=== PATIENT | female | born 1945 | race American Indian/Alaskan Native ===

== ENCOUNTER 2016-07-27 13:41 | Inpatient (IN) | payer MEDICARE, MEDICAID ==
--- NOTE | 2016-07-27 15:08 | ED PDOC ---
Arrival/HPI - General Historian: Patient - History of Present Illness Time/Duration: 24 hours Symptom Onset: Gradual Symptom Course: Unchanged <Pasha Wakefield - Last Filed: 07/27/16 16:58> <Luigi Rajan - Last Filed: 07/27/16 17:41> - General Chief Complaint: High Blood Pressure Time Seen by Provider: 07/27/16 14:04 - History of Present Illness Narrative History of Present Illness (Text): 07/27/16 14:58 71 F with PMHx of HTN, hypothyroidism, borderline DM, and CKD presents to [facility] ED from PMD with complaints of high BP and le swelling. Pt states she went to her PMD for a checkup, however was found to have a BP of 180/105 and worsening swelling of b/l LE however with a pronounced swelling of the left LE. Pt is compliant with her medications, and took an extra dose of Coreg at 1pm after her PMD visit prior to arriving at [facility]. Pt has extensive surgeries to the rt LE and has been swollen at baseline after the procedures. Both LE are swollen and tender to the touch. Pt noted that she becomes sob upon exertion, which the pt states she has been experiencing for a long time, and is not a new symptom. Pt ambulates by walker and can walk approx 1 block before becoming sob. Pt currently denied fever, chills, sob, chest pains, palpitations, abdominal pains , n/v/d/c or urinary symptoms. PMD: Dr. Harris (Pasha Wakefield) Past Medical History - Infectious Disease Hx of Infectious Diseases: None - Tetanus Immunization Tetanus Immunization: Unknown - Reproductive Menopause: Yes - Cardiac Hx Hypertension: Yes - Pulmonary Hx Respiratory Disorders: No - Neurological Hx Neurological Disorder: No - Renal Other/Comment: kidney damage ? - Endocrine/Metabolic Hx Diabetes Mellitus Type 2: Yes (boarderline) Hx Hypothyroidism: (thyroidsurgery) - Hematological/Oncological Hx Anemia: Yes - Integumentary Hx Dermatological Disorder: No - Musculoskeletal/Rheumatological Hx Falls: No - Genitourinary/Gynecological Hx Genitourinary Disorders: No - Psychiatric Hx Psychophysiologic Disorder: No Hx Substance Use: No - Surgical History Hx Orthopedic Surgery: Yes (multiple knee surgeries) - Anesthesia Hx Anesthesia: Yes Hx Anesthesia Reactions: Yes - Suicidal Assessment Feels Threatened In Home Enviroment: No <Pasha Wakefield - Last Filed: 07/27/16 16:58> Family/Social History Family/Social History: Diabetes, Hypertension, CAD/OR Smoking Status: Never Smoked Hx Alcohol Use: No Hx Substance Use: No <Pasha Wakefield - Last Filed: 07/27/16 16:58> Allergies/Home Meds <Pasha Wakefield - Last Filed: 07/27/16 16:58> <Asa Rajano Ulysses - Last Filed: 07/27/16 17:41> Allergies/Adverse Reactions: Allergies acetaminophen [From Percocet] Allergy (Verified 07/27/16 13:51) RASH oxycodone HCl [From Percocet] Allergy (Verified 07/27/16 13:51) RASH Home Medications: Home Meds Medication Instructions Recorded Confirmed Carvedilol [Coreg] 25 mg PO BID 01/09/14 07/27/16 Esomeprazole Magnesium [Nexium] 40 mg PO DAILY 01/09/14 07/27/16 hydrALAZINE [Apresoline] 50 mg PO BID 04/18/15 07/27/16 Amlodipine Besylate/Benazepril 1 tab PO DAILY 07/27/16 07/27/16 [Lotrel 10-40 mg Capsule] Ascorbic Acid [Vitamin C 500 mg 1 tab PO DAILY 07/27/16 07/27/16 Tab] Aspirin [Aspirin Chewable] 81 mg PO DAILY 07/27/16 07/27/16 Clorazepate Dipotassium 1 tab PO BID 07/27/16 07/27/16 [Tranxene-T] Ergocalciferol (Vitamin D2) 50,000 units PO .WEEKLY 07/27/16 07/27/16 [Vitamin D] Ferrous Sulfate [Ferrous Sulfate] 325 mg PO DAILY 07/27/16 07/27/16 Levothyroxine [Synthroid] 125 mcg PO DAILY 07/27/16 07/27/16 cloNIDine 0.3 mg/24 hr 1 patch TD .WEEKLY 07/27/16 07/27/16 [catapres-TTS3 0.3 mg/24 hr] Review of Systems - Review of Systems Constitutional: absent: Fatigue, Fevers Eyes: absent: Vision Changes, Photophobia ENT: absent: Tinnitus, Sinus Congestion Respiratory: absent: SOB, Cough, Sputum, Wheezing Cardiovascular: Edema. absent: Chest Pain, Palpitations Gastrointestinal: absent: Abdominal Pain, Stool Changes, Nausea, Vomiting Genitourinary Female: absent: Dysuria, Frequency Musculoskeletal: Arthralgias, Joint Swelling (rt knee) Skin: absent: Rash, Skin Lesions Neurological: absent: Headache, Dizziness, Focal Weakness <Pasha Wakefield - Last Filed: 07/27/16 16:58> Physical Exam Temperature: Afebrile Blood Pressure: Hypertensive Pulse: Regular Respiratory Rate: Normal Appearance: Positive for: Well-Appearing, Non-Toxic, Comfortable Pain Distress: None Mental Status: Positive for: Alert and Oriented X 3 - Systems Exam Head: Present: Atraumatic Pupils: Present: PERRL Extroacular Muscles: Present: EOMI Conjunctiva: Present: Normal Mouth: Present: Moist Mucous Membranes Neck: Present: Normal Range of Motion. No: JVD Respiratory/Chest: Present: Clear to Auscultation, Good Air Exchange. No: Respiratory Distress, Accessory Muscle Use Cardiovascular: Present: Regular Rate and Rhythm, Normal S1, S2. No: Murmurs Abdomen: Present: Normal Bowel Sounds. No: Tenderness, Distention, Peritoneal Signs Lower Extremity: Present: Edema (b/l), Tenderness (b/l), Swelling (b/l) Neurological: Present: GCS=15, CN II-XII Intact, Speech Normal Skin: Present: Warm, Dry, Normal Color. No: Rashes Psychiatric: Present: Alert, Oriented x 3, Normal Insight, Normal Concentration <Pasha Wakefield - Last Filed: 07/27/16 16:58> Vital Signs Temp Pulse Resp BP Pulse Ox 07/27/16 17:03 86 148/68 07/27/16 17:00 79 18 146/76 100 07/27/16 15:25 97.7 F 82 18 182/83 H 98 07/27/16 13:46 97.7 F 82 16 182/83 H 98 Medical Decision Making <Pasha Wakefield - Last Filed: 07/27/16 16:58> - Lab Interpretations I have reviewed the lab results: Yes <Luigi Rajan - Last Filed: 07/27/16 17:41> ED Course and Treatment: 07/27/16 15:26 71 F with PMHx of HTN, borderline DM, and CKD presents with b/l LE swelling and tenderness and high BP. R/o dvt vs chf vs arf. - CBC - CMP - UA/ UCx - Venous Dopplers b/l - EKG - Reassess and Dispo 07/27/16 16:57 Pt was reassessed. Pt is clinically feeling ok with no focal deficits. However labwork reveals a cr of 4.6 from a baseline of 2 and a K of 5.3. Pt's BP remains elevated. The hospitalist was called and agreed to admitting pt to tele obs for acute on chronic renal failure, hyperkalemia and hypertensive emergency. Hospitalist agrees with plan. (Pasha Wakefield) Patient seen and examined with resident. Came up with treatment and disposition plan with resident. The patient is a 71 year old female who comes into the emergency department for evaluation of high blood pressure and lower extremity swelling. Additional HPI details as noted by the resident. On examination the patient has bilateral lower extremity edema with tenderness. Will obtain EKG, labs work and Urinalysis to rule out ACS vs. Renal disease. Will obtain lower extremity duplex ultrasound to rule out DVT. EKG shows a NSR at a rate of [address]/T changes. Ultrasound is negative for DVT. Patient lab work showed a potassium count of 5.3 and blood pressure remained elevated. Case discussed with Dr. Gupta, who is aware and agreed with plan to place patient in Telemetry observation for hypetensive emergency and acute on chronic renal failure with hyperkalemia. Results and plan was discussed with the patient, who expressed understanding. Patient given the opportunity to ask question, all questions were answered and there is agreement with the plan to be admitted to the hospital. (Luigi Rajan) - Lab Interpretations Lab Results: 07/27/16 15:30 07/27/16 15:30 Lab Results 07/27/16 15:30: WBC 7.5, RBC 3.27 L, Hgb 9.1 L, Hct 27.2 L, MCV 83.2, MCH 27.8, MCHC 33.5, RDW 13.9, Plt Count 264, MPV 9.8, Gran % 61.1, Lymph % (Auto) 31.8, [place] % (Auto) 5.1, Eos % (Auto) 1.7, Baso % (Auto) 0.3, Gran # 4.58, Lymph # 2.4 , [place] # 0.4, Eos # 0.1, Baso # 0.02, Sodium 140, Potassium 5.3 H, Chloride 112 H, Carbon Dioxide 18 L, Anion Gap 15, BUN 38 H, Creatinine 4.6 H, Est GFR ( Amer) 11, Est GFR (Non-Af Amer) 9, Random Glucose 142 H, Calcium 8.4, Total Bilirubin 0.4, AST 16, ALT 24, Alkaline Phosphatase 143 H, NT-Pro-B Natriuret Pep 528 H, Total Protein 6.5, Albumin 3.1, Globulin 3.4, Albumin/ Globulin Ratio 0.9 L - RAD Interpretation Radiology Orders: 07/27/16 15:15 DUPLEX LOWER EXTRM VEIN BILAT [US] Stat - Medication Orders Current Medication Orders: Discontinued Medications Clonidine HCl (Catapres) 0.1 mg PO ONCE ONE Stop: 07/27/16 16:56 Last Admin: 07/27/16 17:03 Dose: 0.1 MG MAR Pulse and Blood Pressure Document 07/27/16 17:03 RR (Rec: 07/27/16 17:08 RR [id number]) Pulse Pulse Rate (60-90) 86 Blood Pressure Blood Pressure (100/60-150/90) 148/68 Sodium Polystyrene Sulfonate (Kayexalate Oral Susp) 15 gm PO STAT STA Stop: 07/27/16 16:18 Last Admin: 07/27/16 16:30 Dose: 15 GM <Pasha Wakefield - Last Filed: 07/27/16 16:58> - PA / MACHINE RUG CLEANER / Resident Statement ROMULO has reviewed & agrees with the documentation as recorded. / has examined the patient and agrees with the treatment plan. - Scribe Statement The provider has reviewed the documentation as recorded by the Scribe <Luigi Rajan - Last Filed: 07/27/16 17:41> - Scribe Statement Marion Dang Provider Scribe Attestation: All medical record entries made by the Scribe were at my direction and personally dictated by me. I have reviewed the chart and agree that the record accurately reflects my personal performance of the history, physical exam, medical decision making, and the department course for this patient. I have also personally directed, reviewed, and agree with the discharge instructions and disposition. (Luigi Rajan) Disposition/Present on Arrival - Present on Arrival Any Indicators Present on Arrival: No History of DVT/PE: No History of Uncontrolled Diabetes: No Urinary Catheter: No History of Decub. Ulcer: No History Surgical Site Infection Following: None - Disposition Have Diagnosis and Disposition been Completed?: Yes Disposition Time: 17:00 Patient Plan: Observation, Telemetry <Pasha Wakefield - Last Filed: 07/27/16 16:58> <Luigi Rajan - Last Filed: 07/27/16 17:41> - Disposition Diagnosis: Acute on chronic renal failure, Hyperkalemia, Hypertensive emergency Patient Problems: Current Active Problems Problem Status Diagnosed Acute on chronic renal failure Acute Headache Acute Hyperkalemia Acute Hypertensive emergency Acute Nausea Acute Near syncope Acute Condition: GUARDED Referrals: Javier Harris MD [Primary Care Provider] - Follow up with primary
[2016-07-27 15:42] LABS: ADD MANUAL DIFF? NO
[2016-07-27 15:49] LABS: BASO # 0.02 K/mm3 (0.0-2.0); BASO % 0.3 % (0.0-3.0); EOS # 0.1 (0.0-0.7); EOS % 1.7 % (1.5-5.0); GRAN # 4.58 (1.4-6.5); GRAN % 61.1 % (50.0-68.0); HEMATOCRIT 27.2 % (36.0-48.0); LYMPH # 2.4 (1.2-3.4); LYMPH % 31.8 % (22.0-35.0); MEAN CELL VOLUME 83.2 fL (80.0-105.0); MEAN CORPUSCULAR HEMOGLOBIN 27.8 pg (25.0-35.0); MEAN CORPUSCULAR HGB CONC 33.5 g/dl (31.0-37.0); MEAN PLATELET VOLUME 9.8 fl (7.0-11.0); MONO # 0.4 (0.1-0.6); MONO % 5.1 % (1.0-6.0); PLATELET COUNT 264 10^3/uL (120.0-450.0); RED CELL DISTRIBUTION WIDTH 13.9 % (11.5-14.5); WHITE BLOOD COUNT 7.5 10^3/ul (4.5-11.0)
[2016-07-27 16:03] LABS: ALB/GLOB RATIO 0.9 (1.1-1.8); BILIRUBIN,TOTAL 0.4 mg/dL (0.2-1.3); CALCIUM 8.4 mg/dL (8.4-10.5); POTASSIUM 5.3 mmol/L (3.6-5.0); TOTAL PROTEIN 6.5 g/dL (5.8-8.3)
[2016-07-27] MEDS ORDERED: Sod Polystyrene Sulf 15 gm/60 ml Oral Susp PO STA (16:17)
--- NOTE | 2016-07-27 17:30 | US ---
HISTORY: Leg pain and swelling. Evaluate for DVT PHYSICIAN(S): Danilo Russo MD. TECHNIQUE: Duplex sonography and color-flow Doppler with graded compression were used to evaluate the deep venous systems of both lower extremities. The exam is limited by body habitus and edema. The tibial veins are not well seen. FINDINGS: The visualized deep venous systems of both lower extremities are sonographically normal and compressible. Normal wave forms and augmentation are seen. There is no sonographic evidence for deep venous thrombosis in the visualized segments of both lower extremities. IMPRESSION: No sonographic evidence for deep venous thrombosis in the visualized segments of both lower extremities.
--- NOTE | 2016-07-27 17:45 | CARD ---
APPROVED REPORT EKG Measurement Heart [id number] MD [id number] <Conclusion> Normal sinus rhythm Cannot rule out Anterior infarct, age undetermined Abnormal ECG
[2016-07-27] MEDS ORDERED: Levothyroxine 112 MCG TAB PO SCH (18:00)
[2016-07-27] MEDS ORDERED: Levothyroxine 125 MCG TAB PO ONE (18:15)
--- NOTE | 2016-07-27 19:45 | CP.PCM.HP ---
<Werner Euceda - Last Filed: 07/27/16 19:39> History of Present Illness - History of Present Illness History of Present Illness: CC: Leg swelling HPI: Patient is a 71 y/o F with past medical hx of HTN, NIDDM, hiatal hernia, hypothyroidism who presents after seeing her primary care for leg swelling that progressed for the last few weeks. She states her BP was found to be 180/105 and PCP recommended going to the ED. She says she has been taking her medications off and on because she feels she is taking too many BP medications. She states she regularly checks it and it runs in the 170's over 90 's and 100's at home. She reports developing some SOB and back pain when sleeping flat and therefor sleeps sitting upright in a chair. She reports extensive surgeries on her right knee and has some nerve pain in the posterior right calf. She says because of this, she cannot walk more than a block and develops SOB, chills, and sweats. She currently denies any fever, nausea, vomiting, back pain, chest pain, SOB, abdominal pain, diarrhea or dysuria. PMD: Dr. Harris Past med hx: HTN, NIDDM, hiatal hernia, hypothyroidism Surg hx: multiple surgeries on right knee, thyroidectomy. Family hx: parents had CAD and cancer Social hx: occasional alcohol use, denies tobacco or drug use Present on Admission - Present on Admission Any Indicators Present on Admission: No Review of Systems - Constitutional Constitutional: Chills, Excessive Sweating. absent: Fever - EENT Eyes: absent: Blurred Vision, Change in Vision Ears: absent: Decreased Hearing, Disequilibrium Nose/Mouth/Throat: absent: Hoarsness, Neck Pain, Neck Mass - Cardiovascular Cardiovascular: Dyspnea, Leg Edema. absent: Chest Pain - Respiratory Respiratory: Dyspnea, Dyspnea on Exertion. absent: Cough - Gastrointestinal Gastrointestinal: absent: Constipation, Diarrhea, Nausea, Vomiting - Genitourinary Genitourinary: absent: Dysuria - Musculoskeletal Musculoskeletal: Numbness (right calf), Stiffness (right leg) - Integumentary Integumentary: absent: Rash, Wounds - Neurological Neurological: Headaches. absent: Dizziness, Weakness - Psychiatric Psychiatric: absent: Anxiety, Depression - Endocrine Endocrine: absent: Change in Body Appearance - Hematologic/Lymphatic Hematologic: absent: Easy Bleeding Past Patient History - Infectious Disease Hx of Infectious Diseases: None - Tetanus Immunizations Tetanus Immunization: Unknown - Past Social History Smoking Status: Never Smoked - CARDIAC Hx Hypertension: Yes - PULMONARY Hx Respiratory Disorders: No - NEUROLOGICAL Hx Neurological Disorder: No - RENAL Other/Comment: kidney damage ? - ENDOCRINE/METABOLIC Hx Diabetes Mellitus Type 2: Yes (boarderline) Hx Hypothyroidism: (thyroidsurgery) - HEMATOLOGICAL/ONCOLOGICAL Hx Anemia: Yes - INTEGUMENTARY Hx Dermatological Problems: No - MUSCULOSKELETAL/RHEUMATOLOGICAL Hx Falls: No - GENITOURINARY/GYNECOLOGICAL Hx Genitourinary Disorders: No - PSYCHIATRIC Hx Psychophysiologic Disorder: No Hx Substance Use: No - SURGICAL HISTORY Hx Orthopedic Surgery: Yes (multiple knee surgeries) - ANESTHESIA Hx Anesthesia: Yes Hx Anesthesia Reactions: Yes Meds Allergies/Adverse Reactions: Allergies Allergy/AdvReac Type Severity Reaction Status Date / Time acetaminophen [From Percocet] Allergy RASH Verified 07/27/16 18:54 oxycodone HCl [From Percocet] Allergy RASH Verified 07/27/16 18:54 Physical Exam - Constitutional Appears: Non-toxic, No Acute Distress - Head Exam Head Exam: ATRAUMATIC, NORMOCEPHALIC - Eye Exam Eye Exam: Conjunctival injection, EOMI, Normal appearance, PERRL. absent: Scleral icterus Pupil Exam: NORMAL ACCOMODATION, PERRL - ENT Exam ENT Exam: Mucous Membranes Moist, Normal Oropharynx - Neck Exam Neck exam: Positive for: Normal Inspection. Negative for: Tenderness - Respiratory Exam Respiratory Exam: Clear to Auscultation Bilateral, NORMAL BREATHING PATTERN. absent: Rales, Rhonchi, Wheezes - Cardiovascular Exam Cardiovascular Exam: REGULAR RHYTHM, +S1, +S2. absent: Gallop, Rubs, Systolic Murmur - GI/Abdominal Exam GI & Abdominal Exam: Normal Bowel Sounds, Soft. absent: Distended, Guarding, Tenderness - Rectal Exam Rectal Exam: Deferred - Extremities Exam Extremities exam: Positive for: calf tenderness (right calf), pedal edema, tenderness, pedal pulses present - Back Exam Back exam: NORMAL INSPECTION. absent: CVA tenderness (L), CVA tenderness (R), tenderness - Neurological Exam Neurological exam: Alert, CN II-XII Intact, Oriented x3 - Psychiatric Exam Psychiatric exam: Normal Affect, Normal Mood - Skin Skin Exam: Dry, Intact, Warm Results - Vital Signs Recent Vital Signs: Last Vital Signs Temp 97.7 F 07/27/16 15:25 Pulse 68 07/27/16 19:22 Resp 18 07/27/16 17:00 BP 167/81 H 07/27/16 19:22 Pulse Ox 100 07/27/16 17:00 - Labs Result Diagrams: 07/27/16 15:30 07/27/16 15:30 Assessment & Plan - Assessment and Plan (Free Text) Assessment: Patient is a 71 y/o AA F with PMhx of HTN, NIDDM, hiatal hernia, hypothyroidism who presents with hypertensive urgency, hyperkalemia, and acute on chronic kidney disease. Plan: 1) HTN * Cardiology consulted, help appreciated * BP intially 182/83 * Initial EKG showed NSR @78 and old anterior infarct * Likely due to non-compliance as pharmacy states medications not all picked up recently * Resume home Coreg, Clonidine, Hydralazine, and Imdur * admit to telemetry floor. * F/U Lipid panel 2) Edema * BNP elevated at 528 * LE doppler showed no evidence of DVT * echocardiogram ordered 3) SARAH * Initial BUN 38, Creatinine 4.6 * Previous BUN 34, creatinine 2.3 * Nephrology consulted, help appreciated * F/U renal untrasounds * F/U urinalysis 4) NIDDM, * ISS and regular accuchecks * F/U A1C * Dietitian referal * renal diet 5) hypothyroidism * F/U TSH and T4 6) electrolyte abnormalitiy * Potassium elevated at 5.3 * Given kaylexalate and had 2 BM * F/U repeat CMP 7) PPx * Heparin SC * Protonix * SCD's contraindicated due to swelling Assessment and plan discussed with attending physician. <Montrell Gupta - Last Filed: 07/28/16 15:28> Results - Vital Signs Recent Vital Signs: Last Vital Signs Temp 98.2 F 07/28/16 12:00 Pulse 67 07/28/16 12:00 Resp 20 07/28/16 12:00 BP 144/75 07/28/16 12:33 Pulse Ox 98 07/28/16 06:00 - Labs Result Diagrams: 07/28/16 07:30 07/28/16 07:30 Labs: Laboratory Results - last 24 hr 07/27/16 07/27/16 07/28/16 18:24 21:58 06:40 WBC RBC Hgb Hct MCV MCH MCHC RDW Plt Count MPV Gran % Lymph % (Auto) [place] % (Auto) Eos % (Auto) Baso % (Auto) Gran # Lymph # [place] # Eos # Baso # PT INR APTT Sodium Potassium Chloride Carbon Dioxide Anion Gap BUN Creatinine Est GFR ( Amer) Est GFR (Non-Af Amer) POC Glucose (mg/dL) 147 H 129 H Random Glucose Hemoglobin A1c Calcium Phosphorus Iron TIBC % Saturation Total Bilirubin AST ALT Alkaline Phosphatase Troponin I Total Protein Albumin Globulin Albumin/Globulin Ratio Triglycerides Cholesterol LDL Cholesterol Direct HDL Cholesterol TSH 3rd Generation Urine Color Yellow Urine Appearance Sl cloudy Urine pH 6.0 Ur Specific [place] 1.025 Urine Protein >=300 H Urine Glucose (UA) 100 H Urine Ketones Negative Urine Blood Moderate H Urine Nitrate Negative Urine Bilirubin Negative Urine Urobilinogen 0.2 Ur Leukocyte Esterase Negative Urine RBC 2 - 5 Urine WBC 1 - 3 Ur Epithelial Cells 4 - 5 Urine Bacteria Trace 07/28/16 07/28/16 07/28/16 07:30 07:37 08:40 WBC 6.9 RBC 2.90 L Hgb 8.1 L Hct 24.1 L MCV 83.1 MCH 27.9 MCHC 33.6 RDW 14.2 Plt Count 227 MPV 9.9 Gran % 55.9 Lymph % (Auto) 37.2 H [place] % (Auto) 4.4 Eos % (Auto) 2.2 Baso % (Auto) 0.3 Gran # 3.83 Lymph # 2.6 [place] # 0.3 Eos # 0.2 Baso # 0.02 PT 11.3 INR 1.05 APTT 31.0 H Sodium 140 Potassium 4.9 Chloride 113 H Carbon Dioxide 20 L Anion Gap 12 BUN 36 H Creatinine 4.8 H Est GFR ( Amer) 11 Est GFR (Non-Af Amer) 9 POC Glucose (mg/dL) 97 Random Glucose 88 Hemoglobin A1c 6.6 H Calcium 8.2 L Phosphorus Iron TIBC % Saturation Total Bilirubin 0.4 AST 17 ALT 27 Alkaline Phosphatase 133 Troponin I Total Protein 6.4 Albumin 3.0 Globulin 3.4 Albumin/Globulin Ratio 0.9 L Triglycerides 145 Cholesterol 243 H LDL Cholesterol Direct 116 HDL Cholesterol 47 TSH 3rd Generation 49.60 H Urine Color Urine Appearance Urine pH Ur Specific [place] Urine Protein Urine Glucose (UA) Urine Ketones Urine Blood Urine Nitrate Urine Bilirubin Urine Urobilinogen Ur Leukocyte Esterase Urine RBC Urine WBC Ur Epithelial Cells Urine Bacteria 07/28/16 07/28/16 09:30 09:40 WBC RBC Hgb Hct MCV MCH MCHC RDW Plt Count MPV Gran % Lymph % (Auto) [place] % (Auto) Eos % (Auto) Baso % (Auto) Gran # Lymph # [place] # Eos # Baso # PT INR APTT Sodium Potassium Chloride Carbon Dioxide Anion Gap BUN Creatinine Est GFR ( Amer) Est GFR (Non-Af Amer) POC Glucose (mg/dL) Random Glucose Hemoglobin A1c Calcium Phosphorus 4.7 H Iron 54 TIBC 293 % Saturation 18 L Total Bilirubin AST ALT Alkaline Phosphatase Troponin I < 0.01 Total Protein Albumin Globulin Albumin/Globulin Ratio Triglycerides Cholesterol LDL Cholesterol Direct HDL Cholesterol TSH 3rd Generation Urine Color Urine Appearance Urine pH Ur Specific [place] Urine Protein Urine Glucose (UA) Urine Ketones Urine Blood Urine Nitrate Urine Bilirubin Urine Urobilinogen Ur Leukocyte Esterase Urine RBC Urine WBC Ur Epithelial Cells Urine Bacteria Assessment & Plan - Assessment and Plan (Free Text) Assessment: attending note; Patient seen and examined with resident in ER. Patient is a 71 y/o Female with past medical hx of HTN, NIDDM, hiatal hernia, hypothyroidism who presents after seeing her primary care for leg swelling that progressed for the last few weeks. She states her BP was found to be 180/105 and PCP recommended going to the ED. uncontrolled hypertension; patient stopped some of her blood pressure medication on her own. Believed that they are causing her kidney function to get worse. also started on a diet by herself to control BP meds. diabetes; patient also stopped taking medications. hypothyroidism; started on Synthroid. Patient was not taking medications regularly. acute on Chronic kidney disease; Creatinine was 2.3 in 2014 increased to 4.6 today. Did not follow up with through operator as recommended. edema; Doppler is negative for DVT. started on lasix. multiple R leg surgeries. PT evaluation requested. Cardiology and nephrology evaluation requested. Diet, medication compliance insisted. upon discharge the patient will follow-up with PMD . Attending/Attestation - Attestation I have personally seen and examined this patient.: Yes I have fully participated in the care of the patient.: Yes I have reviewed all pertinent clinical information: Yes
[2016-07-27 21:17] VITALS: BMI 33.7
[2016-07-27] MEDS ORDERED: Pneumococcal 23-Valent Vaccine IM ONE (21:18)
[2016-07-27] MEDS: Insulin Reg-LOW-Coverage SC SCH (22:35)
[2016-07-28] MEDS: Pantoprazole 40 mg EC Tab PO SCH ×2 (06:33→08:12)
[2016-07-28 07:17] LABS: URINE BILIRUBIN NEGATIVE (NEGATIVE); URINE BLOOD MODERATE (NEGATIVE); URINE GLUCOSE (UA) 100 mg/dL (NEGATIVE); URINE KETONE NEGATIVE (NEGATIVE); URINE LEUKOCYTE ESTERASE NEGATIVE Leu/uL (NEGATIVE); URINE PROTEIN >=300 mg/dL (<30 mg/dL); URINE UROBILINOGEN 0.2 E.U./dL (<1 E.U./dL)
[2016-07-28 07:21] LABS: URINE APPEARANCE SL CLOUDY (CLEAR); URINE COLOR YELLOW (YELLOW)
[2016-07-28] MEDS ORDERED: Levothyroxine 125 MCG TAB PO SCH (07:30)
[2016-07-28 07:32] LABS: URINE BACTERIA TRACE (NEG)
[2016-07-28 07:41] LABS: ADD MANUAL DIFF? NO
[2016-07-28 07:47] LABS: BASO # 0.02 K/mm3 (0.0-2.0); BASO % 0.3 % (0.0-3.0); EOS # 0.2 (0.0-0.7); EOS % 2.2 % (1.5-5.0); GRAN # 3.83 (1.4-6.5); GRAN % 55.9 % (50.0-68.0); HEMATOCRIT 24.1 % (36.0-48.0); LYMPH # 2.6 (1.2-3.4); LYMPH % 37.2 % (22.0-35.0); MEAN CELL VOLUME 83.1 fL (80.0-105.0); MEAN CORPUSCULAR HEMOGLOBIN 27.9 pg (25.0-35.0); MEAN CORPUSCULAR HGB CONC 33.6 g/dl (31.0-37.0); MEAN PLATELET VOLUME 9.9 fl (7.0-11.0); MONO # 0.3 (0.1-0.6); MONO % 4.4 % (1.0-6.0); PLATELET COUNT 227 10^3/uL (120.0-450.0); RED CELL DISTRIBUTION WIDTH 14.2 % (11.5-14.5); WHITE BLOOD COUNT 6.9 10^3/ul (4.5-11.0)
[2016-07-28 07:56] LABS: ALB/GLOB RATIO 0.9 (1.1-1.8); BILIRUBIN,TOTAL 0.4 mg/dL (0.2-1.3); CALCIUM 8.2 mg/dL (8.4-10.5); POTASSIUM 4.9 mmol/L (3.6-5.0); TOTAL PROTEIN 6.4 g/dL (5.8-8.3)
[2016-07-28] MEDS: Insulin Reg-LOW-Coverage SC SCH ×4 (07:57→22:06)
[2016-07-28 07:59] LABS: INR 1.05 (0.93-1.08)
--- NOTE | 2016-07-28 08:52 | US ---
PROCEDURE: Ultrasound of the Kidneys HISTORY: ckd COMPARISON: Renal duplex ultrasound performed 04/19/15 TECHNIQUE: Sonogram of the kidneys. FINDINGS: RIGHT KIDNEY: Measures: 11.5 x 4.8 x 6.0 cm. Echogenic renal parenchyma. No obstructing calculus or hydronephrosis identified. LEFT KIDNEY: Measures: 11.9 x 3.8 x 5.2 cm. No obstructing calculus or hydronephrosis identified. OTHER FINDINGS: None. IMPRESSION: Echogenic right renal parenchyma may be seen in the setting of medical renal disease.
--- NOTE | 2016-07-28 11:52 | US ---
PROCEDURE: Bilateral renal artery duplex ultrasound. CLINICAL HISTORY: Renal artery stenosis. Uncontrolled hypertension. Evaluate for renovascular hypertension. PHYSICIAN(S): Danilo Russo M.D. TECHNIQUE: Duplex sonography with color-flow Doppler was used to evaluate the visualized segments of the main renal arteries. The patient was evaluated in a fasting state. Imaging in a supine and decubitus position was performed. Limited evaluation of the arcuate waveforms and resistive indices were performed. FINDINGS: The study is limited by bowel gas. The right kidney is atrophic and echogenic. The left kidney is hypertrophied with normal echotexture. The right kidney measures 8.1cm in length and the left kidney measures 11.6cm in length. No solid renal masses, abnormal calcifications, or hydronephrosis is seen. The main right renal artery is only visualized in segments from the aorta to the hilum. The peak systolic velocity in the right main renal artery is 74 cm/sec. This is consistent with a 0 to 49% stenosis in the main right renal artery. The resistive index is elevated. The main left renal artery is also only visualized in segments from its origin to the renal hilum. The peak systolic velocity in the main left renal artery is 89 cm/sec. This corresponds to a 0 to 49% stenosis in the main left renal artery. The resistive index is elevated. IMPRESSION: 1. The main renal arteries only visualized in segments. 2. No sonographically significant stenosis is identified, but the study is limited. 3. The right kidney is atrophic and echogenic. There are no solid renal masses, abnormal calcifications or hydronephrosis noted.
[2016-07-28] MEDS ORDERED: Darbepoetin Alfa 60 mcg/ml Inj SC ONE (13:11)
[2016-07-28 13:52] LABS: PHOSPHOROUS 4.7 mg/dL (2.5-4.5)
[2016-07-28 13:59] LABS: IRON 54 ug/dL (45-180)
--- NOTE | 2016-07-28 14:06 | CARD ---
APPROVED REPORT EXAM: Two-dimensional and M-mode echocardiogram with Doppler and color Doppler. INDICATION LVFX 2D DIMENSIONS Left Atrium (2D)4.7 (1.6-4.0cm)IVSd1.4 (0.7-1.1cm) LVDd4.9 (3.9-5.9cm)PWd1.4 (0.7-1.1cm) LVDs3.1 (2.5-4.0cm)FS (%) 36.1 % LVEF (%)65.5 (>50%) M-Mode DIMENSIONS Aortic Root3.60 (2.2-3.7cm)Aortic Cusp Exc.1.90 (1.5-2.0cm) Aortic Valve AoV Peak Brssxcnu932.0cm/Summer Peak GR.14mmHg Mitral Valve MV E Apbvsdqa39.7cm/sMV A Shfqkfqg681.0cm/sE/A ratio0.9 TDI Lateral E' Peak V7.02cm/sMedial E' Peak V4.58cm/sE/Lateral E'14.1 E/Medial E'21.6 Pulmonary Valve PV Peak Gqxhftlo601.0cm/sPV Peak Grad.4mmHg Tricuspid Valve TR Peak Doztudua275hk/sRAP [id number] Peak Gr.20mmHg IQEO80utOp LEFT VENTRICLE The left ventricle is normal size. There is mild to moderate concentric left ventricular hypertrophy. The left ventricular function is normal. The left ventricular ejection fraction is within the normal range. Transmitral Doppler flow pattern is Grade I-abnormal relaxation pattern. RIGHT VENTRICLE The right ventricle is normal size. There is normal right ventricular wall thickness. The right ventricular systolic function is normal. ATRIA The left atrium is borderline dilated. The right atrium size is normal. AORTIC VALVE The aortic valve is normal in structure. No aortic regurgitation is present. MITRAL VALVE There is no mitral valve regurgitation noted. TRICUSPID VALVE There is trace tricuspid regurgitation. GREAT VESSELS The aortic root is normal in size. PERICARDIAL EFFUSION There is a small circumferential pericardial effusion. There is an evidence of diastolic compression of the right atrium pericardial effusion. <Conclusion> The left ventricle is normal size. There is mild to moderate concentric left ventricular hypertrophy. The left ventricular function is normal. The left ventricular ejection fraction is within the normal range. Transmitral Doppler flow pattern is Grade I-abnormal relaxation pattern. There is a small circumferential pericardial effusion. There is an evidence of diastolic compression of the right atrium pericardial effusion.
--- NOTE | 2016-07-28 14:20 | CON ---
DATE: 07/28/2016 REASON FOR CONSULTATION: Accelerated hypertension, acute kidney injury. HISTORY OF PRESENTING ILLNESS: A 71-year-old lady, previously unknown to me, was brought to the [facility] Room yesterday because of severe hypertension found in the PMD's office. The patient presented to the PMD's office because of feeling of nausea, vomiting, agitation, anxiety. Was found to have a blood pressure of 180/105. She also complained of worsening lower extremity edema. She was referre d to the Emergency Room. In the Emergency Room, she was found to have blood pressure of 182/83, hear t rate of 82, respiratory rate of 16. She also complained of swelling of her right lower extremity. In the Emergency Room, she was found to have a potassium of 5.3, BUN of 38 and creatinine of 4.6. The patient reports that she has had high blood pressure for many years, she has known about kidney d ysfunction. She reports that her right kidney was told that it was weak. She also admits to noncomp liance with her medications because of side effects. She reports that she stopped taking her hydrala zine because it was not making her feel good. PAST MEDICAL AND SURGICAL HISTORY: Longstanding hypertension, borderline diabetes, patient reports t hat she was on 3 medications for diabetes, but she stopped taking them because they were making her f eel bad. Chronic kidney disease, atrophic right kidney. FAMILY HISTORY: Noncontributory. SOCIAL HISTORY: No smoking, no alcohol use, no IV drug abuse. ALLERGIES: TYLENOL AND PERCOCET. MEDICATIONS AT HOME: Include Coreg 25 b.i.d., Nexium 40, Lotrel 10/40, aspirin, vitamin D 50,000 uni ts once a week, iron 325 daily, Catapres patch #3, Synthroid 125, which patient reports that she is n ot taking. REVIEW OF SYSTEMS: The patient reports frequent episodes of tremulousness, anxiety, nausea, headache , abdominal pain. She denies any shortness of breath. She reports pain in her right lower extremity. She reports she has had multiple surgeries on her right knee. PHYSICAL EXAMINATION: GENERAL: Obese, elderly lady, sitting in bed. VITAL SIGNS: Blood pressure 144/75, heart rate 74, respiratory rate 20, temperature 97. HEENT: Normocephalic, atraumatic, positive pallor. NECK: Supple, no JVD. LUNGS: Bilateral equal air entry, no rales. CARDIAC: S1, S2, regular rate and rhythm, no murmur, no rub. ABDOMEN: Obese, distended, soft, nontender, bowel sounds present. EXTREMITIES: Swelling of the right lower extremity, tenderness of the right knee, no clubbing or cya nosis. INTAKE AND OUTPUT: Not charted. LABORATORY DATA: WBC 6.9, hemoglobin 8, hematocrit 24, platelets 227. Sodium 140, potassium 4.9, ch loride 113, CO2 20, BUN 36, creatinine 4.8, glucose 88, calcium 8.2, AST 17, ALT 27, albumin 3.0. TS H 49. A1c 6.6. Urine: Yellow, slightly cloudy, pH 6.0, specific gravity 1.025, protein greater gerardo n 300, glucose 100, blood moderate, nitrite negative, ketones negative, leukocyte esterase negative. Renal ultrasound: Right kidney 11.5 cm, echogenic, left kidney 11.9 cm. Renal artery Doppler: Righ t kidney is atrophic and echogenic, left kidney is hypertrophied with normal echotexture, right kidne y is 8.1 cm, left kidney is 11.6 cm, right main renal artery is visualized in segments. ASSESSMENT: 1. Acute kidney injury, superimposed on chronic kidney disease stage IV. 2. Severe accelerated hypertension. 3. Hyperkalemia, secondary to acute kidney injury. 4. Noncompliance with medications. 5. Diabetes, diet controlled. 6. Hyperlipidemia. 7. Hypothyroidism. 8. Atrophic right kidney. PLAN: 1. Agree with discontinuation of KERRY inhibitor. 2. Continue Catapres patch #3. 3. Limit use of Kayexalate. 4. A 24-hour urine for protein and creatinine clearance. 5. Continue Coreg 25 b.i.d. 6. Hydralazine 50 b.i.d., patient was advised to comply with medications. 7. Stool occults x 3. 8. Iron studies. 9. Check phosphorus and PTH. 10. Aranesp 60 mcg. 11. No indication for renal replacement therapy right at this minute. Will require renal replacemen t therapy in the future. Era Hameed MD cc: [id number] TT: 07/28/2016 14:19:32 Confirmation # [id number] Dictation # [id number] en
--- NOTE | 2016-07-28 16:10 | CP.PCM.PN ---
<Werner Euceda - Last Filed: 07/28/16 16:06> Subjective - Date & Time of Evaluation Date of Evaluation: 07/28/16 Time of Evaluation: 07:45 - Subjective Subjective: Dr. Euceda PGY 1 Hospitalist Note Patient seen and evaluated at bedside. She said she was "cleaning up" before she went for an echo. When inquiring of her medication use at home, she said she only took the medications she felt like taking and would not take the imdur or catapress every day. She also said she did not like the thyroid medications becuase it made her feel "funny in the chest" and took some other thyroid medication but was unclear about what this medication was. She notes her leg has decreased in swelling and is awaiting to see the case mgr. She denies any chest pain, SOB, nausea, vomiting, or dysuria. She does have some loose stool from taking the kayexelate yesterday. Objective - Vital Signs/Intake and Output Vital Signs (last 24 hours): Temp Pulse Resp BP Pulse Ox 98.2 F 67 20 144/75 98 07/28/16 12:00 07/28/16 12:00 07/28/16 12:00 07/28/16 12:33 07/28/16 06:00 Intake and Output: 07/28/16 07/28/16 06:59 18:59 Intake Total 900 Output Total 200 900 Balance -200 0 - Medications Medications: Current Medications Ascorbic Acid (Vitamin C 500 Mg Tab) 500 mg PO DAILY [facility] Last Admin: 07/28/16 10:16 Dose: 500 mg Aspirin (Aspirin Chewable) 81 mg PO DAILY [facility] Last Admin: 07/28/16 10:15 Dose: 81 mg Carvedilol (Coreg) 25 mg PO BID [facility] Last Admin: 07/28/16 10:15 Dose: 25 mg Clonidine HCl (Catapres-Tts3 0.3 Mg/24 Hr) 1 patch TD Sa@1000 [facility] Ergocalciferol (Drisdol 50,000 Intl Units Cap) 1 cap PO We@1000 [facility] Ferrous Sulfate (Feosol) 324 mg PO DAILY [facility] Last Admin: 07/28/16 10:15 Dose: 324 mg Furosemide (Lasix) 40 mg IVP DAILY [facility] Heparin Sodium (Porcine) (Heparin) 5,000 units SC Q12 [facility] PRN Reason: Protocol Last Admin: 07/28/16 10:15 Dose: 5,000 units Hydralazine HCl (Apresoline) 50 mg PO BID [facility] Last Admin: 07/28/16 10:14 Dose: Not Given Insulin Human Regular (Humulin R Low) 0 units SC ACHS [facility] Last Admin: 07/28/16 12:23 Dose: Not Given Isosorbide Mononitrate (Imdur) 60 mg PO DAILY [facility] Last Admin: 07/28/16 10:16 Dose: 60 mg Levothyroxine Sodium (Synthroid) 125 mcg PO ACB [facility] Last Admin: 07/28/16 08:08 Dose: 125 mcg Pantoprazole Sodium (Protonix Ec Tab) 40 mg PO 0630 [facility] Last Admin: 07/28/16 08:12 Dose: 40 mg - Labs Labs: 07/28/16 07:30 07/28/16 07:30 PT 11.3 Seconds (9.9-11.8) 07/28/16 07:30 INR 1.05 (0.93-1.08) 07/28/16 07:30 APTT 31.0 Seconds (23.7-30.8) H 07/28/16 07:30 - Constitutional Appears: Non-toxic, No Acute Distress - Head Exam Head Exam: ATRAUMATIC, NORMOCEPHALIC - Eye Exam Eye Exam: EOMI, Normal appearance, PERRL Pupil Exam: NORMAL ACCOMODATION, PERRL - ENT Exam ENT Exam: Mucous Membranes Moist, Normal Oropharynx - Neck Exam Neck Exam: Normal Inspection. absent: Tenderness - Respiratory Exam Respiratory Exam: Clear to Ausculation Bilateral, NORMAL BREATHING PATTERN. absent: Rales, Rhonchi, Wheezes - Cardiovascular Exam Cardiovascular Exam: REGULAR RHYTHM, +S1, +S2. absent: Gallop, Rubs, Murmur - GI/Abdominal Exam GI & Abdominal Exam: Soft, Normal Bowel Sounds. absent: Tenderness - Extremities Exam Extremities Exam: Calf Tenderness, Pedal Edema, Tenderness (right calf) - Back Exam Back Exam: NORMAL INSPECTION. absent: rash noted, tenderness - Neurological Exam Neurological Exam: Alert, Awake, CN II-XII Intact, Oriented x3 - Psychiatric Exam Psychiatric exam: Normal Affect, Normal Mood - Skin Skin Exam: Dry, Intact, Warm Assessment and Plan - Assessment and Plan (Free Text) Assessment: Patient is a 71 y/o AA F with PMhx of HTN, NIDDM, hiatal hernia, hypothyroidism who presents with hypertensive urgency, hyperkalemia, and chronic kidney disease. Patient needs further evaluation of BP control and kidney function. Plan: 1) HTN * Cardiology consulted, help appreciated * BP intially 182/83, currently wnl * Initial EKG showed NSR @78 and old anterior infarct * Likely due to non-compliance as pharmacy states medications not all picked up recently * continue Coreg, Clonidine, Hydralazine, and Imdur * admitted to telemetry floor. * Lipid panel showed tri, Chol 243, LDL 116, HDL 47. * start atorvastatin 2) Edema * BNP elevated at 528 * LE doppler showed no evidence of DVT * echocardiogram ordered f/u official results 3) SARAH * Initial BUN 38, Creatinine 4.6 * Previous BUN 34, creatinine 2.3 * Today BUN 36, creatinine 4.8 * Nephrology consulted, help appreciated * Renal ultrasound shows main renal arteries only visualized in segments, no sonographically significant stenosis, right kidney atrophic and echogenic [see full report] * Urinalysis showed moderate blood and glucose 4) NIDDM, * ISS and regular accuchecks * A1C of 6.6 * Dietitian referral * renal diet 5) hypothyroidism * TSH elevated at 49.60 6) electrolyte abnormalitiy * Intial Potassium elevated at 5.3 * Given kaylexalate and had 2 BM * Repeat potassium 4.9 7) PPx * Heparin SC * Protonix * SCD's contraindicated due to swelling Assessment and plan discussed with attending physician. <Montrell Gputa - Last Filed: 07/29/16 13:07> Objective - Vital Signs/Intake and Output Vital Signs (last 24 hours): Temp Pulse Resp BP Pulse Ox 97.3 F L 69 20 136/78 98 07/29/16 12:00 07/29/16 12:00 07/29/16 12:00 07/29/16 12:00 07/29/16 05:29 Intake and Output: 07/29/16 07/29/16 06:59 18:59 Intake Total 120 Output Total 300 Balance -180 - Medications Medications: Current Medications Ascorbic Acid (Vitamin C 500 Mg Tab) 500 mg PO DAILY [facility] Last Admin: 07/29/16 10:35 Dose: 500 mg Aspirin (Aspirin Chewable) 81 mg PO DAILY [facility] Last Admin: 07/29/16 10:33 Dose: 81 mg Atorvastatin Calcium (Lipitor) 20 mg PO DIN [facility] Last Admin: 07/28/16 17:45 Dose: Not Given Carvedilol (Coreg) 25 mg PO BID [facility] Last Admin: 07/29/16 10:35 Dose: 25 mg Clonidine HCl (Catapres-Tts3 0.3 Mg/24 Hr) 1 patch TD Sa@1000 [facility] Last Admin: 07/29/16 10:33 Dose: 1 patch Ergocalciferol (Drisdol 50,000 Intl Units Cap) 1 cap PO We@1000 [facility] Ferrous Sulfate (Feosol) 324 mg PO BID [facility] Last Admin: 07/29/16 10:35 Dose: 324 mg Heparin Sodium (Porcine) (Heparin) 5,000 units SC Q12 [facility] PRN Reason: Protocol Last Admin: 07/29/16 10:35 Dose: 5,000 units Hydralazine HCl (Apresoline) 50 mg PO BID [facility] Last Admin: 07/29/16 10:33 Dose: Not Given Insulin Human Regular (Humulin R Low) 0 units SC ACHS [facility] Last Admin: 07/29/16 12:01 Dose: Not Given Isosorbide Mononitrate (Imdur) 60 mg PO DAILY [facility] Last Admin: 07/29/16 10:35 Dose: 60 mg Levothyroxine Sodium (Synthroid) 200 mcg PO ACB [facility] Last Admin: 07/29/16 08:35 Dose: 200 mcg Pantoprazole Sodium (Protonix Ec Tab) 40 mg PO 0800 [facility] Last Admin: 07/29/16 08:34 Dose: 40 mg - Labs Labs: 07/29/16 07:41 07/29/16 07:41 PT 11.3 Seconds (9.9-11.8) 07/28/16 07:30 INR 1.05 (0.93-1.08) 07/28/16 07:30 APTT 31.0 Seconds (23.7-30.8) H 07/28/16 07:30 Assessment and Plan - Assessment and Plan (Free Text) Assessment: attending note; Patient seen and examined with resident in ER. Patient is a 71 y/o Female with past medical hx of HTN, NIDDM, hiatal hernia, hypothyroidism who presents after seeing her primary care for leg swelling that progressed for the last few weeks. She states her BP was found to be 180/105 and PCP recommended going to the ED. uncontrolled hypertension; Better controlled now. diabetes; On diet control. HB a1c is 6.6. dietary education given. hypothyroidism; started on Synthroid. Patient was not taking medications regularly. acute on Chronic kidney disease; Creatinine was 2.3 in 2014 increased to 4.[address] Hameed today. anemia: hemoglobin is 8.1. Secondary to chronic kidney disease. Iron studies ordered. Started on darbepoetin/by mouth iron. patient had EGD and colonoscopy over 5 years ago. Currently no active bleeding. Stool for occult blood ordered. edema; Doppler is negative for DVT. continue lasix. multiple R leg surgeries. PT evaluation requested. Diet, medication compliance insisted. upon discharge the patient will follow-up with PMD . Attending/Attestation - Attestation I have personally seen and examined this patient.: Yes I have fully participated in the care of the patient.: Yes I have reviewed all pertinent clinical information, including history, physical exam and plan: Yes
[2016-07-29 05:29] VITALS: O2SAT 98
--- NOTE | 2016-07-29 07:21 | CON ---
DATE: 07/28/2016 REASON FOR CONSULTATION: Cardiac evaluation, uncontrolled hypertension and swelling of the leg. BRIEF CLINICAL HISTORY: This is a 71-year-old female with past medical history sign ificant for hypertension, diabetes, hiatal hernia, hypothyroidism and obesity who came [facility] feeling dizzy. The patient checked her blood pressure at 140, took the medication. Later on was 180/105, so called Dr. Harris, who advised her to come to the ER. The patient says that sometimes she feels short of breath, sometimes dizzy and swelling of the legs. Denies any chest pain and adriano es any palpitation. PAST MEDICAL HISTORY: Significant for hypertension, diabetes, hiatal hernia, obesity and hypothyroid ism. PAST SURGICAL HISTORY: Multiple surgeries in right knee and history of thyroid surgery. FAMILY HISTORY: Significant for coronary artery disease and cancer. SOCIAL HISTORY: Denies any history of alcohol abuse. Denies any active tobacco abuse. Denies any s ubstance abuse. CURRENT MEDICATIONS: The patient at home was taking clonidine patch 0.3 mg daily, levothyroxine, darshana chava sulfate, carvedilol 25 mg p.o. b.i.d., aspirin, ascorbic, amlodipine 10 mg daily and a combinati on of Lotrel 10 and 40. REVIEW OF SYSTEMS: As follows: The patient has noncompliance, is supposed to take 3 medications, but sometimes she stops one because that makes her feel sick, history of chronic kidney disease, baselin e creatinine runs around 1.9 to 2.3. Her last one was 04/11/2015 and was 2.8, now is pushing for 4.8. History of atrophic right kidney. The rest is as per HPI. PHYSICAL EXAMINATION FOLLOWS: VITAL SIGNS: Temperature febrile, heart rate 70 and blood pressure 144/75. HEENT: PERRLA. Extraocular muscles intact. NECK: Supple. No carotid bruits. No thyromegaly. CHEST: Clear to auscultation. HEART: S1, S2 regular. ABDOMEN: Soft. EXTREMITIES: Clubbing and cyanosis negative. BLOOD WORKUP FOLLOWS: WBC of 6.9, hemoglobin 8.0, hematocrit 24.1 and platelet count 227. Chemi stry shows sodium 140, potassium 4.9, chloride 101, carbon dioxide 20, anion gap of 12, BUN 36, creat inine 4.8. GFR stage V CKD disease. IMPRESSION: Acute kidney injury on chronic renal insufficiency, baseline creatinine 2.8 in 2014. Now the patient has stage V chronic kidney disease, hypertension and uncontrolled leg edema probably secondary to re nal insufficiency, admitting blood pressure according to patient was 189/104, diabetes, hypertension, hyperlipidemia, chronic kidney disease and atrophic right kidney. RECOMMENDATION: Avoid nephrotoxic medication. Continue clonidine patch. Will put on hydralazine, av oid nephrotoxic medication and avoid Benicar. Gentle diuretics with very caution because the patient has been told she has complete renal failure. Continue amlodipine and hydralazine. Will add Coreg 25 b.i.d. Will follow with you. Echo to assess LV function. Further recommendation and evaluation on findings of initial workup. We will get the lipid profile, TSH and hemoglobin A1c. Thank you, Dr. Gupta, for providing us the opportunity in taking care of the patient. I will foll ow with you. The patient had a TSH of 49.60. The patient was taking 112, which looks like apparently either the p atient is not taking or insufficient. We will increase to 200 and see. We will increase levothyroxi ne to 200 mcg and follow up TSH in a couple of days. We will follow with you. Thank you, Dr. Tex vuong, for providing us the opportunity in taking care of the patient. Tory Carter MD cc: [id number] TT: 07/28/2016 23:05:46 Confirmation # [id number] Dictation # [id number] 07/29/2016 06:20:32
[2016-07-29] MEDS ORDERED: Levothyroxine 200 MCG TAB PO SCH (07:30)
[2016-07-29 07:42] LABS: ADD MANUAL DIFF? NO
[2016-07-29 07:51] LABS: BASO # 0.01 K/mm3 (0.0-2.0); BASO % 0.2 % (0.0-3.0); EOS # 0.1 (0.0-0.7); EOS % 1.9 % (1.5-5.0); GRAN # 3.51 (1.4-6.5); GRAN % 56.4 % (50.0-68.0); HEMATOCRIT 24.2 % (36.0-48.0); LYMPH # 2.3 (1.2-3.4); MEAN CELL VOLUME 83.4 fL (80.0-105.0); MEAN CORPUSCULAR HEMOGLOBIN 27.9 pg (25.0-35.0); MEAN CORPUSCULAR HGB CONC 33.5 g/dl (31.0-37.0); MEAN PLATELET VOLUME 9.9 fl (7.0-11.0); MONO # 0.3 (0.1-0.6); MONO % 4.5 % (1.0-6.0); PLATELET COUNT 224 10^3/uL (120.0-450.0); RED CELL DISTRIBUTION WIDTH 14.1 % (11.5-14.5); WHITE BLOOD COUNT 6.2 10^3/ul (4.5-11.0)
[2016-07-29 07:58] LABS: ALB/GLOB RATIO 0.9 (1.1-1.8); BILIRUBIN,TOTAL 0.6 mg/dL (0.2-1.3); TOTAL PROTEIN 6.8 g/dL (5.8-8.3)
[2016-07-29] MEDS ORDERED: Pantoprazole 40 mg EC Tab PO SCH (08:00)
[2016-07-29] MEDS: Insulin Reg-LOW-Coverage SC SCH ×3 (08:13→17:21)
[2016-07-29] MEDS: Pantoprazole 40 mg EC Tab PO SCH (10:36)
[2016-07-29 12:20] VITALS: RESP 20
--- NOTE | 2016-07-29 16:42 | PN ---
DATE: 07/29/2016 SUBJECTIVE: The patient is seen sitting in bed. Daughter is at bedside. She is awake, she is alert, she is comfortable. She denies any chest pain. She denies any shortness of breath. She denies any nausea. She denies any bad taste. PMSFSHx reviewed and unchanged PHYSICAL EXAMINATION: GENERAL: Obese elderly lady sitting in bed. VITAL SIGNS: Blood pressure 136/78, heart rate 69, respiratory rate 20, temperature 97.3. HEENT: Normocephalic, atraumatic. NECK: Supple, no JVD. LUNGS: Bilateral equal air entry, no rales. CARDIAC: S1, S2, regular rate and rhythm, no murmur, no rub. ABDOMEN: Obese, distended, soft, nontender, bowel sounds present. EXTREMITIES: Has 2+ pitting edema of the right lower extremity, trace edema of the left lower extremity, swelling of the right knee. INTAKE AND OUTPUT: 1020/1200. LABORATORY DATA: WBC 6.3, hemoglobin 8.1, hematocrit 24, platelets 224, MCV 83. Sodium 137, potassium 5.0, chloride 110, CO2 of 19, BUN 40, creatinine 5.0 , glucose 98, calcium 8.0. Iron 54, saturation 18, ferritin 29. Albumin 3.2. Echocardiogram: Concentric left ventricular hypertrophy, normal ejection fraction, small pericardial effusion. CURRENT MEDICATIONS: Hydralazine 50 b.i.d., which the patient is not taking; aspirin, Catapres patch #3, Coreg 25 b.i.d., vitamin D 50,000 units once a week , Feosol 324 b.i.d., Imdur 60, Lipitor 20, Protonix, Synthroid, ascorbic acid. ASSESSMENT AND PLAN: 1. Acute kidney injury superimposed on chronic kidney disease stage IV. 2. Status post hypertensive emergency. 3. Severe anemia with low iron stores. 4. Longstanding hypertension, questionable compliance. 5. ? secondary hyperparathyroidism. 6. Metabolic acidosis. PLAN: 1. The patient has limited understanding of her condition. She has no uremic signs or symptoms at this time, but she may require renal replacement therapy in the near future. 2. In light of her severe anemia and low iron stores, advise Venofer 200 mg IV piggyback at least 1 dose prior to discharge or daily times 5 if the patient remains in the hospital. 3. The patient requires close outpatient followup. Impressed upon daughter and patient the importance of compliance with blood pressure medications, medical followup and nephrology followup. Era Hameed MD cc: [id number] TT: 07/29/2016 16:42:27 Confirmation # [id number] Dictation # [id number] nicolas SHI
--- NOTE | 2016-07-29 17:52 | PN ---
DATE: 07/29/2016 REASON FOR CONSULTATION: Followup cardiac evaluation, uncontrolled hypertension and swelling of the leg. BRIEF CLINICAL HISTORY: This is a 71-year-old -[place] female with past medical history sign ificant for hypertension, diabetes, hyperlipidemia, hypothyroidism and obesity who came to Emergency Room with complaint of dizziness and uncontrolled hypertension, being followed by Dr. Harris, blood pre ssure 180/105. The patient denies any chest pain, shortness of breath or any palpitation. PHYSICAL EXAMINATION: VITAL SIGNS: Temperature afebrile, heart rate 60 and blood pressure 136/78. HEENT: PERRLA. Extraocular muscles intact. NECK: Supple. No carotid bruits. No thyromegaly. CHEST: Clear to auscultation. HEART: S1, S2 regular. ABDOMEN: Soft. EXTREMITIES: Clubbing and cyanosis negative. LABORATORY DATA: WBC 6.8, hemoglobin 8.1, hematocrit 24.2 and platelet count 224. Chemistry shows s odium 137, potassium 5, chloride , 13, BUN 40 and creatinine 5.0. IMPRESSION: End-stage renal disease, not on dialysis; hypertension, diabetes, hyperlipidemia and obe sity. The patient had echocardiography done yesterday that shows ejection fraction normal. A small circumferential pericardial effusion, evidence of diastolic compression on the right due to pericardi al effusion and no evidence of tamponade . She has no sonographic evidence of renal artery katie nosis. RECOMMENDATION: Aggressive control of blood pressure. Continue amlodipine. Continue hydralazine. Continue Coreg. Continue hydralazine. Followup with you. Consider stress test as outpatient. Will follow with you. Thank you, for providing for the opportunity in taking care of this patient. I will follow with you. Tory Carter MD cc: [id number] TT: 07/29/2016 17:52:24 Confirmation # [id number] Dictation # [id number]
[2016-07-29 18:22] VITALS: BP 123/61; PULSE 65; TEMP 98.3
--- NOTE | 2016-07-29 21:09 | CP.PCM.DIS ---
<SiegelJoe gardner - Last Filed: 07/29/16 20:49> Provider - Provider Date of Admission: 07/28/16 12:48 Attending physician: Montrell Gupta MD Primary care physician: Javier Harris MD Time Spent in preparation of Discharge (in minutes): 35 Diagnosis - Discharge Diagnosis (1) Acute on chronic renal failure Status: Acute (2) Hyperkalemia Status: Acute (3) Hypertensive emergency Status: Acute Hospital Course - Lab Results Lab Results: Most Recent Lab Values WBC 6.2 10^3/ul (4.5-11.0) 07/29/16 07:41 RBC 2.90 10^6/uL (3.5-6.1) L 07/29/16 07:41 Hgb 8.1 gm/dL (12.0-16.0) L 07/29/16 07:41 Hct 24.2 % (36.0-48.0) L 07/29/16 07:41 MCV 83.4 fL (80.0-105.0) 07/29/16 07:41 MCH 27.9 pg (25.0-35.0) 07/29/16 07:41 MCHC 33.5 g/dl (31.0-37.0) 07/29/16 07:41 RDW 14.1 % (11.5-14.5) 07/29/16 07:41 Plt Count 224 10^3/uL (120.0-450.0) 07/29/16 07:41 MPV 9.9 fl (7.0-11.0) 07/29/16 07:41 Gran % 56.4 % (50.0-68.0) 07/29/16 07:41 Lymph % (Auto) 37.0 % (22.0-35.0) H 07/29/16 07:41 [place] % (Auto) 4.5 % (1.0-6.0) 07/29/16 07:41 Eos % (Auto) 1.9 % (1.5-5.0) 07/29/16 07:41 Baso % (Auto) 0.2 % (0.0-3.0) 07/29/16 07:41 Gran # 3.51 (1.4-6.5) 07/29/16 07:41 Lymph # 2.3 (1.2-3.4) 07/29/16 07:41 [place] # 0.3 (0.1-0.6) 07/29/16 07:41 Eos # 0.1 (0.0-0.7) 07/29/16 07:41 Baso # 0.01 K/mm3 (0.0-2.0) 07/29/16 07:41 PT 11.3 Seconds (9.9-11.8) 07/28/16 07:30 INR 1.05 (0.93-1.08) 07/28/16 07:30 APTT 31.0 Seconds (23.7-30.8) H 07/28/16 07:30 Sodium 137 mmol/L (132-148) 07/29/16 07:41 Potassium 5.0 mmol/L (3.6-5.0) 07/29/16 07:41 Chloride 110 mmol/L (98-107) H 07/29/16 07:41 Carbon Dioxide 19 mmol/L (21-33) L 07/29/16 07:41 Anion Gap 13 (10-20) 07/29/16 07:41 BUN 40 mg/dL (7-21) H 07/29/16 07:41 Creatinine 5.0 mg/dL (0.5-1.4) H 07/29/16 07:41 Est GFR ( Amer) 10 07/29/16 07:41 Est GFR (Non-Af Amer) 9 07/29/16 07:41 POC Glucose (mg/dL) 128 mg/dL (65-110) H 07/28/16 21:36 Random Glucose 98 mg/dL (70-110) 07/29/16 07:41 Hemoglobin A1c 6.6 % (4.2-6.5) H 07/28/16 07:30 Calcium 8.0 mg/dL (8.4-10.5) L 07/29/16 07:41 Phosphorus 4.7 mg/dL (2.5-4.5) H 07/28/16 09:40 Iron 54 ug/dL (45-180) 07/28/16 09:40 TIBC 293 ug/dL (265-497) 07/28/16 09:40 % Saturation 18 % (20-55) L 07/28/16 09:40 Ferritin 29.2 ng/mL 07/28/16 09:40 Total Bilirubin 0.6 mg/dL (0.2-1.3) 07/29/16 07:41 AST 20 U/L (15-39) 07/29/16 07:41 ALT 26 U/L (7-56) 07/29/16 07:41 Alkaline Phosphatase 125 U/L (38-133) 07/29/16 07:41 Troponin I < 0.01 ng/mL 07/28/16 09:30 NT-Pro-B Natriuret Pep 528 pg/mL (0-450) H 07/27/16 15:30 Total Protein 6.8 g/dL (5.8-8.3) 07/29/16 07:41 Albumin 3.2 g/dL (3.0-4.8) 07/29/16 07:41 Globulin 3.5 gm/dL 07/29/16 07:41 Albumin/Globulin Ratio 0.9 (1.1-1.8) L 07/29/16 07:41 Triglycerides 145 mg/dL (35-160) 07/28/16 07:30 Cholesterol 243 mg/dL (130-200) H 07/28/16 07:30 LDL Cholesterol Direct 116 mg/dL (0-129) 07/28/16 07:30 HDL Cholesterol 47 mg/dL (29-60) 07/28/16 07:30 TSH 3rd Generation 49.60 mIU/mL (0.46-4.68) H 07/28/16 08:40 Urine Color Yellow (YELLOW) 07/28/16 06:40 Urine Appearance Sl cloudy (CLEAR) 07/28/16 06:40 Urine pH 6.0 (4.7-8.0) 07/28/16 06:40 Ur Specific [place] 1.025 (1.005-1.035) 07/28/16 06:40 Urine Protein >=300 mg/dL (<30 mg/dL) H 07/28/16 06:40 Urine Glucose (UA) 100 mg/dL (NEGATIVE) H 07/28/16 06:40 Urine Ketones Negative mg/dL (NEGATIVE) 07/28/16 06:40 Urine Blood Moderate (NEGATIVE) H 07/28/16 06:40 Urine Nitrate Negative (NEGATIVE) 07/28/16 06:40 Urine Bilirubin Negative (NEGATIVE) 07/28/16 06:40 Urine Urobilinogen 0.2 E.U./dL (<1 E.U./dL) 07/28/16 06:40 Ur Leukocyte Esterase Negative [place]/uL (NEGATIVE) 07/28/16 06:40 Urine RBC 2 - 5 /hpf (0-2) 07/28/16 06:40 Urine WBC 1 - 3 /hpf (0-6) 07/28/16 06:40 Ur Epithelial Cells 4 - 5 /hpf (0-5) 07/28/16 06:40 Urine Bacteria Trace (NEG) 07/28/16 06:40 Stool Occult Blood Negative (NEGATIVE) 07/29/16 19:05 - Hospital Course Hospital Course: HPI: Patient is a 71 y/o F with past medical hx of HTN, NIDDM, hiatal hernia, hypothyroidism who presents after seeing her primary care for leg swelling that progressed for the last few weeks and high blood pressure. She was admitted to telemetry put on Coreg, Clonidine, Hydralazine, and Imdur. Her BP intially was 182/83 and dropped to WNL after one day. Cardiology was consulted. Echocardiogram showed LV normal size and function with mild to moderate concentric ventricular hypertrophy. EF 65%. Renal ultrasound shows main renal arteries only visualized in segments, no sonographically significant stenosis, right kidney atrophic and echogenic. LE doppler showed no evidence of DVT in both LE. Her hypertension, is likely due to non-compliance as pharmacy states medications not all picked up recently. Pt. was medically stable to be d/ c home. This is a brief account of her hospital stay. For more details please review her chart. - Date & Time of H&P Date of H&P: 07/29/16 Time of H&P: 07:20 Discharge Exam - Head Exam Head Exam: ATRAUMATIC, NORMOCEPHALIC - Eye Exam Eye Exam: EOMI, Normal appearance - ENT Exam ENT Exam: Mucous Membranes Moist - Neck Exam Neck exam: Full Rom - Respiratory Exam Respiratory Exam: Clear to PA & Lateral, NORMAL BREATHING PATTERN, UNREMARKABLE. absent: Rales, Rhonchi - Cardiovascular Exam Cardiovascular Exam: REGULAR RHYTHM, RRR, +S1, +S2. absent: JVD - GI/Abdominal Exam GI & Abdominal Exam: Normal Bowel Sounds, Soft, Unremarkable. absent: Tenderness - Extremities Exam Extremities exam: calf tenderness, joint swelling, pedal edema - Back Exam Back exam: tenderness - Neurological Exam Neurological exam: Alert, Oriented x3 - Psychiatric Exam Psychiatric exam: Normal Affect, Normal Mood - Skin Skin Exam: Dry, Intact, Normal Color, Warm Discharge Plan - Discharge Medications Prescriptions: hydrALAZINE [Apresoline] 50 mg PO BID #60 tab Ferrous Sulfate [Feosol] 324 mg PO BID #60 ect Isosorbide Mononitrate [Imdur] 60 mg PO DAILY #30 tab Furosemide [Lasix] 40 mg PO DAILY #30 tablet Atorvastatin [Lipitor] 20 mg PO DIN #30 tab - Follow Up Plan Condition: GUARDED Disposition: HOME/ ROUTINE Instructions: Chronic Kidney Disease (DC), Low Fat Diet (DC), Renal Failure Diet (DC), Chronic Hypertension (GEN), Hypertensive Crisis (DC) Additional Instructions: 1. Follow up with our Primary Medical Doctor, DR. Harris in 3 days. 2. Follow up with Dr. Hameed, nephrology, in 1 week. Needs repeat BMP (blood work ). 3. Renal diet. 4. Follow up Blood Pressure and blood sugar closely. Might need diabetic meds. 5. Low cholesterol diet. 6. Follow up with orthopedics next Sunday. 7. Follow up with Gastointestinal doctor, DR. Galdamez as needed. Referrals: Javier Harris MD [Primary Care Provider] - 7 Days ( ) Era Hameed MD [Staff Provider] - Nereyda Galdamez MD [Medical Doctor] - <Montrell Gupta - Last Filed: 07/30/16 10:36> Provider - Provider Date of Admission: 07/28/16 12:48 Attending physician: Montrell Gupta MD Primary care physician: Javier Harrsi MD Time Spent in preparation of Discharge (in minutes): 35 Hospital Course - Lab Results Lab Results: Most Recent Lab Values WBC 6.2 10^3/ul (4.5-11.0) 07/29/16 07:41 RBC 2.90 10^6/uL (3.5-6.1) L 07/29/16 07:41 Hgb 8.1 gm/dL (12.0-16.0) L 07/29/16 07:41 Hct 24.2 % (36.0-48.0) L 07/29/16 07:41 MCV 83.4 fL (80.0-105.0) 07/29/16 07:41 MCH 27.9 pg (25.0-35.0) 07/29/16 07:41 MCHC 33.5 g/dl (31.0-37.0) 07/29/16 07:41 RDW 14.1 % (11.5-14.5) 07/29/16 07:41 Plt Count 224 10^3/uL (120.0-450.0) 07/29/16 07:41 MPV 9.9 fl (7.0-11.0) 07/29/16 07:41 Gran % 56.4 % (50.0-68.0) 07/29/16 07:41 Lymph % (Auto) 37.0 % (22.0-35.0) H 07/29/16 07:41 [place] % (Auto) 4.5 % (1.0-6.0) 07/29/16 07:41 Eos % (Auto) 1.9 % (1.5-5.0) 07/29/16 07:41 Baso % (Auto) 0.2 % (0.0-3.0) 07/29/16 07:41 Gran # 3.51 (1.4-6.5) 07/29/16 07:41 Lymph # 2.3 (1.2-3.4) 07/29/16 07:41 [place] # 0.3 (0.1-0.6) 07/29/16 07:41 Eos # 0.1 (0.0-0.7) 07/29/16 07:41 Baso # 0.01 K/mm3 (0.0-2.0) 07/29/16 07:41 PT 11.3 Seconds (9.9-11.8) 07/28/16 07:30 INR 1.05 (0.93-1.08) 07/28/16 07:30 APTT 31.0 Seconds (23.7-30.8) H 07/28/16 07:30 Sodium 137 mmol/L (132-148) 07/29/16 07:41 Potassium 5.0 mmol/L (3.6-5.0) 07/29/16 07:41 Chloride 110 mmol/L (98-107) H 07/29/16 07:41 Carbon Dioxide 19 mmol/L (21-33) L 07/29/16 07:41 Anion Gap 13 (10-20) 07/29/16 07:41 BUN 40 mg/dL (7-21) H 07/29/16 07:41 Creatinine 5.0 mg/dL (0.5-1.4) H 07/29/16 07:41 Est GFR ( Amer) 10 07/29/16 07:41 Est GFR (Non-Af Amer) 9 07/29/16 07:41 POC Glucose (mg/dL) 104 mg/dL (65-110) 07/29/16 15:51 Random Glucose 98 mg/dL (70-110) 07/29/16 07:41 Hemoglobin A1c 6.6 % (4.2-6.5) H 07/28/16 07:30 Calcium 8.0 mg/dL (8.4-10.5) L 07/29/16 07:41 Phosphorus 4.7 mg/dL (2.5-4.5) H 07/28/16 09:40 Iron 54 ug/dL (45-180) 07/28/16 09:40 TIBC 293 ug/dL (265-497) 07/28/16 09:40 % Saturation 18 % (20-55) L 07/28/16 09:40 Ferritin 29.2 ng/mL 07/28/16 09:40 Total Bilirubin 0.6 mg/dL (0.2-1.3) 07/29/16 07:41 AST 20 U/L (15-39) 07/29/16 07:41 ALT 26 U/L (7-56) 07/29/16 07:41 Alkaline Phosphatase 125 U/L (38-133) 07/29/16 07:41 Troponin I < 0.01 ng/mL 07/28/16 09:30 NT-Pro-B Natriuret Pep 528 pg/mL (0-450) H 07/27/16 15:30 Total Protein 6.8 g/dL (5.8-8.3) 07/29/16 07:41 Albumin 3.2 g/dL (3.0-4.8) 07/29/16 07:41 Globulin 3.5 gm/dL 07/29/16 07:41 Albumin/Globulin Ratio 0.9 (1.1-1.8) L 07/29/16 07:41 Triglycerides 145 mg/dL (35-160) 07/28/16 07:30 Cholesterol 243 mg/dL (130-200) H 07/28/16 07:30 LDL Cholesterol Direct 116 mg/dL (0-129) 07/28/16 07:30 HDL Cholesterol 47 mg/dL (29-60) 07/28/16 07:30 TSH 3rd Generation 49.60 mIU/mL (0.46-4.68) H 07/28/16 08:40 Urine Color Yellow (YELLOW) 07/28/16 06:40 Urine Appearance Sl cloudy (CLEAR) 07/28/16 06:40 Urine pH 6.0 (4.7-8.0) 07/28/16 06:40 Ur Specific [place] 1.025 (1.005-1.035) 07/28/16 06:40 Urine Protein >=300 mg/dL (<30 mg/dL) H 07/28/16 06:40 Urine Glucose (UA) 100 mg/dL (NEGATIVE) H 07/28/16 06:40 Urine Ketones Negative mg/dL (NEGATIVE) 07/28/16 06:40 Urine Blood Moderate (NEGATIVE) H 07/28/16 06:40 Urine Nitrate Negative (NEGATIVE) 07/28/16 06:40 Urine Bilirubin Negative (NEGATIVE) 07/28/16 06:40 Urine Urobilinogen 0.2 E.U./dL (<1 E.U./dL) 07/28/16 06:40 Ur Leukocyte Esterase Negative [place]/uL (NEGATIVE) 07/28/16 06:40 Urine RBC 2 - 5 /hpf (0-2) 07/28/16 06:40 Urine WBC 1 - 3 /hpf (0-6) 07/28/16 06:40 Ur Epithelial Cells 4 - 5 /hpf (0-5) 07/28/16 06:40 Urine Bacteria Trace (NEG) 07/28/16 06:40 Stool Occult Blood Negative (NEGATIVE) 07/29/16 19:05 - Hospital Course Hospital Course: attending note; Patient seen and examined with resident. Patient is a 71 y/o Female with past medical hx of HTN, NIDDM, hiatal hernia, hypothyroidism who presents after seeing her primary care for leg swelling that progressed for the last few weeks. She states her BP was found to be 180/105 and PCP recommended going to the ED. uncontrolled hypertension; Better controlled now. Patient has reservations about taking blood pressure medication. Education given multiple times about the importance of taking blood pressure medication and keeping blood pressure under control to prevent further kidney damage. diabetes; On diet control. HB a1c is 6.6. dietary education given. hypothyroidism; started on Synthroid. Patient was not taking medications regularly. acute on Chronic kidney disease; Creatinine was 2.3 in 2014 increased to 5.[address] Hameed today. The possibility of dialysis in the near future discussed with patient and family in detail. anemia: hemoglobin is 8.1. Secondary to chronic kidney disease. Iron studies showed iron deficiency anemia. 9 Patient is taking by mouth iron at home. IV Venofer 1 dose given. 1 dose of darbepoetin given. edema; Doppler is negative for DVT. continue lasix. multiple R leg surgeries. PT evaluation requested. Patient will follow-up with orthopedics next Sunday. Diet, medication compliance insisted. Patient will follow-up with Dr. Hameed nephrology next for blood work. Patient will get complete CKD workup at [facility] office. upon discharge the patient will follow-up with PMD . Diagnosis; Uncontrolled hypertension Noncompliance with medication Diabetes Hypothyroidism Anemia COPD stage IV Multiple leg surgeries
[2016-08-02] MEDS ORDERED: Ergocalciferol 50,000 Intl Units Cap PO SCH (10:00)
== END 2016-07-29 19:08 | disposition home or self-care (01) | DRG 304 ==
LOC: ED 13:41 → ERH 16:53 → 2RNO 18:09 → OBSVTOIN 07-28 12:48
PROVIDERS: ADMIT Internal Medicine; ATTEND Internal Medicine
DX: I16.1 Hypertensive emergency (principal); N18.6 End stage renal disease; N17.9 Acute kidney failure, unspecified; E87.2 Acidosis; I31.3 Pericardial effusion (noninflammatory); E11.22 Type 2 diabetes mellitus with diabetic chronic kidney disease; N25.81 Secondary hyperparathyroidism of renal origin; I16.0 Hypertensive urgency; E87.5 Hyperkalemia; I12.9 Hypertensive chronic kidney disease with stage 1 through stage 4 chronic kidney disease, or unspecified chronic kidney disease; F41.9 Anxiety disorder, unspecified; I51.7 Cardiomegaly; E78.5 Hyperlipidemia, unspecified; E03.9 Hypothyroidism, unspecified; J44.9 Chronic obstructive pulmonary disease, unspecified; D50.9 Iron deficiency anemia, unspecified; Z82.49 Family history of ischemic heart disease and other diseases of the circulatory system; Z91.14 Patient's other noncompliance with medication regimen; Z80.9 Family history of malignant neoplasm, unspecified; Z88.6 Allergy status to analgesic agent; Z88.5 Allergy status to narcotic agent; R40.2412 Glasgow coma scale score 13-15, at arrival to emergency department; N26.1 Atrophy of kidney (terminal); E66.9 Obesity, unspecified; Z68.32 Body mass index [BMI] 32.0-32.9, adult

== ENCOUNTER 2016-08-25 12:24 | Observation (INO) | payer MEDICARE, MEDICAID ==
[2016-08-25 12:25] VITALS: BMI 33.7
--- NOTE | 2016-08-25 12:57 | ED PDOC ---
Arrival/HPI - General Chief Complaint: Abnormal Labs Time Seen by Provider: 08/25/16 12:46 Historian: Patient - History of Present Illness Narrative History of Present Illness (Text): 08/25/16 12:56 71 year old female whose past medical history includes hypertension, diabetes, and renal disease sent to the emergency department with elevated potassium and high blood pressure. Patient states she had bloodwork done and was told to come to the ER for elevated potassium. She also states she had some vomiting, lightheadedness, and diarrhea earlier which has since resolved with medication. Denies chest pain, diarrhea, or vomiting. PMD: Dr. Steven Herrera MD Modifying Factors (Text): None Associated Symptoms (Text): None Past Medical History - Provider Review Nursing Documentation Reviewed: Yes - Infectious Disease Hx of Infectious Diseases: None - Tetanus Immunization Tetanus Immunization: Unknown - Cardiac Hx Cardiac Disorders: Yes (HYPERKALEMIA 07-27-16) Hx Hypertension: Yes - Pulmonary Hx Respiratory Disorders: No - Neurological Hx Neurological Disorder: Yes (NEAR SYNCOPE) - Renal Hx Renal Disorder: Yes Hx Renal Failure: Yes - Endocrine/Metabolic Hx Diabetes Mellitus Type 2: Yes (borderline) Hx Hypothyroidism: (thyroidsurgery) - Hematological/Oncological Hx Blood Disorders: Yes Hx Anemia: Yes - Integumentary Hx Dermatological Disorder: Yes (BILATERAL LEG EDEMA +3 PITTING .LARGE SCAR TO RIGHT KNEE-POST KNEE SX/METAL) - Musculoskeletal/Rheumatological Hx Falls: Yes - Gastrointestinal Hx Gastrointestinal Disorders: Yes Hx Gastroesophageal Reflux: Yes - Genitourinary/Gynecological Hx Genitourinary Disorders: No - Psychiatric Hx Psychophysiologic Disorder: No Hx Substance Use: No - Surgical History Hx Orthopedic Surgery: Yes (multiple knee surgeries,SPECIALLY RIGHT KNEE) - Anesthesia Hx Anesthesia: Yes Hx Anesthesia Reactions: Yes - Suicidal Assessment Feels Threatened In Home Enviroment: No Family/Social History - Physician Review Nursing Documentation Reviewed: Yes Family/Social History: Unknown Family HX Smoking Status: Never Smoked Hx Alcohol Use: No Hx Substance Use: No Allergies/Home Meds Allergies/Adverse Reactions: Allergies acetaminophen [From Percocet] Allergy (Verified 08/25/16 12:27) RASH oxycodone HCl [From Percocet] Allergy (Verified 08/25/16 12:27) RASH Home Medications: Home Meds Medication Instructions Recorded Confirmed Carvedilol [Coreg] 25 mg PO BID 01/09/14 08/25/16 Esomeprazole Magnesium [Nexium] 40 mg PO DAILY 01/09/14 08/25/16 Aspirin [Aspirin Chewable] 81 mg PO DAILY 07/27/16 08/25/16 Clorazepate Dipotassium 1 tab PO BID 07/27/16 08/25/16 [Tranxene-T] Ergocalciferol (Vitamin D2) 50,000 units PO .WEEKLY 07/27/16 08/25/16 [Vitamin D] Ferrous Sulfate [Ferrous Sulfate] 325 mg PO DAILY 07/27/16 08/25/16 Levothyroxine [Synthroid] 125 mcg PO DAILY 07/27/16 08/25/16 cloNIDine 0.3 mg/24 hr 1 patch TD .WEEKLY 07/27/16 08/25/16 [catapres-TTS3 0.3 mg/24 hr] Nitroglycerin [Nitrostat] 1 tab SL PRN PRN 08/25/16 08/25/16 amLODIPine [Norvasc] 5 mg PO DAILY 08/25/16 08/25/16 Review of Systems - Physician Review All systems were reviewed & negative as marked: Yes - Review of Systems Respiratory: absent: SOB Cardiovascular: absent: Chest Pain Gastrointestinal: absent: Diarrhea, Nausea, Vomiting Neurological: absent: Dizziness Physical Exam Vital Signs Reviewed: Yes Vital Signs Temp Pulse Resp BP Pulse Ox 08/25/16 13:02 68 16 175/84 H 100 08/25/16 12:39 98.2 F 72 16 202/89 H 98 Temperature: Afebrile Blood Pressure: Hypertensive Pulse: Regular Respiratory Rate: Normal Appearance: Positive for: Well-Appearing, Non-Toxic, Comfortable Pain Distress: None Mental Status: Positive for: Alert and Oriented X 3 - Systems Exam Head: Present: Atraumatic, Normocephalic Pupils: Present: PERRL Extroacular Muscles: Present: EOMI Conjunctiva: Present: Normal Mouth: Present: Moist Mucous Membranes Neck: Present: Normal Range of Motion Respiratory/Chest: Present: Clear to Auscultation, Good Air Exchange. No: Respiratory Distress, Accessory Muscle Use Cardiovascular: Present: Regular Rate and Rhythm, Normal S1, S2. No: Murmurs Abdomen: Present: Normal Bowel Sounds. No: Tenderness, Distention, Peritoneal Signs Back: Present: Normal Inspection Upper Extremity: Present: Normal Inspection. No: Cyanosis, Edema Lower Extremity: Present: Normal Inspection. No: Edema Neurological: Present: GCS=15, CN II-XII Intact, Speech Normal Skin: Present: Warm, Dry, Normal Color. No: Rashes Psychiatric: Present: Alert, Oriented x 3, Normal Insight, Normal Concentration Medical Decision Making ED Course and Treatment: Impression: 71 year old female whose past medical history includes hypertension , diabetes, and renal disease sent to the emergency department with elevated potassium and high blood pressure. Differential Diagnosis included but are not limited to: Hyperkalemia, hypertensive urgency Plan: -- EKG, Chest X-ray -- Norvasc -- Labs -- Reassess and disposition Prior Visits: Notes and results from previous visits were reviewed. Patient last seen in the ED on 07/27/16 for high blood pressure and lower extremity swelling, and admitted for Acute on chronic renal failure, Hyperkalemia, Hypertensive emergency Progress Notes: 08/25/16 14:17 Patient's potassium treated with Albuterol, Dextrose, Insulin and Kayexlate. Patient currently with no complaints. I discussed case with Dr. Jarvis who agrees patient will be placed on observation. - Lab Interpretations Lab Results: 08/25/16 13:20 08/25/16 13:20 Lab Results 08/25/16 13:20: Sodium 139, Potassium 6.2 H* D, Chloride 112 H, Carbon Dioxide 19 L, Anion Gap 14, BUN 47 H, Creatinine 4.9 H, Est GFR ( Amer) 11, Est GFR (Non-Af Amer) 9, Random Glucose 92, Calcium 8.5, Magnesium 2.0, Total Bilirubin 0.4, AST 21, ALT 18, Alkaline Phosphatase 149 H, Lactate Dehydrogenase 543, Total Creatine Kinase 202, Troponin I < 0.01, NT-Pro-B Natriuret Pep 995 H, Total Protein 7.1, Albumin 3.3, Globulin 3.8, Albumin/ Globulin Ratio 0.9 L 08/25/16 13:20: WBC 5.9, RBC 3.44 L, Hgb 9.5 L, Hct 28.9 L, MCV 84.0, MCH 27.6, MCHC 32.9, RDW 13.8, Plt Count 223, MPV 10.3, Gran % 60.9, Lymph % (Auto) 33.3, [place] % (Auto) 3.9, Eos % (Auto) 1.7, Baso % (Auto) 0.2, Gran # 3.62, Lymph # 2.0 , [place] # 0.2, Eos # 0.1, Baso # 0.01 - RAD Interpretation Radiology Orders: 08/25/16 13:05 CHEST PORTABLE [RAD] Stat - EKG Interpretation EKG Interpretation (Text): EKG shows NSR at 86 BPM with t-wave inversions in and VII, no change from EKG on 07/27/16. Interpreted by me. Interpreted by ED Physician: Yes Type: 12 lead EKG - Medication Orders Current Medication Orders: Discontinued Medications Albuterol Sulfate (Albuterol 0.083% Inhal Leeanna (2.5 Mg/3 Ml) Ud) 2.5 mg IH STAT STA Stop: 08/25/16 14:10 Amlodipine Besylate (Norvasc) 5 mg PO STAT STA Stop: 08/25/16 13:10 Last Admin: 08/25/16 13:49 Dose: 5 mg Dextrose (Dextrose 50% Inj) 50 ml IVP STAT STA Stop: 08/25/16 14:09 Insulin Human Regular (Humulin R) 10 units IV STAT STA Stop: 08/25/16 14:09 Sodium Polystyrene Sulfonate (Kayexalate Oral Susp) 30 gm PO STAT STA Stop: 08/25/16 14:09 - Scribe Statement The provider has reviewed the documentation as recorded by the Kayla Garza Provider Scribe Attestation: All medical record entries made by the Kayla were at my direction and personally dictated by me. I have reviewed the chart and agree that the record accurately reflects my personal performance of the history, physical exam, medical decision making, and the department course for this patient. I have also personally directed, reviewed, and agree with the discharge instructions and disposition. Disposition/Present on Arrival - Present on Arrival Any Indicators Present on Arrival: No History of DVT/PE: No History of Uncontrolled Diabetes: No Urinary Catheter: No History of Decub. Ulcer: No History Surgical Site Infection Following: None - Disposition Have Diagnosis and Disposition been Completed?: Yes Diagnosis: Hyperkalemia Disposition: HOSPITALIZED Disposition Time: 14:18 Patient Plan: Observation Condition: FAIR
[2016-08-25 13:34] LABS: ADD MANUAL DIFF? NO
[2016-08-25 13:40] LABS: BASO # 0.01 K/mm3 (0.0-2.0); BASO % 0.2 % (0.0-3.0); EOS # 0.1 (0.0-0.7); EOS % 1.7 % (1.5-5.0); GRAN # 3.62 (1.4-6.5); GRAN % 60.9 % (50.0-68.0); HEMATOCRIT 28.9 % (36.0-48.0); LYMPH % 33.3 % (22.0-35.0); MEAN CORPUSCULAR HEMOGLOBIN 27.6 pg (25.0-35.0); MEAN CORPUSCULAR HGB CONC 32.9 g/dl (31.0-37.0); MEAN PLATELET VOLUME 10.3 fl (7.0-11.0); MONO # 0.2 (0.1-0.6); MONO % 3.9 % (1.0-6.0); PLATELET COUNT 223 10^3/uL (120.0-450.0); RED CELL DISTRIBUTION WIDTH 13.8 % (11.5-14.5); WHITE BLOOD COUNT 5.9 10^3/ul (4.5-11.0)
--- NOTE | 2016-08-25 13:46 | RAD ---
HISTORY: hypertension COMPARISON: No prior. FINDINGS: LUNGS: No active pulmonary disease. PLEURA: No significant pleural effusion identified, no pneumothorax apparent. CARDIOVASCULAR: Mild cardiomegaly OSSEOUS STRUCTURES: No significant abnormalities. VISUALIZED UPPER ABDOMEN: Normal. OTHER FINDINGS: None. IMPRESSION: No active disease.
[2016-08-25 13:49] LABS: ALB/GLOB RATIO 0.9 (1.1-1.8); ALKALINE PHOSPHATASE 149 U/L (38-133); ALT/SGPT 18 U/L (7-56); AST/SGOT 21 U/L (15-39); BILIRUBIN,TOTAL 0.4 mg/dL (0.2-1.3); BLOOD UREA NITROGEN 47 mg/dL (7-21); CALCIUM 8.5 mg/dL (8.4-10.5); CARBON DIOXIDE 19 mmol/L (21-33); CHLORIDE 112 mmol/L (98-107); GFR AFRICAN-AMERICAN 11; GLUCOSE,RANDOM 92 mg/dL (70-110); SODIUM 139 mmol/L (132-148); TOTAL PROTEIN 7.1 g/dL (5.8-8.3)
[2016-08-25 14:00] LABS: POTASSIUM 6.2 mmol/L (3.6-5.0)
[2016-08-25 14:01] LABS: TROPONIN I < 0.01 ng/mL
[2016-08-25] MEDS ORDERED: Sod Polystyrene Sulf 15 gm/60 ml Oral Susp PO STA (14:08)
[2016-08-25] MEDS ORDERED: Insulin Regular 1 UNITS/0.01 ML ML IV STA (14:08)
[2016-08-25] MEDS ORDERED: Dextrose 50% SYRINGE Inj (50 ml) IVP STA (14:08)
[2016-08-25] MEDS ORDERED: Albuterol 0.083% Inhal Sol (2.5 mg/3 mL) UD IH STA (14:09)
--- NOTE | 2016-08-25 15:43 | CP.PCM.HP ---
<Werner Euceda - Last Filed: 08/25/16 15:35> History of Present Illness - History of Present Illness History of Present Illness: CC: High potassium HPI: Patient is a 71 y/o F with past medical hx of HTN, NIDDM, hiatal hernia, hypothyroidism who presents after being called by her doctor due to high potassium on recent blood test. She denies any falls or changes in her medication. She notes she continues to have high blood pressure at home when she walks or does house work. She checks it and sometimes the systolic is between 200 and 180. She reports extensive surgeries on her right knee and has swelling down both legs. Due to her pain she has difficulty ambulating; however , she does not take medications due to having "bad reactions". She is not specific about this. She notes she had an episode of nausea, vomiting, and diarrhea on sunday night accopanied by fever and chills but this has since resolved. She says when her BP is elevated she gets SOB, chills, and sweats. She currently denies any fever, nausea, vomiting, back pain, chest pain, SOB, abdominal pain, diarrhea or dysuria. PMD: Dr. Harris Past med hx: HTN, NIDDM, hiatal hernia, hypothyroidism Surg hx: multiple surgeries on right knee, thyroidectomy. Family hx: parents had CAD and cancer Social hx: occasional alcohol use, denies tobacco or drug use Present on Admission - Present on Admission Any Indicators Present on Admission: No Review of Systems - Constitutional Constitutional: absent: Chills, Fever, Weakness - EENT Eyes: absent: Change in Vision Ears: absent: Decreased Hearing Nose/Mouth/Throat: absent: Dysphagia, Sore Throat - Cardiovascular Cardiovascular: Edema, Leg Edema. absent: Chest Pain, Dyspnea - Respiratory Respiratory: absent: Cough, Dyspnea - Gastrointestinal Gastrointestinal: absent: Abdominal Pain, Cramping, Diarrhea, Nausea, Vomiting - Genitourinary Genitourinary: absent: Dysuria - Reproductive: Female Reproductive:Female: Post Menopausal - Menstruation Menstruation: Post Menopausal - Musculoskeletal Musculoskeletal: absent: Back Pain, Numbness, Tingling - Integumentary Integumentary: absent: Lesions, Rash, Skin Pain - Neurological Neurological: absent: Dizziness, Headaches, Weakness - Psychiatric Psychiatric: Anxiety. absent: Depression - Endocrine Endocrine: absent: Fatigue, Palpitations Past Patient History - Infectious Disease Hx of Infectious Diseases: None - Tetanus Immunizations Tetanus Immunization: Unknown - Past Medical History & Family History Past Medical History?: Yes - Past Social History Smoking Status: Never Smoked Alcohol: Occasional Drugs: Denies Home Situation {Lives}: With Family - CARDIAC Hx Cardiac Disorders: Yes (HYPERKALEMIA 07-27-16) Hx Hypertension: Yes - PULMONARY Hx Respiratory Disorders: No - NEUROLOGICAL Hx Neurological Disorder: Yes (NEAR SYNCOPE) - RENAL Hx Chronic Kidney Disease: Yes Hx Renal Failure: Yes - ENDOCRINE/METABOLIC Hx Diabetes Mellitus Type 2: Yes (borderline) Hx Hypothyroidism: (thyroidsurgery) - HEMATOLOGICAL/ONCOLOGICAL Hx Blood Disorders: Yes Hx Anemia: Yes - INTEGUMENTARY Hx Dermatological Problems: Yes (BILATERAL LEG EDEMA +3 PITTING .LARGE SCAR TO RIGHT KNEE-POST KNEE SX/METAL) - MUSCULOSKELETAL/RHEUMATOLOGICAL Hx Falls: Yes - GASTROINTESTINAL Hx Gastrointestinal Disorders: Yes Hx Gastroesophageal Reflux: Yes - GENITOURINARY/GYNECOLOGICAL Hx Genitourinary Disorders: No - PSYCHIATRIC Hx Psychophysiologic Disorder: No Hx Substance Use: No - SURGICAL HISTORY Hx Orthopedic Surgery: Yes (multiple knee surgeries,SPECIALLY RIGHT KNEE) - ANESTHESIA Hx Anesthesia: Yes Hx Anesthesia Reactions: Yes Meds Allergies/Adverse Reactions: Allergies Allergy/AdvReac Type Severity Reaction Status Date / Time acetaminophen [From Percocet] Allergy RASH Verified 08/25/16 12:27 oxycodone HCl [From Percocet] Allergy RASH Verified 08/25/16 12:27 Physical Exam - Constitutional Appears: Non-toxic, No Acute Distress, Other (overweight) - Head Exam Head Exam: ATRAUMATIC, NORMOCEPHALIC - Eye Exam Eye Exam: EOMI, Normal appearance, PERRL Pupil Exam: NORMAL ACCOMODATION, PERRL - ENT Exam ENT Exam: Mucous Membranes Moist, Normal Exam, Normal Oropharynx - Neck Exam Neck exam: Negative for: Normal Inspection (scar from goiter removal), Tenderness - Respiratory Exam Respiratory Exam: Clear to Auscultation Bilateral, NORMAL BREATHING PATTERN. absent: Rales, Rhonchi, Wheezes - Cardiovascular Exam Cardiovascular Exam: REGULAR RHYTHM, +S1, +S2. absent: Gallop, Rubs, Systolic Murmur - GI/Abdominal Exam GI & Abdominal Exam: Normal Bowel Sounds, Soft. absent: Tenderness - Extremities Exam Extremities exam: Positive for: pedal edema, tenderness (right calf and knee), pedal pulses present. Negative for: normal inspection (right knee in brace) - Back Exam Back exam: NORMAL INSPECTION. absent: rash noted, tenderness - Neurological Exam Neurological exam: Alert, CN II-XII Intact, Oriented x3 - Psychiatric Exam Psychiatric exam: Normal Affect, Normal Mood - Skin Skin Exam: Dry, Intact, Normal Color, Warm Results - Vital Signs Recent Vital Signs: Last Vital Signs Temp 98.2 F 08/25/16 12:39 Pulse 65 08/25/16 15:30 Resp 16 08/25/16 15:30 BP 155/76 H 08/25/16 15:30 Pulse Ox 100 08/25/16 15:30 - Labs Result Diagrams: 08/25/16 13:20 08/25/16 13:20 Assessment & Plan - Assessment and Plan (Free Text) Assessment: Patient is a 71 y/o AA F with PMhx of HTN, NIDDM, hiatal hernia, hypothyroidism who presents with hypertensive urgency, hyperkalemia, and acute on chronic kidney disease. Plan: Hyperkalemia * Initial potassium 6.2 on admission * Given duoneb, dextrose, insulin and kayexelate in ED * Repeat BMP Q4H * Nephrology consulted, help appreciated * EKG performed shows normal sinus w/o T wave changes * F/U urine electrolytes * monitor on tele HTN * BP intially 202/89 * Resume home Coreg, Clonidine, Hydralazine, and Imdur * admit to telemetry floor. * Hydralazine PRN Edema * BNP elevated at 995 * recent echocardiogram showed normal LV with LVEF of 65% * continue home lasix CKD * Initial BU47, Creatinine 4.9 * Previous BUN 40, creatinine 5.0 * Nephrology consulted, help appreciated * F/U urinalysis NIDDM * ISS and regular accuchecks * F/U A1C * renal diet Hypothyroidism * F/U TSH and T4 PPx * Heparin SC * Protonix * SCD's contraindicated due to swelling Assessment and plan discussed with attending physician. <Simona RIVERA,Tory - Last Filed: 08/25/16 17:22> Results - Vital Signs Recent Vital Signs: Last Vital Signs Temp 98.2 F 08/25/16 12:39 Pulse 65 08/25/16 15:30 Resp 16 08/25/16 15:30 BP 155/76 H 08/25/16 15:30 Pulse Ox 100 08/25/16 15:30 - Labs Result Diagrams: 08/25/16 13:20 08/25/16 13:20 Attending/Attestation - Attestation I have personally seen and examined this patient.: Yes I have fully participated in the care of the patient.: Yes I have reviewed all pertinent clinical information: Yes Notes (Text): Patient was seen and examined with medical interpreter .Agreed with resident assessment and plan. 71 yrs old AAF with past medical hx of HTN, NIDDM, hiatal hernia, hypothyroidism ,stage IV CKD and obesity , non compliance with medication is admitted with hyperkalemia, no EKG chnages, patient renal function are stable at his base line.The etiology of hyperkalemia is unclear, could be non compliance with diet, patient has been treated for hyperkalemia in ER, will follow up repeat Potassium level.Patient will be monitored in tele.We will check CK level and urine electrolyte.We will also get Nephrology consult Management plan was discussed in detail with patient Education was provided.
--- NOTE | 2016-08-25 16:51 | CARD ---
APPROVED REPORT EKG Measurement Heart [id number] <Conclusion> Normal sinus rhythm Low voltage QRS Cannot rule out Anterior infarct, age undetermined Abnormal ECG
[2016-08-25] MEDS: CLORAZEPATE DIPOTASSIUM PO SCH (17:37)
[2016-08-25] MEDS: Insulin Reg-LOW-Coverage SC SCH ×2 (17:39→22:20)
[2016-08-25] MEDS ORDERED: Pneumococcal 23-Valent Vaccine IM ONE (18:19)
[2016-08-25 20:27] LABS: CALCIUM 8.2 mg/dL (8.4-10.5); POTASSIUM 5.4 mmol/L (3.6-5.0)
[2016-08-26 02:16] LABS: POTASSIUM 5.5 mmol/L (3.6-5.0)
[2016-08-26 06:48] LABS: ADD MANUAL DIFF? NO
[2016-08-26 07:25] LABS: ALB/GLOB RATIO 0.9 (1.1-1.8); BILIRUBIN,TOTAL 0.6 mg/dL (0.2-1.3); CALCIUM 8.2 mg/dL (8.4-10.5); POTASSIUM 5.5 mmol/L (3.6-5.0); TOTAL PROTEIN 6.5 g/dL (5.8-8.3)
[2016-08-26] MEDS ORDERED: Sod Polystyrene Sulf 15 gm/60 ml Oral Susp PO ONE ×3 (07:26→17:29)
[2016-08-26 07:37] LABS: T4 5.8 ug/dL (5.5-11.0)
[2016-08-26 07:51] LABS: THYROID STIMULATING HORMONE 7.34 mIU/mL (0.46-4.68)
[2016-08-26 07:56] LABS: BASO # 0.02 K/mm3 (0.0-2.0); BASO % 0.3 % (0.0-3.0); EOS # 0.2 (0.0-0.7); GRAN # 4.18 (1.4-6.5); GRAN % 56.5 % (50.0-68.0); HEMATOCRIT 27.6 % (36.0-48.0); LYMPH # 2.7 (1.2-3.4); LYMPH % 36.1 % (22.0-35.0); MEAN CELL VOLUME 84.1 fL (80.0-105.0); MEAN CORPUSCULAR HEMOGLOBIN 27.1 pg (25.0-35.0); MEAN CORPUSCULAR HGB CONC 32.2 g/dl (31.0-37.0); MEAN PLATELET VOLUME 10.9 fl (7.0-11.0); MONO # 0.4 (0.1-0.6); MONO % 5.1 % (1.0-6.0); PLATELET COUNT 253 10^3/uL (120.0-450.0); WHITE BLOOD COUNT 7.4 10^3/ul (4.5-11.0)
[2016-08-26] MEDS: Insulin Reg-LOW-Coverage SC SCH ×4 (08:00→21:36)
[2016-08-26] MEDS: CLORAZEPATE DIPOTASSIUM PO SCH ×2 (09:44→18:06)
[2016-08-26] MEDS ORDERED: Enoxaparin 40 mg Syringe SC SCH (10:00)
[2016-08-26] MEDS ORDERED: Pantoprazole 40 mg EC Tab PO SCH (10:00)
[2016-08-26] MEDS ORDERED: Levothyroxine 125 MCG TAB PO SCH (10:00)
[2016-08-26 13:18] LABS: POTASSIUM 5.6 mmol/L (3.6-5.0)
--- NOTE | 2016-08-26 14:19 | PN ---
DATE: 08/26/2016 SUBJECTIVE: The patient is seen sitting in bed. She is awake. She is alert. She is comfortable. She denies any pain. She denies any shortness of breath. She denies any nausea, vomiting. PHYSICAL EXAMINATION: GENERAL: Obese elderly lady sitting in bed. VITAL SIGNS: Blood pressure 148/80, heart rate 66, respiratory rate 18, temperature 98. HEENT: Normocephalic, atraumatic. NECK: Supple, no JVD. LUNGS: Bilateral equal air entry, no rales. CARDIAC: S1, S2, regular rate and rhythm, no murmur, no rub. ABDOMEN: Obese, distended, soft, nontender, bowel sounds present. EXTREMITIES: Trace lower extremity edema. INTAKE AND OUTPUT: Not charted. LABORATORY DATA: WBC 7.4, hemoglobin 8.9, hematocrit 27.6, platelets 253. Sodium 140, potassium 5.5 , chloride 115, CO2 18, BUN 46, creatinine 4.9, glucose 80, calcium 8.2, albumin 3.0, corrected calci um is 8.9. TSH 7.3. CURRENT MEDICATIONS: List reviewed. ASSESSMENT AND PLAN: 1. Hyperkalemia, likely secondary to advanced chronic kidney disease. 2. Advanced chronic kidney disease. 3. Anemia secondary to chronic kidney disease. 4. Severe hypertension. 5. Diet controlled diabetes. 6. Hypothyroidism. PLAN: 1. The patient education regarding low potassium diet. 2. Increase amlodipine to [address] Catapres patch. 4. Continue Coreg 25 b.i.d. 5. Needs close outpatient followup. 6. No objection to discharge. Era Hameed MD cc: [id number] TT: 08/26/2016 14:19:09 Confirmation # [id number] Dictation # [id number]
--- NOTE | 2016-08-26 15:01 | CP.PCM.PN ---
<America Siu - Last Filed: 08/26/16 15:08> Subjective - Date & Time of Evaluation Date of Evaluation: 08/26/16 Time of Evaluation: 08:35 - Subjective Subjective: Pt seen and evaluated at bedside. Reports eating and denies pain. Afebrile overnight. Objective - Vital Signs/Intake and Output Vital Signs (last 24 hours): Temp Pulse Resp BP Pulse Ox 97.5 F L 66 19 148/80 99 08/26/16 12:00 08/26/16 12:00 08/26/16 12:00 08/26/16 12:00 08/26/16 06:00 Intake and Output: 08/26/16 08/26/16 06:59 18:59 Intake Total 480 Output Total 0 Balance 480 - Medications Medications: Current Medications Amlodipine Besylate (Norvasc) 10 mg PO DAILY [facility] Ascorbic Acid (Vitamin C 500 Mg Tab) 500 mg PO DAILY [facility] Last Admin: 08/26/16 09:42 Dose: 500 mg Aspirin (Aspirin Chewable) 81 mg PO DAILY [facility] Last Admin: 08/26/16 09:40 Dose: 81 mg Carvedilol (Coreg) 25 mg PO BID [facility] Last Admin: 08/26/16 09:40 Dose: 25 mg Ferrous Gluconate (Fergon) 324 mg PO DAILY [facility] Last Admin: 08/26/16 09:42 Dose: 324 mg Furosemide (Lasix) 40 mg PO DAILY [facility] Last Admin: 08/26/16 09:41 Dose: 40 mg Heparin Sodium (Porcine) (Heparin) 5,000 units SC Q8 SISSY PRN Reason: Protocol Last Admin: 08/26/16 05:42 Dose: 5,000 units Hydralazine HCl (Apresoline) 10 mg IVP Q6 PRN PRN Reason: Systolic Blood Pressure Insulin Human Regular (Humulin R Low) 0 units SC ACHS [facility] PRN Reason: Protocol Last Admin: 08/26/16 11:47 Dose: Not Given Levothyroxine Sodium (Synthroid) 125 mcg PO DAILY [facility] Last Admin: 08/26/16 09:40 Dose: 125 mcg Non-Formulary Medication (Clorazepate Dipotassium [Tranxene-T]) 1 tab PO BID [facility] Last Admin: 08/26/16 09:44 Dose: Not Given Pantoprazole Sodium (Protonix Ec Tab) 40 mg PO DAILY [facility] Last Admin: 08/26/16 09:40 Dose: 40 mg - Labs Labs: 08/26/16 06:00 08/26/16 12:45 - Constitutional Appears: Non-toxic, No Acute Distress - Head Exam Head Exam: ATRAUMATIC, NORMOCEPHALIC - Eye Exam Eye Exam: EOMI, Normal appearance - Respiratory Exam Respiratory Exam: Clear to Ausculation Bilateral, NORMAL BREATHING PATTERN - Cardiovascular Exam Cardiovascular Exam: +S1, +S2. absent: Tachycardia - GI/Abdominal Exam GI & Abdominal Exam: Soft. absent: Tenderness - Exam External exam: absent: Ecchymosis, Erythema - Extremities Exam Extremities Exam: Normal Capillary Refill. absent: Tenderness - Neurological Exam Neurological Exam: Alert, Awake - Skin Skin Exam: Intact, Normal Color Assessment and Plan - Assessment and Plan (Free Text) Plan: Patient is a 71 y/o AA F with PMhx of HTN, NIDDM, hiatal hernia, hypothyroidism who presents with hypertensive urgency, hyperkalemia, and acute on chronic kidney disease. Hyperkalemia * Initial potassium 6.2 on admission * Given duoneb, dextrose, insulin and kayexelate in ED * Repeat BMP Q4H * Nephrology consulted, help appreciated * EKG performed shows normal sinus w/o T wave changes * monitor on tele * today hyperkalemia at 5.5, then 5.6, kayexalate 30 mg PO given twice today. Repeat K value ordered. HTN * BP intially 202/89 * Resume home coreg, Clonidine, Hydralazine, and Imdur * admit to telemetry floor. * Hydralazine PRN * Amilodipine increased to 10 mg PO QD Edema * BNP elevated at 995 * recent echocardiogram showed normal LV with LVEF of 65% * continue home lasix CKD * Initial BUN 47, Creatinine 4.9 * Previous BUN 40, creatinine 5.0 * Nephrology consulted, help appreciated * F/U urinalysis NIDDM * ISS and regular accuchecks * F/U A1C * renal diet Hypothyroidism * F/U TSH and T4 PPx * Heparin SC * Protonix * SCD's contraindicated due to swelling <Tory Jarvis MD - Last Filed: 08/26/16 15:23> Objective - Vital Signs/Intake and Output Vital Signs (last 24 hours): Temp Pulse Resp BP Pulse Ox 97.5 F L 66 19 148/80 99 08/26/16 12:00 08/26/16 12:00 08/26/16 12:00 08/26/16 12:00 08/26/16 06:00 Intake and Output: 08/26/16 08/26/16 06:59 18:59 Intake Total 480 Output Total 0 Balance 480 - Medications Medications: Current Medications Amlodipine Besylate (Norvasc) 10 mg PO DAILY [facility] Ascorbic Acid (Vitamin C 500 Mg Tab) 500 mg PO DAILY [facility] Last Admin: 08/26/16 09:42 Dose: 500 mg Aspirin (Aspirin Chewable) 81 mg PO DAILY [facility] Last Admin: 08/26/16 09:40 Dose: 81 mg Carvedilol (Coreg) 25 mg PO BID [facility] Last Admin: 08/26/16 09:40 Dose: 25 mg Ferrous Gluconate (Fergon) 324 mg PO DAILY [facility] Last Admin: 08/26/16 09:42 Dose: 324 mg Furosemide (Lasix) 40 mg PO DAILY [facility] Last Admin: 08/26/16 09:41 Dose: 40 mg Heparin Sodium (Porcine) (Heparin) 5,000 units SC Q8 SISSY PRN Reason: Protocol Last Admin: 08/26/16 15:13 Dose: 5,000 units Hydralazine HCl (Apresoline) 10 mg IVP Q6 PRN PRN Reason: Systolic Blood Pressure Insulin Human Regular (Humulin R Low) 0 units SC ACHS [facility] PRN Reason: Protocol Last Admin: 08/26/16 11:47 Dose: Not Given Levothyroxine Sodium (Synthroid) 125 mcg PO DAILY [facility] Last Admin: 08/26/16 09:40 Dose: 125 mcg Non-Formulary Medication (Clorazepate Dipotassium [Tranxene-T]) 1 tab PO BID [facility] Last Admin: 08/26/16 09:44 Dose: Not Given Pantoprazole Sodium (Protonix Ec Tab) 40 mg PO DAILY [facility] Last Admin: 08/26/16 09:40 Dose: 40 mg - Labs Labs: 08/26/16 06:00 08/26/16 12:45 Attending/Attestation - Attestation I have personally seen and examined this patient.: Yes I have fully participated in the care of the patient.: Yes I have reviewed all pertinent clinical information, including history, physical exam and plan: Yes Notes (Text): 08/26/16 15:19 Patient was seen and examined with medical lab tech instructor .Agreed with resident assessment and plan. Patient potassium is coming down, repeat potassium is 5.6, will give kayexalate and will repeat potassium level, once normal will DC her home.Patient was given list of food with high potassium content.Renal functions are stable. Management plan was discussed in detail with patient Education was provided.
--- NOTE | 2016-08-26 15:41 | CON ---
DATE: 08/25/2016 REASON FOR CONSULTATION: Advanced chronic kidney disease, hyperkalemia. HISTORY OF PRESENTING ILLNESS: A 71-year-old lady known to me from outpatient followup, was sent to the Emergency Room at the direction of the oncologist because of a finding of elevated potassium on o utpatient blood work. The patient denies any excessive potassium intake. She denies any medications that raise potassium. She complains of nausea and vomiting. She also complains of intermittent elisa rrhea. She does have advanced chronic kidney disease stage IV/V. She also has severe uncontrolled h ypertension, diet controlled diabetes. At this time, patient is comfortable. She denies any chest pain. She denies any palpitations. She denies any shortness of breath. She denies any headaches, dizziness. She denies any abdominal pain. She denies any urinary complaints. PAST MEDICAL AND SURGICAL HISTORY: 1. Longstanding hypertension, NIDDM, chronic kidney disease stage IV/V, osteoarthritis, atrophic rig ht kidney. 2. Hypertensive heart disease, moderate concentric left ventricular hypertrophy, hypertensive chroni c kidney disease. 3. Severe anemia, low iron stores, secondary hyperparathyroidism, hyperlipidemia. FAMILY HISTORY: Noncontributory. SOCIAL HISTORY: No smoking, no alcohol use, no IV drug abuse. ALLERGIES: TYLENOL, OXYCODONE. CURRENT MEDICATIONS: Hydralazine, the patient is refusing, aspirin 81, clonidine, Catapres patch #3, Coreg 25 b.i.d., heparin, Lasix 40 p.o. daily, amlodipine 5 mg daily, Protonix, Synthroid, ascorbic acid. REVIEW OF SYSTEMS: All systems are reviewed, pertinent positives as mentioned in the history of pres enting illness, rest unremarkable. PHYSICAL EXAMINATION: GENERAL: Obese elderly lady lying in bed, in no acute distress. VITAL SIGNS: Blood pressure 202/89, heart rate 72, respiratory rate 18-20, temperature 98. HEENT: Normocephalic, atraumatic, positive pallor. NECK: Supple, no JVD. LUNGS: Bilateral equal air entry, no rales. CARDIAC: S1, S2, regular rate and rhythm, no murmur, no rub. ABDOMEN: Obese, distended, soft, nontender, bowel sounds present. EXTREMITIES: Trace lower extremity edema. INTAKE AND OUTPUT: Not charted. LABORATORY DATA: WBC 5.9, hemoglobin 9.5, hematocrit 29, platelets 223. Sodium 139, potassium 6.2, chloride 112, CO2 19, BUN 47, creatinine 4.9, glucose 92, calcium 8.5, phosphorus not checked, magnes ium 2.0. BNP 995. Albumin 3.3. ASSESSMENT: 1. Hyperkalemia. 2. Advanced renal insufficiency. 3. Accelerated hypertension. 4. Anemia of chronic kidney disease. 5. Secondary hyperparathyroidism. PLAN: 1. Educate patient on a low potassium diet. 2. Treat with insulin, dextrose, Kayexalate, sodium bicarbonate. 3. Increase amlodipine to 10 mg daily. 4. Counseled the patient regarding importance of compliance with medications. 5. Close followup. Era Hameed MD cc: [id number] TT: 08/26/2016 15:41:33 Confirmation # [id number] Dictation # [id number]
[2016-08-26 16:35] LABS: URINE BILIRUBIN NEGATIVE (NEGATIVE); URINE BLOOD SMALL (NEGATIVE); URINE GLUCOSE (UA) NEGATIVE (NEGATIVE); URINE KETONE NEGATIVE (NEGATIVE); URINE LEUKOCYTE ESTERASE NEGATIVE Leu/uL (NEGATIVE); URINE PROTEIN >=300 mg/dL (<30 mg/dL); URINE UROBILINOGEN 0.2 E.U./dL (<1 E.U./dL)
[2016-08-26 16:38] LABS: URINE APPEARANCE SL CLOUDY (CLEAR); URINE COLOR YELLOW (YELLOW)
[2016-08-26 16:41] LABS: URINE BACTERIA TRACE (NEG); URINE WBC 0 - 2 /hpf (0-6)
[2016-08-26 18:24] VITALS: RESP 20
[2016-08-27 06:11] VITALS: O2SAT 97
[2016-08-27 06:45] LABS: ADD MANUAL DIFF? NO
[2016-08-27 06:56] LABS: ALB/GLOB RATIO 0.9 (1.1-1.8); BILIRUBIN,TOTAL 0.6 mg/dL (0.2-1.3); CALCIUM 8.7 mg/dL (8.4-10.5); POTASSIUM 4.4 mmol/L (3.6-5.0); TOTAL PROTEIN 7.3 g/dL (5.8-8.3)
[2016-08-27] MEDS ORDERED: Levothyroxine 125 MCG TAB PO SCH (07:30)
[2016-08-27] MEDS ORDERED: Pantoprazole 40 mg EC Tab PO SCH (07:30)
[2016-08-27 08:01] LABS: BASO # 0.03 K/mm3 (0.0-2.0); BASO % 0.3 % (0.0-3.0); EOS # 0.2 (0.0-0.7); EOS % 2.1 % (1.5-5.0); GRAN # 4.77 (1.4-6.5); GRAN % 52.8 % (50.0-68.0); LYMPH # 3.7 (1.2-3.4); LYMPH % 40.4 % (22.0-35.0); MEAN CELL VOLUME 83.8 fL (80.0-105.0); MEAN CORPUSCULAR HEMOGLOBIN 27.7 pg (25.0-35.0); MEAN PLATELET VOLUME 10.6 fl (7.0-11.0); MONO # 0.4 (0.1-0.6); MONO % 4.4 % (1.0-6.0); PLATELET COUNT 288 10^3/uL (120.0-450.0); RED CELL DISTRIBUTION WIDTH 13.8 % (11.5-14.5); WHITE BLOOD COUNT 9.1 10^3/ul (4.5-11.0)
[2016-08-27 08:05] LABS: TOTAL PROTEIN, SERUM 6.4 g/dL (6.1-8.1)
[2016-08-27 08:22] LABS: CREATININE, RANDOM URINE 37 mg/dL (20-320)
[2016-08-27] MEDS: Insulin Reg-LOW-Coverage SC SCH ×2 (08:34→12:46)
[2016-08-27] MEDS: CLORAZEPATE DIPOTASSIUM PO SCH ×2 (10:22→18:21)
[2016-08-27 11:45] VITALS: TEMP 97.8
--- NOTE | 2016-08-27 12:05 | CP.PCM.DIS ---
<America Siu - Last Filed: 08/29/16 16:21> Provider - Provider Date of Admission: 08/25/16 14:16 Attending physician: Tory Jarvis MD Primary care physician: Javier Harris MD Consults: Dr. Hameed, Nephrology Time Spent in preparation of Discharge (in minutes): 45 Hospital Course - Lab Results Lab Results: Most Recent Lab Values WBC 9.1 10^3/ul (4.5-11.0) D 08/27/16 06:40 RBC 3.58 10^6/uL (3.5-6.1) 08/27/16 06:40 Hgb 9.9 gm/dL (12.0-16.0) L 08/27/16 06:40 Hct 30.0 % (36.0-48.0) L 08/27/16 06:40 MCV 83.8 fL (80.0-105.0) 08/27/16 06:40 MCH 27.7 pg (25.0-35.0) 08/27/16 06:40 MCHC 33.0 g/dl (31.0-37.0) 08/27/16 06:40 RDW 13.8 % (11.5-14.5) 08/27/16 06:40 Plt Count 288 10^3/uL (120.0-450.0) 08/27/16 06:40 MPV 10.6 fl (7.0-11.0) 08/27/16 06:40 Gran % 52.8 % (50.0-68.0) 08/27/16 06:40 Lymph % (Auto) 40.4 % (22.0-35.0) H 08/27/16 06:40 [place] % (Auto) 4.4 % (1.0-6.0) 08/27/16 06:40 Eos % (Auto) 2.1 % (1.5-5.0) 08/27/16 06:40 Baso % (Auto) 0.3 % (0.0-3.0) 08/27/16 06:40 Gran # 4.77 (1.4-6.5) 08/27/16 06:40 Lymph # 3.7 (1.2-3.4) H 08/27/16 06:40 Coleman # 0.4 (0.1-0.6) 08/27/16 06:40 Eos # 0.2 (0.0-0.7) 08/27/16 06:40 Baso # 0.03 K/mm3 (0.0-2.0) 08/27/16 06:40 Sodium 141 mmol/L (132-148) 08/27/16 06:40 Potassium 4.4 mmol/L (3.6-5.0) 08/27/16 06:40 Chloride 112 mmol/L (98-107) H 08/27/16 06:40 Carbon Dioxide 20 mmol/L (21-33) L 08/27/16 06:40 Anion Gap 13 (10-20) 08/27/16 06:40 BUN 38 mg/dL (7-21) H 08/27/16 06:40 Creatinine 4.8 mg/dL (0.5-1.4) H 08/27/16 06:40 Est GFR ( Amer) 11 08/27/16 06:40 Est GFR (Non-Af Amer) 9 08/27/16 06:40 POC Glucose (mg/dL) 128 mg/dL (65-110) H 08/27/16 10:57 Random Glucose 102 mg/dL (70-110) 08/27/16 06:40 Calcium 8.7 mg/dL (8.4-10.5) 08/27/16 06:40 Magnesium 2.0 mg/dL (1.7-2.2) 08/25/16 13:20 Total Bilirubin 0.6 mg/dL (0.2-1.3) 08/27/16 06:40 AST 23 U/L (15-39) 08/27/16 06:40 ALT 30 U/L (7-56) 08/27/16 06:40 Alkaline Phosphatase 164 U/L (38-133) H 08/27/16 06:40 Lactate Dehydrogenase 543 U/L (333-699) 08/25/16 13:20 Total Creatine Kinase 165 U/L (35-230) 08/26/16 12:45 Troponin I < 0.01 ng/mL 08/25/16 13:20 NT-Pro-B Natriuret Pep 995 pg/mL (0-450) H 08/25/16 13:20 Total Protein 7.3 g/dL (5.8-8.3) 08/27/16 06:40 Total Protein (PEP) 6.4 g/dL (6.1-8.1) 08/26/16 15:50 Albumin 3.4 g/dL (3.0-4.8) 08/27/16 06:40 Globulin 3.9 gm/dL 08/27/16 06:40 Albumin/Globulin Ratio 0.9 (1.1-1.8) L 08/27/16 06:40 Thyroxine (T4) 5.8 ug/dL (5.5-11.0) 08/26/16 06:00 TSH 3rd Generation 7.34 mIU/mL (0.46-4.68) H 08/26/16 06:00 Urine Color Yellow (YELLOW) 08/26/16 16:00 Urine Appearance Sl cloudy (CLEAR) 08/26/16 16:00 Urine pH 6.0 (4.7-8.0) 08/26/16 16:00 Ur Specific [place] 1.020 (1.005-1.035) 08/26/16 16:00 Urine Protein >=300 mg/dL (<30 mg/dL) H 08/26/16 16:00 Urine Glucose (UA) Negative mg/dL (NEGATIVE) 08/26/16 16:00 Urine Ketones Negative mg/dL (NEGATIVE) 08/26/16 16:00 Urine Blood Small (NEGATIVE) H 08/26/16 16:00 Urine Nitrate Negative (NEGATIVE) 08/26/16 16:00 Urine Bilirubin Negative (NEGATIVE) 08/26/16 16:00 Urine Urobilinogen 0.2 E.U./dL (<1 E.U./dL) 08/26/16 16:00 Ur Leukocyte Esterase Negative [place]el/uL (NEGATIVE) 08/26/16 16:00 Urine RBC 2 - 5 /hpf (0-2) 08/26/16 16:00 Urine WBC 0 - 2 /hpf (0-6) 08/26/16 16:00 Ur Epithelial Cells 3 - 4 /hpf (0-5) 08/26/16 16:00 Urine Bacteria Trace (NEG) 08/26/16 16:00 Urine Other Uyeast 08/26/16 16:00 Ur Random Creatinine 30 mg/dL 08/26/16 16:00 U Random Total Protein 8778 mg/g creat (21-161) H 08/26/16 16:00 Ur Random Sodium 112 meq/L 08/26/16 16:00 Ur Random Potassium 11.4 meq/L 08/26/16 16:00 - Hospital Course Hospital Course: Patient is a 71 y/o AA F with PMhx of HTN, NIDDM, hiatal hernia, hypothyroidism who presents with hypertensive urgency, hyperkalemia, and acute on chronic kidney disease. Initial postassium level was 5.5, and initial BUN/Cr was 47/ 4.9. Potassium treated with Albuterol, Dextrose, Insulin and Kayexlate in ED. On EKG NSR at 86 BPM with t-wave inversions in and VII as per ED physician. Was transferred to telemetry for Hyperkalemia. While on floor, was under monitoring for potassium levels, for which kayexelate x 3 was admnistered. Pt also recieved education for which foods to avoid that have higher levels of potassium. Nephrology was consulted for pt's CKD, who recommended increasing amlodipine dose. HTN was treated with home Coreg, Clonidine, Hydralazine, and Imdur and hydralazine prn. Recent echocardiogram showed normal LV with LVEF of 65%, and home lasix was continued for leg edema. Sliding scale insulin was administered for DM of pt. Pt d/c in fair condition and with potassium level of 4.4 with following instructions: You are discharged home. Please follow-up with your primary medical doctor within the week. Please resume your home medications with the exception of Amlodipine, for which you are receiving a new prescription for a higher dose, Amlodipine 10 mg by mouth daily. The other new prescription is coreg 37.5 mg by mouth twice daily. You were given a list of foods to avoid for your high potassium levels, please avoid said foods. Please return to the emergency department for worsening of symptoms. Discharge Exam - Head Exam Head Exam: ATRAUMATIC, NORMOCEPHALIC - Eye Exam Eye Exam: EOMI, Normal appearance Pupil Exam: NORMAL ACCOMODATION, PERRL - ENT Exam ENT Exam: Mucous Membranes Moist, Normal Exam - Respiratory Exam Respiratory Exam: Clear to PA & Lateral, UNREMARKABLE - Cardiovascular Exam Cardiovascular Exam: +S1, +S2. absent: Tachycardia - GI/Abdominal Exam GI & Abdominal Exam: Soft. absent: Tenderness - Exam External exam: absent: Ecchymosis, Erythema - Extremities Exam Extremities exam: normal capillary refill, pedal pulses present - Neurological Exam Neurological exam: Alert, Oriented x3 - Skin Skin Exam: Intact, Normal Color Discharge Plan - Discharge Medications Prescriptions: amLODIPine [Norvasc] 10 mg PO DAILY #14 tab Carvedilol [Coreg] 37.5 mg PO BID #84 tab - Follow Up Plan Condition: FAIR Disposition: HOME/ ROUTINE Instructions: Chronic Kidney Disease (DC), Renal Failure Diet (DC), Hyperkalemia (DC), Hyperkalemia (GEN), Chronic Hypertension (DC), Anemia (DC) Additional Instructions: You are discharged home. Please follow-up with your primary medical doctor within the week. Please resume your home medications with the exceptions of hydralazine and Amlodipine, for which you are receiving a new prescription for a higher dose, Amlodipine 10 mg by mouth daily. And please stop taking your home medication of hydralazine. Please start taking your new medication of Carvedilol 37.5 mg by mouth twice daily. You were given a list of foods to avoid for your high potassium levels, please avoid said foods. Please return to the emergency department for worsening of symptoms. Nursing: If you experience any shortness of breath, chest pain or any changes visit nearest Emergency department or call 911. See care notes for further instructions. Referrals: Javier Harris MD [Primary Care Provider] - <Simona RIVERA,Tory - Last Filed: 09/04/16 07:51> Provider - Provider Date of Admission: 08/25/16 14:16 Attending physician: Tory Jarvis MD Primary care physician: Javier Harris MD Hospital Course - Lab Results Lab Results: Most Recent Lab Values WBC 9.1 10^3/ul (4.5-11.0) D 08/27/16 06:40 RBC 3.58 10^6/uL (3.5-6.1) 08/27/16 06:40 Hgb 9.9 gm/dL (12.0-16.0) L 08/27/16 06:40 Hct 30.0 % (36.0-48.0) L 08/27/16 06:40 MCV 83.8 fL (80.0-105.0) 08/27/16 06:40 MCH 27.7 pg (25.0-35.0) 08/27/16 06:40 MCHC 33.0 g/dl (31.0-37.0) 08/27/16 06:40 RDW 13.8 % (11.5-14.5) 08/27/16 06:40 Plt Count 288 10^3/uL (120.0-450.0) 08/27/16 06:40 MPV 10.6 fl (7.0-11.0) 08/27/16 06:40 Gran % 52.8 % (50.0-68.0) 08/27/16 06:40 Lymph % (Auto) 40.4 % (22.0-35.0) H 08/27/16 06:40 Coleman % (Auto) 4.4 % (1.0-6.0) 08/27/16 06:40 Eos % (Auto) 2.1 % (1.5-5.0) 08/27/16 06:40 Baso % (Auto) 0.3 % (0.0-3.0) 08/27/16 06:40 Gran # 4.77 (1.4-6.5) 08/27/16 06:40 Lymph # 3.7 (1.2-3.4) H 08/27/16 06:40 Coleman # 0.4 (0.1-0.6) 08/27/16 06:40 Eos # 0.2 (0.0-0.7) 08/27/16 06:40 Baso # 0.03 K/mm3 (0.0-2.0) 08/27/16 06:40 Sodium 141 mmol/L (132-148) 08/27/16 06:40 Potassium 4.4 mmol/L (3.6-5.0) 08/27/16 06:40 Chloride 112 mmol/L (98-107) H 08/27/16 06:40 Carbon Dioxide 20 mmol/L (21-33) L 08/27/16 06:40 Anion Gap 13 (10-20) 08/27/16 06:40 BUN 38 mg/dL (7-21) H 08/27/16 06:40 Creatinine 4.8 mg/dL (0.5-1.4) H 08/27/16 06:40 Est GFR ( Amer) 11 08/27/16 06:40 Est GFR (Non-Af Amer) 9 08/27/16 06:40 POC Glucose (mg/dL) 128 mg/dL (65-110) H 08/27/16 16:18 Random Glucose 102 mg/dL (70-110) 08/27/16 06:40 Hemoglobin A1c 6.3 % (4.2-6.5) 08/26/16 06:00 Calcium 8.7 mg/dL (8.4-10.5) 08/27/16 06:40 Magnesium 2.0 mg/dL (1.7-2.2) 08/25/16 13:20 Total Bilirubin 0.6 mg/dL (0.2-1.3) 08/27/16 06:40 AST 23 U/L (15-39) 08/27/16 06:40 ALT 30 U/L (7-56) 08/27/16 06:40 Alkaline Phosphatase 164 U/L (38-133) H 08/27/16 06:40 Lactate Dehydrogenase 543 U/L (333-699) 08/25/16 13:20 Total Creatine Kinase 165 U/L (35-230) 08/26/16 12:45 Troponin I < 0.01 ng/mL 08/25/16 13:20 NT-Pro-B Natriuret Pep 995 pg/mL (0-450) H 08/25/16 13:20 Total Protein 7.3 g/dL (5.8-8.3) 08/27/16 06:40 Total Protein (PEP) 6.4 g/dL (6.1-8.1) 08/26/16 15:50 Albumin 3.4 g/dL (3.0-4.8) 08/27/16 06:40 Albumin (PEP) 3.2 g/dL (3.8-4.8) L 08/26/16 15:50 Globulin 3.9 gm/dL 08/27/16 06:40 Albumin/Globulin Ratio 0.9 (1.1-1.8) L 08/27/16 06:40 Ifoke-0-Prsaoaaor 0.4 g/dL (0.2-0.3) H 08/26/16 15:50 Fupze-9-Qtmteuetk 0.7 g/dL (0.5-0.9) 08/26/16 15:50 Pgbh-5-Awszeehn 0.4 g/dL (0.4-0.6) 08/26/16 15:50 Hiib-6-Rpxnmjxu 0.5 g/dL (0.2-0.5) 08/26/16 15:50 Gamma Globulins 1.2 g/dL (0.8-1.7) 08/26/16 15:50 Abnorm Protein Band 1 TEST NOT PERFORMED 08/26/16 15:50 Abnorm Protein Band 2 TEST NOT PERFORMED 08/26/16 15:50 Abnorm Protein Band 3 TEST NOT PERFORMED 08/26/16 15:50 Thyroxine (T4) 5.8 ug/dL (5.5-11.0) 08/26/16 06:00 TSH 3rd Generation 7.34 mIU/mL (0.46-4.68) H 08/26/16 06:00 Urine Color Yellow (YELLOW) 08/26/16 16:00 Urine Appearance Sl cloudy (CLEAR) 08/26/16 16:00 Urine pH 6.0 (4.7-8.0) 08/26/16 16:00 Ur Specific [place] 1.020 (1.005-1.035) 08/26/16 16:00 Urine Protein >=300 mg/dL (<30 mg/dL) H 08/26/16 16:00 Urine Glucose (UA) Negative mg/dL (NEGATIVE) 08/26/16 16:00 Urine Ketones Negative mg/dL (NEGATIVE) 08/26/16 16:00 Urine Blood Small (NEGATIVE) H 08/26/16 16:00 Urine Nitrate Negative (NEGATIVE) 08/26/16 16:00 Urine Bilirubin Negative (NEGATIVE) 08/26/16 16:00 Urine Urobilinogen 0.2 E.U./dL (<1 E.U./dL) 08/26/16 16:00 Ur Leukocyte Esterase Negative [place]/uL (NEGATIVE) 08/26/16 16:00 Urine RBC 2 - 5 /hpf (0-2) 08/26/16 16:00 Urine WBC 0 - 2 /hpf (0-6) 08/26/16 16:00 Ur Epithelial Cells 3 - 4 /hpf (0-5) 08/26/16 16:00 Urine Bacteria Trace (NEG) 08/26/16 16:00 Urine Other Uyeast 08/26/16 16:00 Ur Random Creatinine 30 mg/dL 08/26/16 16:00 U Random Total Protein 8778 mg/g creat (21-161) H 08/26/16 16:00 Ur Random Sodium 112 meq/L 08/26/16 16:00 Ur Random Potassium 11.4 meq/L 08/26/16 16:00 BRENDA & SPEP Interp See note 08/26/16 15:50 Attending/Attestation - Attestation I have personally seen and examined this patient.: Yes I have fully participated in the care of the patient.: Yes I have reviewed all pertinent clinical information, including history, physical exam and plan: Yes Notes (Text): 09/04/16 07:46 Patient was seen and examined with medical billing service .Agreed with resident assessment and plan. 71 y/o AA F with PMhx of HTN, NIDDM, hiatal hernia, hypothyroidism and stage IV CKD who presents with , hyperkalemia. Initial potassium level was 6.2 .BUN/ Cr was 47/4.9 was at base line.Patient was non compliance with low K diet at home.She was treated for hyperkalemia, was provided the list of foof with high Potassium content.Hyperkalemia has resolved.She was seen on consultation with Nephrology.Her blood pressure is better controlled.She will be discharged home and will follow up with PCP and Nephrology. Management plan was discussed in detail with patient Education was provided. 09/04/16 07:50
[2016-08-27 15:47] VITALS: BP 160/80
[2016-08-27 18:21] VITALS: PULSE 84
[2016-08-29 10:06] LABS: BETA 1 GLOBULIN 0.4 g/dL (0.4-0.6); BETA 2 GLOBULIN 0.5 g/dL (0.2-0.5); GAMMA GLOBULIN 1.2 g/dL (0.8-1.7)
== END 2016-08-27 18:45 | disposition home or self-care (01) ==
LOC: ED 12:24 → ERH 14:16 → 2RNO 17:02
PROVIDERS: ADMIT Internal Medicine; ATTEND Internal Medicine
DX: I16.0 Hypertensive urgency (principal); E87.5 Hyperkalemia; I13.11 Hypertensive heart and chronic kidney disease without heart failure, with stage 5 chronic kidney disease, or end stage renal disease; N18.5 Chronic kidney disease, stage 5; E11.22 Type 2 diabetes mellitus with diabetic chronic kidney disease; E03.9 Hypothyroidism, unspecified; K44.9 Diaphragmatic hernia without obstruction or gangrene; M19.90 Unspecified osteoarthritis, unspecified site; N25.81 Secondary hyperparathyroidism of renal origin; E78.5 Hyperlipidemia, unspecified; D63.1 Anemia in chronic kidney disease; Z79.84 Long term (current) use of oral hypoglycemic drugs; Z79.82 Long term (current) use of aspirin; E66.9 Obesity, unspecified; Z68.32 Body mass index [BMI] 32.0-32.9, adult; Z91.11 Patient's noncompliance with dietary regimen
CPT/HCPCS: 36415; 71010; 80053; 81001; 82436; 82550; 82570; 82948; 83036; 83615; 83735; 83880; 84132; 84155; 84156; 84165; 84300; 84436; 84443; 84484; 85025; 93005; 94640; 96372; 96374; 96375; 96376; 99285; G0378; J0360; J1644

== ENCOUNTER 2016-12-29 18:15 | Inpatient (IN) | payer MEDICARE, MEDICAID ==
[2016-12-29 18:23] VITALS: BMI 34.9
--- NOTE | 2016-12-29 18:39 | ED PDOC ---
Arrival/HPI - General Chief Complaint: Lower Extremity Problem/Injury Time Seen by Provider: 12/29/16 18:35 Historian: Patient - History of Present Illness Narrative History of Present Illness (Text): 12/29/16 18:36 71 year old female, pmh including hypertension/diabetes/hiatal hernia/ hypothyroidism, allergic to tylenol and oxycodon, complaining of rt. lower extremity swelling x 3 years. Pt. stated that she had rt. lower extremity reconstructive surgery back in 2014, been having swelling and pain, started to have clear drainage fluid today on the rt. medical calf, no change in swelling, currently follow up with the pmd and orthopedic, no chest pain or shortness of breath, no other medical or psychological complaints. Past Medical History - Provider Review Nursing Documentation Reviewed: Yes - Infectious Disease Hx of Infectious Diseases: None - Tetanus Immunization Tetanus Immunization: Unknown - Reproductive Menopause: Yes - Cardiac Hx Cardiac Disorders: Yes (HYPERKALEMIA 4-6-17) Hx Hypertension: Yes Hx Peripheral Edema: Yes (ble +2) - Pulmonary Hx Respiratory Disorders: No - Neurological Hx Neurological Disorder: Yes (NEAR SYNCOPE) - Renal Hx Renal Disorder: Yes Hx Renal Failure: Yes - Endocrine/Metabolic Hx Diabetes Mellitus Type 2: Yes (borderline) Hx Hypothyroidism: (thyroid surgery partial thyroidectomy) - Hematological/Oncological Hx Blood Disorders: Yes Hx Anemia: Yes (iron deficiency) Other/Comment: blood transfusions, iron infusions, hyperkalemia - Integumentary Hx Dermatological Disorder: Yes Other/Comment: large scar r knee - Musculoskeletal/Rheumatological Hx Falls: No - Gastrointestinal Hx Gastrointestinal Disorders: Yes (hiatal hernia) Hx Gastroesophageal Reflux: Yes - Genitourinary/Gynecological Hx Genitourinary Disorders: No - Psychiatric Hx Psychophysiologic Disorder: No Hx Substance Use: No - Surgical History Hx Orthopedic Surgery: Yes (multiple knee surgeries,SPECIALLY RIGHT KNEE) Other/Comment: pt fell "yrs ago" can't remember how long ago had 5 knee replacements and 5 arthoscopic sx's to r knee, r knee reconstruction with metal plate/cadavor part in may 2014 and september 2014, herniorraphy - Anesthesia Hx Anesthesia: Yes Hx Anesthesia Reactions: Yes - Suicidal Assessment Feels Threatened In Home Enviroment: No Family/Social History - Physician Review Nursing Documentation Reviewed: Yes Family/Social History: Unknown Family HX Smoking Status: Never Smoked Hx Alcohol Use: No Hx Substance Use: No Allergies/Home Meds Allergies/Adverse Reactions: Allergies acetaminophen [From Percocet] Allergy (Verified 08/25/16 12:27) RASH oxycodone HCl [From Percocet] Allergy (Verified 08/25/16 12:27) RASH Home Medications: Home Meds Medication Instructions Recorded Confirmed Esomeprazole Magnesium [Nexium] 40 mg PO DAILY 01/09/14 12/29/16 Aspirin [Aspirin Chewable] 81 mg PO DAILY 07/27/16 12/29/16 Ergocalciferol (Vitamin D2) 50,000 units PO .WEEKLY 07/27/16 12/29/16 [Vitamin D] Nitroglycerin [Nitrostat] 1 tab SL PRN PRN 08/25/16 12/29/16 Carvedilol [Coreg] 50 mg PO BID 12/29/16 12/29/16 Review of Systems - Review of Systems Constitutional: absent: Fatigue Eyes: absent: Vision Changes ENT: absent: Hearing Changes Respiratory: absent: SOB, Cough Cardiovascular: Edema. absent: Chest Pain Gastrointestinal: absent: Abdominal Pain, Nausea, Vomiting Skin: absent: Rash, Pruritis, Skin Lesions Neurological: absent: Headache, Dizziness Psychiatric: absent: Anxiety, Depression Physical Exam Vital Signs Reviewed: Yes Vital Signs Temp Pulse Resp BP Pulse Ox 12/29/16 23:36 71 18 150/76 100 12/29/16 23:21 75 18 150/76 100 12/29/16 20:16 72 17 165/80 H 98 12/29/16 18:16 98.1 F 77 18 193/80 H 99 Temperature: Afebrile Blood Pressure: Hypertensive Pulse: Regular Respiratory Rate: Normal Appearance: Positive for: Well-Appearing, Non-Toxic, Comfortable Pain Distress: None Mental Status: Positive for: Alert and Oriented X 3 - Systems Exam Head: Present: Atraumatic, Normocephalic Pupils: Present: PERRL Extroacular Muscles: Present: EOMI Conjunctiva: Present: Normal Mouth: Present: Moist Mucous Membranes Neck: Present: Normal Range of Motion Respiratory/Chest: Present: Clear to Auscultation, Good Air Exchange. No: Respiratory Distress, Accessory Muscle Use Cardiovascular: Present: Regular Rate and Rhythm, Normal S1, S2, Other (Rt. lower extremity pedal edema 2+ with medial distal 1/3 calf region noted to have mild clear fluid drainage vs. lt. lower extremity 1+ noted). No: Murmurs Abdomen: Present: Normal Bowel Sounds. No: Tenderness, Distention, Peritoneal Signs Back: Present: Normal Inspection Upper Extremity: Present: Normal Inspection. No: Cyanosis, Edema Lower Extremity: Present: Normal Inspection. No: Edema Neurological: Present: GCS=15, CN II-XII Intact, Speech Normal Skin: Present: Warm, Dry, Normal Color. No: Rashes Psychiatric: Present: Alert, Oriented x 3, Normal Insight, Normal Concentration Medical Decision Making ED Course and Treatment: 12/29/16 18:49 -RLE venuous doppler -labs 12/29/16 20:50 -EKG: NSR @ 70 BPM, no St elevation or depression, no T wave inversion. -Chest x-ray: -LLE venuous doppler: as per preliminary report, limited study, no acute DVT on visualized veins. -Labs are nonsignificant except: Creatine 5.4, K+ 5.3, kayaxalate ordered. -Pt. needs to be admitted for observation for acute on chronic kidney failure, hyperkalemia and possibley repeat the RLE venuous doppler. 12/29/16 20:53 -I discussed with Dr. Vazquez and the regional medical director Dr. Redman, discussed about the labs/radiology results, will keep the patient. -I discussed with Dr. Stone, discussed about the labs/case, he will put in the admission order. - Lab Interpretations Lab Results: 12/29/16 19:13 12/29/16 19:13 Lab Results 12/29/16 19:13: Sodium 140, Potassium 5.3 H, Chloride 113 H, Carbon Dioxide 17 L , Anion Gap 15, BUN 40 H, Creatinine 5.4 H, Est GFR ( Amer) 9, Est GFR ( Non-Af Amer) 8, Random Glucose 163 H, Calcium 7.9 L, Total Bilirubin 0.5, AST 24 , ALT 27, Alkaline Phosphatase 176 H, NT-Pro-B Natriuret Pep 935 H, Total Protein 6.9, Albumin 3.6, Globulin 3.4, Albumin/Globulin Ratio 1.1 12/29/16 19:13: WBC 7.4, RBC 4.05, Hgb 10.6 L, Hct 33.1 L, MCV 81.7, MCH 26.2, MCHC 32.0, RDW 16.8 H, Plt Count 225, MPV 9.4, Gran % 70.8 H, Lymph % (Auto) 22.8, [place] % (Auto) 4.7, Eos % (Auto) 1.6, Baso % (Auto) 0.1, Gran # 5.23, Lymph # 1.7, [place] # 0.4, Eos # 0.1, Baso # 0.01 I have reviewed the lab results: Yes Interpretation: Abnormal lab values (Creatine 5.4, K+ 5.3) - RAD Interpretation Radiology Orders: 12/29/16 18:46 DUPLEX LOWER EXTRM VEIN RIGHT [US] Stat 12/29/16 20:34 CHEST PORTABLE [RAD] Stat Chest x-ray: no active disease RLE Venuous Doppler: limited study, no visible DVT as per preliminary report. Awning Assembler: Radiologist - EKG Interpretation EKG Interpretation (Text): 12/29/16 20:53 -EKG: NSR @ 70 BPM, no St elevation or depression, no T wave inversion. Interpreted by ED Physician: Yes Type: 12 lead EKG - Medication Orders Current Medication Orders: Amlodipine Besylate (Norvasc) 10 mg PO DAILY [facility] Last Admin: 12/30/16 10:14 Dose: 10 mg Ascorbic Acid (Vitamin C 500 Mg Tab) 500 mg PO DAILY [facility] Last Admin: 12/30/16 10:15 Dose: 500 mg Aspirin (Aspirin Chewable) 81 mg PO DAILY [facility] Last Admin: 12/30/16 10:14 Dose: 81 mg Calcium Carbonate (Oscal) 500 mg PO DAILY [facility] Last Admin: 12/30/16 10:14 Dose: 500 mg Carvedilol (Coreg) 50 mg PO BID [facility] Last Admin: 12/30/16 10:14 Dose: 50 mg Ergocalciferol (Drisdol 50,000 Intl Units Cap) 1 cap PO SAT [facility] Last Admin: 12/30/16 10:15 Dose: 1 cap Ferrous Sulfate (Feosol) 324 mg PO BID [facility] Last Admin: 12/30/16 10:14 Dose: 324 mg Furosemide (Lasix) 40 mg IVP DAILY [facility] Last Admin: 12/30/16 10:15 Dose: 40 mg Insulin Human Lispro (Humalog Low) 0 units SC [facility] PRN Reason: Protocol Last Admin: 12/30/16 11:20 Dose: Not Given Non-Admin Reason: Blood Sugar Parameter Levothyroxine Sodium (Synthroid) 125 mcg PO 0600 [facility] Last Admin: 12/30/16 07:00 Dose: 125 mcg Nitroglycerin (Nitrostat Sl Tab) 0.4 mg SL Q5M PRN PRN Reason: chest pain Pantoprazole Sodium (Protonix Ec Tab) 40 mg PO 0600,1600 [facility] Last Admin: 12/30/16 07:00 Dose: 40 mg Discontinued Medications Sodium Chloride (Sodium Chloride 0.9%) 1,000 mls @ 75 mls/hr IV .[id number] [facility] Last Admin: 12/30/16 05:45 Dose: 75 mls/hr Sodium Polystyrene Sulfonate (Kayexalate Oral Susp) 15 gm [place] STAT STA Stop: 12/29/16 20:10 Last Admin: 12/29/16 20:53 Dose: 15 gm - PA / CUSTOMER SERVICE AGENT / Resident Statement /DO has reviewed & agrees with the documentation as recorded. Disposition/Present on Arrival - Present on Arrival Any Indicators Present on Arrival: No History of DVT/PE: No History of Uncontrolled Diabetes: No Urinary Catheter: No History of Decub. Ulcer: No History Surgical Site Infection Following: None - Disposition Have Diagnosis and Disposition been Completed?: Yes Diagnosis: Lymphedema, Acute on chronic renal failure, Hyperkalemia Disposition: HOSPITALIZED Disposition Time: 20:54 Patient Plan: Observation Patient Problems: Current Active Problems Problem Status Onset Lymphedema Acute Acute on chronic renal failure Acute Hyperkalemia Acute Condition: STABLE
[2016-12-29 19:28] LABS: BASO # 0.01 K/mm3 (0.0-2.0); BASO % 0.1 % (0.0-3.0); EOS # 0.1 (0.0-0.7); EOS % 1.6 % (1.5-5.0); GRAN # 5.23 (1.4-6.5); GRAN % 70.8 % (50.0-68.0); HEMATOCRIT 33.1 % (36.0-48.0); LYMPH # 1.7 (1.2-3.4); LYMPH % 22.8 % (22.0-35.0); MEAN CELL VOLUME 81.7 fl (80.0-105.0); MEAN CORPUSCULAR HEMOGLOBIN 26.2 pg (25.0-35.0); MEAN PLATELET VOLUME 9.4 fl (7.0-11.0); MONO # 0.4 (0.1-0.6); MONO % 4.7 % (1.0-6.0); RED CELL DISTRIBUTION WIDTH 16.8 % (11.5-14.5); WHITE BLOOD COUNT 7.4 10^3/ul (4.5-11.0)
[2016-12-29 19:33] LABS: ALB/GLOB RATIO 1.1 (1.1-1.8); BILIRUBIN,TOTAL 0.5 mg/dL (0.2-1.3); CALCIUM 7.9 mg/dL (8.4-10.5); POTASSIUM 5.3 mmol/L (3.6-5.0); TOTAL PROTEIN 6.9 g/dL (5.8-8.3)
[2016-12-29] MEDS ORDERED: Sod Polystyrene Sulf 15 gm/60 ml Oral Susp PR STA (20:09)
--- NOTE | 2016-12-30 03:52 | CP.PCM.HP ---
Addendum entered and electronically signed by DAÁN HARVEY DO 12/30/16 05:08 : Pt states that she has had conversations with her Nephro MD about dialysis but has not made the decision to start it as of this point Original Note: <ADÁN HARVEY - Last Filed: 12/30/16 04:40> History of Present Illness - History of Present Illness History of Present Illness: cc: LE swelling and RLE drainage Ms. Cornelio Bess is a 71yo AAF with PMH CKD, HTN, DM2, GERD 2/2 hiatal hernia , hypothyroid, HLD who presents with RLE drainage that began earlier today. Pt states that she noted her jeans to be wet on the RLE and she realized that fluid from her legs were seeping through. she contacted her Ortho MD (Dr Bocanegra) @ 2pm when she noted drainage from her anterior R shins and was told since it's clear and not bloody to go to ER to get it checked out. pt denies any trauma to area, recent fevers/illness, cp (although she has some GERD 2/2 hernia), palpitations, abdominal pain (although some discomfort with lasix, coreg and nitro), waekness, changes in vision/auditory. Pt does complain of some sob upon exertion. 10-point ROS reviewed and otherwise unremarkable. PMH: as above PSH; multiple surgeries on R knee, thyroidectomy, abdominal hernia repair Meds: as per MAR Allergies: tylenol and oxycodone SHx: lives alone, denied tob/etoh/drug use FHx: mom (heart dz), dad/brother (lymphoma), sister (CKD on dialysis, DM2) PMD: dr Harris Nephro: dr. Hameed Ortho: dr Bocanegra Present on Admission - Present on Admission Any Indicators Present on Admission: No History of DVT/PE: No History of Uncontrolled Diabetes: No Review of Systems - Review of Systems All systems: reviewed and no additional remarkable complaints except (as per HPI ) Past Patient History - Infectious Disease Hx of Infectious Diseases: None - Tetanus Immunizations Tetanus Immunization: Unknown - Past Medical History & Family History Past Medical History?: Yes - Past Social History Smoking Status: Never Smoked Alcohol: None Drugs: Denies Home Situation {Lives}: Alone - CARDIAC Hx Cardiac Disorders: Yes Hx Hypercholesterolemia: Yes Hx Hypertension: Yes Hx Peripheral Edema: Yes - PULMONARY Hx Respiratory Disorders: No - NEUROLOGICAL Hx Neurological Disorder: Yes (NEAR SYNCOPE) - RENAL Hx Chronic Kidney Disease: Yes Hx Renal Failure: Yes - ENDOCRINE/METABOLIC Hx Diabetes Mellitus Type 2: Yes (borderline) Hx Hypothyroidism: (thyroid surgery partial thyroidectomy) - HEMATOLOGICAL/ONCOLOGICAL Hx Blood Disorders: Yes Hx Anemia: Yes (iron deficiency) Other/Comment: blood transfusions, iron infusions, hyperkalemia - INTEGUMENTARY Hx Dermatological Problems: Yes Other/Comment: large scar r knee - MUSCULOSKELETAL/RHEUMATOLOGICAL Hx Falls: No - GASTROINTESTINAL Hx Gastrointestinal Disorders: Yes (hiatal hernia) Hx Gastroesophageal Reflux: Yes - GENITOURINARY/GYNECOLOGICAL Hx Genitourinary Disorders: No - PSYCHIATRIC Hx Psychophysiologic Disorder: No Hx Substance Use: No - SURGICAL HISTORY Hx Surgeries: Yes Hx Herniorrhaphy: Yes Hx Orthopedic Surgery: Yes (multiple knee surgeries,SPECIALLY RIGHT KNEE) Hx Thyroidectomy: Yes Other/Comment: pt fell "yrs ago" can't remember how long ago had 5 knee replacements and 5 arthoscopic sx's to r knee, r knee reconstruction with metal plate/cadavor part in may 2014 and september 2014, herniorraphy - ANESTHESIA Hx Anesthesia: Yes Hx Anesthesia Reactions: Yes Meds Allergies/Adverse Reactions: Allergies Allergy/AdvReac Type Severity Reaction Status Date / Time acetaminophen [From Percocet] Allergy RASH Verified 08/25/16 12:27 oxycodone HCl [From Percocet] Allergy RASH Verified 08/25/16 12:27 Physical Exam - Constitutional Appears: Well, No Acute Distress - Head Exam Head Exam: ATRAUMATIC, NORMAL INSPECTION, NORMOCEPHALIC - Eye Exam Eye Exam: EOMI, Normal appearance, PERRL Pupil Exam: NORMAL ACCOMODATION - ENT Exam ENT Exam: Mucous Membranes Moist, Normal Exam, Normal Oropharynx - Neck Exam Neck exam: Positive for: Normal Inspection. Negative for: Thyromegaly - Respiratory Exam Respiratory Exam: Rales (mild at bases b/k), NORMAL BREATHING PATTERN. absent: Accessory Muscle Use, Rhonchi, Wheezes, Respiratory Distress - Cardiovascular Exam Cardiovascular Exam: RRR, +S1, +S2. absent: Gallop, JVD, Rubs - GI/Abdominal Exam GI & Abdominal Exam: Normal Bowel Sounds, Soft. absent: Distended, Guarding, Tenderness - Extremities Exam Extremities exam: Positive for: pedal edema (3+ (extending proximal to knee b/l ) LE, UE is normal) - Back Exam Back exam: NORMAL INSPECTION. absent: CVA tenderness (L), CVA tenderness (R) - Neurological Exam Neurological exam: Alert, Oriented x3 - Psychiatric Exam Psychiatric exam: Anxious - Skin Skin Exam: Normal Color, Warm Additional comments: RLE ant teran clear liquid seeping no abrasion, wound or trauma at site Results - Vital Signs Recent Vital Signs: Last Vital Signs Temp 98 F 12/30/16 00:50 Pulse 68 12/30/16 00:50 Resp 20 12/30/16 00:50 BP 167/67 H 12/30/16 00:50 Pulse Ox 100 12/29/16 23:36 - Labs Result Diagrams: 12/29/16 19:13 12/29/16 19:13 Labs: Laboratory Results - last 24 hr 12/29/16 21:06 POC Glucose (mg/dL) 129 H Assessment & Plan - Assessment and Plan (Free Text) Assessment: 71yo AAF with PMH CKD, HTN, DM2, GERD 2/2 hiatal hernia, hypothyroid, HLD who presents with RLE atruamatic drainage likely 2/2 lymphedema vs CHF exacerbation. Acute on CKD vs worsening CKD. Anemia, improved from baseline. Hyperkalemia noted. Hypocalcemia noted. Plan: 1. LE swelling likely 2/2 lymphedema vs CHF vs DVT - f/u CXR read - r/o DVT, f/u duplex read - last Echo (07/2016) showed EF 65% - Lasix 40mg IV - Strict I/O - fluid restriction - measure daily weights - SCDs to promote lymph/vascular return 2. SOB - likely 2/2 fluid overload likely 2/2 CKD vs CHF - lasix IV - f/u CXR and check for crackles 3. Hyperkalemia - K 5.3 - Kayexelate given x1 - pt asymptomatic - EKG showed no T wave changes, and was NSR. Unchanged from prior exams - f/u CMP AM 4. Hypocalcemia - Oscal given and vit D 5. Anemia - chronic but improved from prior studies - f/u CBC - cont iron 6. Acute on Chronic Kidney Injury - Nephrology consulted - gentle hydration 7. Hx HTN - cont home meds - lipid panel drawn 8. Hx DM2 - ISS low - FS qACHS 9. Hx GERD w/ hiatal hernia - PTX 10. Hx Hypothyroidism - cont thyroid HHD NS 75 PTX/SCDs Patient was seen, evaluated and d/w attending, Dr. Taylor Harvey - Date & Time Date: 12/30/16 Time: 05:04 <Oscar Vazquez - Last Filed: 12/30/16 06:40> Results - Vital Signs Recent Vital Signs: Last Vital Signs Temp 98 F 12/30/16 00:50 Pulse 68 12/30/16 00:50 Resp 20 12/30/16 00:50 BP 167/67 H 12/30/16 00:50 Pulse Ox 100 12/29/16 23:36 - Labs Result Diagrams: 12/29/16 19:13 12/29/16 19:13 Labs: Laboratory Results - last 24 hr 12/29/16 21:06 POC Glucose (mg/dL) 129 H Attending/Attestation - Attestation I have personally seen and examined this patient.: Yes I have fully participated in the care of the patient.: Yes I have reviewed all pertinent clinical information: Yes Notes (Text): 12/30/16 06:39 Patient was seen when she was in [id number]. Agree with history , physical examination, assessment and plan.
[2016-12-30] MEDS ORDERED: Sodium Chloride 0.9% 1,000 ML IV SCH (05:00)
[2016-12-30] MEDS: Levothyroxine 125 MCG TAB PO SCH (07:00)
[2016-12-30] MEDS: Pantoprazole 40 mg EC Tab PO SCH ×2 (07:00→19:05)
[2016-12-30 07:21] LABS: HEMATOCRIT 30.7 % (36.0-48.0); MEAN CELL VOLUME 82.3 fl (80.0-105.0); MEAN CORPUSCULAR HGB CONC 31.6 g/dl (31.0-37.0); MEAN PLATELET VOLUME 9.3 fl (7.0-11.0); RED CELL DISTRIBUTION WIDTH 16.9 % (11.5-14.5); WHITE BLOOD COUNT 6.9 10^3/ul (4.5-11.0)
[2016-12-30 07:38] LABS: BILIRUBIN,TOTAL 0.4 mg/dL (0.2-1.3); CALCIUM 7.8 mg/dL (8.4-10.5); POTASSIUM 4.9 mmol/L (3.6-5.0)
[2016-12-30] MEDS: Insulin Lispro (humaLOG) LOW Coverage SC SCH ×4 (08:29→21:47)
[2016-12-30] MEDS ORDERED: Ergocalciferol 50,000 Intl Units Cap PO SCH (10:00)
[2016-12-30] MEDS ORDERED: Non Formulary Medication (Esomeprazole Magnesium [Nexium] 40 MG) PO SCH (10:00)
--- NOTE | 2016-12-30 10:55 | US ---
PROCEDURE: Right lower extremity venous US HISTORY: Leg pain and swelling. Evaluate for DVT. PHYSICIAN(S): Danilo Russo M.D. TECHNIQUE: Duplex sonography and color-flow Doppler with graded compression were used to evaluate the deep venous system of the right lower extremity. The exam is very limited by edema and body habitus. The lower femoral vein and tibial veins are not adequately seen. FINDINGS: The visualized deep venous system of the right lower extremity is sonographically normal and compressible. Normal waveforms and augmentation are seen. There is no sonographic evidence for deep venous thrombosis in the visualized segments of the right lower extremity. IMPRESSION: 1. No sonographic evidence for deep venous thrombosis in the visualized segments of the right lower extremity. 2. Very limited study.
--- NOTE | 2016-12-30 11:03 | RAD ---
HISTORY: medical clearance COMPARISON: 08/25/2016 FINDINGS: LUNGS: No active pulmonary disease. PLEURA: No significant pleural effusion identified, no pneumothorax apparent. CARDIOVASCULAR: Moderate cardiomegaly OSSEOUS STRUCTURES: No significant abnormalities. VISUALIZED UPPER ABDOMEN: Normal. OTHER FINDINGS: None. IMPRESSION: No active disease.
[2016-12-30 12:44] LABS: PHOSPHOROUS 4.8 mg/dL (2.5-4.5)
[2016-12-30 13:40] LABS: IRON 35 ug/dL (45-180)
--- NOTE | 2016-12-30 14:50 | CON ---
DATE: 12/30/2016 REASON FOR CONSULTATION: Advanced renal insufficiency. HISTORY OF PRESENT ILLNESS: This is a 71-year-old lady known to me from outpatient followup presented to the emergency room with complaints of weeping from her right lower extremity. She reports that she had edema of her right lower extremity, but she had a weeping blister which was causing a lot of pain and hence she came to the emergency room. She denies any fever or chills. She denies any nausea, vomiting, or diarrhea. She complains of frequent headaches. She also complains of severe edema. In the emergency room she was found to have a BUN and creatinine of 40/5.4. Potassium was elevated at 5.3. Hence consultation was requested. PAST MEDICAL AND SURGICAL HISTORY: Longstanding hypertension, chronic kidney disease stage V, hyperkalemia, severe anemia, secondary hyperparathyroidism, ischemic nephropathy, and noncompliance. FAMILY HISTORY: Noncontributory. SOCIAL HISTORY: No smoking, no alcohol use, and no IV drug abuse. ALLERGIES: TYLENOL AND OXYCODONE. MEDICATIONS AT HOME: Amlodipine 10 mg daily, Lasix 40 mg daily, Coreg 50 b.i.d., vitamin D once a week, Nexium, and aspirin. REVIEW OF SYSTEMS: All systems are reviewed, pertinent positives as mentioned in the history of presenting illness, rest unremarkable. PHYSICAL EXAMINATION GENERAL: An obese, elderly lady sitting in bed, in no acute distress at this time. VITAL SIGNS: Blood pressure is 161/86, heart rate is 76, respiratory rate is 20, and temperature is 98.2. HEENT: Normocephalic, atraumatic, and positive pallor. NECK: Supple and no JVD. LUNGS: Bilateral equal entry and no rales. CARDIAC: S1 and S2. Regular rate and rhythm. No murmur and no rub. ABDOMEN: Obese, distended, soft, nontender, and bowel sounds present. EXTREMITIES: 1+ pitting edema of the lower extremities, much improved from previous examinations. INTAKE AND OUTPUT: Not charted. LABORATORY DATA: WBC is 6.9, hemoglobin is 9.7, hematocrit is 30.7, and platelets are 198. Sodium is 142, potassium is 4.9, chloride is 116, CO2 is 17, BUN is 37, creatinine is 5.5, glucose is 64, and calcium is 7.8. AST is 20, ALT is 24, and albumin is 3.0, corrected calcium is 8.5. CURRENT MEDICATIONS: Coreg 50 b.i.d., Drisdol 50,000, Feosol, Humalog, Lasix 40 IV daily, amlodipine 10 mg daily, Os-Shahriar, Protonix, sodium chloride at 75, and Synthroid. ASSESSMENT AND PLAN 1. Advanced renal insufficiency, chronic kidney disease stage IV/five. 2. Anemia of chronic kidney disease. 3. Severe hypertension. 4. Secondary hyperparathyroidism. 5. Noncompliance. 6. Chronic lower extremity edema. PLAN 1. Discontinue IV fluids. 2. Continue IV Lasix. 3. Check phosphorus levels. 4. Check intact PTH levels. 5. Check iron TIBC and ferritin, so we could give her Venofer if needed. 6. Continue antihypertensives. Era Hameed MD
--- NOTE | 2016-12-30 18:52 | CARD ---
APPROVED REPORT EXAM: Two-dimensional and M-mode echocardiogram with Doppler and color Doppler. INDICATION 2D DIMENSIONS IVSd1.3 (0.7-1.1cm)LVDd5.1 (3.9-5.9cm) PWd1.3 (0.7-1.1cm)LVDs3.7 (2.5-4.0cm) FS (%) 26.1 %LVEF (%)51.0 (>50%) M-Mode DIMENSIONS Left Atrium (MM)4.00 (2.5-4.0cm)Aortic Root3.50 (2.2-3.7cm) Aortic Cusp Exc.2.00 (1.5-2.0cm) Aortic Valve AoV Peak Rgpukpje516.0cm/Summer Peak GR.14mmHg Mitral Valve MV E Xffsnxuf351.0cm/sMV A Gayuaxvd272.0cm/sE/A ratio1.1 TDI Lateral E' Peak V8.68cm/sMedial E' Peak V8.29cm/sE/Lateral E'15.6 E/Medial E'16.3 Tricuspid Valve TR Peak Rysdlcrj815pi/sRAP CLZGSSWL69dlMpVU Peak Gr.16mmHg [id number] LEFT VENTRICLE The left ventricle is normal size. There is mild to moderate concentric left ventricular hypertrophy. The left ventricular function is normal. The left ventricular ejection fraction is within the normal range. There is normal LV segmental wall motion. Transmitral Doppler flow pattern is Grade I-abnormal relaxation pattern. RIGHT VENTRICLE The right ventricle is normal size. There is normal right ventricular wall thickness. The right ventricular systolic function is normal. ATRIA The left atrium size is normal. The right atrium size is normal. AORTIC VALVE The aortic valve is mildly sclerotic. No aortic regurgitation is present. There is no aortic valvular stenosis. MITRAL VALVE The mitral valve is mildly thickened. Mitral regurgitation is trace to mild. TRICUSPID VALVE There is trace tricuspid regurgitation. There is no pulmonary hypertension. GREAT VESSELS The aortic root is normal in size. The IVC collapses <50% with inspiration. PERICARDIAL EFFUSION There is a small circumferential pericardial effusion, unchanges compared to an earlier study, No tamponade <Conclusion> The left ventricle is normal size. There is mild to moderate concentric left ventricular hypertrophy. The left ventricular function is normal. The left ventricular ejection fraction is within the normal range. There is normal LV segmental wall motion. Transmitral Doppler flow pattern is Grade I-abnormal relaxation pattern. There is a small circumferential pericardial effusion, unchanges compared to an earlier study, No tamponade
--- NOTE | 2016-12-30 19:26 | CARD ---
APPROVED REPORT EKG Measurement Heart [id number] <Conclusion> Normal sinus rhythm Low voltage QRS Cannot rule out Anterior infarct, age undetermined Abnormal ECG
--- NOTE | 2016-12-31 00:36 | CON ---
REASON FOR CONSULTATION: Hypertension. HISTORY OF PRESENT ILLNESS: The patient is a 71-year-old female, who has a history of hypertension and diabetes mellitus, history of multiple right knee replacements with arthroscopic surgeries in the past. The patient had seen knife blade polisher only to get cardiac clearance for her knee surgeries. Denies any prior cardiac history other than a history of hypertension. The patient presented because of right lower extremity pain and swelling as well as an exudate from the right leg. The patient denies any fever or chills and denies any dizziness or syncope. SOCIAL HISTORY: The patient is a nonsmoker. She is . MEDICATIONS: Aspirin 81 mg once a day, Coreg 50 mg once a day, Feosol one tablet twice a day, Lasix 40 mg intravenous once a day, amlodipine 10 mg once a day, Synthroid 125 mcg once a day, vitamin C 500 mg once a day. REVIEW OF SYSTEMS: No fever or chills. No vomiting or diarrhea. No retrosternal chest pain and no palpitation. PHYSICAL EXAMINATION GENERAL: The patient is an elderly female, who does not appear to be in any acute distress. VITAL SIGNS: Blood pressure 161/86, heart rate 76, temperature 98.2, respirations 20. HEENT: Pale conjunctivae. CHEST: Clear. HEART: S1, S2, regular. ABDOMEN: Soft. EXTREMITIES: Dressing applied to the right leg and right knee with 2+ edema. LABORATORY DATA: Hemoglobin and hematocrit 9.7 and 30.7, white count and platelet count are within normal limits. SMA-7; sodium 142, potassium 4.9, chloride 116, CO2 of 17, glucose 64, BUN 37, creatinine 5.5. Total cholesterol is elevated at 234. HDL and LDL cholesterol are within normal limits. Lower extremity venous Doppler, no evidence of DVT. Chest x-ray revealed cardiomegaly with mild CHF. EKG revealed sinus rhythm, poor R-wave progression, cannot rule out old anterior wall myocardial infarction. Echocardiography study performed in July of this year revealed -to-moderate concentric LVH, normal systolic function, small circumferential pericardial effusion with evidence of isolated compression of the right atrium. ASSESSMENT: 1. Uncontrolled hypertension. 2. Consider diastolic heart failure. 3. Chronic renal insufficiency. 4. Anemia. 5. Rule out right leg cellulitis. 6. Hyperlipidemia. 7. History of pericardial effusion. RECOMMENDATIONS: Continue aspirin 81 mg once a day, Coreg at 50 mg once a day, Lasix at 40 mg intravenous once a day, Norvasc at 10 mg once a day, Synthroid 125 mcg once a day. Obtain a followup echocardiographic study and consider 2 sets of blood cultures. Jamaal Adams MD
[2016-12-31] MEDS: Levothyroxine 125 MCG TAB PO SCH (05:05)
[2016-12-31] MEDS: Pantoprazole 40 mg EC Tab PO SCH ×2 (05:05→15:32)
[2016-12-31 06:37] LABS: HEMATOCRIT 30.8 % (36.0-48.0); MEAN CELL VOLUME 82.4 fl (80.0-105.0); MEAN CORPUSCULAR HEMOGLOBIN 25.7 pg (25.0-35.0); MEAN CORPUSCULAR HGB CONC 31.2 g/dl (31.0-37.0); MEAN PLATELET VOLUME 9.6 fl (7.0-11.0); WHITE BLOOD COUNT 6.3 10^3/ul (4.5-11.0)
[2016-12-31 06:52] LABS: BILIRUBIN,TOTAL 0.5 mg/dL (0.2-1.3); CALCIUM 7.5 mg/dL (8.4-10.5); POTASSIUM 4.6 mmol/L (3.6-5.0)
[2016-12-31] MEDS: Insulin Lispro (humaLOG) LOW Coverage SC SCH ×4 (07:42→21:42)
--- NOTE | 2016-12-31 16:30 | CP.PCM.PN ---
Subjective - Date & Time of Evaluation Date of Evaluation: 12/31/16 Time of Evaluation: 16:24 - Subjective Subjective: Charisse Sidhu DO, PGY-1, Hospitalist Service Patient seen and examined at bedside. Patient complains of no cough or congestion. Patient denies CP, SOB, N/V/D. Objective - Vital Signs/Intake and Output Vital Signs (last 24 hours): Temp Pulse Resp BP Pulse Ox 98.3 F 70 20 150/70 100 12/31/16 08:38 12/31/16 10:26 12/31/16 08:38 12/31/16 10:26 12/31/16 08:38 Intake and Output: 12/31/16 12/31/16 06:59 18:59 Intake Total 860 480 Output Total 700 Balance 860 -220 - Medications Medications: Current Medications Amlodipine Besylate (Norvasc) 10 mg PO DAILY [facility] Last Admin: 12/31/16 10:26 Dose: 10 mg Ascorbic Acid (Vitamin C 500 Mg Tab) 500 mg PO DAILY [facility] Last Admin: 12/31/16 10:26 Dose: 500 mg Aspirin (Aspirin Chewable) 81 mg PO DAILY [facility] Last Admin: 12/31/16 10:26 Dose: 81 mg Calcium Carbonate (Oscal) 500 mg PO DAILY [facility] Last Admin: 12/31/16 10:26 Dose: 500 mg Carvedilol (Coreg) 50 mg PO BID [facility] Last Admin: 12/31/16 10:26 Dose: 50 mg Ergocalciferol (Drisdol 50,000 Intl Units Cap) 1 cap PO SAT [facility] Last Admin: 12/30/16 10:15 Dose: 1 cap Ferrous Sulfate (Feosol) 324 mg PO BID [facility] Last Admin: 12/31/16 10:25 Dose: 324 mg Furosemide (Lasix) 40 mg IVP DAILY [facility] Last Admin: 12/31/16 10:25 Dose: 40 mg Insulin Human Lispro (Humalog Low) 0 units SC ACHS [facility] PRN Reason: Protocol Last Admin: 12/31/16 11:43 Dose: Not Given Levothyroxine Sodium (Synthroid) 125 mcg PO 0600 [facility] Last Admin: 12/31/16 05:05 Dose: 125 mcg Nitroglycerin (Nitrostat Sl Tab) 0.4 mg SL Q5M PRN PRN Reason: chest pain Pantoprazole Sodium (Protonix Ec Tab) 40 mg PO 0600,1600 [facility] Last Admin: 12/31/16 15:32 Dose: 40 mg - Labs Labs: 12/31/16 06:20 12/31/16 06:20 - Constitutional Appears: Well, Non-toxic, No Acute Distress - Head Exam Head Exam: ATRAUMATIC, NORMOCEPHALIC - Eye Exam Eye Exam: EOMI, Normal appearance, PERRL - ENT Exam ENT Exam: Mucous Membranes Moist, Normal Oropharynx - Neck Exam Neck Exam: Normal Inspection. absent: Tenderness, Thyromegaly - Respiratory Exam Respiratory Exam: Rales, NORMAL BREATHING PATTERN. absent: Accessory Muscle Use , Wheezes - Cardiovascular Exam Cardiovascular Exam: RRR, +S1, +S2 - GI/Abdominal Exam GI & Abdominal Exam: Soft, Normal Bowel Sounds - Extremities Exam Additional comments: moderate right LE swelling - Back Exam Back Exam: NORMAL INSPECTION. absent: CVA tenderness (L), CVA tenderness (R) - Neurological Exam Neurological Exam: Alert, Awake, CN II-XII Intact, Oriented x3 - Psychiatric Exam Psychiatric exam: Normal Affect, Normal Mood - Skin Skin Exam: Dry, Intact, Normal Color, Warm Assessment and Plan - Assessment and Plan (Free Text) Assessment: 71yo AAF with PMH CKD, HTN, DM2, GERD 2/2 hiatal hernia, hypothyroid, HLD who presents with RLE atruamatic drainage likely 2/2 lymphedema vs CHF exacerbation. Acute on CKD vs worsening CKD. Anemia, improved from baseline. Hyperkalemia noted. Hypocalcemia noted. Plan: 1. LE swelling likely 2/2 lymphedema vs CHF vs DVT - CXR (-) - Duplex Le negative for DVT - last Echo (07/2016) showed EF 65% - Lasix 40mg IV - Strict I/O - fluid restriction - measure daily weights - SCDs to promote lymph/vascular return 2. SOB - likely 2/2 fluid overload likely 2/2 CKD vs CHF - lasix IV - CXR negative for acute disease 3. Hyperkalemia, resolved 4. Hypocalcemia, resolved - Oscal given and vit D 5. Anemia - chronic but improved from prior studies - f/u CBC - consider venofer 6. Acute on Chronic Kidney Injury - Nephrology consulted - gentle hydration 7. Hx HTN - cont home meds - lipid panel drawn 8. Hx DM2 - ISS low - FS qACHS 9. Hx GERD w/ hiatal hernia - PTX 10. Hx Hypothyroidism - cont thyroid HHD NS 75 PTX/SCDs
--- NOTE | 2016-12-31 18:18 | PN ---
DATE: 12/31/2016 SUBJECTIVE: The patient denies chest pain. PHYSICAL EXAMINATION: VITAL SIGNS: Blood pressure 151/70, heart rate 70, temperature 98.3, and respiration 20. HEENT: Pale conjunctivae. CHEST: Clear. HEART: S1 and S2 regular. No gallop or rub. ABDOMEN: Soft. EXTREMITIES: 2+ right leg edema. LABORATORY DATA: Hemoglobin and hematocrit 9.6 and 3.8, white count and platelet count are within normal limits. Today's BUN and creatinine are 33.8 and 5.8 respectively. Calcium is within normal 7.5. Echocardiography study revealed small circumferential pericardial effusion and change from most recent study. There was no pericardial tamponade. Ejection fraction is within normal limits. ASSESSMENT: 1. Advanced renal insufficiency. 2. Hypertension. 3. Anemia of chronic kidney disease. 4. Small pericardial effusion, no evidence of tamponade. 5. Hyperlipidemia. 6. Rule out right leg cellulitis. RECOMMENDATIONS: Continue aspirin 81 mg once a day, Coreg at 50 mg once a day, ferrous sulfate one tablet twice a day, Lasix at 40 mg intravenous once a day, Norvasc at 10 mg once a day, Synthroid 125 mcg once a day. Case was discussed with Dr. Felix. Jamaal Adams MD
[2017-01-01] MEDS: Levothyroxine 125 MCG TAB PO SCH (05:21)
[2017-01-01] MEDS: Pantoprazole 40 mg EC Tab PO SCH (05:21)
[2017-01-01 06:57] LABS: HEMATOCRIT 31.1 % (36.0-48.0); MEAN CELL VOLUME 82.5 fl (80.0-105.0); MEAN CORPUSCULAR HEMOGLOBIN 25.7 pg (25.0-35.0); MEAN CORPUSCULAR HGB CONC 31.2 g/dl (31.0-37.0); MEAN PLATELET VOLUME 9.1 fl (7.0-11.0); RED CELL DISTRIBUTION WIDTH 17.2 % (11.5-14.5); WHITE BLOOD COUNT 6.1 10^3/ul (4.5-11.0)
[2017-01-01 07:01] LABS: BILIRUBIN,TOTAL 0.4 mg/dL (0.2-1.3); CALCIUM 7.6 mg/dL (8.4-10.5); POTASSIUM 4.7 mmol/L (3.6-5.0); TOTAL PROTEIN 6.1 g/dL (5.8-8.3)
[2017-01-01] MEDS: Insulin Lispro (humaLOG) LOW Coverage SC SCH ×5 (08:24→21:34)
[2017-01-01 09:14] LABS: MAGNESIUM 1.6 mg/dL (1.7-2.2); PHOSPHOROUS 5.9 mg/dL (2.5-4.5)
[2017-01-01] MEDS ORDERED: Aminophylline 25 mg/ml Inj ONE (11:34)
[2017-01-01] MEDS ORDERED: Magnesium Sulfate 2 GM in Sodium Chloride 0.9% 100 ML IV ONE (13:25)
--- NOTE | 2017-01-01 16:53 | PN ---
DATE: 01/01/2017 REASON FOR CONSULTATION: Cardiac evaluation, hypertension, hyperlipidemia, pericardial effusion in the past, history of chronic kidney disease. SUBJECTIVE: Sitting in the bed, not in apparent distress. Denies any short of breath or any palpitation. OBJECTIVE: GENERAL: Sitting in the bed, not in apparent distress. VITAL SIGNS: As follows, temperature afebrile, heart rate 70, blood pressure 140/78. HEENT: PERRLA. Extraocular muscles intact. NECK: Supple. No carotid bruits. No thyromegaly. CHEST: Clear to auscultation. HEART: S1 and S2 regular. ABDOMEN: Soft. EXTREMITIES: Clubbing and cyanosis negative. LABORATORY DATA: WBC 6.1, hemoglobin 9.0, hematocrit 31.1, platelet count 185. Chemistry shows sodium 141, potassium 4.2, chloride 114, carbon dioxide 4018, anion gap of 14, BUN 44 and creatinine of 6.1. IMPRESSION: A 71-year-old female with past medical history significant for multiple knee surgery, chronic kidney disease stage IV, V chronic kidney disease, anemia, history of previous pericardial effusion, admitted with acute kidney failure, cardiac evaluation is called because patient had pericardial effusion in the past. Echo in July shows [id number] concentric left ventricular hypertrophy, normal left ventricular function, small circumferential pericardial effusion. The patient had to repeat the echo done yesterday that showed concentric left ventricular hypertrophy, normal left ventricular function, small pericardial effusion unchanged from earlier study. No tamponade. History of hypertension, history of chronic renal insufficiency, obesity, diabetes, complain of weeping wounds from the right lower extremity, history of right knee multiple surgery, longstanding history of chronic renal insufficiency, hyperparathyroidism, hypertension, anemia, noncompliance with medication accompanying having multiple to suggest Lexiscan today. We will follow with you. Thank you Dr. Felix for providing the opportunity in taking care of the patient. Tory Carter MD
[2017-01-01 17:46] VITALS: RESP 20
--- NOTE | 2017-01-01 20:46 | CP.PCM.PN ---
Subjective - Date & Time of Evaluation Date of Evaluation: 01/01/17 Time of Evaluation: 08:00 - Subjective Subjective: Charisse Sidhu DO, PGY-1, Hospitalist Service Patient waiting to undergo stress test and wants to delay dialysis. Otherwise, she states she hasn't moved out of bed and thus cannot say if she has exertional dyspnea at this moment. Patient seems at uneasy. She asked an array of questions that we answered in regards to dialysis. Objective - Vital Signs/Intake and Output Vital Signs (last 24 hours): Temp Pulse Resp BP Pulse Ox 98.2 F 67 20 144/79 99 01/01/17 16:00 01/01/17 17:15 01/01/17 16:00 01/01/17 17:15 01/01/17 16:00 Intake and Output: 01/01/17 01/02/17 18:59 06:59 Intake Total 360 Balance 360 - Medications Medications: Current Medications Amlodipine Besylate (Norvasc) 10 mg PO DAILY [facility] Last Admin: 01/01/17 09:18 Dose: 10 mg Ascorbic Acid (Vitamin C 500 Mg Tab) 500 mg PO DAILY [facility] Last Admin: 01/01/17 09:18 Dose: 500 mg Aspirin (Aspirin Chewable) 81 mg PO DAILY [facility] Last Admin: 01/01/17 09:18 Dose: 81 mg Calcium Carbonate (Oscal) 500 mg PO DAILY [facility] Last Admin: 01/01/17 09:18 Dose: 500 mg Carvedilol (Coreg) 50 mg PO BID [facility] Last Admin: 01/01/17 17:15 Dose: 50 mg Ergocalciferol (Drisdol 50,000 Intl Units Cap) 1 cap PO SAT [facility] Last Admin: 12/30/16 10:15 Dose: 1 cap Ferrous Sulfate (Feosol) 324 mg PO BID [facility] Last Admin: 01/01/17 17:19 Dose: Not Given Furosemide (Lasix) 40 mg IVP DAILY [facility] Last Admin: 01/01/17 13:31 Dose: Not Given Insulin Human Lispro (Humalog Low) 0 units SC ACHS [facility] PRN Reason: Protocol Last Admin: 01/01/17 17:18 Dose: Not Given Levothyroxine Sodium (Synthroid) 125 mcg PO 0600 [facility] Last Admin: 01/01/17 05:21 Dose: 125 mcg Nitroglycerin (Nitrostat Sl Tab) 0.4 mg SL Q5M PRN PRN Reason: chest pain Pantoprazole Sodium (Protonix Ec Tab) 40 mg PO 0600,1600 [facility] Last Admin: 01/01/17 05:21 Dose: 40 mg - Labs Labs: 01/01/17 06:30 01/01/17 06:30 - Constitutional Appears: Well, Non-toxic, No Acute Distress - Head Exam Head Exam: NORMAL INSPECTION, NORMOCEPHALIC - Eye Exam Eye Exam: EOMI, Normal appearance, PERRL - ENT Exam ENT Exam: Mucous Membranes Moist, Normal Oropharynx - Neck Exam Neck Exam: Normal Inspection - Respiratory Exam Respiratory Exam: Clear to Ausculation Bilateral, NORMAL BREATHING PATTERN. absent: Rales - Cardiovascular Exam Cardiovascular Exam: RRR, +S1, +S2 - GI/Abdominal Exam GI & Abdominal Exam: Soft, Normal Bowel Sounds - Back Exam Back Exam: NORMAL INSPECTION. absent: CVA tenderness (L), CVA tenderness (R) - Neurological Exam Neurological Exam: Alert, Awake, Oriented x3 - Psychiatric Exam Psychiatric exam: Normal Affect, Normal Mood - Skin Skin Exam: Dry, Intact, Normal Color, Warm
[2017-01-01] MEDS ORDERED: Darbepoetin Alfa 60 mcg/ml Inj SC ONE (21:20)
--- NOTE | 2017-01-02 00:25 | CARD ---
APPROVED REPORT Protocol: LEXISCAN Test Type: Lexiscan Sestamibi Stress Test Attending Physician: Dr. Tory Leone Referring Physician: Dr. Naomi Felix Test Indications: Chest Pain Height:5 ft 5 in Weight:210lbs Medications: Norvasc,Vit C, Aspirin,Oscal, Coreg,Iron,Lasix, Synthroid, Protonix Medical History: 71 y/o female. Hx of diabetes,hypertension. Target HR: 149 bpm Resting ECG: RSR. Resting Heart Rate: 79 bpm Resting Blood Pressure: 166/80mmHg Submaximum (85%): 127 bpm PROCEDURE Pharmacologic stress testing was performed using 0.4mg per 5ml of regadenoson given intravenously over 7-10 seconds. Reversal agent aminophyline 100 mg, given intravenously for Dyspnea. POST EXERCISE Reason for Termination: Protocol completed Target HR: No Max HR: 88 bpm 65% of Maximum Predicted HR: 149 bpm Exercise duration: 00:36 min:sec, 0 Stage Exercise capacity: 1.0METs Max Blood Pressure: 170/80mmHg Blood Pressure response to exercise: resting hypertension - appropriate response Heart Rate response to exercise: appropriate Chest Pain: No, none Angina index: 0 Arrhythmia: No, none ST Change: No, none Deviation: 0 mm INTERPRETATION Stress EKG Conclusion: IV LEXISCAN NUCLEAR STRESS TEST NEGATIVE FOR CHEST PAIN AND NEGATIVE FOR ST-T CHANGES. NUCLEAR SCAN REPORT PENDING. Signed by Tory Leone Electronically Approved: 01/01/2017 12:55:17 EXAM: Myocardial Perfusion REST/STRESS Stress Test Type: Pharmacologic Imaging Protocol Rest Spect myocardial perfusion imaging was performed in supine position 45 minutes following the injection of 10.6 mCi of Tc-99 Myoview. At peak stress, the patient was injected intravenously with 30.4mCi of Tc-99 tetrofosmin after an infusion time of 0 minutes and 10 seconds. Gated Rest Spect was performed 65 minutes after intravenous Tc-99 Myoview injection. The images were gated to evaluate regional wall motion and calculate ventricular ejection fraction.Images were reconstructed using backfilter projection method in short horizontal and verticle long axis. Spect slices were generated. LV Perfusion The quality of the study is somewhat subopimal due to significant breast attenuation. The left ventricle is within normal limits in size. The right ventricle is unremarkable. The lung uptake is normal. The distribution of tracer reveals heterogeneous uptake with a moderate sized area of moderately to severely decreased perfusion involving mid to distal anteroseptal and apical black and moderately decreased perfusion involvoing mid to basal inferolateral wall on the stress study. The remainder of the LV myocardium is unremarkable. The rest myocardial perfusion study shows improvement of the defects. Wall Motion Wall motion study shows normal contractility of the left ventricle. LVEF = 56%. Conclusion 1. Abnormal SPECT myocardial perfusion study. 2. Partially reversible, anteroseptal, apical and inferolateral defects are suspicious of ischemia. 3. Normal gated wall motion of the left ventricle.
--- NOTE | 2017-01-02 04:28 | PN ---
DATE: 01/01/2017 SUBJECTIVE: The patient is seen sitting in bed. She is awake. She is alert. She is comfortable. She reports decreased oozing from the right lower extremity, decreased edema. She denies any nausea, vomiting. Appetite is good. She denies any shortness of breath. PHYSICAL EXAMINATION GENERAL: Obese elderly lady sitting in bed. VITAL SIGNS: Blood pressure 144/79, heart rate 67, respiratory rate 20 and temperature 98.2. HEENT: Normocephalic, atraumatic. NECK: Supple, no JVD. LUNGS: Bilateral equal air entry, no rales. CARDIAC: S1 and S2, regular rate and rhythm, no murmur, no rub. ABDOMEN: Obese, distended, soft, nontender, bowel sounds presents. EXTREMITIES: 1+ pitting edema of the lower extremity. INTAKE AND OUTPUT: 840/975. LABORATORY DATA: WBC 6.1, hemoglobin 9.7, hematocrit 31 and platelets 185. Sodium 141, potassium 4.7, chloride 114, CO2 of 18, BUN 44, creatinine 6.1, glucose 86, calcium 7.6, phosphorus 5.9, magnesium 1.6 and albumin 3.0. Corrected calcium is 8.4. Iron saturation 13% and ferritin 21. CURRENT MEDICATIONS: Aspirin, Coreg, Drisdol, Feosol, Humalog, Lasix, Nitrostat, amlodipine, Os-Shahriar, Protonix, Synthroid. ASSESSMENT: 1. Longstanding hypertension. 2. Hypertensive nephrosclerosis. 3. Advanced renal insufficiency, chronic kidney disease stage V, acute kidney injury. 4. Severe anemia, low iron stores. 5. Poor understanding. PLAN: 1. Continue current antihypertensives. 2. Venofer 200 mg IV piggyback daily x5. 3. . 4. Start Hectorol 0.5 mcg daily. 5. Start Renagel 800 mg three times a day with meals. Era Hameed MD
[2017-01-02] MEDS: Pantoprazole 40 mg EC Tab PO SCH (05:19)
[2017-01-02] MEDS: Levothyroxine 125 MCG TAB PO SCH (05:19)
[2017-01-02 06:30] LABS: HEMATOCRIT 29.8 % (36.0-48.0); MEAN CELL VOLUME 82.1 fl (80.0-105.0); MEAN CORPUSCULAR HEMOGLOBIN 25.6 pg (25.0-35.0); MEAN CORPUSCULAR HGB CONC 31.2 g/dl (31.0-37.0); MEAN PLATELET VOLUME 9.3 fl (7.0-11.0)
[2017-01-02 06:44] LABS: BILIRUBIN,TOTAL 0.3 mg/dL (0.2-1.3); CALCIUM 7.7 mg/dL (8.4-10.5); POTASSIUM 4.8 mmol/L (3.6-5.0); TOTAL PROTEIN 5.9 g/dL (5.8-8.3)
[2017-01-02 08:21] VITALS: BP 150/83; PULSE 59; TEMP 97.5; O2SAT 98
--- NOTE | 2017-01-02 08:27 | CP.PCM.PN ---
Objective - Vital Signs/Intake and Output Vital Signs (last 24 hours): Temp Pulse Resp BP Pulse Ox 97.5 F L 59 L 20 150/83 98 01/02/17 08:21 01/02/17 08:21 01/02/17 08:21 01/02/17 08:21 01/02/17 08:21 Intake and Output: 01/02/17 01/02/17 06:59 18:59 Intake Total 640 Balance 640 - Medications Medications: Current Medications Amlodipine Besylate (Norvasc) 10 mg PO DAILY [facility] Last Admin: 01/01/17 09:18 Dose: 10 mg Ascorbic Acid (Vitamin C 500 Mg Tab) 500 mg PO DAILY [facility] Last Admin: 01/01/17 09:18 Dose: 500 mg Aspirin (Aspirin Chewable) 81 mg PO DAILY [facility] Last Admin: 01/01/17 09:18 Dose: 81 mg Calcium Carbonate (Oscal) 500 mg PO DAILY [facility] Last Admin: 01/01/17 09:18 Dose: 500 mg Carvedilol (Coreg) 50 mg PO BID [facility] Last Admin: 01/01/17 17:15 Dose: 50 mg Doxercalciferol (Hectorol) 0.5 mcg PO DAILY [facility] Ergocalciferol (Drisdol 50,000 Intl Units Cap) 1 cap PO SAT [facility] Last Admin: 12/30/16 10:15 Dose: 1 cap Ferrous Sulfate (Feosol) 324 mg PO BID [facility] Last Admin: 01/01/17 17:19 Dose: Not Given Furosemide (Lasix) 40 mg IVP DAILY [facility] Last Admin: 01/01/17 13:31 Dose: Not Given Iron Sucrose 200 mg/ Sodium (Chloride) 110 mls @ 110 mls/hr IVPB DAILY [facility] Stop: 01/06/17 10:59 Insulin Human Lispro (Humalog Low) 0 units SC ACHS [facility] PRN Reason: Protocol Last Admin: 01/01/17 21:34 Dose: Not Given Levothyroxine Sodium (Synthroid) 125 mcg PO 0600 [facility] Last Admin: 01/02/17 05:19 Dose: 125 mcg Nitroglycerin (Nitrostat Sl Tab) 0.4 mg SL Q5M PRN PRN Reason: chest pain Pantoprazole Sodium (Protonix Ec Tab) 40 mg PO 0600,1600 [facility] Last Admin: 01/02/17 05:19 Dose: 40 mg Sevelamer HCl (Renagel) 800 mg PO TID [facility] - Labs Labs: 01/02/17 06:13 01/02/17 06:13
[2017-01-02] MEDS: Insulin Lispro (humaLOG) LOW Coverage SC SCH ×2 (08:30→15:22)
--- NOTE | 2017-01-02 09:28 | CP.PCM.DIS ---
Provider - Provider Date of Admission: 12/29/16 20:59 Attending physician: Naomi Felix MD Primary care physician: Javier Harris MD [facility] Course - Lab Results Lab Results: Most Recent Lab Values WBC 6.0 10^3/ul (4.5-11.0) 01/02/17 06:13 RBC 3.63 10^6/uL (3.5-6.1) 01/02/17 06:13 Hgb 9.3 g/dL (12.0-16.0) L 01/02/17 06:13 Hct 29.8 % (36.0-48.0) L 01/02/17 06:13 MCV 82.1 fl (80.0-105.0) 01/02/17 06:13 MCH 25.6 pg (25.0-35.0) 01/02/17 06:13 MCHC 31.2 g/dl (31.0-37.0) 01/02/17 06:13 RDW 17.0 % (11.5-14.5) H 01/02/17 06:13 Plt Count 181 10^3/uL (120.0-450.0) 01/02/17 06:13 MPV 9.3 fl (7.0-11.0) 01/02/17 06:13 Gran % 70.8 % (50.0-68.0) H 12/29/16 19:13 Lymph % (Auto) 22.8 % (22.0-35.0) 12/29/16 19:13 [place] % (Auto) 4.7 % (1.0-6.0) 12/29/16 19:13 Eos % (Auto) 1.6 % (1.5-5.0) 12/29/16 19:13 Baso % (Auto) 0.1 % (0.0-3.0) 12/29/16 19:13 Gran # 5.23 (1.4-6.5) 12/29/16 19:13 Lymph # 1.7 (1.2-3.4) 12/29/16 19:13 [place] # 0.4 (0.1-0.6) 12/29/16 19:13 Eos # 0.1 (0.0-0.7) 12/29/16 19:13 Baso # 0.01 K/mm3 (0.0-2.0) 12/29/16 19:13 Sodium 139 mmol/L (132-148) 01/02/17 06:13 Potassium 4.8 mmol/L (3.6-5.0) 01/02/17 06:13 Chloride 113 mmol/L (98-107) H 01/02/17 06:13 Carbon Dioxide 17 mmol/L (21-33) L 01/02/17 06:13 Anion Gap 14 (10-20) 01/02/17 06:13 BUN 44 mg/dL (7-21) H 01/02/17 06:13 Creatinine 5.8 mg/dL (0.5-1.4) H 01/02/17 06:13 Est GFR ( Amer) 9 01/02/17 06:13 Est GFR (Non-Af Amer) 7 01/02/17 06:13 POC Glucose (mg/dL) 95 mg/dL (65-110) 01/02/17 07:44 Random Glucose 87 mg/dL (70-110) 01/02/17 06:13 Calcium 7.7 mg/dL (8.4-10.5) L 01/02/17 06:13 Phosphorus 5.9 mg/dL (2.5-4.5) H 01/01/17 06:30 Magnesium 1.6 mg/dL (1.7-2.2) L 01/01/17 06:30 Iron 35 ug/dL (45-180) L 12/30/16 13:00 TIBC 270 ug/dL (265-497) 12/30/16 13:00 % Saturation 13 % (20-55) L 12/30/16 13:00 Ferritin 21.3 ng/mL 12/30/16 12:20 Total Bilirubin 0.3 mg/dL (0.2-1.3) 01/02/17 06:13 AST 18 U/L (14-36) 01/02/17 06:13 ALT 23 U/L (7-56) 01/02/17 06:13 Alkaline Phosphatase 139 U/L (38-126) H 01/02/17 06:13 NT-Pro-B Natriuret Pep 935 pg/mL (0-450) H 12/29/16 19:13 Total Protein 5.9 g/dL (5.8-8.3) 01/02/17 06:13 Albumin 2.9 g/dL (3.0-4.8) L 01/02/17 06:13 Globulin 3.0 gm/dL 01/02/17 06:13 Albumin/Globulin Ratio 1.0 (1.1-1.8) L 01/02/17 06:13 Triglycerides 114 mg/dL (35-160) 12/30/16 07:00 Cholesterol 234 mg/dL (130-200) H 12/30/16 07:00 LDL Cholesterol Direct 128 mg/dL (0-129) 12/30/16 07:00 HDL Cholesterol 52 mg/dL (29-60) 12/30/16 07:00 PTH Intact Whole Molec 386 pg/mL (14-64) H 12/30/16 13:00 Discharge Exam - Head Exam Head Exam: NORMAL INSPECTION, NORMOCEPHALIC Discharge Plan - Discharge Medications Prescriptions: Atorvastatin [Lipitor] 20 mg PO DIN #30 tab Calcium Carbonate [Oscal] 500 mg PO DAILY #30 tab Doxercalciferol [Hectorol] 0.5 mcg PO DAILY #30 cap Iron Sucrose [Venofer] 200 mg IVPB DAILY #30 vial Isosorbide Mononitrate [Imdur] 60 mg PO DAILY #30 tab Sevelamer [Renagel] 800 mg PO TID #90 tab - Follow Up Plan Condition: STABLE Disposition: HOME/ ROUTINE Additional Instructions: - Please take the medications as prescribed. - Follow up with nephrology Dr Hameed or your PMD for your kidney function 1-2 weeks. - We started you on Lipitor, please follow up with your PMD for liver function test. - Please follow up with Dr Carter for possible cardiac cath in the future. - Please come back if you have chest pain, shortness of breath, fever or chills. Referrals: Javier Harris MD [Primary Care Provider] - Tory Carter MD [Staff Provider] - Kortney Poole MD [Staff Provider] - Era Hameed MD [Staff Provider] -
--- NOTE | 2017-01-02 15:22 | PN ---
DATE: 01/02/2017 REASON FOR THE CONSULTATION: Followup cardiac evaluation, hypertension, hyperlipidemia, chronic kidney disease, and abnormal stress test. SUBJECTIVE: The patient denies any chest pain, shortness of breath or any palpitation. PHYSICAL EXAMINATION: GENERAL: Sitting in the bed, not in apparent distress. VITAL SIGNS: Temperature is afebrile, heart rate is 59, and blood pressure is 150/83. HEENT: PERRLA. Extraocular muscles are intact. NECK: Supple. No carotid bruits or thyromegaly. LUNGS: Chest clear to auscultation. HEART: S1 and S2, regular. ABDOMEN: Soft. EXTREMITIES: Clubbing and cyanosis negative. LABORATORY DATA: Blood workup as follows. WBC of 16, hemoglobin of 9.0, hematocrit of 29.8, and platelet count of 181. Chemistry shows sodium of 139, potassium of 4.0, chloride of 113, carbon dioxide of 17, anion gap of 14, BUN of 44, and creatinine of 5.8. DIAGNOSTIC DATA: A stress test was done yesterday. Myocardial Lexiscan and myocardial perfusion study showed abnormal stress myocardial perfusion study, partial reversible anterior septal and anterior defect suspicious of ischemia, and ejection fraction of 56%. The patient had echocardiography on 12/30/2016 that showed normal LV function and normal wall motion. There is a small circumferential pericardial effusion, unchanged from previous study. No evidence of tamponade, trace mitral regurgitation, trace tricuspid regurgitation, and RV systolic pressure of 26. IMPRESSION AND PLAN: A 71-year-old morbidly obese female, body mass index of 35 kg/m2, history of multiple knee surgery, 5 times, chronic kidney disease, is stage V, history of pericardial effusion, repeat echo did not show any significant pericardial effusion and no evidence of tamponade, preserved LV function. Yesterday, the patient underwent stress test because of multiple risk factors that shows suspicious ischemia, interventricular septal ischemia. The patient is asymptomatic, history of cardiac catheterization twice, last one 15 or [address] Dillard. Since the patient is asymptomatic and the patient has a creatinine of 9, since she has stage V chronic kidney disease, by doing the cardiac catheterization, to rule out any significant coronary artery disease, the patient will be end up in dialysis. Discussed in length with the patient risks, benefits, and alteratives. Since the patient is asymptomatic, we will try to treat medically for now and we will not proceed for cardiac catheterization. Should the patient become symptomatic or the patient started dialysis or the renal function improves is unlikely, then consider cardiac catheterization. Card given to the patient and follow up in office is requested. In the interim, continue aggressive medical treatment, baby aspirin, avoid nephrotoxic medication, continue carvedilol and we will add low dose of Imdur 60 mg, continue beta-tiffanie and the patient is on Coreg. We will follow with you. Emphasis on weight reduction also as the patient has diabetes, hypertension and obesity. Aggressive medical treatment is recommended. Continue atorvastatin as well. We will follow with you. Thank you Dr. Gupta for providing us the opportunity in taking care of Ms. Cornelio Bess. Tory Carter MD
--- NOTE | 2017-01-02 16:11 | PN ---
DATE: SUBJECTIVE: The patient is currently seen on 3R. She is sitting up in bed. She is asking me questions about her chronic kidney disease. We are attempting to speak to her daughter, but her daughter was not available at this time. MEDICATIONS: Medication list reviewed. The patient is on hydralazine, aspirin, Coreg, vitamin D, Feosol, Hectorol, insulin, Isordil, Lasix is on hold, Venofer, Nitrostat, Lipitor, Norvasc, Os-Shahriar, Protonix, Renagel, Synthroid, and vitamin C. OBJECTIVE: INTAKE/OUTPUT: Intake 1000 and output not charted. VITAL SIGNS: Blood pressure 150/83, temperature 97.5, respiratory rate 20 with the pulse of 59. HEENT: Shows her to be normocephalic and atraumatic. Conjunctivae are pale. Sclerae are nonicteric. NECK: Supple. No neck vein distention. CHEST: Clear to auscultation and percussion. No rales. No rhonchi. No wheezing. CARDIOVASCULAR: Shows a normal S1 and S2 without audible murmurs, rubs or gallops. ABDOMEN: Soft. Bowel sounds normal. No rebound. No guarding. No masses. EXTREMITIES: Show 1+ pitting edema with her lying in bed. No cyanosis or clubbing. LABORATORY DATA AND IMAGING: Labs today; CBC; white blood cell count 6.0, hemoglobin slightly low at 9.3, and platelet count is 181,000. Chemistry showed normal sodium 139, potassium down to 4.8, chloride 113 with a CO2 of 17, BUN 44, creatinine 5.8, calcium 7.7, albumin 2.9, and corrected calcium 8.5. Phosphorus level was 5.9 with a magnesium level of 1.6. Albumin level was 2.9. ASSESSMENT: 1. Chronic kidney disease stage V, progression of chronic kidney disease secondary to longstanding hypertension and hypertensive nephrosclerosis. 2. Anemia secondary to chronic kidney disease. The patient is receiving intravenous Venofer for an iron saturation of 13%. The patient received Aranesp 60 mcg yesterday x1 dose. 3. Secondary hyperparathyroidism. The patient remains on vitamin D supplements. Elevated phosphorus level of 5.9 and an elevated PTH level of 386. PLAN: 1. Lengthy discussion with the patient about the need to continue close renal followup in the outpatient setting. I did explain to her that she is very close to needing dialysis. At this point in time, the patient would like not to have a discussion about dialysis. She has no interest in doing this at this point in time. She would like us to confer with her children to discuss the issue. 2. Continue iron supplements, continue erythropoietin. 3. Continue renal diet along with phosphorus binders. Of note, her calcium level is in the borderline low range at 8.5. The patient might do better if she switches over to PhosLo, which might elevate her calcium level. 4. Continue to monitor the patient closely in the outpatient setting. This will be done by my partner, Dr. Era Hameed. Casper Tijerina MD
== END 2017-01-02 17:17 | disposition home or self-care (01) | DRG 683 ==
LOC: ED 18:15 → ERH 20:59 → 3RSO 23:46
PROVIDERS: ADMIT Internal Medicine; ATTEND Internal Medicine
DX: N17.9 Acute kidney failure, unspecified (principal); I12.0 Hypertensive chronic kidney disease with stage 5 chronic kidney disease or end stage renal disease; N18.5 Chronic kidney disease, stage 5; I31.3 Pericardial effusion (noninflammatory); E11.22 Type 2 diabetes mellitus with diabetic chronic kidney disease; E83.51 Hypocalcemia; E87.5 Hyperkalemia; N25.81 Secondary hyperparathyroidism of renal origin; D63.1 Anemia in chronic kidney disease; E78.5 Hyperlipidemia, unspecified; K21.9 Gastro-esophageal reflux disease without esophagitis; K44.9 Diaphragmatic hernia without obstruction or gangrene; E89.0 Postprocedural hypothyroidism; E66.01 Morbid (severe) obesity due to excess calories; Z68.35 Body mass index [BMI] 35.0-35.9, adult; Z91.19 Patient's noncompliance with other medical treatment and regimen; Z91.14 Patient's other noncompliance with medication regimen; Z80.7 Family history of other malignant neoplasms of lymphoid, hematopoietic and related tissues; Z83.3 Family history of diabetes mellitus

== ENCOUNTER 2017-03-18 21:47 | Inpatient (IN) | payer MEDICARE, MEDICAID ==
--- NOTE | 2017-03-18 22:27 | ED PDOC ---
Arrival/HPI <Jose Bedoya - Last Filed: 03/18/17 23:22> - General Historian: Patient - History of Present Illness Time/Duration: 24 hours Symptom Course: Unchanged Quality: Pressure Severity Level: Moderate Context: Sitting <Ramin Cramer - Last Filed: 03/19/17 04:14> - General Time Seen by Provider: 03/18/17 21:48 - History of Present Illness Narrative History of Present Illness (Text): 03/18/17 22:23 This is a 71 yo female with past medical hx of hypertension, hypothyroidism, presenting with chief complaint of chest pain x 1 day. Pt reports "heaviness" sensation. No radiation. pain is located substernal. Pain comes and goes. It also happened in december. Pt currently has the pain. Experienced some palpitations earlier in the week. Staying same, not getting better or worse. Took asa at home. Had a stress test in december, doesn't know results. No fevers, chills. Reports cough. PMH: hypertension, hypothyroidism PSH: knee symptoms Allergies: morphine, percocet, oxycodone FH: MS in family Home meds: hydralazine, norvasc Social hx: denies smoking, drinking, drug use. (Ramin Cramer) Past Medical History - Provider Review Nursing Documentation Reviewed: Yes - Travel History Have you recently traveled outside [place] w/in the past 3 mons?: No - Infectious Disease Hx of Infectious Diseases: None - Tetanus Immunization Tetanus Immunization: Unknown - Cardiac Hx Cardiac Disorders: Yes (HYPERKALEMIA 4-6-17) Hx Hypertension: Yes - Pulmonary Hx Respiratory Disorders: No - Neurological Hx Neurological Disorder: Yes (NEAR SYNCOPE) - Renal Hx Renal Failure: Yes - Endocrine/Metabolic Hx Diabetes Mellitus Type 2: Yes (borderline) Hx Hypothyroidism: (thyroid surgery partial thyroidectomy) - Hematological/Oncological Hx Blood Disorders: Yes Hx Anemia: Yes (iron deficiency) Other/Comment: blood transfusions, iron infusions, hyperkalemia - Integumentary Hx Dermatological Disorder: Yes Other/Comment: large scar r knee - Musculoskeletal/Rheumatological Hx Falls: No - Gastrointestinal Hx Gastrointestinal Disorders: Yes (hiatal hernia) Hx Gastroesophageal Reflux: Yes - Genitourinary/Gynecological Hx Genitourinary Disorders: No - Psychiatric Hx Psychophysiologic Disorder: No Hx Substance Use: No - Surgical History Hx Orthopedic Surgery: Yes (multiple knee surgeries,SPECIALLY RIGHT KNEE) Other/Comment: pt fell "yrs ago" can't remember how long ago had 5 knee replacements and 5 arthoscopic sx's to r knee, r knee reconstruction with metal plate/cadavor part in may 2014 and september 2014, herniorraphy - Anesthesia Hx Anesthesia: Yes Hx Anesthesia Reactions: Yes - Suicidal Assessment Feels Threatened In Home Enviroment: No <Ramin Cramer - Last Filed: 03/19/17 04:14> Family/Social History - Physician Review Nursing Documentation Reviewed: Yes Family/Social History: CAD/MS Smoking Status: Never Smoked Hx Alcohol Use: No Hx Substance Use: No Hx Substance Use Treatment: No <Ramin Cramer - Last Filed: 03/19/17 04:14> Allergies/Home Meds <Jose Bedoya - Last Filed: 03/18/17 23:22> <Ramin Cramer - Last Filed: 03/19/17 04:14> Allergies/Adverse Reactions: Allergies acetaminophen [From Percocet] Allergy (Verified 08/25/16 12:27) RASH morphine Allergy (Verified 03/18/17 21:52) VOMITING oxycodone HCl [From Percocet] Allergy (Verified 08/25/16 12:27) RASH Home Medications: Home Meds Medication Instructions Recorded Confirmed Esomeprazole Magnesium [Nexium] 40 mg PO DAILY 01/09/14 12/29/16 Aspirin [Aspirin Chewable] 81 mg PO DAILY 07/27/16 12/29/16 Ergocalciferol (Vitamin D2) 50,000 units PO .WEEKLY 07/27/16 12/29/16 [Vitamin D] Carvedilol [Coreg] 50 mg PO BID 12/29/16 12/29/16 Review of Systems - Review of Systems Constitutional: Fatigue. absent: Fevers Eyes: absent: Vision Changes, Photophobia ENT: absent: Hearing Changes, Tinnitus Respiratory: SOB, Cough Cardiovascular: Chest Pain, Palpitations Gastrointestinal: absent: Abdominal Pain, Stool Changes Genitourinary Female: absent: Dysuria, Frequency Musculoskeletal: absent: Arthralgias, Back Pain Skin: absent: Rash, Pruritis Neurological: absent: Headache, Dizziness Endocrine: absent: Diaphoresis, Polyuria Hemo/Lymphatic: absent: Adenopathy, Easy Bleeding Psychiatric: absent: Anxiety, Depression <Ramin Cramer - Last Filed: 03/19/17 04:14> Physical Exam Vital Signs Reviewed: Yes Mental Status: Positive for: Alert and Oriented X 3 - Systems Exam Head: Present: Atraumatic, Normocephalic Pupils: Present: PERRL Neck: Present: Normal Range of Motion Respiratory/Chest: No: Respiratory Distress Cardiovascular: Present: Normal S1, S2, Tachycardic Abdomen: Present: Normal Bowel Sounds. No: Tenderness, Peritoneal Signs Upper Extremity: Present: Normal Inspection. No: Cyanosis, Edema Lower Extremity: Present: Edema Neurological: Present: CN II-XII Intact, Speech Normal Skin: Present: Warm, Dry Psychiatric: Present: Alert, Oriented x 3, Normal Insight, Normal Concentration <Ramin Cramer - Last Filed: 03/19/17 04:14> Vital Signs Temp Pulse Resp BP Pulse Ox 03/19/17 00:33 98 F 80 16 150/100 H 98 03/19/17 00:01 153/100 H 03/18/17 23:00 86 16 157/83 H 100 03/18/17 22:11 98 F 106 H 25 H 187/103 H 100 Medical Decision Making <Jose Bedoya - Last Filed: 03/18/17 23:22> <Ramin Cramer - Last Filed: 03/19/17 04:14> ED Course and Treatment: Patient Seen With Resident: In agreement with resident note. Patient was seen and evaluated with resident, came up with plan and treatment together. (Jose Bedoya) - Lab Interpretations Lab Results: 03/18/17 21:58 03/18/17 21:58 Lab Results 03/18/17 21:58: Sodium 138, Potassium 5.0, Chloride 111 H, Carbon Dioxide 16 L, Anion Gap 15, BUN 62 H, Creatinine 6.6 H, Est GFR ( Amer) 7, Est GFR (Non -Af Amer) 6, Random Glucose 231 H, Calcium 8.9, Total Bilirubin 0.6, AST 24, ALT 34, Alkaline Phosphatase 182 H D, Troponin I < 0.01, NT-Pro-B Natriuret Pep 905 H, Total Protein 7.5, Albumin 3.7, Globulin 3.8, Albumin/Globulin Ratio 1.0 L 03/18/17 21:58: WBC 10.7 D, RBC 4.44, Hgb 11.9 L D, Hct 37.1, MCV 83.6, MCH 26.8, MCHC 32.1, RDW 16.1 H, Plt Count 230, MPV 10.2, Gran % 74.5 H, Lymph % ( Auto) 21.7 L, Henry % (Auto) 2.5, Eos % (Auto) 1.1 L, Baso % (Auto) 0.2, Gran # 7.99 H, Lymph # 2.3, Henry # 0.3, Eos # 0.1, Baso # 0.02 - RAD Interpretation Radiology Orders: 03/18/17 22:10 CXR [CHEST PORTABLE] [RAD] Stat - Medication Orders Current Medication Orders: Amlodipine Besylate (Norvasc) 10 mg PO DAILY [facility] Ascorbic Acid (Vitamin C 500 Mg Tab) 500 mg PO DAILY [facility] Aspirin (Aspirin Chewable) 81 mg PO DAILY [facility] Atorvastatin Calcium (Lipitor) 20 mg PO DIN [facility] Calcium Carbonate (Oscal) 500 mg PO DAILY [facility] Carvedilol (Coreg) 25 mg PO BID [facility] Docusate Sodium (Colace) 100 mg PO DAILY [facility] Ferrous Sulfate (Feosol) 324 mg PO BID [facility] Furosemide (Lasix) 40 mg IVP DAILY [facility] Heparin Sodium (Porcine) (Heparin) 5,000 units SC Q12 SISSY PRN Reason: Protocol Isosorbide Mononitrate (Imdur) 60 mg PO DAILY [facility] Levothyroxine Sodium (Synthroid) 125 mcg PO 0600 [facility] Multivitamins/Minerals (Therapeutic-M Tab) 1 tab PO 0800 [facility] Ondansetron HCl (Zofran Inj) 4 mg IVP Q4H PRN PRN Reason: Nausea/Vomiting Pantoprazole Sodium (Protonix Ec Tab) 40 mg PO 0600 [facility] Discontinued Medications Furosemide (Lasix) 20 mg IVP ONCE ONE Stop: 03/18/17 23:01 Last Admin: 03/19/17 00:01 Dose: 20 mg MAR Blood Pressure Document 03/19/17 00:01 [facility] (Rec: 03/19/17 00:01 [id number] Blood Pressure Blood Pressure (100/60-150/90) 153/100 IVP Administration Document 03/19/17 00:01 LAC (Rec: 03/19/17 00:01 [id number]) Charges for Administration # of IVP Administrations 1 Nitroglycerin (Nitrostat Sl Tab) 0.4 mg SL STAT STA Stop: 03/18/17 22:17 Last Admin: 03/18/17 22:20 Dose: 0.4 mg Nitroglycerin (Nitrostat Sl Tab) 0.4 mg SL Q15M PRN PRN Reason: Shortness of Breath Stop: 03/19/17 01:11 Ondansetron HCl (Zofran Inj) 4 mg IVP STAT STA Stop: 03/18/17 22:14 Last Admin: 03/18/17 22:15 Dose: 4 mg IVP Administration Document 03/18/17 22:15 [facility] (Rec: 03/18/17 22:38 [id number] Charges for Administration # of IVP Administrations 1 - Scribe Statement The provider has reviewed the documentation as recorded by the Scribe <Jose Bedoya - Last Filed: 03/18/17 23:22> <Ramin Cramer - Last Filed: 03/19/17 04:14> - Scribe Statement Josiane Schneider Provider Scribe Attestation: All medical record entries made by the Scribe were at my direction and personally dictated by me. I have reviewed the chart and agree that the record accurately reflects my personal performance of the history, physical exam, medical decision making, and the department course for this patient. I have also personally directed, reviewed, and agree with the discharge instructions and disposition. (Jose Bedoya) Disposition/Present on Arrival <Jose Bedoya - Last Filed: 03/18/17 23:22> - Present on Arrival Any Indicators Present on Arrival: No History of DVT/PE: No History of Uncontrolled Diabetes: No Urinary Catheter: No History of Decub. Ulcer: No History Surgical Site Infection Following: None - Disposition Have Diagnosis and Disposition been Completed?: Yes Disposition Time: 01:00 <Ramin Cramer - Last Filed: 03/19/17 04:14> - Disposition Diagnosis: Chest pain Disposition: HOSPITALIZED Condition: GUARDED
[2017-03-18 22:30] LABS: BASO # 0.02 K/mm3 (0.0-2.0); BASO % 0.2 % (0.0-3.0); EOS # 0.1 (0.0-0.7); EOS % 1.1 % (1.5-5.0); GRAN # 7.99 (1.4-6.5); GRAN % 74.5 % (50.0-68.0); HEMATOCRIT 37.1 % (36.0-48.0); LYMPH # 2.3 (1.2-3.4); LYMPH % 21.7 % (22.0-35.0); MEAN CELL VOLUME 83.6 fl (80.0-105.0); MEAN CORPUSCULAR HEMOGLOBIN 26.8 pg (25.0-35.0); MEAN CORPUSCULAR HGB CONC 32.1 g/dl (31.0-37.0); MEAN PLATELET VOLUME 10.2 fl (7.0-11.0); MONO # 0.3 (0.1-0.6); MONO % 2.5 % (1.0-6.0); RED CELL DISTRIBUTION WIDTH 16.1 % (11.5-14.5); WHITE BLOOD COUNT 10.7 10^3/ul (4.5-11.0)
[2017-03-18 22:57] LABS: TROPONIN I < 0.01 ng/mL
[2017-03-18 23:07] LABS: ALKALINE PHOSPHATASE 182 U/L (38-126); ALT/SGPT 34 U/L (7-56); AST/SGOT 24 U/L (14-36); BILIRUBIN,TOTAL 0.6 mg/dL (0.2-1.3); BLOOD UREA NITROGEN 62 mg/dL (7-21); CALCIUM 8.9 mg/dL (8.4-10.5); CARBON DIOXIDE 16 mmol/L (21-33); CHLORIDE 111 mmol/L (98-107); GFR AFRICAN-AMERICAN 7; GLUCOSE,RANDOM 231 mg/dL (70-110); SODIUM 138 mmol/L (132-148); TOTAL PROTEIN 7.5 g/dL (5.8-8.3)
--- NOTE | 2017-03-19 01:16 | CP.PCM.HP ---
<Enoc Harvey - Last Filed: 03/19/17 04:04> History of Present Illness - History of Present Illness History of Present Illness: Ms. Cornelio Bess is a 71yo AAF with PMH CKD (not on HD), HTN, DM2, GERD 2/2 hiatal hernia, hypothyroid, HLD who presents with chest heaviness x1 day. the patient also states that she has exertional shortness of breath to the point where she cannot really do much. the patient denies new LE swelling, cough, fevers/chills, abdominal pain, dysuria, or urinary/bowel changes. Per patient, she has discussed dialysis with Dr. Hameed but has not chosen that route as of now. 12- pt ROS was reviewed and is otherwise unremarkable. PMH: as above PSH; multiple surgeries on R knee, thyroidectomy, abdominal hernia repair Meds: as per MAR Allergies: tylenol, morphine and oxycodone SHx: lives alone, denied tob/etoh/drug use FHx: mom (heart dz), dad/brother (lymphoma), sister (CKD on dialysis, DM2) PMD: Dr Steven Leon: Dr. Hameed Present on Admission - Present on Admission Any Indicators Present on Admission: No History of DVT/PE: No History of Uncontrolled Diabetes: No Urinary Catheter: No Decubitus Ulcer Present: No Review of Systems - Review of Systems All systems: reviewed and no additional remarkable complaints except (as per HPI ) Past Patient History - Infectious Disease Hx of Infectious Diseases: None - Tetanus Immunizations Tetanus Immunization: Unknown - Past Medical History & Family History Past Medical History?: Yes - Past Social History Smoking Status: Never Smoked Alcohol: None Drugs: Denies Home Situation {Lives}: Alone - CARDIAC Hx Cardiac Disorders: Yes Hx Hypertension: Yes - PULMONARY Hx Respiratory Disorders: No - NEUROLOGICAL Hx Neurological Disorder: Yes - HEENT Hx HEENT Problems: No - RENAL Hx Chronic Kidney Disease: Yes Hx Dialysis: No Hx Renal Failure: Yes - ENDOCRINE/METABOLIC Hx Diabetes Mellitus Type 2: Yes Hx Hypothyroidism: (thyroid surgery partial thyroidectomy) - HEMATOLOGICAL/ONCOLOGICAL Hx Blood Disorders: Yes Hx Anemia: Yes (iron deficiency) Other/Comment: blood transfusions, iron infusions, hyperkalemia - INTEGUMENTARY Hx Dermatological Problems: Yes Other/Comment: large scar r knee - MUSCULOSKELETAL/RHEUMATOLOGICAL Hx Falls: No - GASTROINTESTINAL Hx Gastrointestinal Disorders: Yes (hiatal hernia) Hx Gastroesophageal Reflux: Yes - GENITOURINARY/GYNECOLOGICAL Hx Genitourinary Disorders: No - PSYCHIATRIC Hx Psychophysiologic Disorder: No Hx Substance Use: No - SURGICAL HISTORY Hx Surgeries: Yes Hx Herniorrhaphy: Yes Hx Orthopedic Surgery: Yes (multiple knee surgeries,SPECIALLY RIGHT KNEE) Hx Thyroidectomy: Yes Other/Comment: pt fell "yrs ago" can't remember how long ago had 5 knee replacements and 5 arthoscopic sx's to r knee, r knee reconstruction with metal plate/cadavor part in may 2014 and september 2014 - ANESTHESIA Hx Anesthesia: Yes Hx Anesthesia Reactions: Yes Meds Allergies/Adverse Reactions: Allergies Allergy/AdvReac Type Severity Reaction Status Date / Time acetaminophen [From Percocet] Allergy RASH Verified 08/25/16 12:27 morphine Allergy VOMITING Verified 03/18/17 21:52 oxycodone HCl [From Percocet] Allergy RASH Verified 08/25/16 12:27 Physical Exam - Constitutional Appears: Well, Non-toxic, No Acute Distress - Head Exam Head Exam: ATRAUMATIC, NORMAL INSPECTION, NORMOCEPHALIC - Eye Exam Eye Exam: EOMI, Normal appearance, PERRL Pupil Exam: NORMAL ACCOMODATION - ENT Exam ENT Exam: Mucous Membranes Moist, Normal Exam - Neck Exam Neck exam: Positive for: Normal Inspection - Respiratory Exam Respiratory Exam: Clear to Auscultation Bilateral, NORMAL BREATHING PATTERN. absent: Chest Wall Tenderness, Rales, Rhonchi, Wheezes - Cardiovascular Exam Cardiovascular Exam: RRR, +S1, +S2. absent: Gallop, JVD, Rubs, Systolic Murmur - GI/Abdominal Exam GI & Abdominal Exam: Normal Bowel Sounds, Soft. absent: Distended, Rigid, Tenderness - Extremities Exam Extremities exam: Positive for: pedal edema (1+ b/l), tenderness (RLE) Additional comments: R knee wrapped in bandage - Back Exam Back exam: NORMAL INSPECTION - Neurological Exam Neurological exam: Alert, Oriented x3 - Psychiatric Exam Psychiatric exam: Normal Affect, Normal Mood - Skin Skin Exam: Normal Color, Warm Results - Vital Signs Recent Vital Signs: Last Vital Signs Temp 98 F 03/19/17 00:33 Pulse 80 03/19/17 00:33 Resp 16 03/19/17 00:33 BP 150/100 H 03/19/17 00:33 Pulse Ox 98 03/19/17 00:33 - Labs Result Diagrams: 03/18/17 21:58 03/18/17 21:58 Assessment & Plan - Assessment and Plan (Free Text) Assessment: 71yo AAF with PMH CKD, HTN, DM2, GERD 2/2 hiatal hernia, hypothyroid, HLD who presents with chest tightness and sob x1 day likely 2/2 acute CHF exacerbation. Plan: 1. CP and SOB likely 2/2 acute CHF exacerbation - cont Lasix 40mg IVP daily - Nitroglycerin PRN - cont ASA, Lipitor - Zofran PRN - Strict I/O - fluid restriction - elevate head of bed 30degrees - measure daily weights - CXR showed cardiomegaly but no pleural effusions, as read by me - stress test from 01/01/17 showed partially reversible, anteroseptal, apical and inferolateral defects are suspicious of ischemia. No cath was done at the time due to pt's renal function - ECHO from 12/30/16 showed EF 51% - initial Trop I was negative; will continue to trend given pt's risk factors and acute CHF exacerbation - Cardiology consulted, recs appreciated - NPO incase of procedures - PT/OT eval 2. CKD - pt refuses dialysis - continue to monitor for signs of uremia - cont MV, Vit C, Vit D, Ca 3. Hx HTN - cont Norvasc, Coreg, Imdur 4. Hx DM2 - Accuchecks Q4H - Last A1C from 08/2016 was 6.3 - will hold off on starting anti-diabetic medication at this poin 5. Hx Anemia - chronic but improved from prior studies - f/u H/H - cont iron and colace 6. Hx GERD w/ hiatal hernia - PTX 7. Hx Hypothyroidism - cont synthroid PTX/Heparin NPO Patient was seen, evaluated and discussed with attending, Dr. Cynthia Harvey - Date & Time Date: 03/19/17 <Cynthia RIVERA,Terrence - Last Filed: 03/19/17 06:11> Results - Vital Signs Recent Vital Signs: Last Vital Signs Temp 98.2 F 03/19/17 01:20 Pulse 77 03/19/17 02:00 Resp 20 03/19/17 01:20 BP 140/90 03/19/17 01:20 Pulse Ox 95 03/19/17 01:20 - Labs Result Diagrams: 03/19/17 04:10 03/19/17 04:10 Labs: Laboratory Results - last 24 hr 03/19/17 03/19/17 04:10 04:10 WBC 8.9 RBC 4.05 Hgb 10.7 L Hct 34.3 L MCV 84.7 MCH 26.4 MCHC 31.2 RDW 16.1 H Plt Count 203 MPV 9.8 Sodium 140 Potassium 5.3 H Chloride 112 H Carbon Dioxide 21 Anion Gap 12 BUN 61 H Creatinine 6.7 H Est GFR ( Amer) 7 Est GFR (Non-Af Amer) 6 Random Glucose 84 Calcium 8.6 Total Bilirubin 0.5 AST 24 ALT 27 Alkaline Phosphatase 144 H D Lactate Dehydrogenase 620 Total Creatine Kinase 176 Troponin I 0.02 D Total Protein 6.7 Albumin 3.2 Globulin 3.5 Albumin/Globulin Ratio 0.9 L Attending/Attestation - Attestation I have personally seen and examined this patient.: Yes I have fully participated in the care of the patient.: Yes I have reviewed all pertinent clinical information: Yes Notes (Text): -I agree with the above H&P completed by the resident physician with the following additions and/or changes: -The patient is a 71 year old black woman with a history of GERD, hypothyroidism , HTN and stage IV-V CKD, who presents with intermittent, substernal, non- exertional, non-radiating chest heaviness, SOB and DSOUZA for the past 7-10 days. She sleeps in an upright position due to chronic low back pain but denies orthopnea or PND. Of note, she was admitted to [facility] in December 2016, during which time she underwent an inpatient myocardial stress test that showed reversible defects consistent with ischemic heart disease. However, she was unable to undergo a cardiac cath at the time due to her severe CKD. A 2D-echo also done in December 2016 showed a normal EF and a small pericardial effusion. On this admission, we will place the patient on daily ASA and PRN sublingual NTG for chest pain. Serial trops and EKGs as well as a lipid panel, HgA1c, and TFTs have also been ordered. Most of her chronic home meds will be continued. A cardiology consult has been placed and the patient will be kept NPO in case she ends up requiring a cardiac cath tomorrow.
[2017-03-19 02:33] VITALS: BMI 30.7
[2017-03-19 04:31] LABS: ALB/GLOB RATIO 0.9 (1.1-1.8); BILIRUBIN,TOTAL 0.5 mg/dL (0.2-1.3); CALCIUM 8.6 mg/dL (8.4-10.5); POTASSIUM 5.3 mmol/L (3.6-5.0); TOTAL PROTEIN 6.7 g/dL (5.8-8.3)
[2017-03-19 04:38] LABS: HEMATOCRIT 34.3 % (36.0-48.0); MEAN CELL VOLUME 84.7 fl (80.0-105.0); MEAN CORPUSCULAR HEMOGLOBIN 26.4 pg (25.0-35.0); MEAN CORPUSCULAR HGB CONC 31.2 g/dl (31.0-37.0); MEAN PLATELET VOLUME 9.8 fl (7.0-11.0); RED CELL DISTRIBUTION WIDTH 16.1 % (11.5-14.5); WHITE BLOOD COUNT 8.9 10^3/ul (4.5-11.0)
[2017-03-19 04:42] LABS: TROPONIN I 0.02 ng/mL
[2017-03-19] MEDS: Levothyroxine 125 MCG TAB PO SCH (05:42)
[2017-03-19] MEDS: Pantoprazole 40 mg EC Tab PO SCH (05:42)
[2017-03-19 07:48] LABS: PHOSPHOROUS 5.2 mg/dL (2.5-4.5)
[2017-03-19 08:01] LABS: FREE T4 0.98 ng/dL (0.78-2.19)
[2017-03-19 08:15] LABS: THYROID STIMULATING HORMONE 13.6 mIU/mL (0.46-4.68)
--- NOTE | 2017-03-19 08:29 | RAD ---
HISTORY: chest pain COMPARISON: 12/29/2016 FINDINGS: LUNGS: No active pulmonary disease. PLEURA: No significant pleural effusion identified, no pneumothorax apparent. CARDIOVASCULAR: Mild cardiomegaly OSSEOUS STRUCTURES: No significant abnormalities. VISUALIZED UPPER ABDOMEN: Normal. OTHER FINDINGS: None. IMPRESSION: No active disease.
--- NOTE | 2017-03-19 10:07 | CARD ---
APPROVED REPORT EKG Measurement Heart [id number] <Conclusion> Sinus tachycardia PRWP Mild NSSTW changes
[2017-03-19 10:13] LABS: TROPONIN I 0.02 ng/mL
[2017-03-19] MEDS: Multivitamin With Minerals Tab PO SCH (10:44)
--- NOTE | 2017-03-19 12:15 | CP.PCM.PN ---
Addendum entered and electronically signed by Charisse Sidhu DO 03/20/17 07:10 : Plan: 1A) Patient complains of right lower extremity warmth and pain; furthermore, there is some increase in LE edema - Doppler US of bilateral lower extremities shows no sonographic evidence of DVT 6)CORRECTION: Anemia of chronic disease with secondary hyperparathyroidism and subsequent hyperphosphatemia 2) Advanced chronic kidney disease stage V; estimated GFR of 7 - Hyperkalemia secondary to advanced chronic kidney disease Original Note: <Charisse Sidhu - Last Filed: 03/19/17 19:00> Subjective - Date & Time of Evaluation Date of Evaluation: 03/19/17 Time of Evaluation: 07:35 - Subjective Subjective: Charisse Sidhu DO, PGY-1: Hospitalist Service Patient seen and examined at bedside. Patient denies any chest pain, dyspnea, nausea, vomiting, or diarrhea. Patient did complain of right knee warmth during second encounter. Objective - Vital Signs/Intake and Output Vital Signs (last 24 hours): Temp Pulse Resp BP Pulse Ox 98.2 F 86 20 185/101 H 99 03/19/17 06:00 03/19/17 10:46 03/19/17 06:00 03/19/17 10:47 03/19/17 06:00 Intake and Output: 03/19/17 03/19/17 06:59 18:59 Intake Total 0 Balance 0 - Medications Medications: Current Medications Amlodipine Besylate (Norvasc) 10 mg PO DAILY [facility] Last Admin: 03/19/17 10:47 Dose: 10 mg Ascorbic Acid (Vitamin C 500 Mg Tab) 500 mg PO DAILY [facility] Last Admin: 03/19/17 10:46 Dose: 500 mg Aspirin (Aspirin Chewable) 81 mg PO DAILY [facility] Last Admin: 03/19/17 10:44 Dose: 81 mg Atorvastatin Calcium (Lipitor) 20 mg PO DIN [facility] Calcium Carbonate (Oscal) 500 mg PO DAILY [facility] Last Admin: 03/19/17 10:44 Dose: 500 mg Carvedilol (Coreg) 25 mg PO BID [facility] Last Admin: 03/19/17 10:46 Dose: 25 mg Docusate Sodium (Colace) 100 mg PO DAILY [facility] Last Admin: 03/19/17 10:44 Dose: 100 mg Ferrous Sulfate (Feosol) 324 mg PO BID [facility] Last Admin: 03/19/17 10:46 Dose: 324 mg Furosemide (Lasix) 40 mg IVP BID [facility] Heparin Sodium (Porcine) (Heparin) 5,000 units SC Q12 [facility] PRN Reason: Protocol Last Admin: 03/19/17 10:43 Dose: 5,000 units Isosorbide Mononitrate (Imdur) 60 mg PO DAILY [facility] Last Admin: 03/19/17 10:47 Dose: 60 mg Levothyroxine Sodium (Synthroid) 125 mcg PO 0600 [facility] Last Admin: 03/19/17 05:42 Dose: 125 mcg Multivitamins/Minerals (Therapeutic-M Tab) 1 tab PO 0800 [facility] Last Admin: 03/19/17 10:44 Dose: 1 tab Ondansetron HCl (Zofran Inj) 4 mg IVP Q4H PRN PRN Reason: Nausea/Vomiting Pantoprazole Sodium (Protonix Ec Tab) 40 mg PO 0600 [facility] Last Admin: 03/19/17 05:42 Dose: 40 mg - Labs Labs: 03/19/17 04:10 03/19/17 04:10 - Constitutional Appears: Non-toxic, No Acute Distress - Head Exam Head Exam: ATRAUMATIC, NORMOCEPHALIC - Eye Exam Eye Exam: EOMI, Normal appearance, PERRL - ENT Exam ENT Exam: Mucous Membranes Moist, Normal Oropharynx - Neck Exam Neck Exam: Normal Inspection. absent: Lymphadenopathy - Respiratory Exam Respiratory Exam: Clear to Ausculation Bilateral, NORMAL BREATHING PATTERN - Cardiovascular Exam Cardiovascular Exam: RRR, +S1, +S2 - GI/Abdominal Exam GI & Abdominal Exam: Soft, Normal Bowel Sounds. absent: Guarding, Rebound - Extremities Exam Extremities Exam: Joint Swelling (right and left knee appear chronically swollen , no temperature difference detected), Normal Capillary Refill, Pedal Edema. absent: Calf Tenderness - Back Exam Back Exam: NORMAL INSPECTION. absent: CVA tenderness (L), CVA tenderness (R) - Neurological Exam Neurological Exam: Alert, CN II-XII Intact, Oriented x3 - Psychiatric Exam Psychiatric exam: Normal Affect, Normal Mood - Skin Skin Exam: Dry, Intact, Normal Color, Warm Assessment and Plan - Assessment and Plan (Free Text) Assessment: 71 year old black female with a past medical history of CKD (with most recent estimated GFR of 7), hypertension, dyslipidemia, DM II, and hypothyroidism who presents with typical chest pain and dyspnea on exertion. Plan: 1) Chest pain r/o ACS - Troponin 0.01, 0.02, 0.02 - Cardiology, Dr. Carter, consulted - Aspirin 81 mg PO daily - Atorvastatin 20 mg PO at night 2. ESRD with eGFR of 7 - Vitamin C 500 mg BID - Nephrology consulted, Dr. Era Hameed - Consider adding add Calcium Bicarbonate 200 mg TID 3)Hypertension - Amlodipine 10 mg - Carvedilol 25 mg BID - Hydralazine 50 mg BID - Hydralazine IVP 10 mg PRN 4) History of DM II - HgbA1c 6.0 5) History of dyslipidemia - Lipid profile normal; continue with moderate dose statin therapy, unless otherwise indicated 5) Hypothyroidism, subclinical - Continue with 125 mcg of Synthroid 6) Microcytic Anemia, iron deficiency - Ferrous sulfate 324 BID 7) FEN/DVT/GI prophylaxis - HHD - Heparin 5,000 units q12h SC - Protonix 40 mg PO daily <Montrell Gupta - Last Filed: 03/20/17 15:44> Objective - Vital Signs/Intake and Output Vital Signs (last 24 hours): Temp Pulse Resp BP Pulse Ox 98.7 F 78 20 140/79 96 03/20/17 08:27 03/20/17 10:00 03/20/17 08:27 03/20/17 09:46 03/20/17 08:27 Intake and Output: 03/20/17 03/20/17 06:59 18:59 Intake Total 660 840 Balance 660 840 - Medications Medications: Current Medications Amlodipine Besylate (Norvasc) 10 mg PO DAILY [facility] Last Admin: 03/20/17 09:46 Dose: 10 mg Aspirin (Aspirin Chewable) 81 mg PO DAILY [facility] Last Admin: 03/20/17 09:45 Dose: 81 mg Atorvastatin Calcium (Lipitor) 20 mg PO DIN [facility] Last Admin: 03/19/17 17:32 Dose: Not Given Calcium Acetate (Phoslo) 667 mg PO WM [facility] Carvedilol (Coreg) 25 mg PO BID [facility] Last Admin: 03/20/17 09:45 Dose: 25 mg Docusate Sodium (Colace) 100 mg PO DAILY [facility] Last Admin: 03/20/17 09:46 Dose: 100 mg Ferrous Sulfate (Feosol) 324 mg PO BID [facility] Last Admin: 03/20/17 09:45 Dose: 324 mg Furosemide (Lasix) 40 mg IVP BID [facility] Last Admin: 03/20/17 09:46 Dose: 40 mg Heparin Sodium (Porcine) (Heparin) 5,000 units SC Q12 [facility] PRN Reason: Protocol Last Admin: 03/20/17 09:48 Dose: 5,000 units Hydralazine HCl (Apresoline) 10 mg IVP Q6 PRN PRN Reason: Systolic Blood Pressure Last Admin: 03/19/17 12:54 Dose: 10 mg Hydralazine HCl (Apresoline) 50 mg PO BID [facility] Last Admin: 03/20/17 09:46 Dose: 50 mg Isosorbide Mononitrate (Imdur) 60 mg PO DAILY [facility] Last Admin: 03/20/17 09:48 Dose: 60 mg Levothyroxine Sodium (Synthroid) 125 mcg PO 0600 [facility] Last Admin: 03/20/17 07:15 Dose: 125 mcg Ondansetron HCl (Zofran Inj) 4 mg IVP Q4H PRN PRN Reason: Nausea/Vomiting Last Admin: 03/19/17 15:02 Dose: 4 mg Pantoprazole Sodium (Protonix Ec Tab) 40 mg PO 0600 [facility] Last Admin: 03/20/17 07:15 Dose: 40 mg Sodium Bicarbonate (Sodium Bicarbonate Tab) 650 mg PO TID [facility] Last Admin: 03/20/17 13:15 Dose: 650 mg Vitamin B Complex/Vit C/Folic Acid (Nephro-Archie) 1 tab PO DAILY [facility] - Labs Labs: 03/20/17 05:20 03/20/17 05:20 Attending/Attestation - Attestation I have personally seen and examined this patient.: Yes I have fully participated in the care of the patient.: Yes I have reviewed all pertinent clinical information, including history, physical exam and plan: Yes Notes (Text): 03/20/17 15:30 attending note; Patient seen and examined with resident. Patient is a 71 year female with a history of GERD, hypothyroidism, hypertension and stage IV chronic kidney disease is admitted with , who presents with intermittent, substernal, non-exertional, non-radiating chest heaviness and shortness of breath. Patient also had leg swelling. cardiac enzymes negative. Dopplers negative for DVT. Patient with a history of uncontrolled hypertension/noncompliance with medication. medications adjusted. blood pressure is better controlled. Recent stress test in 01/07 showed partially reversible defect. Cardiology evaluation appreciated. Continue medical management. Chronic kidney disease; worsening creatinine. Mild hyperkalemia. Dietitian evaluation requested. Slowly progressive kidney disease. Might need hemodialysis. Nephrology evaluation appreciated. Patient is refusing hemodialysis for now. Benefits and risks explained. upon discharge patient will follow-up with PMD Dr. Harris.
--- NOTE | 2017-03-19 14:15 | US ---
HISTORY: Leg pain and swelling. Evaluate for DVT PHYSICIAN(S): Danilo Russo MD. TECHNIQUE: Duplex sonography and color-flow Doppler with graded compression were used to evaluate the deep venous systems of both lower extremities. The exam is somewhat limited by body habitus and edema. The tibial veins are not well seen. FINDINGS: The visualized deep venous systems of both lower extremities are sonographically normal and compressible. Normal wave forms and augmentation are seen. There is no sonographic evidence for deep venous thrombosis in the visualized segments of both lower extremities. IMPRESSION: No sonographic evidence for deep venous thrombosis in the visualized segments of both lower extremities.
--- NOTE | 2017-03-19 19:02 | CARD ---
APPROVED REPORT EKG Measurement Heart [id number] <Conclusion> Normal sinus rhythm Anterior infarct, age undetermined Abnormal ECG
--- NOTE | 2017-03-20 01:17 | CON ---
DATE: 03/19/2017 REASON FOR CONSULTATION: Hyperkalemia, elevated creatinine, severe hypertension, palpitations. HISTORY OF PRESENT ILLNESS: A 71-year-old lady well known to me from outpatient followup, presented to the Emergency Room yesterday with complaints of chest tightness, palpitations, elevated blood pressure. In the Emergency Room, she was found to have a blood pressure of 187/103. She was also found to have elevated BUN of 52, creatinine of 6.6 with a potassium of 5.0. The patient has a history of severe uncontrolled hypertension, intolerance to most medications, noncompliance with medications. She also has advanced chronic kidney disease stage IV/V, hyperkalemia, anemia of chronic kidney disease. The patient refuses dialysis. The patient reports intolerance to most medications. PAST MEDICAL AND SURGICAL HISTORY: Severe hypertension, advanced chronic kidney disease stage IV/V, hyperkalemia, anemia of chronic kidney disease, secondary hyperparathyroidism, hyperphosphatemia, abnormal stress test and hypertensive heart disease. FAMILY HISTORY: Noncontributory. SOCIAL HISTORY: No smoking, no alcohol use, no IV drug abuse. ALLERGIES: TYLENOL, MORPHINE AND OXYCODONE. MEDICATIONS AT HOME: Amlodipine 10 mg daily, Renagel 800 t.i.d., Synthroid 125, Imdur 60, Hectorol 0.5, Coreg 50 b.i.d., Lipitor 20 and aspirin 81. REVIEW OF SYSTEMS: All systems are reviewed, pertinent positives as mentioned in history of presenting illness, rest unremarkable. PHYSICAL EXAMINATION GENERAL: Morbidly obese elderly lady sitting in bed. VITAL SIGNS: Blood pressure 143/86, heart rate 86, respiratory rate 20 and temperature 97.9. HEENT: Normocephalic, atraumatic. NECK: Supple, no JVD. LUNGS: Bilateral equal air entry, bilateral rhonchi, equal expansion. CARDIAC: S1, S2, regular rate and rhythm, no murmur, no rub. ABDOMEN: Obese, distended, soft, nontender, bowel sounds present. EXTREMITIES: 3+ pitting edema of the lower extremities. INTAKE AND OUTPUT: 1020/450. LABORATORY DATA: WBC 8.9, hemoglobin 10.7, hematocrit 34, platelets 203. Sodium 140, potassium 5.3, chloride 112, CO2 of 21, BUN 61, creatinine 6.7, glucose 84, calcium 8.6, phosphorus 5.2, magnesium 2.0, AST 24, ALT 27, troponin 0.02, albumin 3.2. TSH 13. Lower extremity ultrasound shows no sonographic evidence of DVT. CURRENT MEDICATIONS: Hydralazine 10 mg IV q.6 p.r.n., hydralazine 50 b.i.d., aspirin 81, Colace 100, Coreg 25 b.i.d., Feosol 324 b.i.d., heparin, Imdur 60, Lasix 40 IV b.i.d., Lipitor 20, amlodipine 10, Os-Shahriar, Protonix, Synthroid, ascorbic acid and Zofran. ASSESSMENT/PLAN 1. Advanced chronic kidney disease stage V. 2. Hyperkalemia secondary to advanced chronic kidney disease. 3. Severe uncontrolled hypertension, the patient is noncompliant. 4. Anemia of chronic kidney disease. 5. Hyperphosphatemia. 6. Secondary hyperparathyroidism. 7. Underlying coronary artery disease suspect, abnormal stress test, congestive heart failure. PLAN 1. Agree with Lasix. 2. Keep O's greater than I's. 3. Continue current antihypertensive regimen. 4. Long discussion with the patient regarding advanced chronic disease V, need for dialysis, preparation for dialysis. The patient has poor understanding. She does not want dialysis. She has all preconceived ideas. Thank you for the courtesy of this consultation. We will follow this patient with you. Era Hameed MD
[2017-03-20 07:07] LABS: HEMATOCRIT 33.1 % (36.0-48.0); MEAN CELL VOLUME 84.9 fl (80.0-105.0); MEAN CORPUSCULAR HEMOGLOBIN 26.2 pg (25.0-35.0); MEAN CORPUSCULAR HGB CONC 30.8 g/dl (31.0-37.0); MEAN PLATELET VOLUME 10.9 fl (7.0-11.0); RED CELL DISTRIBUTION WIDTH 16.5 % (11.5-14.5)
[2017-03-20] MEDS: Levothyroxine 125 MCG TAB PO SCH (07:15)
[2017-03-20] MEDS: Pantoprazole 40 mg EC Tab PO SCH (07:15)
[2017-03-20 07:38] LABS: ALB/GLOB RATIO 0.9 (1.1-1.8); BILIRUBIN,TOTAL 0.5 mg/dL (0.2-1.3); CALCIUM 8.5 mg/dL (8.4-10.5); MAGNESIUM 1.9 mg/dL (1.7-2.2); PHOSPHOROUS 5.6 mg/dL (2.5-4.5); POTASSIUM 5.2 mmol/L (3.6-5.0); TOTAL PROTEIN 6.6 g/dL (5.8-8.3)
--- NOTE | 2017-03-20 08:23 | CON ---
DATE: 03/19/2017 CONSULTATION SERVICE: Cardiology. CONSULTING PHYSICIAN: Dr. Tory Carter. REASON FOR CONSULTATION: Followup CKD, uncontrolled hypertension, palpitation, cardiac evaluation. BRIEF CLINICAL HISTORY: This is a 71-year-old female with past medical history significant for multiple knee surgeries, stage IV to V CKD, anemia, history of hypertension, history of pericardial effusion, admitted with acute kidney injury, worsening renal insufficiency. Cardiology consult was called for followup of tachycardia. History of abnormal stress test in the past. The patient denies any chest pain, but complained of palpitation, uncontrolled hypertension. PAST MEDICAL HISTORY: Significant for hypertension, diabetes, obesity, hypothyroidism, chronic renal insufficiency, CKD stage IV to V, dialysis started. PAST SURGICAL HISTORY: Significant for knee surgery and history of thyroid surgery. FAMILY HISTORY: Coronary artery disease and cancer. SOCIAL HISTORY: Denies smoking. Denies any history of alcohol abuse. Denies any history of substance abuse. CURRENT MEDICATIONS: The patient is taking at home, amlodipine 10 mg daily, Renagel, levothyroxine, isosorbide dinitrate, iron, ferrous sulfate, carvedilol, atorvastatin, and aspirin. RECENT CARDIAC WORKUP: As follows, the patient had a stress test dated 01/01/2017 that showed abnormal stress myocardial perfusion study, partially reversible anteroseptal and inferolateral defect suggestive of ischemia, ejection fraction of 56%. The patient had echo on 12/30/2016 that showed concentric LVH, normal LV function. There is a small circumferential pericardial effusion, unchanged from the compared study. No tamponade noted. Trace to mild mitral regurgitation, trace tricuspid regurgitation, and RV systolic pressure of 26. REVIEW OF SYSTEMS: As per HPI. PHYSICAL EXAMINATION: VITAL SIGNS: As follows, temperature afebrile, heart rate 83, blood pressure 189/101. HEENT: PERRLA. Extraocular muscles intact. NECK: Supple. No carotid bruits or thyromegaly. CHEST: Clear to auscultation. HEART: S1 and S2 regular. ABDOMEN: Soft. EXTREMITIES: Clubbing and cyanosis negative. LABORATORY DATA: Blood workup as follows: WBC 8.9, hemoglobin 10.2, hematocrit 34.3, platelet count 203. Chemistry shows sodium 140, potassium 5.3, chloride 112, carbon dioxide 21, anion gap 12, BUN 61, creatinine 6.7. IMPRESSION: Worsening renal insufficiency, acute on chronic stage IV to V chronic kidney disease, uncontrolled hypertension, abnormal stress test, preserved pericardial effusion. No evidence of ischemia. Aggressive medical treatment. No cath at this time. The patient is to go for cath, will end up in dialysis. Last time, I also discussed with the patient that she has history of cardiac catheterization 15 to [address] Dillard since the patient was asymptomatic, but right now, the patient has stage IV to V chronic kidney disease, very close to dialysis and the patient is asymptomatic, so cardiac catheterization is not completed, we will treat medically. Aggressively control the blood pressure with low dose of beta-tiffanie. Avoid nephrotoxic medication. We will start nitrate, beta-tiffanie and follow with you. Once the patient starts dialysis, we will consider cardiac catheterization. Continue atorvastatin. We will follow with you. We will put Coreg 25 b.i.d. Continue amlodipine. Continue atorvastatin. Put low-dose aspirin as well as hydralazine 50 b.i.d., and we will follow with you. Thank you Dr. Gupta for providing us the opportunity in taking care of the patient, Cornelio Tran. Tory Carter MD
[2017-03-20] MEDS: Multivitamin With Minerals Tab PO SCH (08:44)
[2017-03-20] MEDS ORDERED: Sod Polystyrene Sulf 15 gm/60 ml Susp PO ONE (10:39)
--- NOTE | 2017-03-20 10:52 | CP.PCM.PN ---
<Charisse Sidhu - Last Filed: 03/20/17 14:22> Subjective - Date & Time of Evaluation Date of Evaluation: 03/20/17 Time of Evaluation: 10:57 - Subjective Subjective: Charisse Sidhu DO, PGY-1, Hospitalist Service Patient seen and examined at bedside. Patient denies any chest pain, vomiting, dyspnea or LE pain. She does admit to some occasional nausea. Nurse reports no events overnight. Objective - Vital Signs/Intake and Output Vital Signs (last 24 hours): Temp Pulse Resp BP Pulse Ox 98.7 F 76 20 140/79 96 03/20/17 08:27 03/20/17 08:27 03/20/17 08:27 03/20/17 09:46 03/20/17 08:27 Intake and Output: 03/20/17 03/20/17 06:59 18:59 Intake Total 660 Balance 660 - Medications Medications: Current Medications Amlodipine Besylate (Norvasc) 10 mg PO DAILY [facility] Last Admin: 03/20/17 09:46 Dose: 10 mg Ascorbic Acid (Vitamin C 500 Mg Tab) 500 mg PO DAILY [facility] Last Admin: 03/20/17 09:45 Dose: 500 mg Aspirin (Aspirin Chewable) 81 mg PO DAILY [facility] Last Admin: 03/20/17 09:45 Dose: 81 mg Atorvastatin Calcium (Lipitor) 20 mg PO DIN [facility] Last Admin: 03/19/17 17:32 Dose: Not Given Calcium Carbonate (Oscal) 500 mg PO DAILY [facility] Last Admin: 03/20/17 09:46 Dose: 500 mg Carvedilol (Coreg) 25 mg PO BID [facility] Last Admin: 03/20/17 09:45 Dose: 25 mg Docusate Sodium (Colace) 100 mg PO DAILY [facility] Last Admin: 03/20/17 09:46 Dose: 100 mg Ferrous Sulfate (Feosol) 324 mg PO BID [facility] Last Admin: 03/20/17 09:45 Dose: 324 mg Furosemide (Lasix) 40 mg IVP BID [facility] Last Admin: 03/20/17 09:46 Dose: 40 mg Heparin Sodium (Porcine) (Heparin) 5,000 units SC Q12 [facility] PRN Reason: Protocol Last Admin: 03/20/17 09:48 Dose: 5,000 units Hydralazine HCl (Apresoline) 10 mg IVP Q6 PRN PRN Reason: Systolic Blood Pressure Last Admin: 03/19/17 12:54 Dose: 10 mg Hydralazine HCl (Apresoline) 50 mg PO BID [facility] Last Admin: 03/20/17 09:46 Dose: 50 mg Isosorbide Mononitrate (Imdur) 60 mg PO DAILY [facility] Last Admin: 03/20/17 09:48 Dose: 60 mg Levothyroxine Sodium (Synthroid) 125 mcg PO 0600 [facility] Last Admin: 03/20/17 07:15 Dose: 125 mcg Multivitamins/Minerals (Therapeutic-M Tab) 1 tab PO 0800 [facility] Last Admin: 03/20/17 08:44 Dose: 1 tab Ondansetron HCl (Zofran Inj) 4 mg IVP Q4H PRN PRN Reason: Nausea/Vomiting Last Admin: 03/19/17 15:02 Dose: 4 mg Pantoprazole Sodium (Protonix Ec Tab) 40 mg PO 0600 [facility] Last Admin: 03/20/17 07:15 Dose: 40 mg Sodium Polystyrene Sulfonate (Kayexalate Susp) 15 gm PO ONCE ONE Stop: 03/20/17 10:40 - Labs Labs: 03/20/17 05:20 03/20/17 05:20 - Constitutional Appears: Non-toxic - Head Exam Head Exam: ATRAUMATIC, NORMOCEPHALIC - Eye Exam Eye Exam: EOMI, Normal appearance - ENT Exam ENT Exam: Mucous Membranes Moist, Normal Oropharynx - Respiratory Exam Respiratory Exam: Clear to Ausculation Bilateral, NORMAL BREATHING PATTERN - Cardiovascular Exam Cardiovascular Exam: RRR, +S1, +S2 - GI/Abdominal Exam GI & Abdominal Exam: Soft, Normal Bowel Sounds - Extremities Exam Extremities Exam: Normal Capillary Refill, Normal Inspection, Pedal Edema (1/4) . absent: Calf Tenderness - Back Exam Back Exam: NORMAL INSPECTION. absent: CVA tenderness (L), CVA tenderness (R) - Neurological Exam Neurological Exam: Alert, Awake, CN II-XII Intact - Psychiatric Exam Psychiatric exam: Normal Affect, Normal Mood - Skin Skin Exam: Dry, Intact, Normal Color, Warm Assessment and Plan - Assessment and Plan (Free Text) Assessment: 71 year old black female with a past medical history of CKD (with most recent estimated GFR of 7), hypertension, dyslipidemia, DM II, and hypothyroidism who presents with dyspnea on exertion, chest pain, and was found to have acute on chronic kidney failure. Plan: 1) Chest pain, resolved - Patient does have stress test imaging that suggest some CAD; however, patient will not be able to undergo heart catheterization secondary to renal failure and refusal to HD. - Aspirin 81 mg PO daily - Atorvastatin 20 mg PO at night 2. CKD stage 5 with Hyperkalemia, Hyperphosphatemia, secondary hyperparathyroidism, and ensuing metabolic acidosis - Nephrology input appreciated, Dr. Era Hameed and Dr. Tijerina - NaHCO3 650 TID - Nephro-savana 1 tab PO daily - Phoslo 667 mg PO with meal 3)Hypertension - Amlodipine 10 mg - Carvedilol 25 mg BID - Hydralazine 50 mg BID - Hydralazine IVP 10 mg PRN - FUrosemide 40 mg IVP q12h 4) History of DM I - HgbA1c 6.0 5) History of dyslipidemia - Lipid profile normal; continue with moderate dose statin therapy, unless otherwise indicated 5) Hypothyroidism: TSH elevated, free T4 within normal limits - Continue with 125 mcg of Synthroid 6) Anemia secondary to Chronic Kidney Disease - Aranesp per Nephrology if Hgb goes below 10 mg/dL 7) FEN/DVT/GI prophylaxis - HHD, renal non-dialysis diet - Heparin 5,000 units q12h SC - Protonix 40 mg PO daily - Colace 100 mg PO daily - Zofran 4 mg q4h IVP PRN Disposition: Patient wishes to speak to Dr. Hameed about a potential trial of HD tomorrow <Montrell Gupta - Last Filed: 03/20/17 15:47> Objective - Vital Signs/Intake and Output Vital Signs (last 24 hours): Temp Pulse Resp BP Pulse Ox 98.7 F 78 20 140/79 96 03/20/17 08:27 03/20/17 10:00 03/20/17 08:27 03/20/17 09:46 03/20/17 08:27 Intake and Output: 03/20/17 03/20/17 06:59 18:59 Intake Total 660 840 Balance 660 840 - Medications Medications: Current Medications Amlodipine Besylate (Norvasc) 10 mg PO DAILY [facility] Last Admin: 03/20/17 09:46 Dose: 10 mg Aspirin (Aspirin Chewable) 81 mg PO DAILY [facility] Last Admin: 03/20/17 09:45 Dose: 81 mg Atorvastatin Calcium (Lipitor) 20 mg PO DIN [facility] Last Admin: 03/19/17 17:32 Dose: Not Given Calcium Acetate (Phoslo) 667 mg PO WM [facility] Carvedilol (Coreg) 25 mg PO BID [facility] Last Admin: 03/20/17 09:45 Dose: 25 mg Docusate Sodium (Colace) 100 mg PO DAILY [facility] Last Admin: 03/20/17 09:46 Dose: 100 mg Ferrous Sulfate (Feosol) 324 mg PO BID [facility] Last Admin: 03/20/17 09:45 Dose: 324 mg Furosemide (Lasix) 40 mg IVP BID [facility] Last Admin: 03/20/17 09:46 Dose: 40 mg Heparin Sodium (Porcine) (Heparin) 5,000 units SC Q12 [facility] PRN Reason: Protocol Last Admin: 03/20/17 09:48 Dose: 5,000 units Hydralazine HCl (Apresoline) 10 mg IVP Q6 PRN PRN Reason: Systolic Blood Pressure Last Admin: 03/19/17 12:54 Dose: 10 mg Hydralazine HCl (Apresoline) 50 mg PO BID [facility] Last Admin: 03/20/17 09:46 Dose: 50 mg Isosorbide Mononitrate (Imdur) 60 mg PO DAILY [facility] Last Admin: 03/20/17 09:48 Dose: 60 mg Levothyroxine Sodium (Synthroid) 125 mcg PO 0600 [facility] Last Admin: 03/20/17 07:15 Dose: 125 mcg Ondansetron HCl (Zofran Inj) 4 mg IVP Q4H PRN PRN Reason: Nausea/Vomiting Last Admin: 03/19/17 15:02 Dose: 4 mg Pantoprazole Sodium (Protonix Ec Tab) 40 mg PO 0600 [facility] Last Admin: 03/20/17 07:15 Dose: 40 mg Sodium Bicarbonate (Sodium Bicarbonate Tab) 650 mg PO TID [facility] Last Admin: 03/20/17 13:15 Dose: 650 mg Vitamin B Complex/Vit C/Folic Acid (Nephro-Savana) 1 tab PO DAILY [facility] - Labs Labs: 03/20/17 05:20 03/20/17 05:20 Attending/Attestation - Attestation I have personally seen and examined this patient.: Yes I have fully participated in the care of the patient.: Yes I have reviewed all pertinent clinical information, including history, physical exam and plan: Yes Notes (Text): 03/20/17 15:45 attending note; Patient seen and examined with resident. Patient is a 71 year female with a history of GERD, hypothyroidism, hypertension and stage IV chronic kidney disease is admitted with , who presents with intermittent, substernal, non-exertional, non-radiating chest heaviness and shortness of breath. Patient also had leg swelling. cardiac enzymes negative. Dopplers negative for DVT. Patient with a history of uncontrolled hypertension/noncompliance with medication. medications adjusted. blood pressure is better controlled. Recent stress test in 01/07 showed partially reversible defect. Cardiology evaluation appreciated. Continue medical management. might consider cardiac cath after starting hemodialysis. Chronic kidney disease; worsening creatinine. Mild hyperkalemia. Kayexalate ordered. Metabolic acidosis; started on bicarbonate. anemia; secondary to chronic kidney disease. Stable. nephrology evaluation appreciated. Currently considering dialysis. Dietitian evaluation requested. upon discharge patient will follow-up with PMD Dr. Harris.
--- NOTE | 2017-03-20 12:48 | PN ---
DATE: SUBJECTIVE: The patient is currently seen sitting up in bed. She is less short of breath. Her lower extremity edema has improved. She is complaining of mild nausea. She is complaining of generalized not feeling well. She has no kwabena uremic symptoms. MEDICATIONS: Medication list reviewed. The patient is currently on hydralazine, aspirin, Colace, Coreg, Feosol, heparin, Imdur, IV Lasix, Lipitor, Norvasc, Os-Shahriar, Protonix, Synthroid, Multi-Vites, vitamin C, and Zofran p.r.n. OBJECTIVE: INTAKE/OUTPUT: Intake 1260, output 450. VITAL SIGNS: Blood pressure is 140/79, pulse is 78, temperature is 98.7. Respiratory rate is 20. Pulse ox is 96%. HEENT: Shows her to be normocephalic, atraumatic. Conjunctivae are pale. Sclerae are nonicteric. NECK: Supple. No neck vein distention. CHEST: Clear to auscultation and percussion with decreased breath sounds at the bases. No rales, no rhonchi or wheezing. CARDIOVASCULAR: Shows irregular rate and rhythm without murmurs, rubs, or gallops. ABDOMEN: Soft. Nondistended. Bowel sounds are normal. No rebound or guarding. EXTREMITIES: Show 1+ pitting edema of her lower extremity. LABORATORY DATA AND IMAGING: CBC, white blood cell count 8.0, hemoglobin 10.2, platelet count is 211,000. Chemistry showed potassium of 5.2 down from 5.3. Sodium 139, chloride 111 with a CO2 of 18. BUN 65 with a creatinine of 7.5. Her estimated GFR is 6 mL/minute. Glucose is 123. Calcium 8.5, phosphorus 5.6 with a magnesium of 1.9. Liver enzymes are acceptable. Alkaline phosphatase is 137. Albumin level was 3.2. Mild elevation of her TSH at 13.6 with a normal free T4 level. Doppler study of her lower extremity showed no evidence for DVT. Her admitting chest x-ray showed no active disease. ASSESSMENT: 1. Chronic kidney disease stage V, approaching end-stage renal disease. I once again had a lengthy discussion with the patient. I did explain to her that there is no way we could treat her conservatively for her ongoing issue. She needs to have dialysis. She will discuss with her family later today. Apparently, she has had family members, who were on dialysis, who did poorly. She is very nervous about initiating dialysis. I did explain to her that should she start dialysis and it does not work for her, she could easily discontinue the treatment. I did explain to her that without dialysis, she will likely be returning to the hospital on a monthly basis for shortness of breath, electrolyte related issues, worsening metabolic acidosis, loss of appetite, weight loss, and development of kwabena uremic symptoms. 2. Hypertension. Blood pressure appears to be controlled on present medical therapy. 3. Lower extremity edema. This has apparently improved with IV Lasix therapy. 4. Anemia. This is likely secondary to chronic kidney disease. Hemoglobin is 10.2. Aranesp can be started when hemoglobin drops below 10. 5. Secondary hyperparathyroidism. The patient has an elevated phosphorus level of 5.6. I will start her on PhosLo. 6. Metabolic acidosis. The patient will start bicarbonate supplements. 7. Past history of congestive heart failure, history of underlying coronary artery disease suspect. No intervention in light of her elevated BUN and creatinine. PLAN: 1. The patient told me that she would speak with Dr. Hameed tomorrow to decide whether or not she would be interested in a trial of dialysis. 2. In the interim, we will continue using diuretic therapy to try and make her euvolemic. 3. Continue renal diet. 4. Continue to try and neutralize her metabolic acidosis with bicarbonate supplements. 5. Start binder therapy and continue a low phosphorus renal diet. Casper Tijerina MD
--- NOTE | 2017-03-20 13:11 | CP.PCM.DIS ---
Provider - Provider Date of Admission: 03/19/17 15:05 Attending physician: Montrell Gupta MD Primary care physician: Javier Harris MD Consults: Dr. Zari Carter Time Spent in preparation of Discharge (in minutes): 45 Hospital Course - Lab Results Lab Results: Most Recent Lab Values WBC 8.0 10^3/ul (4.5-11.0) 03/20/17 05:20 RBC 3.90 10^6/uL (3.5-6.1) 03/20/17 05:20 Hgb 10.2 g/dL (12.0-16.0) L 03/20/17 05:20 Hct 33.1 % (36.0-48.0) L 03/20/17 05:20 MCV 84.9 fl (80.0-105.0) 03/20/17 05:20 MCH 26.2 pg (25.0-35.0) 03/20/17 05:20 MCHC 30.8 g/dl (31.0-37.0) L 03/20/17 05:20 RDW 16.5 % (11.5-14.5) H 03/20/17 05:20 Plt Count 211 10^3/uL (120.0-450.0) 03/20/17 05:20 MPV 10.9 fl (7.0-11.0) 03/20/17 05:20 Gran % 74.5 % (50.0-68.0) H 03/18/17 21:58 Lymph % (Auto) 21.7 % (22.0-35.0) L 03/18/17 21:58 Calhoun % (Auto) 2.5 % (1.0-6.0) 03/18/17 21:58 Eos % (Auto) 1.1 % (1.5-5.0) L 03/18/17 21:58 Baso % (Auto) 0.2 % (0.0-3.0) 03/18/17 21:58 Gran # 7.99 (1.4-6.5) H 03/18/17 21:58 Lymph # 2.3 (1.2-3.4) 03/18/17 21:58 Calhoun # 0.3 (0.1-0.6) 03/18/17 21:58 Eos # 0.1 (0.0-0.7) 03/18/17 21:58 Baso # 0.02 K/mm3 (0.0-2.0) 03/18/17 21:58 Sodium 139 mmol/L (132-148) 03/20/17 05:20 Potassium 5.2 mmol/L (3.6-5.0) H 03/20/17 05:20 Chloride 111 mmol/L (98-107) H 03/20/17 05:20 Carbon Dioxide 18 mmol/L (21-33) L 03/20/17 05:20 Anion Gap 14 (10-20) 03/20/17 05:20 BUN 65 mg/dL (7-21) H 03/20/17 05:20 Creatinine 7.5 mg/dl (0.7-1.2) H* 03/20/17 05:20 Est GFR ( Amer) 6 03/20/17 05:20 Est GFR (Non-Af Amer) 5 03/20/17 05:20 POC Glucose (mg/dL) 123 mg/dL (65-110) H 03/20/17 11:12 Random Glucose 92 mg/dL (70-110) 03/20/17 05:20 Hemoglobin A1c 6.0 % (4.2-6.5) 03/19/17 07:20 Calcium 8.5 mg/dL (8.4-10.5) 03/20/17 05:20 Phosphorus 5.6 mg/dL (2.5-4.5) H 03/20/17 05:20 Magnesium 1.9 mg/dL (1.7-2.2) 03/20/17 05:20 Total Bilirubin 0.5 mg/dL (0.2-1.3) 03/20/17 05:20 AST 23 U/L (14-36) 03/20/17 05:20 ALT 31 U/L (7-56) 03/20/17 05:20 Alkaline Phosphatase 137 U/L (38-126) H 03/20/17 05:20 Lactate Dehydrogenase 687 U/L (333-699) 03/19/17 09:48 Total Creatine Kinase 158 U/L (35-230) 03/19/17 09:48 Troponin I 0.02 ng/mL 03/19/17 09:48 NT-Pro-B Natriuret Pep 905 pg/mL (0-450) H 03/18/17 21:58 Total Protein 6.6 g/dL (5.8-8.3) 03/20/17 05:20 Albumin 3.2 g/dL (3.0-4.8) 03/20/17 05:20 Globulin 3.4 gm/dL 03/20/17 05:20 Albumin/Globulin Ratio 0.9 (1.1-1.8) L 03/20/17 05:20 Triglycerides 79 mg/dL (35-160) 03/19/17 07:20 Cholesterol 194 mg/dL (130-200) 03/19/17 07:20 LDL Cholesterol Direct 89 mg/dL (0-129) 03/19/17 07:20 HDL Cholesterol 56 mg/dL (29-60) 03/19/17 07:20 Free T4 0.98 ng/dL (0.78-2.19) 03/19/17 07:20 TSH 3rd Generation 13.60 mIU/mL (0.46-4.68) H 03/19/17 07:20 - Hospital Course Hospital Course: 71 year old female with a past medical history of - Date & Time of H&P Date of H&P: 03/20/17 Time of H&P: 13:10 Discharge Exam - Head Exam Head Exam: ATRAUMATIC, NORMOCEPHALIC Discharge Plan - Follow Up Plan Condition: GUARDED Disposition: HOME/ ROUTINE Instructions: Renal Failure Diet (DC) Referrals: Javier Harris MD [Primary Care Provider] -
--- NOTE | 2017-03-20 15:23 | PN ---
DATE: 03/20/2017 REASON FOR CONSULTATION: Followup CKD, uncontrolled hypertension, palpitation, cardiac evaluation. SUBJECTIVE: The patient denies any chest pain, shortness of breath now, palpitation, concerned about kidney function. OBJECTIVE: GENERAL: Not in apparent distress, sitting at the bedside. VITAL SIGNS: As follows, temperature afebrile, heart rate 78, blood pressure 140/79. HEENT: PERRLA, intact. NECK: Supple. No carotid bruit or thyromegaly. CHEST: Clear to auscultation. HEART: S1 and S2 regular. ABDOMEN: Soft. EXTREMITIES: Clubbing and cyanosis negative. LABORATORY DATA: WBC 8, hemoglobin 10.2, hematocrit 33.1, platelet count 211. Chemistry shows sodium 130, potassium 5.2, chloride 111, carbon dioxide 18, . IMPRESSION: Worsening renal insufficiency, chronic kidney disease, obesity, diabetes, hypertension, hyperlipidemia, stage IV to V chronic kidney disease. Last stress test on 01/01/2017, abnormal stress myocardial perfusion study, partially reversible anteroseptal defect suggestive of ischemia, ejection fraction of 56%. The patient had echo on 12/30/2016 that shows left ventricular hypertrophy, a small circumferential pericardial effusion. RECOMMENDATIONS: Aggressive medical treatment. Avoid nephrotoxic medication. Discussed in length with the patient 15 minutes about the patient's condition and long-term management. Mentioned that cardiac catheterization is not possible at this time, will ruin the kidney. The patient is concerned more about kidney and that kidney function should improve with the treatment. Explained the patient eventually needs dialysis, but she is in denial and does not want to listen the patient, eventually use the dialysis. For now, continue Coreg. Continue hydralazine 50 b.i.d. p.r.n. Continue baby aspirin. We will follow with you. No ischemic symptom or angina symptom at this time. We will hold of the cardiac catheterization until the patient starts dialysis. If remained stable, we will discontinue telemetry. Tory Carter MD
[2017-03-21] MEDS: Levothyroxine 125 MCG TAB PO SCH (06:12)
[2017-03-21] MEDS: Pantoprazole 40 mg EC Tab PO SCH (06:12)
[2017-03-21 06:39] LABS: HEMATOCRIT 32.9 % (36.0-48.0); MEAN CELL VOLUME 84.1 fl (80.0-105.0); MEAN CORPUSCULAR HEMOGLOBIN 26.1 pg (25.0-35.0); MEAN PLATELET VOLUME 10.4 fl (7.0-11.0); RED CELL DISTRIBUTION WIDTH 16.1 % (11.5-14.5); WHITE BLOOD COUNT 7.1 10^3/ul (4.5-11.0)
[2017-03-21 07:26] LABS: ALB/GLOB RATIO 0.9 (1.1-1.8); BILIRUBIN,TOTAL 0.5 mg/dL (0.2-1.3); CALCIUM 8.2 mg/dL (8.4-10.5); MAGNESIUM 1.8 mg/dL (1.7-2.2); PHOSPHOROUS 5.8 mg/dL (2.5-4.5); POTASSIUM 4.6 mmol/L (3.6-5.0); TOTAL PROTEIN 6.5 g/dL (5.8-8.3)
[2017-03-21] MEDS: Multivitamin Vitamin B Complex (Nephro-Vite) Tab PO SCH (09:52)
--- NOTE | 2017-03-21 11:04 | PQF CHF ---
This form is a permanent part of the medical record Dr. Gupta, Patient admitted with c/o palpitations with SOB and DSOUZA, edema of lower extremities, elevated BNP but CXR with no active disease. Treatment included Lasix IV bid. H&P included the diagnosis of acute exacerbation of CHF. Please specify if this was present on admission (type and severity) or ruled out , only hx of CHF. Clarification of your documentation is requested to better reflect the severity of illness and intensity of treatment of your patient. Indicators present [x] Diagnosis of CHF and/or history of CHF [x] BNP > 200 [x] Imaging Finding of Pulmonary Edema /Pleural Effusions [x] Fluid/Volume Overload [xx] Pitting edema [] Ejection Fraction < 40% (Indicative of Systolic Heart Failure) [] Ejection Fraction > 40% (Indicative of Diastolic Heart Failure) [] Dyspnea / Orthopenea / Paroxysmal Nocturnal Dyspnea [] Other: lasix IV Location in the medical record that reflects the above clinical findings: [] Treatment Provided: [] PHYSICIAN'S RESPONSE Based on your medical judgment of the clinical indicators outlined above, are you treating this patient for a known or suspected: [] Acute CHF [] Systolic [] Diastolic [] Combined [] Chronic CHF [] Systolic [] Diastolic [] Combined [] Acute on Chronic CHF []Systolic [] Diastolic [] Combined [] CHF due hypertension [] Acute systolic []Chronic systolic [] Acute/ chronic systolic [] Other, please indicate: [] [] If Unable to Determine, please check the box, sign and date. Present On Admission (POA) Indicator: [x] Present at the time of admission [] Not present at the time of admission [] Clinically Undetermined In responding to this query, please exercise your independent professional judgment. The fact that a question is asked does not imply that any particular answer is desired or expected. Thank you for your clarification on this documentation. If you have any questions please call:[ ] * Thank you, [ ] Deng Dos Santos [facility] #[id number] (please call me if you have any questions) shank carrier YURIDIA
--- NOTE | 2017-03-21 11:15 | PN ---
DATE:03/21/2017 REASON FOR CONSULTATION: Followup CKD, uncontrolled hypertension, palpitation, cardiac evaluation, abnormal stress test, asymptomatic. SUBJECTIVE: The patient denies any chest pain, shortness of breath or any palpitation. We also discussed at length with the patient. Now, the patient is agreeable for dialysis in the long run. OBJECTIVE: GENERAL: Not in apparent distress. No chest pain. No shortness of breath. No palpitation. VITAL SIGNS: Temperature afebrile, blood pressure 160/78. HEENT: PERRLA. Extraocular muscles intact. NECK: Supple. No carotid bruit or thyromegaly. CHEST: Clear to auscultation. HEART: S1 and S2 regular. ABDOMEN: Soft. EXTREMITIES: Clubbing and cyanosis negative. LABORATORY DATA: Blood workup as follows, WBC 7.1, hemoglobin 10.8, hematocrit 32.9, and platelet count 212. Chemistry shows sodium 138, potassium 4.6, chloride 108, carbon dioxide 21, anion gap of 13, BUN 61, and creatinine 7.4. IMPRESSION: Chronic kidney disease stage 5: The patient was in denial. Ultimately, the patient agreed for dialysis. History of stress test abnormal did in 01/01/2017, partially reversible anteroseptal defect suspicious of ischemia, ejection fraction of 56%, asymptomatic. The patient had echocardiography on 12/30/2016 with preserved left ventricular function, a small circumferential pericardial effusion. RECOMMENDATIONS: Avoid nephrotoxic medication. Continue aggressive controlled blood pressure. The patient needs the dialysis ultimately. The patient agreed today so that she is taking after a length of discussion done with the family, the patient agreed for dialysis whenever it is needed. Continue hydralazine, increased to 50 b.i.d. Continue Coreg. Added Imdur 60 mg daily. Once the dialysis is started, may consider cardiac catheterization, not in urgent basis, the patient is asymptomatic. We will follow with you. Discussed with the patient. Thank you Dr. Gupta for providing us the opportunity in taking care of the patient, Cornelio Bess. Tory Carter MD
--- NOTE | 2017-03-21 12:54 | PN ---
ADDENDUM ASSESSMENT: 1. Chronic kidney disease, stage 5. 2. Resolved hyperkalemia. 3. Resolving metabolic acidosis. 4. Severe hypertension. 5. Anemia of chronic kidney disease. 6. Hypertensive heart disease. 7. Underlying coronary artery disease?, abnormal stress test. PLAN: 1. The patient is now agreeable for dialysis, we will get consultation with Dr. Doreen Freeman for AV fistula. 2. In light of her abnormal stress test, we will actually ask Dr. Danilo Russo to put in the PermCath so we can start her on dialysis, so that she get a catheterization. 3. Continue sodium bicarbonate. 4. Continue Lasix 40 IV q.12. 5. Follow a renal diet. 6. Continue current antihypertensive regimen. PMSHx/FHx/SHx/ROS all reviewed and unchanged except as mentioned above. Era Hameed MD MTDAlvarado
--- NOTE | 2017-03-21 13:29 | CP.PCM.CON ---
History of Present Illness - History of Present Illness History of Present Illness: Vascular Surgery Consult Note for Dr. Freeman: CC: AV access for dialysis Pt is a 71 yo female with PMH of CKD stage 5, HTN, DM2, GERD 2/2 hiatal hernia, hypothyroid, and HLD admitted for CHF exacerbation. Pt has h/o of ESRD and has had multiple discussions with Dr. Hameed in the past regarding the need for dialysis. However, prior to this admission, patient had declined dialysis. During this admission, the patient became agreeable to start dialysis as patient will need cardiac catherization and will receive IV contrast in the setting of ESRD. Pt has no prior history of previous dialysis or permanent placement for dialysis. Pt states that she is right handed. Currently, pt denied CP, SOB, nausea, vomiting, diarrhea, abdominal pain, chills, fever, ELENA, or dizziness. PMH: CKD stage 5, HTN, DM2, GERD 2/2 hiatal hernia, hypothyroid, and HLD PSH: Partial thyroidectomy x2, hiatal hernia repair, Right knee arthroplasty x5 , Right knee replacement x4 Allergies: tylenol, morphine and oxycodone SHx: Denied tobacco, EtOH, and illicit drug use FHx: mom (heart dz), dad/brother (lymphoma), sister (CKD on dialysis, DM2) PMD: Dr Steven Leon: Dr. Hameed Review of Systems - Review of Systems Review of Systems: 12 point ROS reviewed and is negative other than what is stated in HPI. Past Patient History - Infectious Disease Hx of Infectious Diseases: None - Tetanus Immunizations Tetanus Immunization: Unknown - Past Medical History & Family History Past Medical History?: Yes - Past Social History Smoking Status: Never Smoked Alcohol: None Drugs: Denies Home Situation {Lives}: Alone - CARDIAC Hx Cardiac Disorders: Yes Hx Congestive Heart Failure: Yes Hx Hypercholesterolemia: Yes Hx Hypertension: Yes - PULMONARY Hx Respiratory Disorders: No - NEUROLOGICAL Hx Neurological Disorder: Yes - HEENT Hx HEENT Problems: No - RENAL Hx Chronic Kidney Disease: Yes Hx Dialysis: No Hx Renal Failure: Yes - ENDOCRINE/METABOLIC Hx Diabetes Mellitus Type 2: Yes - HEMATOLOGICAL/ONCOLOGICAL Hx Blood Disorders: Yes Hx Anemia: Yes (iron deficiency) Other/Comment: blood transfusions, iron infusions, hyperkalemia - INTEGUMENTARY Hx Dermatological Problems: Yes Other/Comment: large scar r knee - MUSCULOSKELETAL/RHEUMATOLOGICAL Hx Falls: No - GASTROINTESTINAL Hx Gastrointestinal Disorders: Yes (hiatal hernia) Hx Gastroesophageal Reflux: Yes - GENITOURINARY/GYNECOLOGICAL Hx Genitourinary Disorders: No - PSYCHIATRIC Hx Psychophysiologic Disorder: No Hx Substance Use: No - SURGICAL HISTORY Hx Surgeries: Yes Hx Herniorrhaphy: Yes Hx Orthopedic Surgery: Yes (multiple knee surgeries,SPECIALLY RIGHT KNEE) Hx Thyroidectomy: Yes Other/Comment: pt fell "yrs ago" can't remember how long ago had 5 knee replacements and 5 arthoscopic sx's to r knee, r knee reconstruction with metal plate/cadavor part in may 2014 and september 2014 - ANESTHESIA Hx Anesthesia: Yes Hx Anesthesia Reactions: Yes Meds Allergies/Adverse Reactions: Allergies Allergy/AdvReac Type Severity Reaction Status Date / Time acetaminophen [From Percocet] Allergy RASH Verified 08/25/16 12:27 morphine Allergy VOMITING Verified 03/18/17 21:52 oxycodone HCl [From Percocet] Allergy RASH Verified 08/25/16 12:27 - Medications Medications: Current Medications Amlodipine Besylate (Norvasc) 10 mg PO DAILY [facility] Last Admin: 03/21/17 09:52 Dose: 10 mg Aspirin (Aspirin Chewable) 81 mg PO DAILY [facility] Last Admin: 03/21/17 09:52 Dose: 81 mg Atorvastatin Calcium (Lipitor) 20 mg PO DIN [facility] Last Admin: 03/20/17 17:01 Dose: Not Given Calcium Acetate (Phoslo) 667 mg PO WM [facility] Last Admin: 03/21/17 09:57 Dose: 667 mg Carvedilol (Coreg) 25 mg PO BID [facility] Last Admin: 03/21/17 09:57 Dose: 25 mg Docusate Sodium (Colace) 100 mg PO DAILY [facility] Last Admin: 03/21/17 09:52 Dose: 100 mg Ferrous Sulfate (Feosol) 324 mg PO BID [facility] Last Admin: 03/21/17 09:52 Dose: 324 mg Furosemide (Lasix) 40 mg IVP BID [facility] Last Admin: 03/21/17 09:52 Dose: 40 mg Heparin Sodium (Porcine) (Heparin) 5,000 units SC Q12 SISSY PRN Reason: Protocol Last Admin: 03/21/17 09:57 Dose: 5,000 units Hydralazine HCl (Apresoline) 10 mg IVP Q6 PRN PRN Reason: Systolic Blood Pressure Last Admin: 03/19/17 12:54 Dose: 10 mg Hydralazine HCl (Apresoline) 50 mg PO BID [facility] Last Admin: 03/21/17 09:51 Dose: 50 mg Isosorbide Mononitrate (Imdur) 60 mg PO DAILY [facility] Last Admin: 03/21/17 09:52 Dose: 60 mg Levothyroxine Sodium (Synthroid) 125 mcg PO 0600 [facility] Last Admin: 03/21/17 06:12 Dose: 125 mcg Ondansetron HCl (Zofran Inj) 4 mg IVP Q4H PRN PRN Reason: Nausea/Vomiting Last Admin: 03/19/17 15:02 Dose: 4 mg Pantoprazole Sodium (Protonix Ec Tab) 40 mg PO 0600 [facility] Last Admin: 03/21/17 06:12 Dose: 40 mg Sodium Bicarbonate (Sodium Bicarbonate Tab) 650 mg PO TID [facility] Last Admin: 03/21/17 09:51 Dose: 650 mg Vitamin B Complex/Vit C/Folic Acid (Nephro-Archie) 1 tab PO DAILY [facility] Last Admin: 03/21/17 09:52 Dose: 1 tab Physical Exam - Constitutional Appears: No Acute Distress - Head Exam Head Exam: ATRAUMATIC, NORMOCEPHALIC - Eye Exam Eye Exam: Normal appearance - ENT Exam ENT Exam: Mucous Membranes Moist - Respiratory Exam Respiratory Exam: Clear to Auscultation Bilateral. absent: Rales, Rhonchi, Wheezes - Cardiovascular Exam Cardiovascular Exam: RRR. absent: Diastolic murmur, Gallop, Rubs, Systolic Murmur - GI/Abdominal Exam GI & Abdominal Exam: Soft. absent: Distended, Guarding, Organomegaly, Rebound, Tenderness - Extremities Exam Extremities exam: Positive for: normal capillary refill, normal inspection, pedal pulses present Additional comments: b/l UE radial pulses brisk 2/4 - Neurological Exam Neurological exam: Alert, Oriented x3 - Psychiatric Exam Psychiatric exam: Normal Affect, Normal Mood - Skin Skin Exam: Dry, Intact, Normal Color, Warm Results - Vital Signs Recent Vital Signs: Last Vital Signs Temp 97.9 F 03/21/17 08:17 Pulse 75 03/21/17 09:57 Resp 21 03/21/17 08:17 BP 160/70 H 03/21/17 09:57 Pulse Ox 99 03/21/17 08:17 - Labs Result Diagrams: 03/21/17 06:00 03/21/17 06:00 Labs: Laboratory Results - last 24 hr 03/19/17 03/19/17 03/21/17 16:20 21:17 06:00 WBC 7.1 RBC 3.91 Hgb 10.2 L Hct 32.9 L MCV 84.1 MCH 26.1 MCHC 31.0 RDW 16.1 H Plt Count 212 MPV 10.4 Sodium Potassium Chloride Carbon Dioxide Anion Gap BUN Creatinine Est GFR ( Amer) Est GFR (Non-Af Amer) POC Glucose (mg/dL) 135 H 119 H Random Glucose Calcium Phosphorus Magnesium Total Bilirubin AST ALT Alkaline Phosphatase Total Protein Albumin Globulin Albumin/Globulin Ratio 03/21/17 03/21/17 06:00 11:30 WBC RBC Hgb Hct MCV MCH MCHC RDW Plt Count MPV Sodium 138 Potassium 4.6 Chloride 108 H Carbon Dioxide 21 Anion Gap 13 BUN 61 H Creatinine 7.4 H* Est GFR ( Amer) 7 Est GFR (Non-Af Amer) 5 POC Glucose (mg/dL) 178 H Random Glucose 87 Calcium 8.2 L Phosphorus 5.8 H Magnesium 1.8 Total Bilirubin 0.5 AST 21 ALT 21 Alkaline Phosphatase 141 H Total Protein 6.5 Albumin 3.1 Globulin 3.4 Albumin/Globulin Ratio 0.9 L Assessment & Plan - Assessment and Plan (Free Text) Assessment: 71 yo female with PMH of CKD stage 5, HTN, DM2, GERD 2/2 hiatal hernia, hypothyroid, and HLD admitted for CHF exacerbation, vascular surgery consulted for AV fistula access. Plan: - Cont medical management - Temporary dialysis per medicine/nephro - Permacath insertion per IR - Will discuss AV fistula planning with Dr. Freeman as outpatient Parish Unger, PGY1
--- NOTE | 2017-03-21 13:52 | CP.PCM.PN ---
<Charisse Sidhu - Last Filed: 03/21/17 14:20> Subjective - Date & Time of Evaluation Date of Evaluation: 03/21/17 Time of Evaluation: 13:52 - Subjective Subjective: Charisse Sidhu DO, PGY-1, Hospitalist Service Patient seen and examined at bedside. Patient admits to dysgeusia, anorexia, fatigue, and fluid retention. Patient denies pruritus and impaired cognitive function. Patient reports agreeable to HD after talking with Dr. Tijerina. Objective - Vital Signs/Intake and Output Vital Signs (last 24 hours): Temp Pulse Resp BP Pulse Ox 97.9 F 75 21 160/70 H 99 03/21/17 08:17 03/21/17 09:57 03/21/17 08:17 03/21/17 09:57 03/21/17 08:17 Intake and Output: 03/21/17 03/21/17 06:59 18:59 Intake Total 660 400 Output Total 700 Balance -40 400 - Medications Medications: Current Medications Amlodipine Besylate (Norvasc) 10 mg PO DAILY [facility] Last Admin: 03/21/17 09:52 Dose: 10 mg Aspirin (Aspirin Chewable) 81 mg PO DAILY [facility] Last Admin: 03/21/17 09:52 Dose: 81 mg Atorvastatin Calcium (Lipitor) 20 mg PO DIN [facility] Last Admin: 03/20/17 17:01 Dose: Not Given Calcium Acetate (Phoslo) 667 mg PO WM [facility] Last Admin: 03/21/17 09:57 Dose: 667 mg Carvedilol (Coreg) 25 mg PO BID [facility] Last Admin: 03/21/17 09:57 Dose: 25 mg Docusate Sodium (Colace) 100 mg PO DAILY [facility] Last Admin: 03/21/17 09:52 Dose: 100 mg Ferrous Sulfate (Feosol) 324 mg PO BID [facility] Last Admin: 03/21/17 09:52 Dose: 324 mg Furosemide (Lasix) 40 mg IVP BID [facility] Last Admin: 03/21/17 09:52 Dose: 40 mg Heparin Sodium (Porcine) (Heparin) 5,000 units SC Q12 SISSY PRN Reason: Protocol Last Admin: 03/21/17 09:57 Dose: 5,000 units Hydralazine HCl (Apresoline) 10 mg IVP Q6 PRN PRN Reason: Systolic Blood Pressure Last Admin: 03/19/17 12:54 Dose: 10 mg Hydralazine HCl (Apresoline) 50 mg PO BID [facility] Last Admin: 03/21/17 09:51 Dose: 50 mg Isosorbide Mononitrate (Imdur) 60 mg PO DAILY [facility] Last Admin: 03/21/17 09:52 Dose: 60 mg Levothyroxine Sodium (Synthroid) 125 mcg PO 0600 [facility] Last Admin: 03/21/17 06:12 Dose: 125 mcg Ondansetron HCl (Zofran Inj) 4 mg IVP Q4H PRN PRN Reason: Nausea/Vomiting Last Admin: 03/19/17 15:02 Dose: 4 mg Pantoprazole Sodium (Protonix Ec Tab) 40 mg PO 0600 [facility] Last Admin: 03/21/17 06:12 Dose: 40 mg Sodium Bicarbonate (Sodium Bicarbonate Tab) 650 mg PO TID [facility] Last Admin: 03/21/17 09:51 Dose: 650 mg Vitamin B Complex/Vit C/Folic Acid (Nephro-Savana) 1 tab PO DAILY [facility] Last Admin: 03/21/17 09:52 Dose: 1 tab - Labs Labs: 03/21/17 06:00 03/21/17 06:00 - Constitutional Appears: Non-toxic, No Acute Distress - Neck Exam Neck Exam: Normal Inspection. absent: Lymphadenopathy - Respiratory Exam Respiratory Exam: Clear to Ausculation Bilateral, NORMAL BREATHING PATTERN. absent: Respiratory Distress - Cardiovascular Exam Cardiovascular Exam: RRR, +S1, +S2 - GI/Abdominal Exam GI & Abdominal Exam: Soft, Normal Bowel Sounds. absent: Rebound - Extremities Exam Extremities Exam: Normal Capillary Refill. absent: Normal Inspection Additional comments: non-pitting edema - Back Exam Back Exam: NORMAL INSPECTION. absent: CVA tenderness (L), CVA tenderness (R) - Neurological Exam Neurological Exam: Alert, Awake Additional comments: Patient mis-spelled world backwards and became frustrated when trying to perform serial sevens. - Psychiatric Exam Psychiatric exam: Agitated, Normal Affect, Normal Mood - Skin Skin Exam: Dry, Intact, Normal Color, Warm Assessment and Plan - Assessment and Plan (Free Text) Assessment: 71 year old black female with a past medical history of CKD(with most recent estimated GFR of 7), hypertension, dyslipidemia, DM II, and hypothyroidism who presented increasingly worse dyspnea on exertion, associated chest pain, and was found to have an acute on chronic kidney failure. Initial labs and imaging were negative for acute coronary syndrome; however, given the patient's worsening kidney function and recently abnormal stress test, the patient was advised to undergo hemodialysis to permit for a cardiac catheterization to take place. After much deliberation, the patient agreed to have a temporary perma- cath placed, and furthermore, is agreeable to get an AVF for hemodialysis for her CKD (per Dr. Hameed's note). 1) Chest pain, resolved - Troponins x 3 negative - Patient does have stress test imaging that suggest some coronary artery disease; however, patient was not able to undergo heart catheterization secondary to renal failure and refusal to proceed with hemodialysis. - Aspirin 81 mg PO daily - Atorvastatin 20 mg PO at night - Imdur 60 mg PO daily 2) CKD stage 5: BUN/Cr was 62/7.4 2a) CKD with resolution of Hyperkalemia and Metabolic acidosis, but persistent hyperphosphatemia - Nephrology input appreciated, Dr. Era Hameed and Dr. Tijerina. - NaHCO3 650 TID - Nephro-savana 1 tab PO daily - Phoslo 667 mg PO with meal 3)Hypertension - Amlodipine 10 mg - Carvedilol 25 mg BID - Hydralazine 50 mg BID - Hydralazine IVP 10 mg PRN - Furosemide 40 mg IVP q12h 4) History of DM II - HgbA1c 6.0 5) History of dyslipidemia - Lipid profile normal; continue with moderate dose statin therapy, unless otherwise indicated 5) Hypothyroidism: TSH elevated, free T4 within normal limits - Continue with 125 mcg of Synthroid 6) Anemia secondary to Chronic Kidney Disease - Aranesp per Nephrology if Hgb goes below 10 mg/dL 7) FEN/DVT/GI prophylaxis - HHD, renal non-dialysis diet - Heparin 5,000 units q12h SC - Protonix 40 mg PO daily - Colace 100 mg PO daily - Zofran 4 mg q4h IVP PRN Disposition: Patient to undergo perma-cath placement today or tomorrow for HD ( and eventually cardiac catheterization) <Montrell Gupta - Last Filed: 03/21/17 16:12> Objective - Vital Signs/Intake and Output Vital Signs (last 24 hours): Temp Pulse Resp BP Pulse Ox 97.9 F 75 21 160/70 H 99 03/21/17 08:17 03/21/17 09:57 03/21/17 08:17 03/21/17 09:57 03/21/17 10:00 Intake and Output: 03/21/17 03/21/17 06:59 18:59 Intake Total 660 1440 Output Total 700 1400 Balance -40 40 - Medications Medications: Current Medications Amlodipine Besylate (Norvasc) 10 mg PO DAILY [facility] Last Admin: 03/21/17 09:52 Dose: 10 mg Aspirin (Aspirin Chewable) 81 mg PO DAILY [facility] Last Admin: 03/21/17 09:52 Dose: 81 mg Atorvastatin Calcium (Lipitor) 20 mg PO DIN [facility] Last Admin: 03/20/17 17:01 Dose: Not Given Calcium Acetate (Phoslo) 667 mg PO WM [facility] Last Admin: 03/21/17 13:31 Dose: 667 mg Carvedilol (Coreg) 25 mg PO BID [facility] Last Admin: 03/21/17 09:57 Dose: 25 mg Docusate Sodium (Colace) 100 mg PO DAILY [facility] Last Admin: 03/21/17 09:52 Dose: 100 mg Ferrous Sulfate (Feosol) 324 mg PO BID [facility] Last Admin: 03/21/17 09:52 Dose: 324 mg Furosemide (Lasix) 40 mg IVP BID [facility] Last Admin: 03/21/17 09:52 Dose: 40 mg Heparin Sodium (Porcine) (Heparin) 5,000 units SC Q12 [facility] PRN Reason: Protocol Last Admin: 03/21/17 09:57 Dose: 5,000 units Hydralazine HCl (Apresoline) 10 mg IVP Q6 PRN PRN Reason: Systolic Blood Pressure Last Admin: 03/19/17 12:54 Dose: 10 mg Hydralazine HCl (Apresoline) 50 mg PO BID [facility] Last Admin: 03/21/17 09:51 Dose: 50 mg Isosorbide Mononitrate (Imdur) 60 mg PO DAILY [facility] Last Admin: 03/21/17 09:52 Dose: 60 mg Levothyroxine Sodium (Synthroid) 125 mcg PO 0600 [facility] Last Admin: 03/21/17 06:12 Dose: 125 mcg Ondansetron HCl (Zofran Inj) 4 mg IVP Q4H PRN PRN Reason: Nausea/Vomiting Last Admin: 03/19/17 15:02 Dose: 4 mg Pantoprazole Sodium (Protonix Ec Tab) 40 mg PO 0600 [facility] Last Admin: 03/21/17 06:12 Dose: 40 mg Sodium Bicarbonate (Sodium Bicarbonate Tab) 650 mg PO TID [facility] Last Admin: 03/21/17 14:33 Dose: 650 mg Vitamin B Complex/Vit C/Folic Acid (Nephro-Savana) 1 tab PO DAILY [facility] Last Admin: 03/21/17 09:52 Dose: 1 tab - Labs Labs: 03/21/17 06:00 03/21/17 06:00 Attending/Attestation - Attestation I have personally seen and examined this patient.: Yes I have fully participated in the care of the patient.: Yes I have reviewed all pertinent clinical information, including history, physical exam and plan: Yes Notes (Text): 03/21/17 16:06 attending note; Patient seen and examined with resident. Patient is a 71 year female with a history of GERD, hypothyroidism, hypertension and stage IV chronic kidney disease is admitted with intermittent, substernal, non-exertional, non-radiating chest heaviness and shortness of breath. cardiac enzymes negative. Cardiology evaluation appreciated. Recent stress test in 01/07 showed partially reversible defect. Cardiology evaluation appreciated. Continue medical management. might consider cardiac cath after starting hemodialysis. Patient with a history of uncontrolled hypertension/noncompliance with medication. medications adjusted. blood pressure is better controlled. Chronic kidney disease; worsening creatinine. hyperkalemia and metabolic acidosis resolving after treatment. anemia; secondary to chronic kidney disease. Stable. case discussed with mixing machine tender cork gasket in detail. Plan for possible dialysis catheter placement. Hemodialysis tomorrow. Patient will get outpatient vascular surgery evaluation for AV fistula/AV graft placement. upon discharge patient will follow-up with PMD Dr. Harris.
--- NOTE | 2017-03-21 15:56 | PN ---
DATE: 03/21/2017 SUBJECTIVE: The patient is seen sitting in chair. She is awake. She is alert. She reports of dizziness and lightheadedness earlier. She denies any bad taste. She complains of dry mouth. She is now agreeable for dialysis. PHYSICAL EXAMINATION: GENERAL: Obese elderly lady sitting in chair. VITAL SIGNS: Blood pressure of 160/70, heart rate of 75, respiratory rate of 21, and temperature of 97.9. HEENT: Normocephalic and atraumatic. NECK: Supple and no JVD. LUNGS: Bilateral equal air entry, bilateral equal expansion, and no rales. CARDIAC: S1 and S2, regular rate and rhythm. No murmur and no rub. ABDOMEN: Obese, distended, soft, nontender, and bowel sound is present. EXTREMITIES: 2+ pitting edema of the lower extremities. INTAKE AND OUTPUT: Intake and output of 1500/700. LABORATORY DATA: WBC of 7, hemoglobin of 10.2, hematocrit of 33, and platelets of 212. Sodium of 138, potassium of 4.6, chloride of 108, CO2 of 21, BUN of 61, and creatinine of 7.4. Glucose of 87, calcium of 8.2, phosphorus of 5.8 magnesium of 1.8, and albumin of 3.1. CURRENT MEDICATIONS: Apresoline 10 mg IV q. 6 hours p.r.n. hydralazine 50 b.i.d., aspirin 81, Colace 100, Coreg 25 b.i.d., Feosol 324 b.i.d., heparin, Imdur or 60, Lasix 40 mg IV b.i.d., Lipitor 20 mg, amlodipine 10 and PhosLo 6627 t.i.d. with meals, Protonix, sodium bicarbonate 650 t.i.d., Synthroid Era Hameed MD
[2017-03-22] MEDS: Pantoprazole 40 mg EC Tab PO SCH (05:20)
[2017-03-22] MEDS: Levothyroxine 125 MCG TAB PO SCH (05:20)
[2017-03-22 06:26] LABS: HEMATOCRIT 32.8 % (36.0-48.0); MEAN CELL VOLUME 83.5 fl (80.0-105.0); MEAN CORPUSCULAR HEMOGLOBIN 26.5 pg (25.0-35.0); MEAN CORPUSCULAR HGB CONC 31.7 g/dl (31.0-37.0); MEAN PLATELET VOLUME 10.7 fl (7.0-11.0); RED CELL DISTRIBUTION WIDTH 15.9 % (11.5-14.5); WHITE BLOOD COUNT 7.7 10^3/ul (4.5-11.0)
[2017-03-22 06:40] LABS: INR 1.07 (0.93-1.08); PARTIAL THROMBOPLASTIN TIME 30.3 Seconds (25.1-36.5)
[2017-03-22 07:17] LABS: ALB/GLOB RATIO 0.9 (1.1-1.8); BILIRUBIN,TOTAL 0.5 mg/dL (0.2-1.3); CALCIUM 8.1 mg/dL (8.4-10.5); POTASSIUM 4.3 mmol/L (3.6-5.0); TOTAL PROTEIN 6.5 g/dL (5.8-8.3)
[2017-03-22] MEDS ORDERED: Lidocaine 2% Inj (20ml) ONE ×2 (09:00→09:16)
[2017-03-22] MEDS ORDERED: Midazolam 2 MG/2 ML VIAL ONE (09:22)
[2017-03-22 09:27] LABS: MAGNESIUM 1.8 mg/dL (1.7-2.2); PHOSPHOROUS 5.4 mg/dL (2.5-4.5)
[2017-03-22] MEDS: Multivitamin Vitamin B Complex (Nephro-Vite) Tab PO SCH (11:02)
[2017-03-22 12:02] LABS: IRON 81 ug/dL (45-180)
--- NOTE | 2017-03-22 13:28 | CP.PCM.PN ---
<Charisse Sidhu - Last Filed: 03/22/17 13:30> Subjective - Date & Time of Evaluation Date of Evaluation: 03/22/17 Time of Evaluation: 13:25 - Subjective Subjective: Charisse Sidhu DO, PGY-1, Hospitalist Service Patient seen and examined at bedside. Patient reports anorexia, fatigue, dysgeusia, and denies fluid retention. Nurse reports no events overnight. Objective - Vital Signs/Intake and Output Vital Signs (last 24 hours): Temp Pulse Resp BP Pulse Ox 98.6 F 82 13 190/110 H 96 03/22/17 10:45 03/22/17 12:55 03/22/17 10:45 03/22/17 12:55 03/22/17 10:45 Intake and Output: 03/22/17 03/22/17 06:59 18:59 Intake Total 780 Output Total 2000 Balance -1220 - Medications Medications: Current Medications Amlodipine Besylate (Norvasc) 10 mg PO DAILY [facility] Last Admin: 03/22/17 11:02 Dose: Not Given Aspirin (Aspirin Chewable) 81 mg PO DAILY [facility] Last Admin: 03/22/17 11:01 Dose: Not Given Atorvastatin Calcium (Lipitor) 20 mg PO DIN [facility] Last Admin: 03/21/17 18:38 Dose: Not Given Calcium Acetate (Phoslo) 667 mg PO WM [facility] Last Admin: 03/22/17 11:02 Dose: Not Given Carvedilol (Coreg) 25 mg PO BID [facility] Last Admin: 03/22/17 11:01 Dose: Not Given Docusate Sodium (Colace) 100 mg PO DAILY [facility] Last Admin: 03/22/17 11:01 Dose: Not Given Ferrous Sulfate (Feosol) 324 mg PO BID [facility] Last Admin: 03/22/17 11:01 Dose: Not Given Furosemide (Lasix) 40 mg IVP BID [facility] Last Admin: 03/22/17 11:02 Dose: Not Given Heparin Sodium (Porcine) (Heparin) 5,000 units SC Q12 SISSY PRN Reason: Protocol Last Admin: 03/22/17 11:01 Dose: Not Given Hydralazine HCl (Apresoline) 10 mg IVP Q6 PRN PRN Reason: Systolic Blood Pressure Last Admin: 03/22/17 12:55 Dose: 10 mg Hydralazine HCl (Apresoline) 50 mg PO BID [facility] Last Admin: 03/22/17 11:00 Dose: Not Given Isosorbide Mononitrate (Imdur) 60 mg PO DAILY [facility] Last Admin: 03/22/17 11:02 Dose: Not Given Levothyroxine Sodium (Synthroid) 125 mcg PO 0600 [facility] Last Admin: 03/22/17 05:20 Dose: 125 mcg Ondansetron HCl (Zofran Inj) 4 mg IVP Q4H PRN PRN Reason: Nausea/Vomiting Last Admin: 03/22/17 11:25 Dose: 4 mg Pantoprazole Sodium (Protonix Ec Tab) 40 mg PO 0600 [facility] Last Admin: 03/22/17 05:20 Dose: 40 mg Sodium Bicarbonate (Sodium Bicarbonate Tab) 650 mg PO TID [facility] Last Admin: 03/22/17 11:03 Dose: Not Given Vitamin B Complex/Vit C/Folic Acid (Nephro-Savana) 1 tab PO DAILY [facility] Last Admin: 03/22/17 11:02 Dose: Not Given - Labs Labs: 03/22/17 05:20 03/22/17 05:20 PT 11.8 SECONDS (9.4-12.5) 03/22/17 05:20 INR 1.07 (0.93-1.08) 03/22/17 05:20 APTT 30.3 Seconds (25.1-36.5) 03/22/17 05:20 - Constitutional Appears: Non-toxic, No Acute Distress - Head Exam Head Exam: ATRAUMATIC, NORMOCEPHALIC - Eye Exam Eye Exam: EOMI, Normal appearance, PERRL Pupil Exam: NORMAL ACCOMODATION - ENT Exam ENT Exam: Mucous Membranes Moist, Normal Oropharynx - Neck Exam Neck Exam: Normal Inspection - Respiratory Exam Respiratory Exam: Clear to Ausculation Bilateral, NORMAL BREATHING PATTERN - Cardiovascular Exam Cardiovascular Exam: RRR, +S1, +S2 - GI/Abdominal Exam GI & Abdominal Exam: Soft, Normal Bowel Sounds - Rectal Exam Rectal Exam: NORMAL INSPECTION - Extremities Exam Extremities Exam: Full ROM, Normal Capillary Refill, Normal Inspection - Back Exam Back Exam: NORMAL INSPECTION. absent: CVA tenderness (L), CVA tenderness (R) - Neurological Exam Neurological Exam: Alert, Awake, CN II-XII Intact, Oriented x3 - Psychiatric Exam Psychiatric exam: Normal Affect, Normal Mood - Skin Skin Exam: Dry, Intact, Normal Color, Warm Assessment and Plan - Assessment and Plan (Free Text) Assessment: 71 year old black female with a past medical history of CKD(with most recent estimated GFR of 7), hypertension, dyslipidemia, DM II, and hypothyroidism who presented increasingly worse dyspnea on exertion, associated chest pain, and was found to have an acute on chronic kidney failure. Initial labs and imaging were negative for acute coronary syndrome; however, in light of the patient's worsening kidney function and equivocal stress test, the patient was advised to undergo hemodialysis to allow for a cardiac catheterization to take place. After much deliberation, the patient agreed to have a perma-cath placed and agreeable to get an AV fistula/ AV graft for hemodialysis for her CKD (per Dr. Hameed's note). Plan: 1) Chest pain, resolved - Troponins x 3 negative - Patient does have stress test imaging that suggest some coronary artery disease; however, patient was not able to undergo heart catheterization secondary to renal failure and refusal to proceed with hemodialysis. - Aspirin 81 mg PO daily - Atorvastatin 20 mg PO at night - Imdur 60 mg PO daily 2) CKD stage 5: BUN/Cr was 62/7.4 2a) CKD with resolution of Hyperkalemia and Metabolic acidosis, but persistent hyperphosphatemia - Nephrology input appreciated, Dr. Era Hameed and Dr. Tijerina. - NaHCO3 650 TID - Nephro-savana 1 tab PO daily - Phoslo 667 mg PO with meal 3)Hypertension - Amlodipine 10 mg - Carvedilol 25 mg BID - Hydralazine 50 mg BID - Hydralazine IVP 10 mg PRN - Furosemide 40 mg IVP q12h 4) History of DM II - HgbA1c 6.0 5) History of dyslipidemia - Lipid profile normal; continue with moderate dose statin therapy, unless otherwise indicated 5) Hypothyroidism: TSH elevated, free T4 within normal limits - Continue with 125 mcg of Synthroid 6) Anemia secondary to Chronic Kidney Disease - Aranesp per Nephrology if Hgb goes below 10 mg/dL 7) Diet/DVT/GI prophylaxis - HHD, renal non-dialysis diet - Heparin 5,000 units q12h SC - Protonix 40 mg PO daily - Colace 100 mg PO daily - Zofran 4 mg q4h IVP PRN Disposition: Patient underwent perma-cath placement today. Patient is to undergo first hemodialysis session. Patient will get outpatient vascular surgery evaluation for AV fistula/AV graft placement. Dr. Carter has tentatively planned to perform cardiac catheterization this upcoming Sunday. Dialysis care will be coordinated by Nephrology, Dr. Era Hameed. <Montrell Gupta - Last Filed: 03/22/17 16:25> Objective - Vital Signs/Intake and Output Vital Signs (last 24 hours): Temp Pulse Resp BP Pulse Ox 98.6 F 94 H 19 154/92 H 96 03/22/17 10:45 03/22/17 14:31 03/22/17 14:31 03/22/17 15:42 03/22/17 10:45 Intake and Output: 03/22/17 03/22/17 06:59 18:59 Intake Total 780 Output Total 1999 Balance -1220 - Medications Medications: Current Medications Amlodipine Besylate (Norvasc) 10 mg PO DAILY [facility] Last Admin: 03/22/17 14:35 Dose: 10 mg Aspirin (Aspirin Chewable) 81 mg PO DAILY [facility] Last Admin: 03/22/17 14:33 Dose: 81 mg Atorvastatin Calcium (Lipitor) 20 mg PO DIN [facility] Last Admin: 03/21/17 18:38 Dose: Not Given Calcium Acetate (Phoslo) 667 mg PO WM [facility] Last Admin: 03/22/17 13:34 Dose: Not Given Carvedilol (Coreg) 25 mg PO BID [facility] Last Admin: 03/22/17 11:01 Dose: Not Given Clopidogrel Bisulfate (Plavix) 75 mg PO DAILY [facility] Docusate Sodium (Colace) 100 mg PO DAILY [facility] Last Admin: 03/22/17 11:01 Dose: Not Given Ferrous Sulfate (Feosol) 324 mg PO BID [facility] Last Admin: 03/22/17 11:01 Dose: Not Given Furosemide (Lasix) 40 mg IVP BID [facility] Last Admin: 03/22/17 14:34 Dose: 40 mg Heparin Sodium (Porcine) (Heparin) 5,000 units SC Q12 SISSY PRN Reason: Protocol Last Admin: 03/22/17 11:01 Dose: Not Given Hydralazine HCl (Apresoline) 10 mg IVP Q6 PRN PRN Reason: Systolic Blood Pressure Last Admin: 03/22/17 12:55 Dose: 10 mg Hydralazine HCl (Apresoline) 50 mg PO BID [facility] Last Admin: 03/22/17 14:33 Dose: 50 mg Isosorbide Mononitrate (Imdur) 60 mg PO DAILY [facility] Last Admin: 03/22/17 14:34 Dose: 60 mg Levothyroxine Sodium (Synthroid) 125 mcg PO 0600 [facility] Last Admin: 03/22/17 05:20 Dose: 125 mcg Ondansetron HCl (Zofran Inj) 4 mg IVP Q4H PRN PRN Reason: Nausea/Vomiting Last Admin: 03/22/17 15:40 Dose: 4 mg Pantoprazole Sodium (Protonix Ec Tab) 40 mg PO 0600 [facility] Last Admin: 03/22/17 05:20 Dose: 40 mg Sodium Bicarbonate (Sodium Bicarbonate Tab) 650 mg PO TID [facility] Last Admin: 03/22/17 14:34 Dose: 650 mg Vitamin B Complex/Vit C/Folic Acid (Nephro-Savana) 1 tab PO DAILY [facility] Last Admin: 03/22/17 11:02 Dose: Not Given - Labs Labs: 03/22/17 05:20 03/22/17 05:20 PT 11.8 SECONDS (9.4-12.5) 03/22/17 05:20 INR 1.07 (0.93-1.08) 03/22/17 05:20 APTT 30.3 Seconds (25.1-36.5) 03/22/17 05:20 Attending/Attestation - Attestation I have personally seen and examined this patient.: Yes I have fully participated in the care of the patient.: Yes I have reviewed all pertinent clinical information, including history, physical exam and plan: Yes Notes (Text): 03/22/17 16:24 attending note; Patient seen and examined with resident. Patient is a 71 year female with a history of GERD, hypothyroidism, hypertension and stage IV chronic kidney disease is admitted with shortness of breath. cardiac enzymes negative. Cardiology evaluation appreciated. Recent stress test in 01/07 showed partially reversible defect. Cardiology evaluation appreciated. Continue medical management. Plan for cardiac cath next Sunday. Patient with a history of uncontrolled hypertension/noncompliance with medication. medications adjusted. blood pressure is better controlled. end-stage renal disease; status post right tunnel dialysis catheter placement . Status post first dialysis today . Patient will have hemodialysis tomorrow . case discussed with case resource manager/social work nurse for outpatient hemodialysis arrangements. Patient will get outpatient vascular surgery evaluation for AV fistula/AV graft placement. Possible discharge home tomorrow if clinically stable. upon discharge patient will follow-up with PMD Dr. Harris.
--- NOTE | 2017-03-22 18:19 | PN ---
DATE: 03/22/2017 SUBJECTIVE: Patient is seen in the dialysis unit. She is receiving her first dialysis. She just had the PermCath placed. She is very nauseous. She is having a lot of retching. She denies any chest pain. She denies any palpitations. PHYSICAL EXAMINATION: GENERAL: Obese elderly lady, lying in bed in the dialysis unit. VITAL SIGNS: Blood pressure 180/81, heart rate 74, respiratory rate 18 to 20, temperature 98. HEENT: Normocephalic, atraumatic, positive pallor. NECK: Supple, no JVD. LUNGS: Bilateral equal entry, bilateral equal expansion, no rhonchi. CARDIAC: S1, S2. Regular rate and rhythm. No murmur, no rub. ABDOMEN: Obese, distended, soft, nontender, bowel sounds present. EXTREMITIES: 2+ pitting edema of the lower extremities. INTAKE AND OUTPUT: 2220/3400. LABORATORY DATA: WBC 7.7, hemoglobin 10, hematocrit 33, platelets 201. Sodium 137, potassium 4.3, chloride 106, CO2 of 21, BUN 66, creatinine 7.7, glucose 117, calcium 8.1, phosphorus 5.4, magnesium 1.8. Iron saturation 33, iron 81. CURRENT MEDICATIONS: Apresoline 10 mg IV q. 6 p.r.n., hydralazine 50 p.o. b.i.d., aspirin 81, Colace 100, Coreg 25 b.i.d., Feosol, Imdur 60 mg, Lasix 40 IV b.i.d., Lipitor, amlodipine 10, PhosLo, Plavix, Protonix, sodium bicarbonate, Synthroid, Zofran. ASSESSMENT: 1. Chronic kidney disease 5, now end-stage renal disease, seen during first dialysis. 2. Severe hypertension. 3. Hypertensive heart disease. 4. Severe anemia. 5. Congestive heart failure. 6. Secondary hyperparathyroidism. PLAN: 1. Discontinue sodium bicarbonate. 2. Continue IV Lasix for the time being. 3. Dialysis again tomorrow. 4. Discussed with primary team and cardiology, could have cardiac catheterization whenever convenient. 5. Arrange outpatient dialysis. 6. Antihypertensives to be fine tuned as outpatient. 7. No objection to discharge post dialysis tomorrow. Era Hameed MD
--- NOTE | 2017-03-22 19:02 | PN ---
DATE: REASON FOR CONSULTATION AND FOLLOWUP: CKD pre-dialysis, uncontrolled hypertension, palpitation, cardiac evaluation, and abnormal stress test, asymptomatic. SUBJECTIVE: The patient denies any chest pain, shortness of breath or palpitation. The patient ultimately is agreeable for dialysis, going for PermCath today, and possible cardiac catheterization on Sunday. OBJECTIVE: GENERAL: Not in apparent distress. VITAL SIGNS: As follows, temperature afebrile, heart rate 82, and blood pressure 190/100. HEENT: PERRLA. Extraocular muscles intact. NECK: Supple. No carotid bruits or thyromegaly. CHEST: Clear to auscultation. HEART: S1 and S2. Regular. ABDOMEN: Soft. EXTREMITIES: Clubbing and cyanosis negative. LABORATORY DATA: Blood workup as follows; WBC , hematocrit 32.8, and platelet count 201. Chemistry shows sodium 130, potassium 4.0, chloride 106, carbon dioxide 21, anion gap 15, BUN 60, and creatinine 7.7. IMPRESSION AND PLAN: Chronic kidney disease pre-dialysis, abnormal stress test, suspicious of ischemia, asymptomatic 01/01/2017, partially reversible anteroseptal defect suspicious of ischemia, ejection fraction of 56%. Echo shows ejection fraction preserved dated on 12/31/2015 with small pericardial effusion. Discussed in length with the patient. Ultimately, the patient agreed for dialysis as per discussion with bottoming machine operator also and initially, I will put the patient for catheterization for tomorrow, but the patient is going for PermCath for dialysis today. We will see how the patient behave after the dialysis and possible cardiac catheterization on Sunday. If the patient stays in-house, we will do cardiac catheterization on Sunday, otherwise, we will do as an outpatient. Discussed with Dr. Gupta. Thank you Dr. Gupta for providing us the opportunity in taking care of the patient, Cornelio Bess. We will start low dose of Plavix and aspirin today and keep n.p.o. after Sunday midnight for cardiac catheterization on Sunday. Tory Carter MD
--- NOTE | 2017-03-22 19:43 | VASCULAR ---
PROCEDURE: Ultrasound and fluoroscopic tunneled right IJ dialysis catheter. CLINICAL HISTORY: ESRD PHYSICIAN(S): Danilo Russo M.D. TECHNIQUE: The relative risks and indications for the procedure were explained to the patient and informed written consent obtained. The patient was placed supine on the arteriography table and the right neck/chest was prepped and draped in the usual sterile fashion. 1% Xylocaine was used to anesthetize the skin and soft tissues at the puncture site. Conscious sedation and monitoring were provided throughout the procedure by a nurse. Under direct ultrasound guidance, the rightinternal jugular vein was punctured with a micropuncture set. A 0.035 Glidewire was advanced into the IVC. Sequential dilatation was performed with subsequent placement of a 28cm Fernandez II catheter with its tip in the right atrium. A retrograde tunnel below the right clavicle was performed. The catheter was trimmed and the hub attached. Both ports aspirate and inject easily. The catheter was secured and a dressing applied. The patient tolerated the procedure well. IMPRESSION: 1. Ultrasound and fluoroscopically placed right IJ tunneled dialysis catheter.
[2017-03-23] MEDS: Levothyroxine 125 MCG TAB PO SCH (05:37)
[2017-03-23] MEDS: Pantoprazole 40 mg EC Tab PO SCH (05:37)
[2017-03-23 06:27] LABS: HEMATOCRIT 34.4 % (36.0-48.0); MEAN CELL VOLUME 84.1 fl (80.0-105.0); MEAN CORPUSCULAR HEMOGLOBIN 26.4 pg (25.0-35.0); MEAN CORPUSCULAR HGB CONC 31.4 g/dl (31.0-37.0); MEAN PLATELET VOLUME 11.2 fl (7.0-11.0); RED CELL DISTRIBUTION WIDTH 15.9 % (11.5-14.5); WHITE BLOOD COUNT 8.1 10^3/ul (4.5-11.0)
--- NOTE | 2017-03-23 07:28 | CP.PCM.PN ---
<Charisse Sidhu - Last Filed: 03/23/17 17:05> Subjective - Date & Time of Evaluation Date of Evaluation: 03/23/17 Time of Evaluation: 07:26 - Subjective Subjective: Charisse Sidhu DO, PGY-1, Hospitalist Service Patient seen and examined at bedside. Patient reports vomiting after RIJ insertion yesterday and SOB when walking to the bathroom today. Patient was put on oxygen. Patient states she will be going to dialysis today at 10:00 AM. Objective - Vital Signs/Intake and Output Vital Signs (last 24 hours): Temp Pulse Resp BP Pulse Ox 99.3 F 88 20 149/79 100 03/23/17 00:00 03/23/17 00:00 03/23/17 00:00 03/23/17 00:00 03/23/17 00:00 Intake and Output: 03/23/17 03/23/17 06:59 18:59 Intake Total 420 Output Total 200 Balance 220 - Medications Medications: Current Medications Amlodipine Besylate (Norvasc) 10 mg PO DAILY [facility] Last Admin: 03/22/17 14:35 Dose: 10 mg Aspirin (Aspirin Chewable) 81 mg PO DAILY [facility] Last Admin: 03/22/17 14:33 Dose: 81 mg Atorvastatin Calcium (Lipitor) 20 mg PO DIN [facility] Last Admin: 03/22/17 16:45 Dose: Not Given Calcium Acetate (Phoslo) 667 mg PO WM [facility] Last Admin: 03/22/17 17:45 Dose: Not Given Carvedilol (Coreg) 25 mg PO BID [facility] Last Admin: 03/22/17 17:12 Dose: Not Given Clopidogrel Bisulfate (Plavix) 75 mg PO DAILY [facility] Docusate Sodium (Colace) 100 mg PO DAILY [facility] Last Admin: 03/22/17 11:01 Dose: Not Given Ferrous Sulfate (Feosol) 324 mg PO BID [facility] Last Admin: 03/22/17 17:44 Dose: Not Given Furosemide (Lasix) 40 mg IVP BID [facility] Last Admin: 03/22/17 17:33 Dose: Not Given Heparin Sodium (Porcine) (Heparin) 5,000 units SC Q12 [facility] PRN Reason: Protocol Last Admin: 03/22/17 21:23 Dose: 5,000 units Hydralazine HCl (Apresoline) 10 mg IVP Q6 PRN PRN Reason: Systolic Blood Pressure Last Admin: 03/22/17 12:55 Dose: 10 mg Hydralazine HCl (Apresoline) 50 mg PO BID [facility] Last Admin: 03/22/17 17:34 Dose: Not Given Isosorbide Mononitrate (Imdur) 60 mg PO DAILY [facility] Last Admin: 03/22/17 14:34 Dose: 60 mg Levothyroxine Sodium (Synthroid) 125 mcg PO 0600 [facility] Last Admin: 03/23/17 05:37 Dose: 125 mcg Ondansetron HCl (Zofran Inj) 4 mg IVP Q4H PRN PRN Reason: Nausea/Vomiting Last Admin: 03/22/17 15:40 Dose: 4 mg Pantoprazole Sodium (Protonix Ec Tab) 40 mg PO 0600 [facility] Last Admin: 03/23/17 05:37 Dose: 40 mg Vitamin B Complex/Vit C/Folic Acid (Nephro-Savana) 1 tab PO DAILY [facility] Last Admin: 03/22/17 11:02 Dose: Not Given - Labs Labs: 03/23/17 05:20 03/22/17 05:20 PT 11.8 SECONDS (9.4-12.5) 03/22/17 05:20 INR 1.07 (0.93-1.08) 03/22/17 05:20 APTT 30.3 Seconds (25.1-36.5) 03/22/17 05:20 - Constitutional Appears: Well, Non-toxic - Head Exam Head Exam: ATRAUMATIC, NORMOCEPHALIC - Eye Exam Eye Exam: EOMI, Normal appearance, PERRL - ENT Exam ENT Exam: Mucous Membranes Moist, Normal Oropharynx - Neck Exam Neck Exam: Normal Inspection. absent: Lymphadenopathy - Respiratory Exam Respiratory Exam: Clear to Ausculation Bilateral, NORMAL BREATHING PATTERN - Cardiovascular Exam Cardiovascular Exam: RRR, +S1, +S2 - GI/Abdominal Exam GI & Abdominal Exam: Soft, Normal Bowel Sounds - Extremities Exam Extremities Exam: Normal Capillary Refill, Normal Inspection. absent: Calf Tenderness, Pedal Edema - Back Exam Back Exam: NORMAL INSPECTION. absent: CVA tenderness (L), CVA tenderness (R) - Neurological Exam Neurological Exam: Alert, Awake, Oriented x3 - Psychiatric Exam Psychiatric exam: Normal Affect, Normal Mood - Skin Skin Exam: Dry, Intact, Normal Color, Warm Assessment and Plan - Assessment and Plan (Free Text) Assessment: 71 year old black female with a history of Chronic Kidney Disease stage 4-5, hypertension, dyslipidemia, DM II, hypothyroidism and a recently abnormal stress test who presented to [facility] [place] for exertional dyspnea and associated chest pain. Initial labs and imaging were negative for an acute coronary syndrome, but indicative of fluid overloaded-state with acute on chronic kidney failure. Cardiology and Nephrology were consulted. The patient chest pain resolved within the first 24 hours of admission, but her dyspnea on exertion persisted. Furthermore, her kidney function worsened despite correcting her electrolyte/ biochemical abnormalities. After much deliberation, the patient eventually agreed to hemodialysis and a right internal jugular perma-cath was placed. Currently, the patient has underwent two hemodialysis sessions as an inpatient. Plan: 1) Chest pain, resolved - Troponins x 3 negative - Aspirin 81 mg PO daily - Atorvastatin 20 mg PO at night - Imdur 60 mg PO daily - Plavix 75 mg daily 2) CKD stage 4: BUN/Cr 41/6.3 - Hyperkalemia, Metabolic acidosis, and hyperphosphatemia have resolved - Nephrology consult appreciated, Dr. Era Hameed and Dr. Tijerina. - NaHCO3 650 TID - Nephro-savana 1 tab PO daily - Phoslo 667 mg PO with meal 3)Hypertension - Amlodipine 10 mg - Carvedilol 25 mg BID - Hydralazine 50 mg BID - Hydralazine IVP 10 mg PRN - Furosemide 40 mg IVP q12h 4) History of DM II - HgbA1c 6.0 5) History of dyslipidemia - Lipid profile normal; continue with moderate dose statin therapy 5) Hypothyroidism: TSH elevated, free T4 within normal limits - Continue with 125 mcg of Synthroid 6) Anemia secondary to Chronic Kidney Disease - Aranesp per Nephrology if Hgb goes below 10 mg/dL - Venofer per Nephrology. 7) Diet/DVT/GI prophylaxis - HHD, renal non-dialysis diet - Heparin 5,000 units q12h SC - Protonix 40 mg PO daily - Colace 100 mg PO daily - Zofran 4 mg q4h IVP PRN Disposition: patient to be dialyzed tomorrow. <Montrell Gupta - Last Filed: 03/24/17 13:28> Objective - Vital Signs/Intake and Output Vital Signs (last 24 hours): Temp Pulse Resp BP Pulse Ox 98.2 F 78 20 149/84 98 03/24/17 08:47 03/24/17 12:21 03/24/17 08:47 03/24/17 12:21 03/24/17 08:47 Intake and Output: 03/24/17 03/24/17 06:59 18:59 Intake Total 600 120 Output Total 950 100 Balance -350 20 - Medications Medications: Current Medications Amlodipine Besylate (Norvasc) 10 mg PO DAILY [facility] Last Admin: 03/24/17 09:20 Dose: 10 mg Aspirin (Ecotrin) 325 mg PO DAILY [facility] Last Admin: 03/24/17 09:20 Dose: 325 mg Atorvastatin Calcium (Lipitor) 20 mg PO DIN [facility] Last Admin: 03/23/17 17:00 Dose: 20 mg Calcium Acetate (Phoslo) 667 mg PO WM [facility] Last Admin: 03/24/17 12:39 Dose: 667 mg Carvedilol (Coreg) 25 mg PO BID [facility] Last Admin: 03/24/17 09:30 Dose: Not Given Clopidogrel Bisulfate (Plavix) 75 mg PO DAILY [facility] Last Admin: 03/24/17 09:18 Dose: 75 mg Docusate Sodium (Colace) 100 mg PO DAILY [facility] Last Admin: 03/24/17 09:18 Dose: 100 mg Ferrous Sulfate (Feosol) 324 mg PO BID [facility] Last Admin: 03/24/17 09:19 Dose: 324 mg Furosemide (Lasix) 40 mg PO BID [facility] Last Admin: 03/24/17 09:25 Dose: 40 mg Heparin Sodium (Porcine) (Heparin) 5,000 units SC Q12 [facility] PRN Reason: Protocol Last Admin: 03/24/17 09:24 Dose: 5,000 units Hydralazine HCl (Apresoline) 10 mg IVP Q6 PRN PRN Reason: Systolic Blood Pressure Last Admin: 03/23/17 15:46 Dose: 10 mg Hydralazine HCl (Apresoline) 50 mg PO BID [facility] Last Admin: 03/24/17 09:17 Dose: 50 mg Isosorbide Mononitrate (Imdur) 60 mg PO DAILY [facility] Last Admin: 03/24/17 09:18 Dose: 60 mg Levothyroxine Sodium (Synthroid) 125 mcg PO 0600 [facility] Last Admin: 03/23/17 05:37 Dose: 125 mcg Ondansetron HCl (Zofran Inj) 4 mg IVP Q4H PRN PRN Reason: Nausea/Vomiting Last Admin: 03/22/17 15:40 Dose: 4 mg Pantoprazole Sodium (Protonix Ec Tab) 40 mg PO 0600 [facility] Last Admin: 03/24/17 05:21 Dose: 40 mg Vitamin B Complex/Vit C/Folic Acid (Nephro-Savana) 1 tab PO DAILY [facility] Last Admin: 03/24/17 09:20 Dose: 1 tab - Labs Labs: 03/24/17 05:00 03/24/17 05:00 PT 11.8 SECONDS (9.4-12.5) 03/22/17 05:20 INR 1.07 (0.93-1.08) 03/22/17 05:20 APTT 30.3 Seconds (25.1-36.5) 03/22/17 05:20 Attending/Attestation - Attestation I have personally seen and examined this patient.: Yes I have fully participated in the care of the patient.: Yes I have reviewed all pertinent clinical information, including history, physical exam and plan: Yes Notes (Text): 03/24/17 13:25 attending note; Patient seen and examined with resident. Patient is a 71 year female with a history of GERD, hypothyroidism, hypertension and stage IV chronic kidney disease is admitted with shortness of breath. cardiac enzymes negative. Cardiology evaluation appreciated. Recent stress test in 01/07 showed partially reversible defect. Cardiology evaluation appreciated. Continue medical management. Plan for cardiac cath next Sunday. Continue aspirin and Plavix. Still complaining of exertional dyspnea. Patient with a history of uncontrolled hypertension/noncompliance with medication. medications adjusted. blood pressure is better controlled. end-stage renal disease; status post right tunnel dialysis catheter placement . Status post dialysis today. Patient will have hemodialysis tomorrow. case discussed with director of casework department/delinquency prevention social worker for outpatient hemodialysis arrangements. Patient will get outpatient vascular surgery evaluation for AV fistula/AV graft placement. upon discharge patient will follow-up with PMD Dr. Harris.
[2017-03-23 08:10] LABS: MAGNESIUM 1.7 mg/dL (1.7-2.2)
[2017-03-23 08:26] LABS: BILIRUBIN,TOTAL 0.6 mg/dL (0.2-1.3); CALCIUM 8.4 mg/dL (8.4-10.5); POTASSIUM 4.4 mmol/L (3.6-5.0); TOTAL PROTEIN 6.9 g/dL (5.8-8.3)
--- NOTE | 2017-03-23 10:44 | RAD ---
HISTORY: dyspnea COMPARISON: 03/18/2017 FINDINGS: The right-sided dialysis catheter terminates at the cavoatrial junction. LUNGS: The lungs are well inflated. There is mild pulmonary venous congestion. No focal consolidation. PLEURA: No significant pleural effusion identified, no pneumothorax apparent. CARDIOVASCULAR: There is stable mild cardiomegaly. Atherosclerotic aortic arch calcifications are present. OSSEOUS STRUCTURES: No significant abnormalities. VISUALIZED UPPER ABDOMEN: Normal. OTHER FINDINGS: None. IMPRESSION: Right-sided dialysis catheter terminates at the cavoatrial junction. No acute findings.
[2017-03-23] MEDS: Multivitamin Vitamin B Complex (Nephro-Vite) Tab PO SCH (10:47)
[2017-03-23] MEDS ORDERED: Iron Sucrose 100 mg/5 ml Inj IVP ONE (13:57)
[2017-03-23] MEDS ORDERED: Darbepoetin Alfa 25 mcg/ml Inj IVP ONE (13:57)
--- NOTE | 2017-03-23 14:00 | CP.PCM.DIS ---
Provider - Provider Date of Admission: 03/19/17 15:05 Attending physician: Montrell Gupta MD Primary care physician: Javier Harris MD Consults: Dr. Hameed/Dr. Breezy Carter Time Spent in preparation of Discharge (in minutes): 55 Hospital Course - Lab Results Lab Results: Most Recent Lab Values WBC 8.1 10^3/ul (4.5-11.0) 03/23/17 05:20 RBC 4.09 10^6/uL (3.5-6.1) 03/23/17 05:20 Hgb 10.8 g/dL (12.0-16.0) L 03/23/17 05:20 Hct 34.4 % (36.0-48.0) L 03/23/17 05:20 MCV 84.1 fl (80.0-105.0) 03/23/17 05:20 MCH 26.4 pg (25.0-35.0) 03/23/17 05:20 MCHC 31.4 g/dl (31.0-37.0) 03/23/17 05:20 RDW 15.9 % (11.5-14.5) H 03/23/17 05:20 Plt Count 223 10^3/uL (120.0-450.0) 03/23/17 05:20 MPV 11.2 fl (7.0-11.0) H 03/23/17 05:20 Gran % 74.5 % (50.0-68.0) H 03/18/17 21:58 Lymph % (Auto) 21.7 % (22.0-35.0) L 03/18/17 21:58 [place] % (Auto) 2.5 % (1.0-6.0) 03/18/17 21:58 Eos % (Auto) 1.1 % (1.5-5.0) L 03/18/17 21:58 Baso % (Auto) 0.2 % (0.0-3.0) 03/18/17 21:58 Gran # 7.99 (1.4-6.5) H 03/18/17 21:58 Lymph # 2.3 (1.2-3.4) 03/18/17 21:58 [place] # 0.3 (0.1-0.6) 03/18/17 21:58 Eos # 0.1 (0.0-0.7) 03/18/17 21:58 Baso # 0.02 K/mm3 (0.0-2.0) 03/18/17 21:58 PT 11.8 SECONDS (9.4-12.5) 03/22/17 05:20 INR 1.07 (0.93-1.08) 03/22/17 05:20 APTT 30.3 Seconds (25.1-36.5) 03/22/17 05:20 Sodium 136 mmol/L (132-148) 03/23/17 05:20 Potassium 4.4 mmol/L (3.6-5.0) 03/23/17 05:20 Chloride 102 mmol/L (98-107) 03/23/17 05:20 Carbon Dioxide 24 mmol/L (21-33) 03/23/17 05:20 Anion Gap 15 (10-20) 03/23/17 05:20 BUN 41 mg/dL (7-21) H 03/23/17 05:20 Creatinine 6.3 mg/dl (0.7-1.2) H 03/23/17 05:20 Est GFR ( Amer) 8 03/23/17 05:20 Est GFR (Non-Af Amer) 7 03/23/17 05:20 POC Glucose (mg/dL) 123 mg/dL (65-110) H 03/23/17 11:33 Random Glucose 110 mg/dL (70-110) 03/23/17 05:20 Hemoglobin A1c 6.0 % (4.2-6.5) 03/19/17 07:20 Calcium 8.4 mg/dL (8.4-10.5) 03/23/17 05:20 Phosphorus 5.0 mg/dL (2.5-4.5) H 03/23/17 05:30 Magnesium 1.7 mg/dL (1.7-2.2) 03/23/17 05:30 Iron 81 ug/dL (45-180) 03/22/17 11:40 TIBC 246 ug/dL (265-497) L 03/22/17 11:40 % Saturation 33 % (20-55) 03/22/17 11:40 Ferritin 54.1 ng/mL 03/22/17 11:40 Total Bilirubin 0.6 mg/dL (0.2-1.3) 03/23/17 05:20 AST 25 U/L (14-36) 03/23/17 05:20 ALT 14 U/L (7-56) 03/23/17 05:20 Alkaline Phosphatase 141 U/L (38-126) H 03/23/17 05:20 Lactate Dehydrogenase 687 U/L (333-699) 03/19/17 09:48 Total Creatine Kinase 158 U/L (35-230) 03/19/17 09:48 Troponin I 0.02 ng/mL 03/19/17 09:48 NT-Pro-B Natriuret Pep 905 pg/mL (0-450) H 03/18/17 21:58 Total Protein 6.9 g/dL (5.8-8.3) 03/23/17 05:20 Albumin 3.3 g/dL (3.0-4.8) 03/23/17 05:20 Globulin 3.5 gm/dL 03/23/17 05:20 Albumin/Globulin Ratio 1.0 (1.1-1.8) L 03/23/17 05:20 Triglycerides 79 mg/dL (35-160) 03/19/17 07:20 Cholesterol 194 mg/dL (130-200) 03/19/17 07:20 LDL Cholesterol Direct 89 mg/dL (0-129) 03/19/17 07:20 HDL Cholesterol 56 mg/dL (29-60) 03/19/17 07:20 Free T4 0.98 ng/dL (0.78-2.19) 03/19/17 07:20 TSH 3rd Generation 13.60 mIU/mL (0.46-4.68) H 03/19/17 07:20 Hepatitis A IgM Ab Negative (NEGATIVE) 03/22/17 11:40 Hep Bs Antigen Negative (NEGATIVE) 03/22/17 11:40 Hep B Core Total Ab Non reactive (Non Reactive) 03/22/17 11:40 Hep B Core IgM Ab Negative (NEGATIVE) 03/22/17 11:40 Hepatitis C Antibody Negative (NEGATIVE) 03/22/17 11:40 - Hospital Course Hospital Course: 71 year old black female with a history of Chronic Kidney Disease stage 4-5, hypertension, dyslipidemia, DM II, hypothyroidism and a recently abnormal stress test who presented to [facility] [place] for exertional dyspnea and associated chest pain. Initial labs and imaging were negative for an acute coronary syndrome, but indicative of fluid overloaded-state with acute on chronic kidney failure. Cardiology and Nephrology were consulted. The patient chest pain resolved within the first 24 hours of admission, but her dyspnea on exertion persisted, and her kidney function worsened despite correcting/neutralizing her biochemical abnormalities. After much deliberation, the patient eventually agreed to hemodialysis and a right internal jugular perma-cath was placed. She underwent two hemodialysis session as an inpatient and was recommended to have a cardiac catheterization as an outpatient. During her hospital course her blood pressure was aggresively managed as well as her other comorbidities. - Date & Time of H&P Date of H&P: 03/23/17 Time of H&P: 14:00 Discharge Exam - Head Exam Head Exam: ATRAUMATIC, NORMOCEPHALIC - Eye Exam Eye Exam: EOMI, Normal appearance, PERRL Pupil Exam: NORMAL ACCOMODATION - ENT Exam ENT Exam: Mucous Membranes Moist, Normal Oropharynx Discharge Plan - Discharge Medications Prescriptions: amLODIPine [Norvasc] 10 mg PO DAILY #30 tab Ascorbic Acid [Vitamin C 500 mg Tab] 1 tab PO DAILY #30 tab Aspirin [Aspirin Chewable] 81 mg PO DAILY #30 chew Atorvastatin [Lipitor] 20 mg PO DIN #30 tab Calcium Acetate [Phoslo] 667 mg PO WM #12 tab Calcium Carbonate [Oscal] 500 mg PO DAILY #30 tab Carvedilol [Coreg] 50 mg PO BID #60 tab Clopidogrel [Plavix] 75 mg PO DAILY #30 tab Doxercalciferol [Hectorol] 0.5 mcg PO DAILY #30 cap Esomeprazole Magnesium [Nexium] 40 mg PO DAILY #30 ecc Ferrous Sulfate [Feosol] 324 mg PO BID #60 ect Furosemide [Lasix] 40 mg PO BID #60 tab Isosorbide Mononitrate [Imdur] 60 mg PO DAILY #30 tab Levothyroxine [Synthroid] 125 mcg PO ACB #30 tab Vitamin B Complex/Vit C/Folic [Nephro-Archie] 1 tab PO DAILY #30 tab - Follow Up Plan Condition: GUARDED Disposition: HOME/ ROUTINE Instructions: Renal Failure Diet (DC) Referrals: Javier Harris MD [Primary Care Provider] -
[2017-03-23] MEDS ORDERED: Iron Sucrose 100 mg/5 ml Inj ONE (14:28)
--- NOTE | 2017-03-23 14:43 | PN ---
DATE: 03/22/2017 SUBJECTIVE: The patient is seen in the dialysis unit. This is her first treatment ever. She has just received the Permacath. She is very nauseous. She is retching. PHYSICAL EXAMINATION: VITAL SIGNS: Blood pressure is 180/90, heart rate is 88, respiratory rate is 20, and she is afebrile. LUNGS: Bilateral rhonchi. EXTREMITIES: 2+ pitting edema of the lower extremities. ASSESSMENT AND PLAN: 1. Chronic kidney disease stage V, first dialysis. 2. Blood flow rate 250. 3. Potassium for bath. 4. No ultrafiltration. 5. Hydralazine 10 mg IV push x1 dose. 6. Zofran 4 mg IV push. The patient is tolerating the treatment. Era Hameed MD
--- NOTE | 2017-03-23 15:01 | PN ---
DATE: 03/23/2017 SUBJECTIVE: The patient is seen lying in bed. She is awake, she is alert. She reports she was dizzy earlier. She went to the bathroom and when she came out, she was a little lightheaded. She denies any chest pain. She denies any palpitations. PHYSICAL EXAMINATION: GENERAL: Elderly lady lying in bed. VITAL SIGNS: Blood pressure 133/87, heart rate 78, respiratory rate 20, temperature 98.9. HEENT: Normocephalic, atraumatic. NECK: Supple, no JVD. LUNGS: Bilateral equal air entry, bilateral equal expansion, no rales. CARDIAC: S1, S2. Regular rate and rhythm, no murmur, no rub. ABDOMEN: Obese, distended, soft, nontender, bowel sounds present. EXTREMITIES: 1+ pitting edema of the lower extremities. INTAKE AND OUTPUT: 420/200? LABORATORY DATA: WBC 8.1, hemoglobin 10.8, hematocrit 34, platelets 223. Sodium 136, potassium 4.4, chloride 102, CO2 24, BUN 41, creatinine 6.3, glucose 110, calcium 8.4, phosphorus 5.0 magnesium 1.7, AST 25, ALT 14, albumin 3.3. CURRENT MEDICATIONS: Hydralazine 50 b.i.d., aspirin, Colace, Coreg 25 b.i.d., Feosol, heparin, Imdur 60, Lasix 40 IV b.i.d., Lipitor, amlodipine 10, PhosLo, Plavix, Synthroid, Zofran. ASSESSMENT/PLAN: 1. End-stage renal disease status post dialysis yesterday, dialysis again today. 2. Hypertension. 3. Hypertensive heart disease. 4. Severe anemia. 5. Secondary hyperparathyroidism. 6. Hyperphosphatemia. PLAN: 1. Discontinue IV Lasix, switch to p.o. 40 b.i.d. 2. Dialysis again today. 3. Blood pressure medications to be fine tuned as the patient becomes used to dialysis. 4. Cardiac catheterization as outpatient. 5. Continue phosphate binders. 6. Start Aranesp and iron on dialysis. 7. Discharge planning. Era Hameed MD
--- NOTE | 2017-03-23 20:17 | PN ---
DATE: 03/23/2017 REASON FOR CONSULTATION: CKD, status post dialysis yesterday first and this is a second dialysis today, and abnormal stress test. SUBJECTIVE: The patient was nauseous earlier, now feels okay. After the first dialysis, the patient was nauseous and got Zofran. Had dialysis done today. Denies any chest pain, shortness of breath, or any palpitations. PHYSICAL EXAMINATION: VITAL SIGNS: As follows; temperature afebrile, heart rate 78, and blood pressure 133/87. HEENT: PERRLA intact. NECK: Supple. No carotid bruits, JVD, or thyromegaly. CHEST: Clear to auscultation. HEART: S1 and S2 regular. ABDOMEN: Soft. EXTREMITIES: Clubbing and cyanosis negative. LABORATORY DATA: Blood workup as follows: WBC 8.1, hemoglobin 10.8, hematocrit 34.4. and platelet count 223. Chemistry showed sodium 133, potassium 4.4, chloride 102, carbon dioxide of 24, anion gap of 15, BUN 41, and creatinine 6.3. IMPRESSION AND PLAN: End-stage renal disease, on dialysis started yesterday first dialysis. Yesterday, he had a Perm-A-Cath yesterday and today is second dialysis. After the first dialysis, the patient become very nauseous, symptomatic, and now feels okay. The patient had abnormal stress test dated 01/01/2017 with partial reversal anteroseptal defect, ejection fraction 56%. Echo shows dated 12/31/2015, small pericardial effusion. Discussed again at length if the patient stays, we will do the cardiac catheterization on Sunday and if the patient get discharged, we will arrange cardiac catheterization possibly on after authorization. We will start aspirin and Plavix. The patient is already on aspirin and Plavix. We will continue to keep n.p.o. after Sunday midnight for cardiac catheterization on Sunday. Tory Carter MD
[2017-03-24] MEDS: Pantoprazole 40 mg EC Tab PO SCH (05:21)
[2017-03-24 06:00] LABS: BASO # 0.01 K/mm3 (0.0-2.0); BASO % 0.1 % (0.0-3.0); EOS # 0.1 (0.0-0.7); EOS % 1.2 % (1.5-5.0); GRAN # 4.09 (1.4-6.5); GRAN % 54.9 % (50.0-68.0); HEMATOCRIT 34.3 % (36.0-48.0); LYMPH # 2.7 (1.2-3.4); MEAN CELL VOLUME 85.5 fl (80.0-105.0); MEAN CORPUSCULAR HEMOGLOBIN 26.4 pg (25.0-35.0); MEAN CORPUSCULAR HGB CONC 30.9 g/dl (31.0-37.0); MEAN PLATELET VOLUME 10.9 fl (7.0-11.0); MONO # 0.6 (0.1-0.6); MONO % 7.8 % (1.0-6.0); RED CELL DISTRIBUTION WIDTH 15.7 % (11.5-14.5); WHITE BLOOD COUNT 7.5 10^3/ul (4.5-11.0)
[2017-03-24 06:11] LABS: BILIRUBIN,TOTAL 0.6 mg/dL (0.2-1.3); CALCIUM 8.3 mg/dL (8.4-10.5); MAGNESIUM 1.8 mg/dL (1.7-2.2); PHOSPHOROUS 4.2 mg/dL (2.5-4.5); POTASSIUM 4.6 mmol/L (3.6-5.0); TOTAL PROTEIN 6.3 g/dL (5.8-8.3)
[2017-03-24] MEDS: Levothyroxine 125 MCG TAB PO SCH (06:14)
[2017-03-24] MEDS: Aspirin 325 mg EC Tablets PO SCH (09:20)
[2017-03-24] MEDS: Multivitamin Vitamin B Complex (Nephro-Vite) Tab PO SCH (09:20)
--- NOTE | 2017-03-24 10:48 | CP.PCM.PN ---
<Charisse iSdhu - Last Filed: 03/24/17 10:43> Subjective - Date & Time of Evaluation Date of Evaluation: 03/24/17 Time of Evaluation: 10:43 - Subjective Subjective: Charisse Sidhu DO, PGY-1: Hospitalist Service Patient seen and examined at bedside. Patient reports dyspnea on exertion, baseline compared to admission, and a right neck pain from sleeping funny. Patient denies chest pain, shortness of breath, lower extremity edema, or PND. Objective - Vital Signs/Intake and Output Vital Signs (last 24 hours): Temp Pulse Resp BP Pulse Ox 98.2 F 76 20 177/85 H 98 03/24/17 08:47 03/24/17 09:17 03/24/17 08:47 03/24/17 09:25 03/24/17 08:47 Intake and Output: 03/24/17 03/24/17 06:59 18:59 Intake Total 600 120 Output Total 950 100 Balance -350 20 - Medications Medications: Current Medications Amlodipine Besylate (Norvasc) 10 mg PO DAILY [facility] Last Admin: 03/24/17 09:20 Dose: 10 mg Aspirin (Ecotrin) 325 mg PO DAILY [facility] Last Admin: 03/24/17 09:20 Dose: 325 mg Atorvastatin Calcium (Lipitor) 20 mg PO DIN [facility] Last Admin: 03/23/17 17:00 Dose: 20 mg Calcium Acetate (Phoslo) 667 mg PO WM [facility] Last Admin: 03/24/17 09:20 Dose: 667 mg Carvedilol (Coreg) 25 mg PO BID [facility] Last Admin: 03/24/17 09:30 Dose: Not Given Clopidogrel Bisulfate (Plavix) 75 mg PO DAILY [facility] Last Admin: 03/24/17 09:18 Dose: 75 mg Docusate Sodium (Colace) 100 mg PO DAILY [facility] Last Admin: 03/24/17 09:18 Dose: 100 mg Ferrous Sulfate (Feosol) 324 mg PO BID [facility] Last Admin: 03/24/17 09:19 Dose: 324 mg Furosemide (Lasix) 40 mg PO BID [facility] Last Admin: 03/24/17 09:25 Dose: 40 mg Heparin Sodium (Porcine) (Heparin) 5,000 units SC Q12 [facility] PRN Reason: Protocol Last Admin: 03/24/17 09:24 Dose: 5,000 units Hydralazine HCl (Apresoline) 10 mg IVP Q6 PRN PRN Reason: Systolic Blood Pressure Last Admin: 03/23/17 15:46 Dose: 10 mg Hydralazine HCl (Apresoline) 50 mg PO BID [facility] Last Admin: 03/24/17 09:17 Dose: 50 mg Isosorbide Mononitrate (Imdur) 60 mg PO DAILY [facility] Last Admin: 03/24/17 09:18 Dose: 60 mg Levothyroxine Sodium (Synthroid) 125 mcg PO 0600 [facility] Last Admin: 03/23/17 05:37 Dose: 125 mcg Ondansetron HCl (Zofran Inj) 4 mg IVP Q4H PRN PRN Reason: Nausea/Vomiting Last Admin: 03/22/17 15:40 Dose: 4 mg Pantoprazole Sodium (Protonix Ec Tab) 40 mg PO 0600 [facility] Last Admin: 03/24/17 05:21 Dose: 40 mg Vitamin B Complex/Vit C/Folic Acid (Nephro-Savana) 1 tab PO DAILY [facility] Last Admin: 03/24/17 09:20 Dose: 1 tab - Labs Labs: 03/24/17 05:00 03/24/17 05:00 PT 11.8 SECONDS (9.4-12.5) 03/22/17 05:20 INR 1.07 (0.93-1.08) 03/22/17 05:20 APTT 30.3 Seconds (25.1-36.5) 03/22/17 05:20 - Constitutional Appears: Non-toxic, No Acute Distress - Head Exam Head Exam: ATRAUMATIC, NORMOCEPHALIC - Eye Exam Eye Exam: EOMI, Normal appearance, PERRL - ENT Exam ENT Exam: Mucous Membranes Moist, Normal Oropharynx - Neck Exam Neck Exam: Normal Inspection. absent: Tenderness, Thyromegaly - Respiratory Exam Respiratory Exam: Clear to Ausculation Bilateral, NORMAL BREATHING PATTERN. absent: Decreased Breath Sounds - Cardiovascular Exam Cardiovascular Exam: RRR, +S1, +S2 - GI/Abdominal Exam GI & Abdominal Exam: Soft, Normal Bowel Sounds - Rectal Exam Rectal Exam: NORMAL INSPECTION - Extremities Exam Extremities Exam: Normal Capillary Refill, Normal Inspection. absent: Pedal Edema - Back Exam Back Exam: NORMAL INSPECTION. absent: CVA tenderness (L), CVA tenderness (R) - Neurological Exam Neurological Exam: Alert, CN II-XII Intact, Oriented x3 - Psychiatric Exam Psychiatric exam: Normal Affect, Normal Mood Assessment and Plan - Assessment and Plan (Free Text) Assessment: 71 year old black female with a history of Chronic Kidney Disease stage 4-5, hypertension, dyslipidemia, DM II, hypothyroidism and a recently abnormal stress test who [place] [facility] [place] and associated chest pain. Initial labs and imaging were negative for an acute coronary syndrome, but indicative of fluid overloaded-state with acute on chronic kidney failure. Cardiology and Nephrology were consulted. The patient chest pain resolved within the first 24 hours of admission, but her dyspnea on exertion persisted. Furthermore, her kidney function worsened despite correcting her electrolyte/ biochemical abnormalities. After much deliberation, the patient eventually agreed to hemodialysis and a right internal jugular perma-cath was placed. Currently, the patient has underwent two hemodialysis. Plan: 1) Chest pain, resolved - Troponins x 3 negative - Aspirin 81 mg PO daily - Atorvastatin 20 mg PO at night - Imdur 60 mg PO daily - Plavix 75 mg daily - Dr. Carter Cardiology, appreciate recommendations, and will plan/schedule cardiac catheterization as needed 2) CKD stage 4: BUN/Cr 41/6.3--> 28/5.1 - Hyperkalemia, Metabolic acidosis, and hyperphosphatemia have resolved. - Nephrology consult appreciated, Dr. Era Hameed and Dr. Tijerina. - NaHCO3 650 TID - Nephro-savana 1 tab PO daily - Phoslo 667 mg PO with meal 3)Hypertension - Amlodipine 10 mg - Carvedilol 25 mg BID - Hydralazine 50 mg BID - Hydralazine IVP 10 mg PRN - Furosemide 40 mg IVP q12h 4) History of DM II - HgbA1c 6.0 5) History of dyslipidemia - Lipid profile normal; continue with moderate dose statin therapy 5) Hypothyroidism: TSH elevated, free T4 within normal limits - Continue with 125 mcg of Synthroid 6) Anemia secondary to Chronic Kidney Disease - Aranesp per Nephrology if Hgb goes below 10 mg/dL - Venofer per Nephrology. 7) Diet/DVT/GI prophylaxis - HHD, renal non-dialysis diet - Heparin 5,000 units q12h SC - Protonix 40 mg PO daily - Colace 100 mg PO daily - Zofran 4 mg q4h IVP PRN Disposition: patient to be dialyzed today per nephrology's recommendation. <Montrell Gupta - Last Filed: 03/24/17 13:31> Objective - Vital Signs/Intake and Output Vital Signs (last 24 hours): Temp Pulse Resp BP Pulse Ox 98.2 F 78 20 149/84 98 03/24/17 08:47 03/24/17 12:21 03/24/17 08:47 03/24/17 12:21 03/24/17 08:47 Intake and Output: 03/24/17 03/24/17 06:59 18:59 Intake Total 600 120 Output Total 950 100 Balance -350 20 - Medications Medications: Current Medications Amlodipine Besylate (Norvasc) 10 mg PO DAILY [facility] Last Admin: 03/24/17 09:20 Dose: 10 mg Aspirin (Ecotrin) 325 mg PO DAILY [facility] Last Admin: 03/24/17 09:20 Dose: 325 mg Atorvastatin Calcium (Lipitor) 20 mg PO DIN [facility] Last Admin: 03/23/17 17:00 Dose: 20 mg Calcium Acetate (Phoslo) 667 mg PO WM [facility] Last Admin: 03/24/17 12:39 Dose: 667 mg Carvedilol (Coreg) 25 mg PO BID [facility] Last Admin: 03/24/17 09:30 Dose: Not Given Clopidogrel Bisulfate (Plavix) 75 mg PO DAILY [facility] Last Admin: 03/24/17 09:18 Dose: 75 mg Docusate Sodium (Colace) 100 mg PO DAILY [facility] Last Admin: 03/24/17 09:18 Dose: 100 mg Ferrous Sulfate (Feosol) 324 mg PO BID [facility] Last Admin: 03/24/17 09:19 Dose: 324 mg Furosemide (Lasix) 40 mg PO BID [facility] Last Admin: 03/24/17 09:25 Dose: 40 mg Heparin Sodium (Porcine) (Heparin) 5,000 units SC Q12 [facility] PRN Reason: Protocol Last Admin: 03/24/17 09:24 Dose: 5,000 units Hydralazine HCl (Apresoline) 10 mg IVP Q6 PRN PRN Reason: Systolic Blood Pressure Last Admin: 03/23/17 15:46 Dose: 10 mg Hydralazine HCl (Apresoline) 50 mg PO BID [facility] Last Admin: 03/24/17 09:17 Dose: 50 mg Isosorbide Mononitrate (Imdur) 60 mg PO DAILY [facility] Last Admin: 03/24/17 09:18 Dose: 60 mg Levothyroxine Sodium (Synthroid) 125 mcg PO 0600 [facility] Last Admin: 03/23/17 05:37 Dose: 125 mcg Ondansetron HCl (Zofran Inj) 4 mg IVP Q4H PRN PRN Reason: Nausea/Vomiting Last Admin: 03/22/17 15:40 Dose: 4 mg Pantoprazole Sodium (Protonix Ec Tab) 40 mg PO 0600 [facility] Last Admin: 03/24/17 05:21 Dose: 40 mg Vitamin B Complex/Vit C/Folic Acid (Nephro-Savana) 1 tab PO DAILY [facility] Last Admin: 03/24/17 09:20 Dose: 1 tab - Labs Labs: 03/24/17 05:00 03/24/17 05:00 PT 11.8 SECONDS (9.4-12.5) 03/22/17 05:20 INR 1.07 (0.93-1.08) 03/22/17 05:20 APTT 30.3 Seconds (25.1-36.5) 03/22/17 05:20 Attending/Attestation - Attestation I have personally seen and examined this patient.: Yes I have fully participated in the care of the patient.: Yes I have reviewed all pertinent clinical information, including history, physical exam and plan: Yes Notes (Text): 03/24/17 13:28 attending note; Patient seen and examined with resident. Complaining of nonspecific symptoms including exertional dyspnea, dizziness at times also discomfort in the right neck area. Tunnel catheter in place. No bleeding noted. Dressing intact. Patient is a 71 year female with a history of GERD, hypothyroidism, hypertension and stage IV chronic kidney disease is admitted with shortness of breath. cardiac enzymes negative. Cardiology evaluation appreciated. Recent stress test in 01/07 showed partially reversible defect. Cardiology evaluation appreciated. Continue medical management. Plan for cardiac cath on Sunday. Continue aspirin and Plavix. Still complaining of exertional dyspnea. Patient with a history of uncontrolled hypertension/noncompliance with medication. medications adjusted. blood pressure is better controlled. end-stage renal disease; status post right tunnel dialysis catheter placement . Plan for hemodialysis today. Follow-up with nephrology. Anxiety; patient has history of medical noncompliance and multiple complaints after medical treatments. Currently stable. Will offer psychiatric evaluation if patient agrees. reassurance given. case discussed with employment evaluator/case manager/social contact worker for outpatient hemodialysis arrangements. Patient will get outpatient vascular surgery evaluation for AV fistula/AV graft placement. upon discharge patient will follow-up with PMD Dr. Harris.
[2017-03-24] MEDS ORDERED: Bacitracin Ointment 30 GM TUBE TOP PRN (18:46)
[2017-03-25] MEDS: Levothyroxine 125 MCG TAB PO SCH (06:11)
[2017-03-25] MEDS: Pantoprazole 40 mg EC Tab PO SCH (06:13)
[2017-03-25 06:58] LABS: ALB/GLOB RATIO 0.9 (1.1-1.8); BILIRUBIN,TOTAL 0.5 mg/dL (0.2-1.3); CALCIUM 8.3 mg/dL (8.4-10.5); MAGNESIUM 1.7 mg/dL (1.7-2.2); PHOSPHOROUS 3.9 mg/dL (2.5-4.5); POTASSIUM 4.3 mmol/L (3.6-5.0); TOTAL PROTEIN 6.4 g/dL (5.8-8.3)
[2017-03-25 07:10] LABS: BASO # 0.02 K/mm3 (0.0-2.0); BASO % 0.2 % (0.0-3.0); EOS # 0.2 (0.0-0.7); EOS % 1.8 % (1.5-5.0); GRAN # 4.6 (1.4-6.5); GRAN % 55.6 % (50.0-68.0); HEMATOCRIT 34.8 % (36.0-48.0); LYMPH # 2.9 (1.2-3.4); LYMPH % 34.5 % (22.0-35.0); MEAN CELL VOLUME 86.4 fl (80.0-105.0); MEAN CORPUSCULAR HEMOGLOBIN 26.3 pg (25.0-35.0); MEAN CORPUSCULAR HGB CONC 30.5 g/dl (31.0-37.0); MEAN PLATELET VOLUME 11.1 fl (7.0-11.0); MONO # 0.7 (0.1-0.6); MONO % 7.9 % (1.0-6.0); RED CELL DISTRIBUTION WIDTH 15.5 % (11.5-14.5); WHITE BLOOD COUNT 8.3 10^3/ul (4.5-11.0)
[2017-03-25] MEDS: Multivitamin Vitamin B Complex (Nephro-Vite) Tab PO SCH (10:26)
[2017-03-25] MEDS: Aspirin 325 mg EC Tablets PO SCH (10:26)
--- NOTE | 2017-03-25 13:32 | CP.PCM.PN ---
<Charisse Sidhu - Last Filed: 03/25/17 13:29> Subjective - Date & Time of Evaluation Date of Evaluation: 03/25/17 Time of Evaluation: 08:45 - Subjective Subjective: Charisse Sidhu DO, PGY-1; Hospitalist Service Patient seen and examined at bedside. Patient reports no nausea, dyspnea, lower extremity swelling, chest pain or diaphoresis. Patient feels better physically adjusted for dialysis. Patient states she has already made arrangements for having a grand-daughter of hers visit her for the first month or so of dialysis. Nurse reports no events overnight. Objective - Vital Signs/Intake and Output Vital Signs (last 24 hours): Temp Pulse Resp BP Pulse Ox 98.4 F 74 16 153/82 H 97 03/25/17 08:11 03/25/17 08:11 03/25/17 08:11 03/25/17 10:28 03/25/17 08:11 Intake and Output: 03/25/17 03/25/17 06:59 18:59 Intake Total 360 Output Total 450 Balance -90 - Medications Medications: Current Medications Amlodipine Besylate (Norvasc) 10 mg PO DAILY [facility] Last Admin: 03/25/17 10:27 Dose: 10 mg Aspirin (Ecotrin) 325 mg PO DAILY [facility] Last Admin: 03/25/17 10:26 Dose: 325 mg Atorvastatin Calcium (Lipitor) 20 mg PO DIN [facility] Last Admin: 03/24/17 16:59 Dose: Not Given Bacitracin (Bacitracin) 0 gm TOP BID PRN PRN Reason: Other Calcium Acetate (Phoslo) 667 mg PO WM [facility] Last Admin: 03/25/17 12:01 Dose: 667 mg Carvedilol (Coreg) 25 mg PO BID [facility] Last Admin: 03/25/17 10:28 Dose: Not Given Clopidogrel Bisulfate (Plavix) 75 mg PO DAILY [facility] Last Admin: 03/25/17 10:28 Dose: 75 mg Docusate Sodium (Colace) 100 mg PO DAILY [facility] Last Admin: 03/25/17 10:27 Dose: 100 mg Ferrous Sulfate (Feosol) 324 mg PO BID [facility] Last Admin: 03/25/17 10:27 Dose: 324 mg Furosemide (Lasix) 40 mg PO BID [facility] Last Admin: 03/25/17 10:28 Dose: 40 mg Heparin Sodium (Porcine) (Heparin) 5,000 units SC Q12 [facility] PRN Reason: Protocol Last Admin: 03/25/17 10:25 Dose: 5,000 units Heparin Sodium (Porcine) (Heparin) 2,200 units ICA TTS [facility] Last Admin: 03/24/17 17:37 Dose: 2,200 units Heparin Sodium (Porcine) (Heparin) 2,400 units ICV TTS [facility] Last Admin: 03/24/17 17:37 Dose: 2,400 units Hydralazine HCl (Apresoline) 10 mg IVP Q6 PRN PRN Reason: Systolic Blood Pressure Last Admin: 03/23/17 15:46 Dose: 10 mg Hydralazine HCl (Apresoline) 50 mg PO BID [facility] Last Admin: 03/25/17 10:26 Dose: 50 mg Isosorbide Mononitrate (Imdur) 60 mg PO DAILY [facility] Last Admin: 03/25/17 10:27 Dose: 60 mg Levothyroxine Sodium (Synthroid) 125 mcg PO 0600 [facility] Last Admin: 03/25/17 06:11 Dose: 125 mcg Ondansetron HCl (Zofran Inj) 4 mg IVP Q4H PRN PRN Reason: Nausea/Vomiting Last Admin: 03/22/17 15:40 Dose: 4 mg Pantoprazole Sodium (Protonix Ec Tab) 40 mg PO 0600 [facility] Last Admin: 03/25/17 06:13 Dose: 40 mg Vitamin B Complex/Vit C/Folic Acid (Nephro-Savana) 1 tab PO DAILY [facility] Last Admin: 03/25/17 10:26 Dose: 1 tab - Labs Labs: 03/25/17 05:00 03/25/17 05:00 PT 11.8 SECONDS (9.4-12.5) 03/22/17 05:20 INR 1.07 (0.93-1.08) 03/22/17 05:20 APTT 30.3 Seconds (25.1-36.5) 03/22/17 05:20 - Constitutional Appears: Well, Non-toxic - Head Exam Head Exam: ATRAUMATIC, NORMOCEPHALIC - Eye Exam Eye Exam: EOMI, Normal appearance, PERRL - ENT Exam ENT Exam: Mucous Membranes Moist, Normal Oropharynx - Neck Exam Neck Exam: Normal Inspection - Respiratory Exam Respiratory Exam: Clear to Ausculation Bilateral, NORMAL BREATHING PATTERN - Cardiovascular Exam Cardiovascular Exam: RRR, +S1, +S2 - GI/Abdominal Exam GI & Abdominal Exam: Soft, Normal Bowel Sounds - Extremities Exam Extremities Exam: Normal Capillary Refill, Normal Inspection. absent: Calf Tenderness - Back Exam Back Exam: NORMAL INSPECTION. absent: CVA tenderness (L), CVA tenderness (R) - Neurological Exam Neurological Exam: Alert, Awake, CN II-XII Intact, Oriented x3 - Psychiatric Exam Psychiatric exam: Normal Affect, Normal Mood - Skin Skin Exam: Dry, Intact, Normal Color, Warm Assessment and Plan - Assessment and Plan (Free Text) Assessment: 71 year old black female with a history of Chronic Kidney Disease stage 4-5, hypertension, dyslipidemia, DM II, hypothyroidism and a recently abnormal stress test who presented to [facility] [place] [place] for exertional dyspnea and associated chest pain. Initial labs and imaging were negative for an acute coronary syndrome, but indicative of a fluid overloaded-state with acute on chronic kidney failure. Cardiology and Nephrology were consulted. The patient chest pain resolved within the first 24 hours of admission, but her dyspnea on exertion persisted. Furthermore, her kidney function worsened despite correcting her electrolyte/biochemical abnormalities. After much deliberation, the patient eventually agreed to hemodialysis and a right internal jugular tunnel catheter was placed. Currently, the patient has underwent three hemodialysis sessions without complications and will be kept NPO after midnight in order to undergo cardiac catheterization at the discretion of Dr. Carter, slackman. Plan: 1) Chest pain, resolved - Troponins x 3 negative - Aspirin 81 mg PO daily - Atorvastatin 20 mg PO at night - Imdur 60 mg PO daily - Plavix 75 mg daily - Dr. Carter Cardiology plans for cardiac catheterization tomorrow 2) CKD stage 5: BUN/Cr 24/4.9 - Hyperkalemia, Metabolic acidosis, and hyperphosphatemia have resolved. - Nephrology consult appreciated, Dr. Era Hameed and Dr. Tijerina. - NaHCO3 650 TID - Nephro-savana 1 tab PO daily - Phoslo 667 mg PO with meal 3)Hypertension - Amlodipine 10 mg - Carvedilol 25 mg BID - Hydralazine 50 mg BID - Hydralazine IVP 10 mg PRN - Furosemide 40 mg IVP q12h 4) History of DM II - HgbA1c 6.0 5) History of dyslipidemia - Lipid profile normal; continue with moderate dose statin therapy 5) Hypothyroidism: TSH elevated, free T4 within normal limits - Continue with 125 mcg of Synthroid 6) Anemia secondary to Chronic Kidney Disease - [place]ila per Nephrology if Hgb goes below 10 mg/dL - Tan per Nephrology. 7) Diet/DVT/GI prophylaxis - HHD, renal non-dialysis diet - Heparin 5,000 units q12h SC - Protonix 40 mg PO daily - Colace 100 mg PO daily - Zofran 4 mg q4h IVP PRN Disposition: patient to be kept NPO after midnight for cardiac catheterization tomorrow. <Montrell Gupta - Last Filed: 03/25/17 15:21> Objective - Vital Signs/Intake and Output Vital Signs (last 24 hours): Temp Pulse Resp BP Pulse Ox 98.4 F 74 16 153/82 H 97 03/25/17 08:11 03/25/17 08:11 03/25/17 08:11 03/25/17 10:28 03/25/17 08:11 Intake and Output: 03/25/17 03/25/17 06:59 18:59 Intake Total 360 940 Output Total 450 700 Balance -90 240 - Medications Medications: Current Medications Amlodipine Besylate (Norvasc) 10 mg PO DAILY [facility] Last Admin: 03/25/17 10:27 Dose: 10 mg Aspirin (Ecotrin) 325 mg PO DAILY [facility] Last Admin: 03/25/17 10:26 Dose: 325 mg Atorvastatin Calcium (Lipitor) 20 mg PO DIN [facility] Last Admin: 03/24/17 16:59 Dose: Not Given Bacitracin (Bacitracin) 0 gm TOP BID PRN PRN Reason: Other Calcium Acetate (Phoslo) 667 mg PO WM [facility] Last Admin: 03/25/17 12:01 Dose: 667 mg Carvedilol (Coreg) 25 mg PO BID [facility] Last Admin: 03/25/17 10:28 Dose: Not Given Clopidogrel Bisulfate (Plavix) 75 mg PO DAILY [facility] Last Admin: 03/25/17 10:28 Dose: 75 mg Docusate Sodium (Colace) 100 mg PO DAILY [facility] Last Admin: 03/25/17 10:27 Dose: 100 mg Ferrous Sulfate (Feosol) 324 mg PO BID [facility] Last Admin: 03/25/17 10:27 Dose: 324 mg Furosemide (Lasix) 40 mg PO BID [facility] Last Admin: 03/25/17 10:28 Dose: 40 mg Heparin Sodium (Porcine) (Heparin) 5,000 units SC Q12 [facility] PRN Reason: Protocol Last Admin: 03/25/17 10:25 Dose: 5,000 units Heparin Sodium (Porcine) (Heparin) 2,200 units ICA TTS [facility] Last Admin: 03/24/17 17:37 Dose: 2,200 units Heparin Sodium (Porcine) (Heparin) 2,400 units ICV TTS [facility] Last Admin: 03/24/17 17:37 Dose: 2,400 units Hydralazine HCl (Apresoline) 10 mg IVP Q6 PRN PRN Reason: Systolic Blood Pressure Last Admin: 03/23/17 15:46 Dose: 10 mg Hydralazine HCl (Apresoline) 50 mg PO BID [facility] Last Admin: 03/25/17 10:26 Dose: 50 mg Isosorbide Mononitrate (Imdur) 60 mg PO DAILY [facility] Last Admin: 03/25/17 10:27 Dose: 60 mg Levothyroxine Sodium (Synthroid) 125 mcg PO 0600 [facility] Last Admin: 03/25/17 06:11 Dose: 125 mcg Ondansetron HCl (Zofran Inj) 4 mg IVP Q4H PRN PRN Reason: Nausea/Vomiting Last Admin: 03/22/17 15:40 Dose: 4 mg Pantoprazole Sodium (Protonix Ec Tab) 40 mg PO 0600 [facility] Last Admin: 03/25/17 06:13 Dose: 40 mg Vitamin B Complex/Vit C/Folic Acid (Nephro-Savana) 1 tab PO DAILY [facility] Last Admin: 03/25/17 10:26 Dose: 1 tab - Labs Labs: 03/25/17 05:00 03/25/17 05:00 PT 11.8 SECONDS (9.4-12.5) 03/22/17 05:20 INR 1.07 (0.93-1.08) 03/22/17 05:20 APTT 30.3 Seconds (25.1-36.5) 03/22/17 05:20 Attending/Attestation - Attestation I have personally seen and examined this patient.: Yes I have fully participated in the care of the patient.: Yes I have reviewed all pertinent clinical information, including history, physical exam and plan: Yes Notes (Text): 03/25/17 15:18 attending note; Patient seen and examined with resident. Patient is a 71 year female with a history of GERD, hypothyroidism, hypertension and stage IV chronic kidney disease is admitted with shortness of breath. cardiac enzymes negative. Cardiology evaluation appreciated. nothing by mouth past midnight for cardiac cath in a.m.. We need hemodialysis after cardiac cath. Patient with a history of uncontrolled hypertension/noncompliance with medication. medications adjusted. blood pressure is better controlled. end-stage renal disease; status post right tunnel dialysis catheter placement . Needs hemodialysis after cardiac cath. Patient has regular outpatient dialysis schedule on Tuesdays/ and Saturdays by telehealth case manager. Anxiety; patient has history of medical noncompliance and multiple complaints after medical treatments. Currently stable. patient refused psychiatric evaluation. Patient will get outpatient vascular surgery evaluation for AV fistula/AV graft placement. possible discharge home tomorrow if clinically stable after cardiac cath. upon discharge patient will follow-up with PMD Dr. Harris.
[2017-03-25] MEDS ORDERED: Lidocaine 5% Patch TD ONE (20:24)
[2017-03-25] MEDS ORDERED: Metoprolol 1 mg/ml Inj IVP ONE (21:33)
[2017-03-26] MEDS: Levothyroxine 125 MCG TAB PO SCH ×2 (05:30→07:18)
[2017-03-26 06:23] LABS: BASO # 0.02 K/mm3 (0.0-2.0); BASO % 0.2 % (0.0-3.0); EOS # 0.2 (0.0-0.7); EOS % 1.8 % (1.5-5.0); GRAN # 4.79 (1.4-6.5); GRAN % 54.7 % (50.0-68.0); HEMATOCRIT 35.8 % (36.0-48.0); LYMPH # 3.2 (1.2-3.4); LYMPH % 36.8 % (22.0-35.0); MEAN CELL VOLUME 85.9 fl (80.0-105.0); MEAN CORPUSCULAR HEMOGLOBIN 26.6 pg (25.0-35.0); MONO # 0.6 (0.1-0.6); MONO % 6.5 % (1.0-6.0); RED CELL DISTRIBUTION WIDTH 15.5 % (11.5-14.5); WHITE BLOOD COUNT 8.8 10^3/ul (4.5-11.0)
[2017-03-26] MEDS: Pantoprazole 40 mg EC Tab PO SCH (06:30)
[2017-03-26 06:43] LABS: BILIRUBIN,TOTAL 0.5 mg/dL (0.2-1.3); CALCIUM 8.8 mg/dL (8.4-10.5); MAGNESIUM 1.7 mg/dL (1.7-2.2); PHOSPHOROUS 4.1 mg/dL (2.5-4.5); POTASSIUM 4.4 mmol/L (3.6-5.0); TOTAL PROTEIN 6.5 g/dL (5.8-8.3)
[2017-03-26] MEDS: Aspirin 325 mg EC Tablets PO SCH (07:12)
[2017-03-26] MEDS ORDERED: Lidocaine 2% Inj (20ml) ONE (09:05)
[2017-03-26] MEDS ORDERED: Midazolam 2 MG/2 ML VIAL ONE ×2 (09:06→11:32)
[2017-03-26] MEDS ORDERED: Iodixanol 320 MG/ML 200 ML BOTTLE IV ONE (09:07)
[2017-03-26] MEDS ORDERED: Nitroglycerin 50mg in D5W 50 MG/250 ML BOTTLE IV ONE (09:07)
--- NOTE | 2017-03-26 10:13 | PN ---
DATE: 03/24/2017 SUBJECTIVE: The patient is seen lying in bed. She is awake. She is alert. She is comfortable. She denies any pain. She denies any shortness of breath. PHYSICAL EXAMINATION: GENERAL: Obese elderly lady sitting in bed. VITAL SIGNS: Blood pressure 149/84, heart rate 84, respiratory rate 19, temperature . NECK: Supple, no JVD. LUNGS: Bilateral equal entry, bilateral rhonchi, equal expansion. EXTREMITIES: 3+ pitting edema of the lower extremities. INTAKE AND OUTPUT: . LABORATORY DATA: WBC 7.5, hemoglobin 10.6, hematocrit 34, platelets 187. Sodium 137, potassium 4.6, chloride 103, CO2 of 30, BUN 28, creatinine 5.1, glucose 114, calcium 8.2, phosphorus 4.2, magnesium 1.8. CURRENT MEDICATIONS: Hydralazine 50 b.i.d., bacitracin, Colace, Coreg 25 b.i.d., Ecotrin, Feosol, Imdur 60, Lasix 40 b.i.d., Lipitor, amlodipine, PhosLo, Plavix, Protonix and Synthroid. ASSESSMENT: 1. End-stage renal disease. 2. Anemia of chronic kidney disease. 3. Hypertension. 4. Secondary hyperparathyroidism. 5. Positive stress test. PLAN: 1. Dialysis today. 2. Continue current antihypertensives. 3. cardiac cath on Sunday. 4. Monitor electrolytes. 5. Continue Lasix for the time being. Era Hameed MD MTDD
--- NOTE | 2017-03-26 10:15 | PN ---
DATE: 03/24/2017 SUBJECTIVE: The patient is seen in dialysis. She is awake. She is alert. She complains of some nausea. She complains of intermittent dizziness. PHYSICAL EXAMINATION: GENERAL: Obese elderly lady seen in dialysis. VITAL SIGNS: Blood pressure 149/84, heart rate 78, respiratory rate 18, temperature 98. HEENT: Normocephalic, atraumatic. NECK: Supple, no JVD. LUNGS: Bilateral equal air entry, no rales. EXTREMITIES: No lower extremity edema. LABORATORY DATA: Hemoglobin 10.6. Sodium , BUN 28, creatinine 5.1, calcium 8.3, phosphorus 4.2, magnesium 1.8. MEDICATIONS: List reviewed. ASSESSMENT: 1. , continue current medications, stable dialysis. 2. Anemia, improving. 3. Positive stress test, positive cardiac cath. 4. Hypertension, better controlled. 5. Secondary hyperparathyroidism. 6. Resolving hyperkalemia. Era Hameed MD
[2017-03-26] MEDS ORDERED: Iohexol 350mgl/ml 50 ML ONE (10:42)
[2017-03-26] MEDS ORDERED: Iodixanol 320 MG/ML 100 ML BOTTLE IV ONE (10:42)
[2017-03-26] MEDS ORDERED: Eptifibatide 20 mg/10mL Inj IVP ONE (11:37)
--- NOTE | 2017-03-26 12:01 | CP.PCM.PN ---
<Charisse Sidhu - Last Filed: 03/26/17 17:00> Subjective - Date & Time of Evaluation Date of Evaluation: 03/26/17 Time of Evaluation: 06:50 - Subjective Subjective: Charisse Sidhu DO, PGY-1, Hospitalist Service Patient seen and examined at bedside. Patient is NPO for cardiac catheterization. Patient denies dyspnea, chest pain, PND, fluid retention, or orthopnea. Objective - Vital Signs/Intake and Output Vital Signs (last 24 hours): Temp Pulse Resp BP Pulse Ox 98.4 F 79 20 169/91 H 98 03/26/17 09:02 03/26/17 09:02 03/26/17 09:02 03/26/17 09:02 03/26/17 09:02 Intake and Output: 03/26/17 03/26/17 06:59 18:59 Intake Total 360 Output Total 800 Balance -440 - Medications Medications: Current Medications Amlodipine Besylate (Norvasc) 10 mg PO DAILY [facility] Last Admin: 03/25/17 10:27 Dose: 10 mg Aspirin (Ecotrin) 325 mg PO DAILY [facility] Last Admin: 03/26/17 07:12 Dose: 325 mg Atorvastatin Calcium (Lipitor) 20 mg PO DIN [facility] Last Admin: 03/25/17 17:25 Dose: Not Given Bacitracin (Bacitracin) 0 gm TOP BID PRN PRN Reason: Other Calcium Acetate (Phoslo) 667 mg PO WM [facility] Last Admin: 03/25/17 17:24 Dose: 667 mg Carvedilol (Coreg) 25 mg PO BID [facility] Last Admin: 03/25/17 17:24 Dose: Not Given Clopidogrel Bisulfate (Plavix) 75 mg PO DAILY [facility] Last Admin: 03/26/17 07:12 Dose: 75 mg Docusate Sodium (Colace) 100 mg PO DAILY [facility] Last Admin: 03/25/17 10:27 Dose: 100 mg Ferrous Sulfate (Feosol) 324 mg PO BID [facility] Last Admin: 03/25/17 17:24 Dose: 324 mg Furosemide (Lasix) 40 mg PO BID [facility] Last Admin: 03/25/17 17:24 Dose: 40 mg Heparin Sodium (Porcine) (Heparin) 5,000 units SC Q12 [facility] PRN Reason: Protocol Last Admin: 03/25/17 21:03 Dose: 5,000 units Heparin Sodium (Porcine) (Heparin) 2,200 units ICA TTS [facility] Last Admin: 03/24/17 17:37 Dose: 2,200 units Heparin Sodium (Porcine) (Heparin) 2,400 units ICV TTS [facility] Last Admin: 03/24/17 17:37 Dose: 2,400 units Hydralazine HCl (Apresoline) 50 mg PO BID [facility] Last Admin: 03/25/17 17:24 Dose: 50 mg Isosorbide Mononitrate (Imdur) 60 mg PO DAILY [facility] Last Admin: 03/25/17 10:27 Dose: 60 mg Levothyroxine Sodium (Synthroid) 125 mcg PO 0600 [facility] Last Admin: 03/26/17 07:18 Dose: Not Given Ondansetron HCl (Zofran Inj) 4 mg IVP Q4H PRN PRN Reason: Nausea/Vomiting Last Admin: 03/22/17 15:40 Dose: 4 mg Pantoprazole Sodium (Protonix Ec Tab) 40 mg PO 0600 [facility] Last Admin: 03/26/17 06:30 Dose: Not Given Vitamin B Complex/Vit C/Folic Acid (Nephro-Savana) 1 tab PO DAILY [facility] Last Admin: 03/25/17 10:26 Dose: 1 tab - Labs Labs: 03/26/17 05:15 03/26/17 05:15 PT 11.8 SECONDS (9.4-12.5) 03/22/17 05:20 INR 1.07 (0.93-1.08) 03/22/17 05:20 APTT 30.3 Seconds (25.1-36.5) 03/22/17 05:20 - Constitutional Appears: Well, Non-toxic - Head Exam Head Exam: ATRAUMATIC, NORMOCEPHALIC - Eye Exam Eye Exam: EOMI, Normal appearance, PERRL - ENT Exam ENT Exam: Mucous Membranes Moist, Normal Oropharynx - Neck Exam Neck Exam: Normal Inspection - Respiratory Exam Respiratory Exam: Clear to Ausculation Bilateral, NORMAL BREATHING PATTERN - Cardiovascular Exam Cardiovascular Exam: RRR, +S1, +S2 - GI/Abdominal Exam GI & Abdominal Exam: Soft, Normal Bowel Sounds - Neurological Exam Neurological Exam: Alert, Awake, CN II-XII Intact, Oriented x3 - Psychiatric Exam Psychiatric exam: Normal Affect, Normal Mood - Skin Skin Exam: Dry, Intact, Normal Color, Warm Assessment and Plan - Assessment and Plan (Free Text) Assessment: 71 year old black female with a history of Chronic Kidney Disease stage 4-5, hypertension, dyslipidemia, DM II, hypothyroidism and a recently abnormal stress test who presented to [facility] for exertional dyspnea and associated chest pain. Initial labs and imaging were negative for an acute coronary syndrome, but indicative of a fluid overloaded-state with acute on chronic kidney failure. Cardiology and Nephrology were consulted. The patient chest pain resolved within the first 24 hours of admission, but her dyspnea on exertion persisted. Furthermore, her kidney function worsened despite correcting her electrolyte/biochemical abnormalities. After much deliberation, the patient eventually agreed to hemodialysis and a right internal jugular tunnel catheter was placed. Currently, the patient has underwent three hemodialysis sessions without complications and has successfully underwent PTCA with SULLY placement in the RCA-only 60-70 ml of contrast was used. Imdur was also subsequently discontinued. Plan: 1) S/P PTCA with SULLY placed in RCA - Aspirin 81 mg PO daily - Atorvastatin 20 mg PO at night - Plavix 75 mg daily - 2) CKD stage 5 - Hyperkalemia, Metabolic acidosis, and hyperphosphatemia have resolved. - Nephrology consult appreciated, Dr. Era Hameed and Dr. Tijerina. - NaHCO3 650 TID - Nephro-savana 1 tab PO daily - Phoslo 667 mg PO with meal - Patient to undergo HD on TTS schedule 3)Hypertension - Amlodipine 10 mg - Carvedilol 25 mg BID - Hydralazine 50 mg BID - Hydralazine IVP 10 mg PRN - Furosemide 40 mg IVP q12h 4) History of DM II - HgbA1c 6.0 5) History of dyslipidemia - Lipid profile normal; continue with moderate dose statin therapy 5) Hypothyroidism: TSH elevated, free T4 within normal limits - Continue with 125 mcg of Synthroid 6) Anemia secondary to Chronic Kidney Disease - Aranesp per Nephrology if Hgb goes below 10 mg/dL - Venofer per Nephrology. 7) Diet/DVT/GI prophylaxis - HHD, renal non-dialysis diet - Heparin 5,000 units q12h SC - Protonix 40 mg PO daily - Colace 100 mg PO daily - Zofran 4 mg q4h IVP PRN Disposition: patient to be kept NPO after midnight for cardiac catheterization tomorrow. <Naomi Felix A - Last Filed: 03/26/17 18:47> Objective - Vital Signs/Intake and Output Vital Signs (last 24 hours): Temp Pulse Resp BP Pulse Ox 98.3 F 81 18 168/100 H 98 03/26/17 17:55 03/26/17 17:55 03/26/17 17:55 03/26/17 17:55 03/26/17 09:02 Intake and Output: 03/26/17 03/26/17 06:59 18:59 Intake Total 360 Output Total 800 Balance -440 - Medications Medications: Current Medications Amlodipine Besylate (Norvasc) 10 mg PO DAILY [facility] Last Admin: 03/26/17 13:09 Dose: 10 mg Aspirin (Ecotrin) 81 mg PO DAILY [facility] Atorvastatin Calcium (Lipitor) 20 mg PO DIN [facility] Last Admin: 03/25/17 17:25 Dose: Not Given Bacitracin (Bacitracin) 0 gm TOP BID PRN PRN Reason: Other Calcium Acetate (Phoslo) 667 mg PO WM [facility] Last Admin: 03/26/17 13:29 Dose: Not Given Clonidine HCl (Catapres Tts1 0.1 Mg/24 Hr) 1 patch TD Q7D@1000 [facility] Last Admin: 03/26/17 15:42 Dose: 1 patch Clopidogrel Bisulfate (Plavix) 75 mg PO DAILY [facility] Last Admin: 03/26/17 07:12 Dose: 75 mg Docusate Sodium (Colace) 100 mg PO DAILY [facility] Last Admin: 03/26/17 15:38 Dose: Not Given Furosemide (Lasix) 40 mg PO BID [facility] Last Admin: 03/26/17 13:13 Dose: 40 mg Heparin Sodium (Porcine) (Heparin) 2,200 units ICA TTS [facility] Last Admin: 03/24/17 17:37 Dose: 2,200 units Heparin Sodium (Porcine) (Heparin) 2,400 units ICV TTS [facility] Last Admin: 03/24/17 17:37 Dose: 2,400 units Levothyroxine Sodium (Synthroid) 125 mcg PO 0600 [facility] Last Admin: 03/26/17 07:18 Dose: Not Given Lisinopril (Zestril) 20 mg PO DAILY [facility] Metoprolol Tartrate (Lopressor) 50 mg PO BID [facility] Ondansetron HCl (Zofran Inj) 4 mg IVP Q4H PRN PRN Reason: Nausea/Vomiting Last Admin: 03/22/17 15:40 Dose: 4 mg Pantoprazole Sodium (Protonix Ec Tab) 40 mg PO 0600 [facility] Last Admin: 03/26/17 06:30 Dose: Not Given Vitamin B Complex/Vit C/Folic Acid (Nephro-Savana) 1 tab PO DAILY [facility] Last Admin: 03/26/17 15:39 Dose: Not Given - Labs Labs: 03/26/17 14:25 03/26/17 14:25 PT 11.8 SECONDS (9.4-12.5) 03/22/17 05:20 INR 1.07 (0.93-1.08) 03/22/17 05:20 APTT 30.3 Seconds (25.1-36.5) 03/22/17 05:20 Attending/Attestation - Attestation I have personally seen and examined this patient.: Yes I have fully participated in the care of the patient.: Yes I have reviewed all pertinent clinical information, including history, physical exam and plan: Yes Notes (Text): 03/26/17 18:44 71 year old female with past medical history of CKD, hypertension, and hypothyroidism who presented with complaint of chest pain and shortness of breath. She is s/p cardiac cath today with RCA stent placement. Continue with aspirin and plavix. Cardiology and nephrology are following the patient. Plan is for hemodialysis tomorrow post cath. Blood pressure is poorly controlled, partly due to noncompliance. Clonidine patch was started. Possible d/c planning tomorrow after dialysis. Patient will need outpatient vascular surgery evaluation for AV fistula / AV graft placement. Naomi Felix MD Hospitalist.
[2017-03-26] MEDS ORDERED: Metoprolol 1 mg/ml Inj IVP ONE (13:45)
--- NOTE | 2017-03-26 13:45 | PN ---
DATE: 03/26/2017 REASON FOR CONSULTATION AND FOLLOWUP: CKD, status post dialysis started, abnormal stress test, chest pain, palpitation, underwent cardiac catheterization and PTCA of RCA. SUBJECTIVE: The patient denies any chest pain, shortness of breath, denies any palpitation. PHYSICAL EXAMINATION: As follows: VITAL SIGNS: Temperature afebrile, heart rate 79, blood pressure 169/91. HEENT: PERRLA. Extraocular muscles intact. NECK: Supple. No carotid bruits or thyromegaly. CHEST: Clear to auscultation. HEART: S1 and S2, regular. ABDOMEN: Soft. EXTREMITIES: Clubbing and cyanosis negative. LABORATORY DATA: As follows: WBC 8.8, hemoglobin 11.9, hematocrit 35.8, platelet count 225. Chemistry shows sodium 138, potassium 4.4, chloride 102, carbon dioxide 28, anion gap of 13, BUN 36, creatinine 6.0. IMPRESSION: End-stage renal disease, on dialysis, started day before yesterday, so far three dialysis done, abnormal stress test, reversible anteroseptal defect, ejection fraction of 56% dated 01/01/2017. Echo dated 12/30/2014 shows small pericardial effusion, preserved LV function. The patient underwent cardiac catheterization and successfully placement of drug-eluting stent in the right coronary artery, left radial approach. PLAN: To continue baby aspirin, continue Plavix, dialysis tomorrow as only 60 to 70 cc of contrast used. Continue hydralazine, continue Coreg. We will add lisinopril as the patient started dialysis. Continue Lipitor, possible dialysis tomorrow and will be discharged tomorrow. We will discuss with Dr. Hameed and will discuss with Dr. Gupta. We will discontinue isosorbide nitrate because the patient is already stented. The patient underwent cardiac catheterization and angioplasty of the left radial, and a total 60 to 70 cc of contrast used today. Thank you Dr. Hameed as well as Dr. Gupta for providing us the opportunity in taking care of the patient, Cornelio Bess. Tory Carter MD cc: MD Dr. Zari Infante [facility] # [id number]
[2017-03-26 14:30] LABS: BASO # 0.01 K/mm3 (0.0-2.0); BASO % 0.1 % (0.0-3.0); EOS # 0.1 (0.0-0.7); EOS % 1.5 % (1.5-5.0); GRAN # 5.85 (1.4-6.5); HEMATOCRIT 37.3 % (36.0-48.0); LYMPH # 2.7 (1.2-3.4); LYMPH % 29.2 % (22.0-35.0); MEAN CELL VOLUME 85.7 fl (80.0-105.0); MEAN CORPUSCULAR HEMOGLOBIN 26.9 pg (25.0-35.0); MEAN CORPUSCULAR HGB CONC 31.4 g/dl (31.0-37.0); MEAN PLATELET VOLUME 10.7 fl (7.0-11.0); MONO # 0.5 (0.1-0.6); MONO % 5.2 % (1.0-6.0); RED CELL DISTRIBUTION WIDTH 15.3 % (11.5-14.5); WHITE BLOOD COUNT 9.2 10^3/ul (4.5-11.0)
[2017-03-26 14:38] LABS: CALCIUM 8.8 mg/dL (8.4-10.5); POTASSIUM 4.2 mmol/L (3.6-5.0)
[2017-03-26] MEDS: Multivitamin Vitamin B Complex (Nephro-Vite) Tab PO SCH (15:39)
[2017-03-26] MEDS ORDERED: Bacitracin 500 Units/gm Oint Foilpak UD ONE (16:55)
--- NOTE | 2017-03-26 17:11 | CARD ---
APPROVED REPORT Procedure(s) performed: Left Heart Catheterization PTCA with Stenting of Mid RCA HISTORY The patient is a 71 year-old female with a history of : most recent EF: 56%. (EF Method: RADIONUCLIDE), previous CHF, renal failure with dialysis, diabetes mellitus with diet treatment , previous diagnostic cath, hypertension , dyslipidemia , ESRD Stared Dialysis three days ago, Had abnormal stress test, chest pain, palpitation was being treated medically and awaited for dialysis to be started.. INDICATION The indication(s) include : positive stress test, chest pain, dyspnea. CASE TECHNIQUE The patient was brought electively to the Cardiac Catheterization Laboratory in a fasting state and was prepped and draped in a sterile manner. The left wrist was infiltrated with 2% Lidocaine subcutaneous anesthesia. A 6FR [employer] ExtractionTH ACCESS KIT sheath was inserted into the left radial artery without difficulty. Coronary angiography was performed using coronary diagnostic catheters. The left coronary system was accessed and visualized with a Diagnostic ,5 Fr JL 4 catheter. The right coronary system was accessed and visualized with a Diagnostic ,5 Fr JR 3.5 catheter. The left ventricle was accessed and visualized with a 5 Fr Pigtail 145 (Angled) catheter. Left ventricular/Aortic Valve gradient assessed on pullback. Left ventriculogram was performed in [place] projection. The patient tolerated the procedure well and there were no complications associated with the procedure. Vessel Analysis The patient's coronary anatomy is co-dominant. The left main coronary artery is a large size vessel with diffuse calcification noted throughout this vessel and without significant stenosis. The left main bifurcates to the left anterior descending and circumflex. The left anterior descending artery is a medium size vessel with diffuse calcification noted throughout this vessel and without significant stenosis. There is a 40% stenosis in the proximal segment. The first diagonal branch is a small size vessel with diffuse calcification noted throughout this vessel and without significant stenosis. There is a 60-70% stenosis in the ostial segment. The circumflex artery is a large size vessel with diffuse calcification noted throughout this vessel and without significant stenosis. There is a 50% stenosis in the distal segment. The first obtuse marginal branch is a large size vessel with diffuse calcification noted throughout this vessel and with significant stenosis. There is a 40-50% stenosis in the mid segment. The second obtuse marginal branch is a small size vessel with diffuse calcification noted throughout this vessel and without significant stenosis. The right coronary artery is a large size vessel with diffuse calcification noted throughout this vessel and with significant stenosis. There is a 80% stenosis in the mid segment. The right posterior descending artery is a medium size vessel with diffuse calcification noted throughout this vessel and without significant stenosis. Left Ventricle The left ventricle is normal in size with normal contractility. There was no cardiomyopathy. The left ventricular ejection fraction is estimated to be 55-60%. The left ventricular end diastolic pressure is 18 mmHg. There was no gradient across the aortic valve upon pullback. PCI Technique Lesion Anticoagulation was achieved with Heparin. Percutaneous coronary intervention was performed on the mid right coronary artery. The lesion stenosis prior to intervention was 80% with SANDRO 2 flow. A 6 Fr JR 3.5 Guide Catheter was used to engage the ostium. A [employer] 182 Interventional Guidewire was used to cross the lesion. BALLOON DILATION A Balloon catheter 2.5 x 12 mm Trek RX was inserted and inflated up to 11.00atm for 22seconds. STENT DEPLOYMENT A drug-eluting stent 3.5 x 22 mm Resolute SULLY was inserted and inflated up to 11.00atm for 22seconds. POST STENT DEPLOYMENT BALLOON DILATION A Balloon catheter 3.5 x 15 mm Sprinter NC was inserted and inflated up to 16.00atm for 10seconds. Final angiography reveals 0 % stenosis with SANDRO 3 flow. Conclusion Single Vessel Mid RCA Critical Disease. Moderate DIz in Cx and LAD Diffuse and heavy atherosclerotic Silt in all coronary tree. preserved LV Fx. Ef-55-60%, EDP-18 mmof Hg. Successful PTCa with SULLY of Proximal to Mid RCA. 60-70 cc Contrast used. Recommendations Aggressive Medical TherapyCardiac Risk Reduction Program Weight Loss Reduction Program Mandatory continue ASA and Plavix for 3-6 months before AV fistula surgery. CC; drs. Clements/ Vinay Hameed
--- NOTE | 2017-03-26 17:13 | CARD ---
APPROVED REPORT EKG Measurement Heart [id number] <Conclusion> Normal sinus rhythm Low voltage QRS Possible Anterolateral infarct, age undetermined Abnormal ECG
--- NOTE | 2017-03-26 18:36 | PN ---
DATE: 03/26/2017 SUBJECTIVE: The patient is seen sitting in bed. She is awake. She is alert. She is comfortable. She is status post cardiac cath. She had a RCA stent put in. She denies any chest pain at present. She complains of some dizziness. She complains of side effects from hydralazine. PHYSICAL EXAMINATION: GENERAL: Obese elderly lady sitting in bed. VITAL SIGNS: Blood pressure 190/117, heart rate 91, respiratory rate 18, and temperature 98.7. HEENT: Normocephalic, atraumatic, positive pallor. NECK: Supple, no JVD. LUNGS: Bilateral equal entry, bilateral equal expansion, no rales. CARDIAC: S1 and S2, regular rate and rhythm, no murmur, no rub. ABDOMEN: Obese, distended, soft, nontender, bowel sounds present. EXTREMITIES: A 1+ pitting edema of the lower extremities. INTAKE AND OUTPUT: Not charted. LABORATORY DATA: WBC 8, hemoglobin 11.1, hematocrit 36, platelets 225. Sodium 134, potassium 4.4, chloride 102, CO2 of 28, BUN 33, creatinine 6.0, glucose 105. CURRENT MEDICATIONS: Hydralazine 50 b.i.d., amlodipine 10 mg daily, lisinopril 10 mg daily, Coreg 25 b.i.d., Plavix 75 daily PhosLo, Lasix 40 p.o. b.i.d., and aspirin. ASSESSMENT: 1. Chronic kidney disease stage V, now end-stage renal disease. 2. Coronary artery disease, status post right coronary artery stent. 3. Severe hypertension. 4. Anemia of chronic kidney disease. 5. Secondary hyperparathyroidism. PLAN: 1. The patient reports dizziness and lightheadedness with hydralazine, we will discontinue hydralazine. 2. The patient reports abdominal pain with Coreg, we will discontinue Coreg. 3. We will increase lisinopril to 20 mg daily. 4. We will start Lopressor 50 b.i.d. 5. Continue amlodipine 10 mg daily. 6. Catapres patch #1. 7. Discontinue oral iron. 8. Continue Plavix at least for [address] Carter. 9. Dialysis tomorrow. 10. Discharge planning, needs outpatient dialysis. Era Hameed MD
[2017-03-26 23:08] LABS: ALUMINUM 3 mcg/L (<7)
[2017-03-27] MEDS: Levothyroxine 125 MCG TAB PO SCH (06:41)
[2017-03-27] MEDS: Pantoprazole 40 mg EC Tab PO SCH (06:41)
[2017-03-27 07:29] LABS: BASO # 0.02 K/mm3 (0.0-2.0); BASO % 0.2 % (0.0-3.0); EOS # 0.2 (0.0-0.7); EOS % 1.9 % (1.5-5.0); GRAN # 6.3 (1.4-6.5); GRAN % 58.4 % (50.0-68.0); HEMATOCRIT 36.8 % (36.0-48.0); LYMPH # 3.6 (1.2-3.4); LYMPH % 33.1 % (22.0-35.0); MEAN CELL VOLUME 85.8 fl (80.0-105.0); MEAN CORPUSCULAR HEMOGLOBIN 26.3 pg (25.0-35.0); MEAN CORPUSCULAR HGB CONC 30.7 g/dl (31.0-37.0); MEAN PLATELET VOLUME 10.9 fl (7.0-11.0); MONO # 0.7 (0.1-0.6); MONO % 6.4 % (1.0-6.0); RED CELL DISTRIBUTION WIDTH 15.6 % (11.5-14.5); WHITE BLOOD COUNT 10.8 10^3/ul (4.5-11.0)
[2017-03-27 07:56] LABS: BILIRUBIN,TOTAL 0.4 mg/dL (0.2-1.3); CALCIUM 8.5 mg/dL (8.4-10.5); MAGNESIUM 1.7 mg/dL (1.7-2.2); PHOSPHOROUS 4.6 mg/dL (2.5-4.5); POTASSIUM 4.4 mmol/L (3.6-5.0); TOTAL PROTEIN 6.9 g/dL (5.8-8.3)
[2017-03-27] MEDS: Multivitamin Vitamin B Complex (Nephro-Vite) Tab PO SCH (09:36)
[2017-03-27 10:09] VITALS: RESP 18; O2SAT 98
--- NOTE | 2017-03-27 12:02 | PN ---
DATE: 03/27/2017 REASON FOR CONSULTATION AND FOLLOWUP: CKD, status post dialysis. Status post PTCA of RCA yesterday. SUBJECTIVE: The patient denies any chest pain, shortness of breath, any palpitation. Having dialysis, seen in the dialysis unit, at the end of the dialysis for today's session. OBJECTIVE: GENERAL: Not in apparent distress, but claimed that in the morning, felt a little oozy, but otherwise is okay. VITAL SIGNS: As follows: Temperature afebrile, heart rate 72, blood pressure 143/79. HEENT: PERRLA. Extraocular muscles intact. NECK: Supple. No carotid bruit or thyromegaly. CHEST: Clear to auscultation. HEART: S1 and S2, regular. ABDOMEN: Soft. EXTREMITIES: Clubbing and cyanosis negative. LABORATORY DATA: Blood workup as follows: WBC 10.8, hemoglobin 11.3, hematocrit 36.8, platelet count 257. Chemistry shows sodium 130, potassium 4.4, chloride 102, carbon dioxide 25, anion gap of 15, BUN 42, creatinine 6.8. IMPRESSION: End-stage renal disease, on dialysis, started recently; diabetes; hypertension; hyperlipidemia; coronary artery disease; status post abnormal stress test; status post percutaneous transluminal coronary angioplasty with a drug-eluting stent in right coronary artery. Yesterday, cardiac enzymes revealed diffuse atherosclerotic burden in all coronaries, preserved left ventricular function, critical disease in right coronary artery which has a drug-eluting stent deployed. RECOMMENDATION: Emphasis made to the patient, continue aspirin and Plavix for one year. Should the patient needs AV fistula and needs interruption of dual anti-platelet therapy, suggest not to do before 3 to 6 months because it is third-generation drug-eluting stent. If needs, can interrupt it urgently in 3 months, but preferably after 6 months. Advised also the patient compliance with the medication followup in 2 weeks. We will discuss with Dr. Felix. Thank you Dr. Felix for providing us the opportunity in taking care of the patient, Cornelio Bess. In addition, the patient will continue baseline medications including atorvastatin 20 mg daily, aspirin 81 mg daily, Plavix 75 mg daily, metoprolol 50 b.i.d., amlodipine 10 mg daily, and lisinopril is started because the patient is on dialysis now, so no concern about renal insufficiency, it will be beneficial for the patient. Tory Carter MD
--- NOTE | 2017-03-27 13:07 | CP.PCM.DIS ---
<Charisse Sidhu - Last Filed: 03/27/17 18:19> Provider - Provider Date of Admission: 03/19/17 15:05 Attending physician: Naomi Felix MD Primary care physician: Javier Harris MD Consults: Dr. Carter Cardiology Dr. Hameed Nephrology Dr. Danilo Russo Interventional Radiology Time Spent in preparation of Discharge (in minutes): 59 Hospital Course - Lab Results Lab Results: Most Recent Lab Values WBC 10.8 10^3/ul (4.5-11.0) 03/27/17 07:19 RBC 4.29 10^6/uL (3.5-6.1) 03/27/17 07:19 Hgb 11.3 g/dL (12.0-16.0) L 03/27/17 07:19 Hct 36.8 % (36.0-48.0) 03/27/17 07:19 MCV 85.8 fl (80.0-105.0) 03/27/17 07:19 MCH 26.3 pg (25.0-35.0) 03/27/17 07:19 MCHC 30.7 g/dl (31.0-37.0) L 03/27/17 07:19 RDW 15.6 % (11.5-14.5) H 03/27/17 07:19 Plt Count 257 10^3/uL (120.0-450.0) 03/27/17 07:19 MPV 10.9 fl (7.0-11.0) 03/27/17 07:19 Gran % 58.4 % (50.0-68.0) 03/27/17 07:19 Lymph % (Auto) 33.1 % (22.0-35.0) 03/27/17 07:19 [place] % (Auto) 6.4 % (1.0-6.0) H 03/27/17 07:19 Eos % (Auto) 1.9 % (1.5-5.0) 03/27/17 07:19 Baso % (Auto) 0.2 % (0.0-3.0) 03/27/17 07:19 Gran # 6.30 (1.4-6.5) 03/27/17 07:19 Lymph # 3.6 (1.2-3.4) H 03/27/17 07:19 [place] # 0.7 (0.1-0.6) H 03/27/17 07:19 Eos # 0.2 (0.0-0.7) 03/27/17 07:19 Baso # 0.02 K/mm3 (0.0-2.0) 03/27/17 07:19 PT 11.8 SECONDS (9.4-12.5) 03/22/17 05:20 INR 1.07 (0.93-1.08) 03/22/17 05:20 APTT 30.3 Seconds (25.1-36.5) 03/22/17 05:20 Sodium 138 mmol/L (132-148) 03/27/17 07:19 Potassium 4.4 mmol/L (3.6-5.0) 03/27/17 07:19 Chloride 102 mmol/L (98-107) 03/27/17 07:19 Carbon Dioxide 25 mmol/L (21-33) 03/27/17 07:19 Anion Gap 15 (10-20) 03/27/17 07:19 BUN 42 mg/dL (7-21) H 03/27/17 07:19 Creatinine 6.8 mg/dl (0.7-1.2) H 03/27/17 07:19 Est GFR ( Amer) 7 03/27/17 07:19 Est GFR (Non-Af Amer) 6 03/27/17 07:19 POC Glucose (mg/dL) 203 mg/dL (65-110) H 03/27/17 10:57 Random Glucose 114 mg/dL (70-110) H 03/27/17 07:19 Hemoglobin A1c 6.0 % (4.2-6.5) 03/19/17 07:20 Calcium 8.5 mg/dL (8.4-10.5) 03/27/17 07:19 Phosphorus 4.6 mg/dL (2.5-4.5) H 03/27/17 07:19 Magnesium 1.7 mg/dL (1.7-2.2) 03/27/17 07:19 Iron 81 ug/dL (45-180) 03/22/17 11:40 TIBC 246 ug/dL (265-497) L 03/22/17 11:40 % Saturation 33 % (20-55) 03/22/17 11:40 Ferritin 54.1 ng/mL 03/22/17 11:40 Total Bilirubin 0.4 mg/dL (0.2-1.3) 03/27/17 07:19 AST 34 U/L (14-36) 03/27/17 07:19 ALT 28 U/L (7-56) 03/27/17 07:19 Alkaline Phosphatase 138 U/L (38-126) H 03/27/17 07:19 Lactate Dehydrogenase 687 U/L (333-699) 03/19/17 09:48 Total Creatine Kinase 158 U/L (35-230) 03/19/17 09:48 Troponin I 0.02 ng/mL 03/19/17 09:48 NT-Pro-B Natriuret Pep 905 pg/mL (0-450) H 03/18/17 21:58 Total Protein 6.9 g/dL (5.8-8.3) 03/27/17 07:19 Albumin 3.5 g/dL (3.0-4.8) 03/27/17 07:19 Globulin 3.5 gm/dL 03/27/17 07:19 Albumin/Globulin Ratio 1.0 (1.1-1.8) L 03/27/17 07:19 Triglycerides 79 mg/dL (35-160) 03/19/17 07:20 Cholesterol 194 mg/dL (130-200) 03/19/17 07:20 LDL Cholesterol Direct 89 mg/dL (0-129) 03/19/17 07:20 HDL Cholesterol 56 mg/dL (29-60) 03/19/17 07:20 Free T4 0.98 ng/dL (0.78-2.19) 03/19/17 07:20 TSH 3rd Generation 13.60 mIU/mL (0.46-4.68) H 03/19/17 07:20 PTH Intact Whole Molec 531 pg/mL (14-64) H 03/22/17 11:40 Aluminum 3 mcg/L (<7) 03/22/17 11:40 Hepatitis A IgM Ab Negative (NEGATIVE) 03/22/17 11:40 Hep Bs Antigen Negative (NEGATIVE) 03/22/17 11:40 Hep B Core Total Ab Non reactive (Non Reactive) 03/22/17 11:40 Hep B Core IgM Ab Negative (NEGATIVE) 03/22/17 11:40 Hepatitis C Antibody Negative (NEGATIVE) 03/22/17 11:40 - Hospital Course Hospital Course: 71 year old black female with a history of Chronic Kidney Disease stage 4-5, hypertension, dyslipidemia, DM II, hypothyroidism and a recently abnormal stress test who presented to [facility] for exertional dyspnea and associated chest pain. Initial labs and imaging were negative for an acute coronary syndrome, but indicative of a fluid overloaded-state with acute on chronic kidney failure. Cardiology and Nephrology were consulted. The patient chest pain resolved within the first 24 hours of admission, but her dyspnea on exertion persisted. Furthermore, her kidney function worsened despite correcting her electrolyte/biochemical abnormalities. After much deliberation, the patient eventually agreed to hemodialysis and a right internal jugular tunnel catheter was placed. The patient has underwent hemodialysis without complications and underwent a heart catheterization with PTCA with SULLY placement in the RCA. The patient was discharged to take the below mentioned medications, to follow a renal dialysis diet, to limit her Sodium intake to less than 2 gram per day, to follow up with the vascular surgeon for AVF surgery. A hemodialysis schedule was arranged with transportation services. The patient was discharged with Plavix, Metoprolol, Lisinopril, and a Clonidine patch. Physical therapy was also utilized to ensure the patient could tolerate Activities of Daily Living without shortness of breath, deconditioning, or gait issues. - Date & Time of H&P Date of H&P: 03/27/17 Time of H&P: 13:24 Discharge Exam - Head Exam Head Exam: ATRAUMATIC, NORMOCEPHALIC - Eye Exam Eye Exam: EOMI, Normal appearance - ENT Exam ENT Exam: Mucous Membranes Moist, Normal Oropharynx - Respiratory Exam Respiratory Exam: Clear to PA & Lateral, NORMAL BREATHING PATTERN - Cardiovascular Exam Cardiovascular Exam: RRR, +S1, +S2 - GI/Abdominal Exam GI & Abdominal Exam: Normal Bowel Sounds. absent: Distended - Extremities Exam Extremities exam: normal inspection - Back Exam Back exam: NORMAL INSPECTION. absent: CVA tenderness (L), CVA tenderness (R) - Neurological Exam Neurological exam: Alert, CN II-XII Intact, Oriented x3 - Psychiatric Exam Psychiatric exam: Normal Affect, Normal Mood - Skin Skin Exam: Dry, Intact, Normal Color, Warm Discharge Plan - Discharge Medications Prescriptions: amLODIPine [Norvasc] 10 mg PO DAILY #30 tab Ascorbic Acid [Vitamin C 500 mg Tab] 1 tab PO DAILY #30 tab Atorvastatin [Lipitor] 20 mg PO DIN #30 tab Calcium Acetate [Phoslo] 667 mg PO WM #12 tab cloNIDine 0.1 mg/24 hr [catapres TTS1 0.1 mg/24 hr] 1 patch TD Q7D@1000 #30 patch Clopidogrel [Plavix] 75 mg PO DAILY #30 tab Ergocalciferol (Vitamin D2) [Vitamin D2] 50,000 unit PO WM #12 capsule Esomeprazole Magnesium [Nexium] 40 mg PO DAILY #30 ecc Furosemide [Lasix] 40 mg PO BID #60 tab Lisinopril [Zestril] 20 mg PO DAILY #30 tab Metoprolol Tartrate [Lopressor] 50 mg PO BID #60 tab Vitamin B Complex/Vit C/Folic [Nephro-Archie] 1 tab PO DAILY #30 tab - Follow Up Plan Condition: FAIR Disposition: HOME/ ROUTINE Instructions: Renal Failure Diet (DC), Dialysis Diet (GEN), Hypertension (GEN) , Coronary Intravascular Stent Placement (GEN) Additional Instructions: 1) Patient to follow up with primary medical doctor within seven days. 2) Patient to take any new prescription medications as prescribed. 3) Patient to return to the ED for any worsening of symptoms. 4) Patient scheduled for Hemodialysis on Sunday, , Sunday. 5) Patient to follow renal dialysis diet. 6) Patient to follow up with vascular surgeon for AVF surgery. Referrals: Javier Harris MD [Primary Care Provider] - <Naomi Felix - Last Filed: 03/27/17 22:10> Provider - Provider Date of Admission: 03/19/17 15:05 Attending physician: Naomi Felix MD Primary care physician: Javier Harris MD Hospital Course - Lab Results Lab Results: Most Recent Lab Values WBC 10.8 10^3/ul (4.5-11.0) 03/27/17 07:19 RBC 4.29 10^6/uL (3.5-6.1) 03/27/17 07:19 Hgb 11.3 g/dL (12.0-16.0) L 03/27/17 07:19 Hct 36.8 % (36.0-48.0) 03/27/17 07:19 MCV 85.8 fl (80.0-105.0) 03/27/17 07:19 MCH 26.3 pg (25.0-35.0) 03/27/17 07:19 MCHC 30.7 g/dl (31.0-37.0) L 03/27/17 07:19 RDW 15.6 % (11.5-14.5) H 03/27/17 07:19 Plt Count 257 10^3/uL (120.0-450.0) 03/27/17 07:19 MPV 10.9 fl (7.0-11.0) 03/27/17 07:19 Gran % 58.4 % (50.0-68.0) 03/27/17 07:19 Lymph % (Auto) 33.1 % (22.0-35.0) 03/27/17 07:19 [place] % (Auto) 6.4 % (1.0-6.0) H 03/27/17 07:19 Eos % (Auto) 1.9 % (1.5-5.0) 03/27/17 07:19 Baso % (Auto) 0.2 % (0.0-3.0) 03/27/17 07:19 Gran # 6.30 (1.4-6.5) 03/27/17 07:19 Lymph # 3.6 (1.2-3.4) H 03/27/17 07:19 [place] # 0.7 (0.1-0.6) H 03/27/17 07:19 Eos # 0.2 (0.0-0.7) 03/27/17 07:19 Baso # 0.02 K/mm3 (0.0-2.0) 03/27/17 07:19 PT 11.8 SECONDS (9.4-12.5) 03/22/17 05:20 INR 1.07 (0.93-1.08) 03/22/17 05:20 APTT 30.3 Seconds (25.1-36.5) 03/22/17 05:20 Sodium 138 mmol/L (132-148) 03/27/17 07:19 Potassium 4.4 mmol/L (3.6-5.0) 03/27/17 07:19 Chloride 102 mmol/L (98-107) 03/27/17 07:19 Carbon Dioxide 25 mmol/L (21-33) 03/27/17 07:19 Anion Gap 15 (10-20) 03/27/17 07:19 BUN 42 mg/dL (7-21) H 03/27/17 07:19 Creatinine 6.8 mg/dl (0.7-1.2) H 03/27/17 07:19 Est GFR ( Amer) 7 03/27/17 07:19 Est GFR (Non-Af Amer) 6 03/27/17 07:19 POC Glucose (mg/dL) 165 mg/dL (65-110) H 03/27/17 17:32 Random Glucose 114 mg/dL (70-110) H 03/27/17 07:19 Hemoglobin A1c 6.0 % (4.2-6.5) 03/19/17 07:20 Calcium 8.5 mg/dL (8.4-10.5) 03/27/17 07:19 Phosphorus 4.6 mg/dL (2.5-4.5) H 03/27/17 07:19 Magnesium 1.7 mg/dL (1.7-2.2) 03/27/17 07:19 Iron 81 ug/dL (45-180) 03/22/17 11:40 TIBC 246 ug/dL (265-497) L 03/22/17 11:40 % Saturation 33 % (20-55) 03/22/17 11:40 Ferritin 54.1 ng/mL 03/22/17 11:40 Total Bilirubin 0.4 mg/dL (0.2-1.3) 03/27/17 07:19 AST 34 U/L (14-36) 03/27/17 07:19 ALT 28 U/L (7-56) 03/27/17 07:19 Alkaline Phosphatase 138 U/L (38-126) H 03/27/17 07:19 Lactate Dehydrogenase 687 U/L (333-699) 03/19/17 09:48 Total Creatine Kinase 158 U/L (35-230) 03/19/17 09:48 Troponin I 0.02 ng/mL 03/19/17 09:48 NT-Pro-B Natriuret Pep 905 pg/mL (0-450) H 03/18/17 21:58 Total Protein 6.9 g/dL (5.8-8.3) 03/27/17 07:19 Albumin 3.5 g/dL (3.0-4.8) 03/27/17 07:19 Globulin 3.5 gm/dL 03/27/17 07:19 Albumin/Globulin Ratio 1.0 (1.1-1.8) L 03/27/17 07:19 Triglycerides 79 mg/dL (35-160) 03/19/17 07:20 Cholesterol 194 mg/dL (130-200) 03/19/17 07:20 LDL Cholesterol Direct 89 mg/dL (0-129) 03/19/17 07:20 HDL Cholesterol 56 mg/dL (29-60) 03/19/17 07:20 Free T4 0.98 ng/dL (0.78-2.19) 03/19/17 07:20 TSH 3rd Generation 13.60 mIU/mL (0.46-4.68) H 03/19/17 07:20 PTH Intact Whole Molec 531 pg/mL (14-64) H 03/22/17 11:40 Aluminum 3 mcg/L (<7) 03/22/17 11:40 Hepatitis A IgM Ab Negative (NEGATIVE) 03/22/17 11:40 Hep Bs Antigen Negative (NEGATIVE) 03/22/17 11:40 Hep B Core Total Ab Non reactive (Non Reactive) 03/22/17 11:40 Hep B Core IgM Ab Negative (NEGATIVE) 03/22/17 11:40 Hepatitis C Antibody Negative (NEGATIVE) 03/22/17 11:40 Attending/Attestation - Attestation I have personally seen and examined this patient.: Yes I have fully participated in the care of the patient.: Yes I have reviewed all pertinent clinical information, including history, physical exam and plan: Yes Notes (Text): 03/27/17 22:08 71 year old female with past medical history of CKD, hypertension, and hypothyroidism who presented with complaint of chest pain and shortness of breath. She was seen by cardiology and nephrology and started on hemodialysis. She is also s/p cardiac cath yesterday with RCA stent placement. Her bp medications were adjusted as above. Patient is discharged home to follow up with her pmd. Follow up with cardiology and nephrology. Follow up with vascular surgery for AVF/AVG. Naomi Felix MD Hospitalist.
[2017-03-27 17:56] VITALS: TEMP 98.2
[2017-03-27 18:03] VITALS: BP 180/86; PULSE 80
[2017-03-27] MEDS ORDERED: Insulin Reg-LOW-Coverage SC SCH (22:00)
--- NOTE | 2017-03-27 23:54 | PN ---
DATE: SUBJECTIVE: The patient is currently seen preparing for discharge later today. She will be going home on dialysis. She had successfully started dialysis in [facility] and will continue on a Sunday, , and Sunday schedule at the hospital unit. The patient states that she found the dialysis experience not to be as awful as she had anticipated. MEDICATIONS: Medication list reviewed. The patient is on bacitracin, clonidine patch, Colace, Ecotrin, sliding scale insulin, oral Lasix, Lipitor, Lopressor, Nephro-Archie, Norvasc, PhosLo, Plavix, Protonix, Synthroid, Zestril, and Zofran p.r.n. OBJECTIVE: INTAKE/OUTPUT. Intake 1300, output 1500. VITAL SIGNS: Blood pressure 139/74, temperature 98.1, and pulse of 70 with a respiratory rate of 18. HEENT: Normocephalic, atraumatic. Conjunctivae are pink. Sclerae are nonicteric. NECK: Supple. No neck vein distention. CHEST: Clear to auscultation and percussion with slight decreased breath sounds at the bases. CARDIOVASCULAR: Shows an irregular S1, S2 without murmurs, rubs or gallops. ABDOMEN: Soft. Nondistended. Bowel sounds normal. No rebound or guarding. EXTREMITIES: Show no lower extremity edema. She does have an indwelling right chest wall PermCath. LABORATORY DATA AND IMAGING: CBC predialysis today; white blood cell count 10.8, hemoglobin 11.3, platelet count is 257,000. Chemistries today; electrolytes are normal. BUN 42 with creatinine of 6.8, glucose is , and calcium is 8.5. Phosphorus is 4.6, magnesium is 1.7. ASSESSMENT: 1. End-stage renal disease. The patient together with her family have decided to do a trial of dialysis and it appears to have been a successful initial trial. The patient will continue Sunday, , and Sunday hemodialysis at [facility]; transportation has been arranged for her. 2. History of hypertension. Blood pressure control should become easier and antihypertensive medication can be titrated off. 3. Lower extremity edema, significantly improved with dialysis. The patient may, for the time being, continue oral Lasix at home, but this will likely be discontinued over the next several weeks. 4. History of anemia secondary to chronic kidney disease. Hemoglobin on last check was 11.3. The patient will continue Aranesp per protocol on dialysis. 5. History of secondary hyperparathyroidism. Mild elevation of her phosphorus level. The patient will continue PhosLo therapy along with diet therapy. 6. Past history of congestive heart failure and coronary artery disease. She is status post cardiac catheterization with a right coronary artery stent placement on 03/26/2017. The patient will continue on Plavix. PLAN: 1. Discussed with the patient, she is willing to continue dialysis in the outpatient setting. 2. I have explained to the patient that I will see her multiple times during the month on her Sunday, and Sunday schedule. 3. I will work with her to titrate her off blood pressure medications with continued dialysis and hopefully improvement in her blood pressure control. 4. Continue all dietary restrictions. Casper Tijerina MD
--- NOTE | 2017-03-28 07:41 | CARD ---
APPROVED REPORT EKG Measurement Heart [id number] <Conclusion> Normal sinus rhythm Normal ECG
== END 2017-03-27 17:48 | disposition home or self-care (01) | DRG 246 ==
LOC: ED 21:47 → ERH 23:18 → 3RSO 03-19 00:41 → OBSVTOIN 03-19 15:05 → 3RNO 03-19 17:17 → 2RSO 03-26 12:39
PROVIDERS: ADMIT Internal Medicine; ATTEND Internal Medicine
PROC: 0JH63XZ Insertion of Tunneled Vascular Access Device into Chest Subcutaneous Tissue and Fascia, Percutaneous Approach (ICD-10-PCS; 2017-03-22)
PROC: 02H633Z Insertion of Infusion Device into Right Atrium, Percutaneous Approach (ICD-10-PCS; 2017-03-22)
PROC: 5A1D70Z Performance of Urinary Filtration, Intermittent, Less than 6 Hours Per Day (ICD-10-PCS; 2017-03-22)
PROC: 027034Z Dilation of Coronary Artery, One Artery with Drug-eluting Intraluminal Device, Percutaneous Approach (ICD-10-PCS; principal; 2017-03-26)
PROC: 4A023N7 Measurement of Cardiac Sampling and Pressure, Left Heart, Percutaneous Approach (ICD-10-PCS; 2017-03-26)
PROC: B211YZZ Fluoroscopy of Multiple Coronary Arteries using Other Contrast (ICD-10-PCS; 2017-03-26)
PROC: B215YZZ Fluoroscopy of Left Heart using Other Contrast (ICD-10-PCS; 2017-03-26)
DX: I13.2 Hypertensive heart and chronic kidney disease with heart failure and with stage 5 chronic kidney disease, or end stage renal disease (principal); N18.6 End stage renal disease; I50.9 Heart failure, unspecified; I25.10 Atherosclerotic heart disease of native coronary artery without angina pectoris; N17.9 Acute kidney failure, unspecified; E87.2 Acidosis; E11.22 Type 2 diabetes mellitus with diabetic chronic kidney disease; E83.39 Other disorders of phosphorus metabolism; I31.3 Pericardial effusion (noninflammatory); N25.81 Secondary hyperparathyroidism of renal origin; E87.5 Hyperkalemia; D63.1 Anemia in chronic kidney disease; K21.9 Gastro-esophageal reflux disease without esophagitis; E78.5 Hyperlipidemia, unspecified; E89.0 Postprocedural hypothyroidism; K44.9 Diaphragmatic hernia without obstruction or gangrene; E66.9 Obesity, unspecified; Z68.31 Body mass index [BMI] 31.0-31.9, adult; F41.9 Anxiety disorder, unspecified; Z99.2 Dependence on renal dialysis; Z91.19 Patient's noncompliance with other medical treatment and regimen; Z91.14 Patient's other noncompliance with medication regimen; Z80.7 Family history of other malignant neoplasms of lymphoid, hematopoietic and related tissues; Z83.3 Family history of diabetes mellitus; Z84.1 Family history of disorders of kidney and ureter

== ENCOUNTER 2017-08-23 14:38 | Emergency (ER) | payer MEDICARE, MEDICAID ==
[2017-08-23 14:38] VITALS: BMI 31.5
[2017-08-23 15:02] VITALS: TEMP 98.3; O2SAT 99
--- NOTE | 2017-08-23 15:08 | ED PDOC ---
Arrival/HPI - General Chief Complaint: Palpitations Time Seen by Provider: 08/23/17 14:54 Historian: Patient - History of Present Illness Narrative History of Present Illness (Text): 08/23/17 15:08 72yo female with PMhx of hypertension, CHF, CAD with one stent (March 2017), ESRD on dialysis TTHS present with complaint of palpitation and elevated BP. Patient states she has been getting these symptoms every time she gets dialyzed or intermittently at home. States she started experiencing this symptoms while getting dialysis today. States she usually experiences the palpitation when her BP drops or increases. States she usually takes Clonidine 0.1mg at home if her BP goes up. She report taking Norvasc 10mg at home today. She denies chest pain , diaphoresis, SOB, abdominal pain, nausea, dizziness, visual changes, LE edema , calf pain, any other complaint. Past Medical History - Provider Review Nursing Documentation Reviewed: Yes - Infectious Disease Hx of Infectious Diseases: None - Tetanus Immunization Tetanus Immunization: Unknown - Cardiac Hx Cardiac Disorders: Yes Hx Congestive Heart Failure: Yes Hx Hypertension: Yes - Pulmonary Hx Respiratory Disorders: No - Neurological Hx Neurological Disorder: Yes - HEENT Hx HEENT Disorder: No - Renal Hx Renal Disorder: Yes Hx Dialysis: No Hx Renal Failure: Yes - Endocrine/Metabolic Hx Diabetes Mellitus Type 2: Yes - Hematological/Oncological Hx Blood Transfusions: Yes Hx Blood Transfusion Reaction: Yes - Integumentary Hx Dermatological Disorder: Yes Other/Comment: scar r knee - Musculoskeletal/Rheumatological Hx Falls: No - Gastrointestinal Hx Gastrointestinal Disorders: Yes (hiatal hernia) Hx Gastroesophageal Reflux: Yes - Genitourinary/Gynecological Hx Genitourinary Disorders: No - Psychiatric Hx Psychophysiologic Disorder: No Hx Substance Use: No - Surgical History Hx Orthopedic Surgery: Yes (multiple knee surgeries,SPECIALLY RIGHT KNEE) Hx Thyroidectomy: Yes Other/Comment: pt fell "yrs ago" can't remember how long ago had 5 knee replacements and 5 arthoscopic sx's to r knee, r knee reconstruction with metal plate/cadavor part in may 2014 and september 2014 - Anesthesia Hx Anesthesia Reactions: No Hx Malignant Hyperthermia: No - Suicidal Assessment Feels Threatened In Home Enviroment: No Family/Social History - Physician Review Nursing Documentation Reviewed: Yes Family/Social History: Unknown Family HX Smoking Status: Never Smoked Hx Alcohol Use: No Hx Substance Use: No Hx Substance Use Treatment: No Allergies/Home Meds Allergies/Adverse Reactions: Allergies acetaminophen [From Percocet] Allergy (Verified 08/23/17 14:48) RASH morphine Allergy (Verified 08/23/17 14:48) VOMITING oxycodone HCl [From Percocet] Allergy (Verified 08/23/17 14:48) RASH Review of Systems - Physician Review All systems were reviewed & negative as marked: Yes - Review of Systems Constitutional: Normal Eyes: Normal ENT: Normal Respiratory: Normal Cardiovascular: Palpitations Gastrointestinal: Normal Genitourinary Female: Normal Musculoskeletal: Normal Skin: Normal Neurological: Normal Endocrine: Normal Hemo/Lymphatic: Normal Psychiatric: Normal Physical Exam Vital Signs Reviewed: Yes Vital Signs Temp Pulse Resp BP Pulse Ox 08/23/17 16:44 78 16 138/66 99 08/23/17 15:13 87 178/95 H 08/23/17 15:01 98.3 F 90 17 178/85 H 99 08/23/17 14:48 98.5 F 98 H 17 177/94 H 100 Temperature: Afebrile Blood Pressure: Normal Pulse: Regular Respiratory Rate: Normal Appearance: Positive for: Well-Appearing, Non-Toxic, Comfortable Pain Distress: None Mental Status: Positive for: Alert and Oriented X 3 - Systems Exam Head: Present: Atraumatic, Normocephalic Pupils: Present: PERRL Extroacular Muscles: Present: EOMI Conjunctiva: Present: Normal Mouth: Present: Moist Mucous Membranes Neck: Present: Normal Range of Motion Respiratory/Chest: Present: Clear to Auscultation, Good Air Exchange. No: Respiratory Distress, Accessory Muscle Use, Wheezes, Decreased Breath Sounds, Rales, Retracting, Rhonchi Cardiovascular: Present: Regular Rate and Rhythm, Normal S1, S2. No: Murmurs Abdomen: No: Tenderness, Distention, Peritoneal Signs Back: Present: Normal Inspection Upper Extremity: Present: Normal Inspection. No: Cyanosis, Edema Lower Extremity: Present: Normal Inspection. No: Edema Neurological: Present: GCS=15, CN II-XII Intact, Speech Normal Skin: Present: Warm, Dry, Normal Color. No: Rashes Psychiatric: Present: Alert, Oriented x 3, Normal Insight, Normal Concentration Medical Decision Making ED Course and Treatment: 08/23/17 23:25 72yo female with PMHX of ESRD on dialysis present with complaint of palpitation and elevated BP during dialysis Lab was ordered and reviewed. Cr of 3.3 was noted secondary to her h/o ESRD. Elevated TSH was noted, this could be causing pt's symptoms. she is not on any medication for hypothyroid. Dr. Rajan discussed lab result with both pt and the family by the bedside. She was hemodynamially stable in ED EKG NSR @ 84bpm. NSTEMI. 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 - Lab Interpretations Lab Results: 08/23/17 15:20 08/23/17 15:20 Lab Results 08/23/17 15:20: Thyroxine (T4) 6.3, T3 Uptake 29.9, TSH 3rd Generation 13.70 H 08/23/17 15:20: Sodium 141, Potassium 4.2, Chloride 96 L, Carbon Dioxide 33, Anion Gap 17, BUN 18, Creatinine 3.3 H, Est GFR ( Amer) 17, Est GFR (Non- Af Amer) 14, Random Glucose 135 H, Calcium 9.7, Total Bilirubin 0.7, AST 31, ALT 27, Alkaline Phosphatase 135 H, Lactate Dehydrogenase 587, Total Creatine Kinase 65, Troponin I < 0.01 D, NT-Pro-B Natriuret Pep 424, Total Protein 8.9 H , Albumin 4.7, Globulin 4.2, Albumin/Globulin Ratio 1.1 08/23/17 15:20: PT 11.0, INR 0.97, APTT 36.8 H 08/23/17 15:20: WBC 9.1, RBC 4.78, Hgb 14.9 D, Hct 43.6, MCV 91.2 D, MCH 31.2 , MCHC 34.2, RDW 12.8, Plt Count 257, MPV 10.8, Gran % 60.6, Lymph % (Auto) 31.8 , [place] % (Auto) 5.8, Eos % (Auto) 1.7, Baso % (Auto) 0.1, Gran # 5.49, Lymph # ( Auto) 2.9, [place] # (Auto) 0.5, Eos # (Auto) 0.2, Baso # (Auto) 0.01 - RAD Interpretation Radiology Orders: 08/23/17 15:05 CHEST PORTABLE [RAD] Stat - Medication Orders Current Medication Orders: Discontinued Medications Clonidine HCl (Catapres) 0.1 mg PO STAT STA Stop: 08/23/17 15:05 Last Admin: 08/23/17 15:13 Dose: 0.1 mg MAR Pulse and Blood Pressure Document 08/23/17 15:13 CHERIE (Rec: 08/23/17 15:13 CHERIE [id number]) Pulse Pulse Rate (60-90) 87 Blood Pressure Blood Pressure (100/60-150/90) 178/95 Disposition/Present on Arrival - Present on Arrival Any Indicators Present on Arrival: No History of DVT/PE: No History of Uncontrolled Diabetes: Yes Urinary Catheter: No History of Decub. Ulcer: No History Surgical Site Infection Following: None - Disposition Have Diagnosis and Disposition been Completed?: Yes Diagnosis: Essential (primary) hypertension, Palpitation Disposition: HOME/ ROUTINE Disposition Time: 16:50 Patient Plan: Discharge Condition: STABLE Discharge Instructions (ExitCare): High Blood Pressure in Adults, Palpitations (DC) Additional Instructions: Follow up with your doctor/Senior Datastage Developer Return to ED for any new or worsening symptoms Referrals: Marce Benson MD [Primary Care Provider] - Follow up with primary Forms: [employer] (Latvian)
[2017-08-23 15:38] LABS: BASO # 0.01 K/mm3 (0.0-2.0); BASO % 0.1 % (0.0-3.0); EOS # 0.2 (0.0-0.7); EOS % 1.7 % (1.5-5.0); GRAN # 5.49 (1.4-6.5); GRAN % 60.6 % (50.0-68.0); HEMOGLOBIN 14.9 g/dL (12.0-16.0); LYMPH # 2.9 (1.2-3.4); LYMPH % 31.8 % (22.0-35.0); MEAN CELL VOLUME 91.2 fl (80.0-105.0); MEAN CORPUSCULAR HEMOGLOBIN 31.2 pg (25.0-35.0); MEAN CORPUSCULAR HGB CONC 34.2 g/dl (31.0-37.0); MEAN PLATELET VOLUME 10.8 fl (7.0-11.0); MONO # 0.5 (0.1-0.6); MONO % 5.8 % (1.0-6.0); RBC 4.78 10^6/uL (3.5-6.1); RED CELL DISTRIBUTION WIDTH 12.8 % (11.5-14.5); WHITE BLOOD COUNT 9.1 10^3/ul (4.5-11.0)
--- NOTE | 2017-08-23 15:46 | RAD ---
HISTORY: Palpitation COMPARISON: 03/23/2017 FINDINGS: LUNGS: No active pulmonary disease. PLEURA: No significant pleural effusion identified, no pneumothorax apparent. CARDIOVASCULAR: Normal. OSSEOUS STRUCTURES: No significant abnormalities. VISUALIZED UPPER ABDOMEN: Normal. OTHER FINDINGS: Dialysis catheter IMPRESSION: No active disease.
[2017-08-23 15:53] LABS: ALB/GLOB RATIO 1.1 (1.1-1.8); ALBUMIN 4.7 g/dL (3.0-4.8); ALT/SGPT 27 U/L (7-56); AST/SGOT 31 U/L (14-36); BLOOD UREA NITROGEN 18 mg/dL (7-21); CALCIUM 9.7 mg/dL (8.4-10.5); GFR AFRICAN-AMERICAN 17; GFR NON-AFRICAN AMERICAN 14
[2017-08-23 16:00] LABS: INR 0.97 (0.93-1.08); PARTIAL THROMBOPLASTIN TIME 36.8 Seconds (25.1-36.5)
[2017-08-23 16:04] LABS: B-TYPE NATRIURETIC PEPTIDE 424 pg/mL (0-450); TROPONIN I < 0.01 ng/mL
[2017-08-23 16:44] VITALS: BP 138/66; PULSE 78; RESP 16
[2017-08-23 20:56] LABS: T3 UPTAKE 29.9 % (23.0-41.0); T4 6.3 ug/dL (5.5-11.0)
--- NOTE | 2017-08-23 22:18 | CARD ---
APPROVED REPORT EKG Measurement Heart [id number] WV [id number] <Conclusion> Normal sinus rhythm Normal ECG
== END 2017-08-23 17:17 | disposition home or self-care (01) ==
LOC: ED 14:38
DX: I12.0 Hypertensive chronic kidney disease with stage 5 chronic kidney disease or end stage renal disease (principal); E11.22 Type 2 diabetes mellitus with diabetic chronic kidney disease; N18.6 End stage renal disease; Z99.2 Dependence on renal dialysis; R00.2 Palpitations; I25.10 Atherosclerotic heart disease of native coronary artery without angina pectoris; Z95.5 Presence of coronary angioplasty implant and graft

== ENCOUNTER 2018-06-21 06:18 | Day surgery (SDC) | payer MEDICARE, MEDICAID ==
[2018-06-21 07:32] LABS: BASO # 0.01 {null, K/mm3} (0.0-2.0); BASO % 0.1 % (0.0-3.0); EOS # 0.1 (0.0-0.7); EOS % 1.6 % (1.5-5.0); HEMOGLOBIN 11.9 g/dL (12.0-16.0); LYMPH % 22.6 % (22.0-35.0); MEAN CELL VOLUME 95.9 fl (80.0-105.0); MEAN CORPUSCULAR HEMOGLOBIN 30.7 pg (25.0-35.0); MEAN CORPUSCULAR HGB CONC 32.1 g/dl (31.0-37.0); MEAN PLATELET VOLUME 10.9 fl (7.0-11.0); MONO # 0.4 (0.1-0.6); MONO % 4.6 % (1.0-6.0); RBC 3.87 {null, 10^6/uL} (3.5-6.1); RED CELL DISTRIBUTION WIDTH 13.7 % (11.5-14.5)
[2018-06-21] MEDS ORDERED: Lidocaine 1% Inj (20ml) ONE (07:37)
[2018-06-21] MEDS ORDERED: Thrombin Topical 20,000 Intl Units Spray Kit TOP ONE (07:37)
[2018-06-21] MEDS ORDERED: Bupivacaine 0.5% 50 ML IJ ONE ×2 (07:37→08:38)
[2018-06-21 07:46] LABS: CALCIUM 9.1 mg/dL (8.4-10.5)
[2018-06-21 07:48] LABS: INR 1.12; PARTIAL THROMBOPLASTIN TIME 33.5 Seconds (26.9-38.3); PROTHROMBIN TIME 12.7 SECONDS (9.4-12.5)
[2018-06-21] MEDS ORDERED: Propofol 10 mg/ml Inj (20 ML) ONE (07:55)
[2018-06-21] MEDS ORDERED: Midazolam 2 MG/2 ML VIAL ONE (07:56)
[2018-06-21] MEDS ORDERED: Rocuronium 10 mg/ml (5 ml) ONE (07:58)
[2018-06-21] MEDS ORDERED: Absorbable Gelatin Sponge Size 12-7 ONE (08:05)
[2018-06-21] MEDS ORDERED: CeFAZolin 1 gm in NS 100ml IVPB ONE (08:10)
[2018-06-21] MEDS ORDERED: Neostigmine Methylsulfate 3mg/3ml Syringe IV ONE (09:50)
[2018-06-21] MEDS ORDERED: Glycopyrrolate 0.2 mg/ml (2ml vial) ONE (09:51)
--- NOTE | 2018-06-21 10:15 | PCM.SURG1 ---
Surgeon's Initial Post Op Note - Surgeon's Notes Surgeon: Dr. Daniel Grounds/Maintenance Specialist: Dr. Gill [id number] Type of Anesthesia: General Endo Anesthesia Administered By: Dr. Benson Pre-Operative Diagnosis: ESRD Operative Findings: see operative report Post-Operative Diagnosis: same Operation Performed: left radiocephalic AVF. left arm vein mapping Specimen/Specimens Removed: none Estimated Blood Loss: EBL {In ML}: 5 Blood Products Given: N/A Drains Used: No Drains Post-Op Condition: Good Date of Surgery/Procedure: 06/21/18 Time of Surgery/Procedure: 07:45
[2018-06-21] MEDS ORDERED: HYDROmorphone 0.5 mg/0.5 ml ISec IVP PRN (10:27)
[2018-06-21 11:10] VITALS: O2SAT 99
[2018-06-21 11:23] VITALS: BMI 30.9
[2018-06-21 11:39] VITALS: BP 138/72; PULSE 72; RESP 20; TEMP 98.2
--- NOTE | 2018-06-25 14:32 | PCM.OP ---
Operative Report - Operative Report Date of Surgery/Procedure: 06/21/18 Time of Surgery/Procedure: 08:00 Surgeon: Dr. Daniel Cardiac Cath Tech: Dr. Gill PGY3 Anesthesia/Sedation: Dr. Benson Pre-Operative Diagnosis: ESRD, HTN, DM2, GERD 2/2 hiatal hernia, hypothyroid, hyperlipidemia Post-Operative Diagnosis: same Indication for Surgery: 72F with PMHx of HTN, DM2, GERD 2/2 hiatal hernia, hypothyroid, HLD with worsening kidney function, in need of AVF creation for hemodialysis. Operative Findings: see operative report Procedure/Operation Description: After informed consent was obtained, the patient was taken to the operating room. The patient was placed in the supine position. The patient received general anesthesia. A time out was carried out to identify correct patient, procedure, and laterality. The left arm was prepped and draped in the usual sterile fashion. We made a small transverse incision in the left anterior wrist region. The cephalic vein was identified and mobilized. The fascia was incised, and the radial artery was also identified and mobilized. The radial artery was free off significant disease. A good pulse was noted. The cephalic vein was mobilized proximally and distally. The radial artery was mobilized proximally and distally. We gave 5000u of heparin. The radial artery was then clamped proximally and distally. The cephalic vein was also clamped proximally and distally. A longitudinal arteriotomy was made in the left radial artery, and a transverse venotomy was made in the cephalic vein. We then sewn the vein to the artery in a end to side fashion using a running Prolene suture. Just prior to completion of the anastomosis, it was flushed, and the anastomosis was then completed. A great thrill remained in the fistula. Hemostasis was secured. We then closed the wound using interrupted vicryl sutures for the subcutaenous fascia and a running 4-0 Monocryl subcuticular suture for the skin. Dermabond applied to surgical incision site. The patient tolerated the procedure well. There were no operative complications. The sponge, instrument, and needle counts were correct at the end of the case. The patient was then transferred to the recovery room in satisfactory condition. A great thrill was felt in the fistula completion. There was also a palpable radial pulse distally. Estimated Blood Loss: 5 Blood Replaced: N/A Sponge/Instrument Count: All counts correct Drains: none Complications: none Specimen: none Discharge & Condition: No intra operative complications noted. Patient in stable condition in PACU. Will be discharged home. She will follow up in a week in surgery clinic office.
== END 2018-06-21 16:20 | disposition home or self-care (01) ==
LOC: SDS 06:18
PROVIDERS: ATTEND General Practice
DX: I12.0 Hypertensive chronic kidney disease with stage 5 chronic kidney disease or end stage renal disease (principal); N18.6 End stage renal disease; E11.22 Type 2 diabetes mellitus with diabetic chronic kidney disease; I25.10 Atherosclerotic heart disease of native coronary artery without angina pectoris; E03.9 Hypothyroidism, unspecified; E78.5 Hyperlipidemia, unspecified; K21.9 Gastro-esophageal reflux disease without esophagitis; K44.9 Diaphragmatic hernia without obstruction or gangrene; E66.9 Obesity, unspecified
CPT/HCPCS: 36415; 36821; 80048; 85025; 85610; 85730; J0690; J1170; J1644; J2001; J2250; J2405; J2704; J2710; J2765; J3010; J7120